=== PATIENT | male | born 1980 | race Caucasian/White ===

== ENCOUNTER 2017-12-27 02:58 | Emergency (ER) | payer OTHER ==
[~2017-12-27] VITALS: Ht 182.9 cm; Wt 120.2 kg
[~2017-12-27 02:58] MED LIST: DILAUDID2 MG PO; DILAUDID4 MG PO; FLEXERIL10 MG PO; LYRICA75 MG PO; MEDROL4 M1 PO
[2017-12-27] MEDS ORDERED: CLONIDINE HCL0.1 MG (03:14)
[2017-12-27] MEDS ORDERED: PANTOPRAZOLE SO20 MG PO (03:15)
[2017-12-27] MEDS ORDERED: PERCOCET 5-3251 EACH (03:21)
== END 2017-12-27 03:37 | disposition home or self-care (01) ==
LOC: ED 02:58
DX: M54.5 Low back pain (principal); Z87.891 Personal history of nicotine dependence; Z79.899 Other long term (current) drug therapy
CPT/HCPCS: 99282

== ENCOUNTER 2018-01-23 11:28 | Emergency (ER) | payer OTHER ==
[~2018-01-23] VITALS: Ht 182.9 cm; Wt 108.9 kg
[~2018-01-23 11:28] MED LIST changes: +CLONIDINE HCL0.1 MG; +PANTOPRAZOLE SO20 MG PO; +PERCOCET 5-3251 EACH
[2018-01-23] MEDS ORDERED: AMBIEN10 MG PO (12:08)
== END 2018-01-23 17:49 | disposition home or self-care (01) ==
LOC: ED 11:28
DX: Z00.8 Encounter for other general examination (principal); Z87.891 Personal history of nicotine dependence; Z79.899 Other long term (current) drug therapy
CPT/HCPCS: 80053; 80176; 81001; 84443; 85025; 99283; G0480

== ENCOUNTER 2018-06-28 12:43 | Emergency (ER) | payer MEDICARE ==
[~2018-06-28] VITALS: Ht 182.9 cm; Wt 117.9 kg
[~2018-06-28 12:43] MED LIST changes: +AMBIEN10 MG PO
== END 2018-06-28 16:47 | disposition home or self-care (01) ==
LOC: ED 12:43
DX: G89.29 Other chronic pain (principal); M54.5 Low back pain; R45.1 Restlessness and agitation; Z79.899 Other long term (current) drug therapy
CPT/HCPCS: 80053; 80176; 81001; 85025; 87077; 87088; 87186; 96374; 99283; G0480; J1170

== ENCOUNTER 2018-12-18 08:32 | Emergency (ER) | payer OTHER ==
[~2018-12-18] VITALS: Ht 182.9 cm; Wt 108.0 kg
[~2018-12-18 08:32] MED LIST changes: -AMBIEN10 MG PO; +AMBIEN5 MG PO; +CATAPRES0.1 MG PO; -CLONIDINE HCL0.1 MG; +CLONIDINE HCL0.1 MG PO; +COLACE100 MG PO; +CYCLOBENZAPRINE10 MG PO; +CYMBALTA60 MG PO; +MAPAP325 MG PO; +OXYCODONE HCL10 MG PO; -PANTOPRAZOLE SO20 MG PO; +PANTOPRAZOLE SO40 MG PO; -PERCOCET 5-3251 EACH; +SEROQUEL25 MG PO; +SEROQUEL400 MG PO
--- OUTSIDE RECORDS SUMMARY | 2018-12-18 08:34 | XMS ---
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 Landy VISIT COUNT (12 MO.) 2 Tammy Desir TOTAL 7 NOTE: Visits indicate total known visits. ED/UCC VISIT TRACKING (12 MO.) 12/18/2018 08:33 [facility] COMPLAINT: - ABD PAIN 10/09/2018 12:39 [facility] [place] TYPE: Emergency DIAGNOSES: - Back Pain - Fall (on) (from) other stairs and steps, initial encounter - Arthrodesis status - Contusion of left back wall of thorax, initial encounter - severe back pain 08/08/2018 15:26 [facility] Paula Macedo [place] TYPE: Emergency DIAGNOSES: - Procedure and treatment not carried out due to patient leaving prior to being seen by health care provider - post op abd pain 08/06/2018 11:47 [facility] [place] TYPE: Emergency COMPLAINT: - ABD PAIN,BILAT NUMBNESS 06/28/2018 12:43 [facility] [place] TYPE: Emergency COMPLAINT: - MEDICAL CLEARANCE DIAGNOSES: - Low back pain - Restlessness and agitation - Encounter for other general examination - 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 - Encounter for other general examination - Other chronic pain 01/23/2018 11:28 [facility] [place] TYPE: Emergency COMPLAINT: - MEDICAL CLEARANCE DIAGNOSES: - Other shelter (current) drug therapy - Personal history of nicotine dependence - Encounter for other general examination 12/27/2017 02:59 [facility] [place] TYPE: Emergency COMPLAINT: - BACK PAIN,NO RECENT INJURY DIAGNOSES: - Personal history of nicotine dependence - 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
[2018-12-18] MEDS ORDERED: ONDANSETRON ODT4 MG PO (12:23)
== END 2018-12-18 12:30 | disposition home or self-care (01) ==
LOC: ED 08:32
DX: R10.9 Unspecified abdominal pain (principal); R11.10 Vomiting, unspecified; Z79.899 Other long term (current) drug therapy
CPT/HCPCS: 74176; 80048; 81001; 85025; 96361; 96374; 96375; 96376; 99284-25; J0780; J1170; J1885; J2405; J2550; J7030

== ENCOUNTER 2019-04-09 15:25 | Emergency (ER) | payer OTHER ==
[~2019-04-09] VITALS: Ht 182.9 cm; Wt 99.8 kg
[~2019-04-09 15:25] MED LIST changes: +ONDANSETRON ODT4 MG PO
--- OUTSIDE RECORDS SUMMARY | 2019-04-09 15:28 | XMS ---
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 Care History Medical/Surgical 12/19/2018 [facility] - PATIENT IS A [place] PATIENT- PATIENT PCP IS DR SINGH OUT OF [facility]. - WALK IN AVAILABILITY IS OFFERED AT [facility] MONDAY THRU MONDAY AND TRANSPORTATION CAN BE PROVIDED TO VETERANS. - PLEASE REFER PATIENT TO PCP FOR NON EMERGENT MEDICAL NEEDS. E.D. VISIT COUNT (12 MO.) 1 Tammy Pond M.C. 2 [place]ia Herrera M.C. 4 MANUEL [place] Nichole TOTAL 7 NOTE: Visits indicate total known visits. ED/UCC VISIT TRACKING (12 MO.) 04/09/2019 15:25 [facility] [place] TYPE: Emergency COMPLAINT: - EYE PAIN 03/29/2019 17:07 Tammy Dubon M.C[facility] TYPE: Emergency DIAGNOSES: - Strain of adductor muscle, fascia and tendon of left thigh, initial encounter - Scrotal varices - Testicle Injury 12/18/2018 08:33 [facility] TYPE: Emergency COMPLAINT: - ABD PAIN DIAGNOSES: - Other penitentiary (current) drug therapy - Vomiting, unspecified - Unspecified abdominal pain 10/09/2018 12:39 [facility] DIAGNOSES: - Back Pain - Fall (on) (from) other stairs and steps, initial encounter - Arthrodesis status - Contusion of left back wall of thorax, initial encounter - severe back pain 08/08/2018 15:26 [facility] DIAGNOSES: - Procedure and treatment [...] Encounter for other general examination - Other manager intermediate (current) drug therapy - Encounter for other general examination - Other chronic pain INPATIENT VISIT TRACKING (12 MO.) 03/27/2019 13:35 [facility] [place] TYPE: Psychiatric Services DIAGNOSES: 0. Post-traumatic stress disorder, unspecified 0. Opioid dependence, uncomplicated 08/06/2018 11:[address] 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
== END 2019-04-09 16:50 | disposition left against medical advice (07) ==
LOC: ED 15:25
DX: H57.10 Ocular pain, unspecified eye (principal); Z53.21 Procedure and treatment not carried out due to patient leaving prior to being seen by health care provider

== ENCOUNTER 2019-07-01 20:04 | Emergency (ER) | payer OTHER ==
[~2019-07-01] VITALS: Ht 182.9 cm; Wt 108.9 kg
--- OUTSIDE RECORDS SUMMARY | 2019-07-01 20:06 | XMS ---
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 CRITERIA MET - Group Notification - [facility] - Has Care Guidelines CARE PROVIDERS CONI SINGH [facility] 06/29/2018-Current PHONE: Unknown Coni Singh MD Primary Care Current PHONE: [phone] Hue has no Care Guidelines for this patient. Care History Medical/Surgical 12/19/2018 [facility] - PATIENT IS A [place] PATIENT- PATIENT PCP IS DR SINGH OUT OF [facility]. - WALK IN AVAILABILITY IS OFFERED AT THE [facility] MONDAY THRU MONDAY AND TRANSPORTATION CAN BE PROVIDED TO VETERANS. - PLEASE REFER PATIENT TO PCP FOR NON EMERGENT MEDICAL NEEDS. E.D. VISIT COUNT (12 MO.) 1 Tammy Pond M.C. 2 Barclaynatalia Herrera M.C. 4 MANUEL Desir TOTAL 7 NOTE: Visits indicate total known visits. ED/UCC VISIT TRACKING (12 MO.) 07/01/2019 20:04 [facility] TYPE: Emergency COMPLAINT: - TESTICULAR PAIN 04/09/2019 15:25 [facility] TYPE: Emergency COMPLAINT: - EYE PAIN DIAGNOSES: - Procedure and treatment not carried out due to patient leaving prior to being seen by health care provider - Ocular pain, unspecified eye 03/29/2019 17:07 [facility] MONY Macedo TYPE: Emergency DIAGNOSES: - Strain of adductor muscle, fascia and tendon of left thigh, initial encounter - Scrotal varices - Testicle Injury 12/18/2018 08:33 [facility]: Emergency COMPLAINT: - ABD PAIN DIAGNOSES: - Other alf (current) drug therapy - Vomiting, unspecified - Unspecified abdominal pain 10/09/2018 12:39 [facility] [place] TYPE: Emergency DIAGNOSES: - Back Pain - Fall (on) (from) other stairs and steps, initial encounter - Arthrodesis status - Contusion of left back wall of thorax, initial encounter - severe back pain 08/08/2018 15:26 [place] [facility] [place] TYPE: Emergency DIAGNOSES: - Procedure and treatment not carried out due to patient leaving prior to being seen by health care provider - post op abd pain 08/06/2018 11:47 MANUEL Tran TYPE: Emergency COMPLAINT: - ABD PAIN,BILAT NUMBNESS INPATIENT VISIT TRACKING (12 MO.) 03/27/2019 13:35 [facility] [place] TYPE: Psychiatric Services DIAGNOSES: 0. Post-traumatic stress disorder, chronic 0. Post-traumatic stress disorder, unspecified 0. Opioid dependence, uncomplicated 1. Post-traumatic stress disorder, chronic 2. Radiculopathy, lumbar region 2. Other place in hospital as the place of occurrence of the external cause 2. Other external cause status 2. Exposure to other specified factors, initial encounter 2. Other chronic pain 2. Major depressive disorder, single episode, unspecified 2. Strain of adductor muscle, fascia and tendon of unspecified thigh, initial encounter 2. Low back pain 2. 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
== END 2019-07-01 20:56 | disposition left against medical advice (07) ==
LOC: ED 20:04
DX: N50.812 Left testicular pain (principal); Z79.899 Other long term (current) drug therapy
CPT/HCPCS: 81001; 99284

== ENCOUNTER 2019-07-04 19:13 | Emergency (ER) | payer OTHER ==
[~2019-07-04] VITALS: Ht 182.9 cm; Wt 108.9 kg
--- OUTSIDE RECORDS SUMMARY | 2019-07-04 19:16 | XMS ---
PreManage Notification: ROBERT STOCK Security Care Program Resident Events 2 event(s) in the past 18 months Most recent security events: Elopement at [facility] 07/01/2019 20:04 - Other Details: PATIENT LEFT AMA. IRIS CREATED Elopement at [facility] 04/09/2019 15:25 - Other Details: PATIENT LWBS. CRITERIA MET - Group Notification - [facility] - Has Care Guidelines - [facility] - 2 Visits in 30 Days CARE PROVIDERS CONI SINGH Family Medicine 06/29/2018-Current PHONE: Unknown Coni Singh MD Primary Care Current PHONE: [phone] Hue has no Care Guidelines for this patient. Care History Medical/Surgical 12/19/2018 [facility] - PATIENT IS A [place] PATIENT- PATIENT PCP IS DR SINGH OUT OF [facility]. - WALK IN AVAILABILITY IS OFFERED AT THE [facility] MONDAY THRU MONDAY AND TRANSPORTATION CAN BE PROVIDED TO VETERANS. - PLEASE REFER PATIENT TO PCP FOR NON EMERGENT MEDICAL NEEDS. E.D. VISIT COUNT (12 MO.) [address] [place] 2 [facility] 5 MANUEL Desir TOTAL 8 NOTE: Visits indicate total known visits. ED/UCC VISIT TRACKING (12 MO.) 07/04/2019 19:14 [facility] TYPE: Emergency COMPLAINT: - BACK PAIN 07/01/2019 20:04 [facility] TYPE: Emergency COMPLAINT: - TESTICULAR PAIN DIAGNOSES: - Left testicular pain - Other custodial (current) drug therapy 04/09/2019 15:25 [facility] TYPE: Emergency COMPLAINT: - EYE PAIN DIAGNOSES: - Procedure and treatment not carried out due to patient leaving prior to being seen by health care provider - Ocular pain, unspecified eye 03/29/2019 17:07 [facility] MONY Macedo TYPE: Emergency DIAGNOSES: - Strain of adductor muscle, fascia and tendon of left thigh, initial encounter - Scrotal varices - Testicle Injury 12/18/2018 08:33 [facility] TYPE: Emergency COMPLAINT: - ABD PAIN DIAGNOSES: - Other custodial (current) drug therapy - Vomiting, unspecified - Unspecified abdominal pain 10/09/2018 12:39 [facility] [place]: Emergency DIAGNOSES: - Back Pain - Fall (on) (from) other stairs and steps, initial encounter - Arthrodesis status - Contusion of left back wall of thorax, initial encounter - severe back pain 08/08/2018 15:26 [facility] [place] TYPE: Emergency DIAGNOSES: - Procedure and treatment not carried out due to patient leaving prior to being seen by health care provider - post op abd pain 08/06/2018 11:47 MANUEL Tran TYPE: Emergency COMPLAINT: - ABD PAIN,BILAT NUMBNESS INPATIENT VISIT TRACKING (12 MO.) 03/27/2019 13:35 [facility] [place] TYPE: Psychiatric Services DIAGNOSES: 0. 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
[2019-07-04] MEDS ORDERED: CIPRO500 MG PO (20:11)
== END 2019-07-04 20:23 | disposition home or self-care (01) ==
LOC: ED 19:13
DX: N45.1 Epididymitis (principal); Z79.899 Other long term (current) drug therapy
CPT/HCPCS: 99283

== ENCOUNTER 2019-09-17 23:20 | Emergency (ER) | payer OTHER ==
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
--- OUTSIDE RECORDS SUMMARY | ~2019-09-17 | XMS | Encounter Summary ---
Demographics + + + | Address | [address] | | | [place] [address] | + + + | Home Phone | | + + + | Preferred Language | Unknown | + + + | Marital Status | Legally | + + + | Anabaptism Affiliation | Unknown | + + + | Race | Unknown | + + + | Ethnic Group | Unknown | + + + Author + + + | Author | [facility] | | | and [place] | + + + | Organization | [facility] | | | and [place] [...] [place], [place] | | | | | [address] | | + + + + + Care Team Providers + +------+ + | Care Rv Repairer Name | Role | Phone | + +------+ + | Basilio Cuevas PA-C | PCP | | + +------+ + Reason for Visit + + + | Reason | Comments | + + + | Follow-up | PO discuss medications | + + + Encounter Details +--------+---------+ + + + | Date | Type | Department | Care Team | Description | +--------+---------+ + + + | 03/17/ | Office | [facility] | Toribio Dick, | Pseudoarthrosis of | | 2013 | Visit | NEUROSURGERY [address] | PA-C [address] | lumbar spine, with | | | | [address] | [place] | routine healing, | | | | [place], [place] | [address] | subsequent encounter | | | | [address] | | (Primary Dx); S/P | | | | [phone] | | lumbar fusion; | | | | | | Lumbar radicular | | | | | | pain | +--------+---------+ + + + Social History + + + +--------+ + | Tobacco Use | Types | Packs/Day | Years | Date | | | | | Used | | + + + +--------+ + | Former Smoker | Cigarettes | 0.5 | 1 | Quit: 01/20/2014 | + + + +--------+ + + +---+---+---+ | Smokeless Tobacco: | | | | | Never Used | | | | + +---+---+---+ + + +---------+ + | Alcohol Use [...] + + + | Blood Pressure | 128/103 | 03/17/2014 11:26 AM | | | | | PDT | | + + + + + | Pulse | 101 | 03/17/2014 11:26 AM | | | | | PDT | | + + + + + | Temperature | - | - | | + + + + + | Respiratory Rate | 14 | 03/17/2014 11:26 AM | | | | | PDT | | + + + + + | Oxygen Saturation | - | - | | + + + + + | Inhaled Oxygen | - | - | | | Concentration | | | | + + + + + | Weight | 106.1 kg (234 lb) | 03/17/2014 11:26 AM | | | | | PDT | | + + + + + | Height | 182.9 cm (6') | 03/17/2014 11:26 AM | | | | | PDT | | + + + + + | Body Mass Index | 31.74 | 03/17/2014 11:26 AM | | | | | PDT | | + + + + + documented in this encounter Patient Instructions Patient Instructions Toribio Dick PA-C - 03/17/2014 11:44 AM PDTPlease work on taperi ng down your medications next week.Electronically signed by Toribio Dick PA-C at 2013 11:44 AM PDT documented in this encounter Progress Notes Toribio Dick PA-C - 03/17/2014 11:46 AM PDTPatient here for medications refill and to discuss the weaning process. Patient has been very successful weaning off medications prio r to surgery, but he started PT last week and is feeling tender. A/p: S/p lumbar fusion Medications refilled today with plan to taper medications next week Pt report that he has d/c'd Valium.Electronically signed by Toribio Dick PA-C at 03/17 11:49 AM PDTdocumented in this encounter Plan of Treatment Not on filedocumented as of this encounter Visit Diagnoses + + | Diagnosis | + + | Pseudoarthrosis of lumbar spine, with routine healing, subsequent encounter - Primary | + + | S/P lumbar fusion Arthrodesis status | + + | Lumbar radicular pain Thoracic or lumbosacral neuritis or radiculitis, unspecified | + + documented in this encounter"
--- OUTSIDE RECORDS SUMMARY | ~2019-09-17 | XMS | Encounter Summary ---
Demographics + + + | Address | [address] | | | [place] [address] | + + + | Home Phone | | + + + | Preferred Language | Unknown | + + + | Marital Status | Legally | + + + | Bahai Affiliation | Unknown | + + + | Race | Unknown | + + + | Ethnic Group | Unknown | + + + Author + + + | Author | [facility] | | | and [place] | + + + | Organization | [facility] | | | and [place] [...] [place], [place] | | | | | [address] | | + + + + + Care Team Providers + +------+ + | Care Inspector Motor Vehicles Name | Role | Phone | + +------+ + | Basilio Cuevas PA-C | PCP | | + +------+ + Encounter Details +--------+ + + + + | Date | Type | Department | Care Team | Description | +--------+ + + + + | 04/20/ | Hospital | [facility] | Conversion | Pain | | 2018 | Encounter | CONVERSION [address] | Transaction, | | | | | [address] | Provider Unknown | | | | | [place] | [phone] | | | | | [address] | | | | | | [phone] | | | +--------+ + + + + Social History + + [...] + + documented as of this encounter Medications at Time of Discharge + + + +---------+ + + | Medication | Sig | Dispensed | Refills | Start | End Date | | | | | | Date | | + + + +---------+ + + | cloNIDine | clonidine HCl 0.1 mg | | 0 | 02/06/20 | | | (CATAPRES) 0.1 mg | tablet 0.5 mg by | | | 18 | | | tablet | oral route. | | | | | + + + +---------+ + + | cyanocobalamin | Take 1 tablet by | 30 | 0 | 11/08/19 | | | (VITAMIN B-12) 1000 | mouth Daily. | tablet | | 15 | | | MCG tablet | | | | | | + + + +---------+ + + | folic acid | Take 1 tablet by | 30 | 0 | 11/08/19 | | | (FOLVITE) 400 MCG | mouth Daily. | tablet | | 15 | | | tablet | | | | | | + + + +---------+ + + | | Take 1-2 tablets by | 15 | 0 | 11/08/19 | | | HYDROcodone-acetamin | mouth every 6 hours | tablet | | 15 | | | ophen (NORCO) 5-325 | as needed for Pain. | | | | | | mg per tablet | | | | | | + + + +---------+ + + | pantoprazole | pantoprazole 40 mg | | 0 | 11/08/19 | | | (PROTONIX) 40 mg | tablet,delayed | | | 15 | | | tablet | release 40 mg by | | | | | | | oral route. | | | | | + + + +---------+ + + | pantoprazole | Take 1 tablet by | 60 | 0 | 11/08/19 | | | (PROTONIX) 40 mg | mouth 2 times daily | tablet | | 15 | | | tablet | (before meals). | | | | | + + + +---------+ + + | QUEtiapine | Seroquel 400 mg | | 0 | 03/01/20 | | | (SEROQUEL) 400 MG | tablet 200 mg by | | | 18 | | | tablet | oral route. | | | | | + + + +---------+ + + documented as of this encounter Plan of Treatment Not on filedocumented as of this encounter Procedures + +--------+ + + + | Procedure Name | Priori | Date/Time | Associated Diagnosis | Comments | | | ty | | | | + +--------+ + + + | MRI LUMBAR SPINE W | Routin | 10/31/2017 | | Results for this | | WO CONTRAST | e | 4:51 AM | | procedure are in the | | | | PST | | results section. | + +--------+ + + + documented in this encounter Results MRI Lumbar Spine w wo Contrast (10/31/2017 4:51 AM PST) + + | Specimen | + + | | + + + + + | Narrative | Performed At | + + + | This is a non-reportable procedure without a radiologist report and | | | is used for image storage only | | + + + + + | Procedure Note | + + | Charan Waldrop - 06/12/2019 7:51 AM PDT This is a non-reportable procedure | | without a radiologist report and isused for image storage only | + + documented in this encounter Visit Diagnoses + + | Diagnosis | + + | Pain Generalized pain | + + documented in this encounter"
--- OUTSIDE RECORDS SUMMARY | ~2019-09-17 | XMS | Encounter Summary ---
Demographics + + + | Address | [address] | | | [place] [address] | + + + | Home Phone | | + + + | Preferred Language | Unknown | + + + | Marital Status | Legally | + + + | Episcopalian Affiliation | Unknown | + + + | Race | Unknown | + + + | Ethnic Group | Unknown | + + + Author + + + | Author | [facility] | | | and [place] | + + + | Organization | [facility] | | | and [place] [...] [place], [place] | | | | | [address] | | + + + + + Care Team Providers + +------+ + | Care Strategic Sourcing Manager Name | Role | Phone | + +------+ + | Mynor Simental MD | PCP | | + +------+ + Reason for Visit + + + | Reason | Comments | + + + | Back Pain | follow up | + + + | Medication | follow up on pain med | | Management | | + + + | Flu Vaccine | | + + + Encounter Details +--------+---------+ + + + | Date | Type | Department | Care Team | Description | +--------+---------+ + + + | 08/29/ | Office | [facility] | Mynor Simental, | Chronic low back | | 2012 | Visit | [facility] | [address] | pain (Primary Dx) | | | | [address] | [place] | | | | | [place] | [address] | | | | | [address] | | | | | | [phone] | | | +--------+---------+ + + + Social History + + + +--------+------+ | Tobacco Use | Types | Packs/Day | Years | Date | | | | | Used | | + + + +--------+------+ | Current Every Day | Cigarettes | 1 | 1 | | | Smoker | [...] + + + | Blood Pressure | 140/78 | 08/29/2013 2:56 PM | | | | | PDT | | + + + + + | Pulse | 85 | 08/29/2013 2:56 PM | | | | | PDT | | + + + + + | Temperature | 36.9 C (98.5 F) | 08/29/2013 2:56 PM | | | | | PDT | | + + + + + | Respiratory Rate | 16 | 08/29/2013 2:56 PM | | | | | PDT | | + + + + + | Oxygen Saturation | - | - | | + + + + + | Inhaled Oxygen | - | - | | | Concentration | | | | + + + + + | Weight | 115 kg (253 lb 8 oz) | 08/29/2013 2:56 PM | | | | | PDT | | + + + + + | Height | - | - | | + + + + + | Body Mass Index | 34.38 | 08/19/2013 1:57 PM | | | | | PDT | | + + + + + documented in this encounter Progress Notes Mynor Simental MD - 08/29/2013 3:16 PM PDTFormatting of this note might be different fr om the original. Subjective: Patient ID: Fili Alonso is a 32 y.o. male here to follow-up on back pain. HPI He continues to have low back pain which radiates to his "sacrum." Worse in the morning de scribed as an "ache, really bad burn" which can become sharp. He is taking ibuprofen - he i s unsure how much - though sometimes 5-6 times per day. No saddle paresthesias, bowel/bladd er dysfunction, LE paresthesias. He is not interested in trying TCA's, gabapentin, Lyrica, Tramadol. He is adamant he needs something stronger. When asked if he is taking anything s tronger, he informs me he is not. When asked about his U-tox result, he does recall taking left over hydrocodone. He apologizes for forgetting to mention this at our last visit. Patient's medications, allergies, past medical, surgical, social and family histories were reviewed and updated as appropriate. Review of Systems See HPI BP 140/78 | Pulse 85 | Temp 36.9 C (98.5 F) (Temporal) | Resp 16 | Wt 114.987 kg (253 l b 8 oz) Objective: Physical Exam Constitutional: He appears well-developed and well-nourished. No distress. Musculoskeletal: Symmetric LE strength. Able to squat. Neurological: Gait from building to truck normal. Assessment: Fili was seen today for back pain, medication management and flu vaccine. Diagnoses and associated orders for this visit: Chronic low back pain: History of laminectomy. He reports that [facility] attributed his pain to hardware and the plan was for the hardware to be removed. I do not yet have outside records. He has appointment with Dr Amaya scheduled. I do not have o utside records to confirm this. No symptoms of cauda equina. - I explained that given his u-tox result and lack of forthcoming I would not prescribed n arcotics for his chronic pain. I offered numerous non-narcotic alternatives (TCA's, gabapen tin, Lyrica, PT) and did even offer tramadol. He declined them all, stating they have all f mimi in the past. He was frustrated that I would not prescribe narcotics, but was polite t hroughout the entire visit. Osito Simental MD Kristen Carroll Mas [address] Superfeedr - 08/29/2013 2:59 PM PDTPatient is here to follow up on back pain and is reques ting medication to help with pain. He would like a flu vaccine today. documented in this encounter Plan of Treatment Not on filedocumented as of this encounter Visit Diagnoses + + | Diagnosis | + + | Chronic low back pain - Primary Lumbago | + + documented in this encounter
--- OUTSIDE RECORDS SUMMARY | ~2019-09-17 | XMS | Encounter Summary ---
Demographics + + + | Address | [address] | | | [place] [address] | + + + | Home Phone | | + + + | Preferred Language | Unknown | + + + | Marital Status | Legally | + + + | Adventism Affiliation | Unknown | + + + | Race | Unknown | + + + | Ethnic Group | Unknown | + + + Author + + + | Author | [facility] | | | and [place] | + + + | Organization | [facility] | | | and [place] [...] [place], [place] | | | | | [address] | | + + + + + Care Team Providers + +------+ + | Care Cdl Company Driver Name | Role | Phone | + +------+ + | Mynor Simental MD | PCP | | + +------+ + Encounter Details +--------+ + + + + | Date | Type | Department | Care Team | Description | +--------+ + + + + | 08/19/ | Hospital | [facility] | Judah Garcia MD | Chronic low back | | 2012 | Encounter | [facility] | [address] [place] [address] | pain | | | | [address] [place] | [place] | | | | | [place], [place] | [address] | | | | | [address] | | | | | | [phone] | Mynor Simental, | | | | | | [address] | | | | | | [place] | | | | | | [address] | | | | | | | | +--------+ + + + [...] | + +--------+ + + + | DRUGS OF ABUSE, | Routin | 08/19/2013 | | Results for this | | OPIATES, COMPLIANCE | e | 4:08 PM | | procedure are in the | | TESTING | | PDT | | results section. | + +--------+ + + + | DRUGS OF ABUSE, | Routin | 08/19/2013 | Chronic low back | Results for this | | OPIATES, COMPLIANCE | e | 4:08 PM | pain | procedure are in the | | TESTING | | PDT | | results section. | + +--------+ + + + | DRUGS OF ABUSE, | Routin | 08/19/2013 | | Results for this | | SCREEN, URINE | e | 4:08 PM | | procedure are in the | | | | PDT | | results section. | + +--------+ + + + | DRUGS OF ABUSE, | Routin | 08/19/2013 | Chronic low back | Results for this | | SCREEN, URINE | e | 4:08 PM | pain | procedure are in the | | | | PDT | | results section. | + +--------+ + + + documented in this encounter Results Drugs of Abuse, Opiates, Compliance Testing (08/19/2013 4:08 PM PDT) + + + + + + | Component | Value | Ref Range | Performed | Pathologist | | | | | At | Signature | + + + + + + | CODEINE, | NegativeComment: Cutoff: | NEG ng/mL | [facility] | | | GC/MS | 75 ng/mL | | [facility] | | | | | | MEDICAL | | | | | | CENTER - | | | | | | LABORATORY | | + + + + + + | Morphine | NegativeComment: Cutoff: | NEG ng/mL | [facility] | | | Urine | 75 ng/mL | | [facility] | | | | | | MEDICAL | | | | | | CENTER - | | | | | | LABORATORY | | + + + + + + | Hydrocodone | Positive (H) | NEG ng/mL | [facility] | | | | Comment: | | [facility] | | | | RESULT: 127 | | MEDICAL | | | | Cutoff: 75 ng/mL | | CENTER - | | | | | | LABORATORY | | + + + + + + | Hydromorpho | Positive (H) | NEG ng/mL | [facility] | | | ne | Comment: | | [facility] | | | | RESULT: 305 | | MEDICAL | | | | Cutoff: 75 ng/mL | | CENTER - | | | | | | LABORATORY | | + + + + + + | OXYCODONE | NegativeComment: Cutoff: | NEG ng/mL | [facility] | | | (GC/MS) | 75 ng/mL | | [facility] | | | | | | MEDICAL | | | | | | CENTER - | | | | | | LABORATORY | | + + + + + + | Oxymorphone | NegativeComment: Cutoff: | NEG ng/mL | [facility] | | | LCMS | 75 ng/mL | | [facility] | | | | | | MEDICAL | | | | | | CENTER - | | | | | | LABORATORY | | + + + + + + | 6-ERAN, | NegativeComment: Cutoff: | () ng/mL | [facility] | | | Confirm, | 10 ng/mL Testing | | [facility] | | | Urine | Performed: [facility] | | MEDICAL | | | | [address] [place] | | CENTER - | | | | [id number] CLIA: [id number] | | LABORATORY | | | | | | | | + + + + + + + + | Specimen | + + | | + + + + + + + | Performing | Address | City/State/Zipcode | Phone Number | | Organization | | | | + + + + + | [facility] | [address] | [place] | [phone] | | [facility] | | [address] | | | - LABORATORY | | | | + + + + + | [facility] | [address] | [place], [place] | | | [facility] | | [address] | | | - LABORATORY | | | | + + + + + Drugs of Abuse, Screen, Urine (08/19/2013 4:08 PM PDT) + + + + + + | Component | Value | Ref Range | Performed | Pathologist | | | | | At | Signature | + + + + + + | Amphetamine | NEGATIVE | NEGATIVE | [facility] | | | Screen, | | | [facility] | | | Urine | | | MEDICAL | | | | | | CENTER - | | | | | | LABORATORY | | + + + + + + | Barbiturate | NEGATIVE | NEGATIVE | [facility] | | | s Screen, | | | [facility] | | | Urine | | | MEDICAL | | | | | | CENTER - | | | | | | LABORATORY | | + + + + + + | Benzodiazep | NEGATIVE | NEGATIVE | [facility] | | | yosef | | | [facility] | | | Screen, | | | MEDICAL | | | Urine | | | CENTER - | | | | | | LABORATORY | | + + + + + + | Cannabinoid | NEGATIVE | NEGATIVE | [facility] | | | s Screen, | | | [facility] | | | Urine | | | MEDICAL | | | | | | CENTER - | | | | | | LABORATORY | | + + + + + + | Cocaine | NEGATIVE | NEGATIVE | [facility] | | | Metabolite | | | [facility] | | | | | | MEDICAL | | | | | | CENTER - | | | | | | LABORATORY | | + + + + + + | Methadone | NEGATIVE | NEGATIVE | [facility] | | | Screen, | | | [facility] | | | Urine | | | MEDICAL | | | | | | CENTER - | | | | | | LABORATORY | | + + + + + + | Opiates | POSITIVEComment: The | NEGATIVE | [facility] | | | Screen, | following drugs or | | [facility] | | | Urine | classes were screened | | MEDICAL | | | | for by immunoassay at | | CENTER - | | | | these cutoff | | LABORATORY | | | | concentrations: | | | | | | Amphetamines | | | | | | 1000 ng/mL | | | | | | Barbiturates | | | | | | 200 ng/mL | | | | | | Benzodiazepines | | | | | | 200 ng/mL | | | | | | Cannabinoids | | | | | | 50 ng/mL | | | | | | Cocaine Metabolite | | | | | | 300 ng/mL | | | | | | Methadone | | | | | | 300 ng/mL | | | | | | Opiates | | | | | | 300 ng/mL | | | | | | This emergency urinary | | | | | | drug screen will not | | | | | | exclude drugs at | | | | | | levels below the | | | | | | cut-off point for | | | | | | screening, and may not | | | | | | correlate with current | | | | | | blood levels. These | | | | | | results should not be | | | | | | used for non-medical | | | | | | purposes. For important | | | | | | clinical decisions, | | | | | | confirmation by separate | | | | | | assay should be done. | | | | | | | | | | + + + + + + + + | Specimen | + + | | + + + + + + + | Performing | Address | City/State/Zipcode | Phone Number | | Organization | | | | + + + + + | [facility] | [address] | [place] | [phone] | | [facility] | | [address] | | | - LABORATORY | | | | + + + + + | [facility] | [address] | [place] | | | [facility] | | [address] | | | - LABORATORY | | | | + + + + + Drugs of Abuse, Screen, Urine (08/19/2013 4:08 PM PDT) + + + + + + | Component | Value | Ref Range | Performed | Pathologist | | | | | At | Signature | + + + + + + | Amphetamine | NEGATIVE | NEGATIVE | [facility] | | | Screen, | | | [facility] | | | Urine | | | MEDICAL | | | | | | CENTER - | | | | | | LABORATORY | | + + + + + + | Barbiturate | NEGATIVE | NEGATIVE | [facility] | | | s Screen, | | | [facility] | | | Urine | | | MEDICAL | | | | | | CENTER - | | | | | | LABORATORY | | + + + + + + | Benzodiazep | NEGATIVE | NEGATIVE | [facility] | | | yosef | | | [facility] | | | Screen, | | | MEDICAL | | | Urine | | | CENTER - | | | | | | LABORATORY | | + + + + + + | Cannabinoid | NEGATIVE | NEGATIVE | [facility] | | | s Screen, | | | [facility] | | | Urine | | | MEDICAL | | | | | | CENTER - | | | | | | LABORATORY | | + + + + + + | Cocaine | NEGATIVE | NEGATIVE | [facility] | | | Metabolite | | | [facility] | | | | | | MEDICAL | | | | | | CENTER - | | | | | | LABORATORY | | + + + + + + | Methadone | NEGATIVE | NEGATIVE | [facility] | | | Screen, | | | [facility] | | | Urine | | | MEDICAL | | | | | | CENTER - | | | | | | LABORATORY | | + + + + + + | Opiates | POSITIVEComment: The | NEGATIVE | [facility] | | | Screen, | following drugs or | | [facility] | | | Urine | classes were screened | | MEDICAL | | | | for byimmunoassay at | | CENTER - | | | | these cutoff | | LABORATORY | | | | concentrations: | | | | | | Amphetamines | | | | | | 1000 ng/mL | | | | | | Barbiturates | | | | | | 200 ng/mL | | | | | | Benzodiazepines | | | | | | 200 ng/mL | | | | | | Cannabinoids | | | | | | 50 ng/mL | | | | | | Cocaine Metabolite | | | | | | 300 ng/mL Methadone | | | | | | 300 | | | | | | ng/mL Opiates | | | | | | 300 | | | | | | ng/mL This emergency | | | | | | urinary drug screen will | | | | | | not exclude drugs | | | | | | atlevels below the | | | | | | cut-off point for | | | | | | screening, and may | | | | | | notcorrelate with | | | | | | current blood levels. | | | | | | These results shouldnot | | | | | | be used for non-medical | | | | | | purposes. For important | | | | | | clinicaldecisions, | | | | | | confirmation by separate | | | | | | assay should be done. | | | | + + + + + + + + | Specimen | + + | Urine specimen | | (specimen) | + + + + + + + | Performing | Address | City/State/Zipcode | Phone Number | | Organization | | | | + + + + + | [facility] | [address] | [place], [place] | [phone] | | [facility] | | [address] | | | - LABORATORY | | | | + + + + + | [facility] | [address] | [place], [place] | | | [facility] | | [address] | | | - LABORATORY | | | | + + + + + Drugs of Abuse, Opiates, Compliance Testing (08/19/2013 4:08 PM PDT) + + + + + + | Component | Value | Ref Range | Performed | Pathologist | | | | | At | Signature | + + + + + + | CODEINE, | NegativeComment: Cutoff: | NEG ng/mL | [facility] | | | GC/MS | 75 ng/mL | | [facility] | | | | | | MEDICAL | | | | | | CENTER - | | | | | | LABORATORY | | + + + + + + | Morphine | NegativeComment: Cutoff: | NEG ng/mL | [facility] | | | Urine | 75 ng/mL | | [facility] | | | | | | MEDICAL | | | | | | CENTER - | | | | | | LABORATORY | | + + + + + + | Hydrocodone | Positive (A) | NEG ng/mL | [facility] | | | | Comment: | | [facility] | | | | RESULT: 127 | | MEDICAL | | | | Cutoff: 75 ng/mL | | CENTER - | | | | | | LABORATORY | | + + + + + + | Hydromorpho | Positive (A) | NEG ng/mL | [facility] | | | ne | Comment: | | [facility] | | | | RESULT: 305 | | MEDICAL | | | | Cutoff: 75 ng/mL | | CENTER - | | | | | | LABORATORY | | + + + + + + | OXYCODONE | NegativeComment: Cutoff: | NEG ng/mL | [facility] | | | (GC/MS) | 75 ng/mL | | [facility] | | | | | | MEDICAL | | | | | | CENTER - | | | | | | LABORATORY | | + + + + + + | Oxymorphone | NegativeComment: Cutoff: | NEG ng/mL | [facility] | | | LCMS | 75 ng/mL | | [facility] | | | | | | MEDICAL | | | | | | CENTER - | | | | | | LABORATORY | | + + + + + + | 6-ERAN, | NegativeComment: Cutoff: | () ng/mL | [facility] | | | Confirm, | 10 ng/mLTesting | | [facility] | | | Urine | Performed: [facility], [address] | | MEDICAL | | | | [address], [place] | | CENTER - | | | | [id number]: [id number] | | LABORATORY | | + + + + + + + + | Specimen | + + | Urine specimen | | (specimen) | + + + + + + + | Performing | Address | City/State/Zipcode | Phone Number | | Organization | | | | + + + + + | [facility] | [address] | [place] | [phone] | | [facility] | | [address] | | | - LABORATORY | | | | + + + + + | [facility] | [address] | [place] | | | [facility] | | [address] | | | - LABORATORY | | | | + + + + + documented in this encounter Visit Diagnoses + + | Diagnosis | + + | Chronic low back pain Lumbago | + + documented in this encounter"
--- OUTSIDE RECORDS SUMMARY | ~2019-09-17 | XMS | Encounter Summary ---
Demographics + + + | Address | [address] | | | [place] [address] | + + + | Home Phone | | + + + | Preferred Language | Unknown | + + + | Marital Status | Legally | + + + | Baptist Affiliation | Unknown | + + + | Race | Unknown | + + + | Ethnic Group | Unknown | + + + Author + + + | Author | [facility] | | | and [place] | + + + | Organization | [facility] | | | and [place] [...] [place], [place] | | | | | [address] | | + + + + + Care Team Providers + +------+ + | Care Toy Department Manager Name | Role | Phone | + +------+ + | Mynor Simental MD | PCP | | + +------+ + Encounter Details +--------+ + + + + | Date | Type | Department | Care Team | Description | +--------+ + + + + | [facility] | | | | 2013 | Encounter | MED CTR XRAY [address] | | | | | | [place] | | | | | | [place] [address] | | | | | | [phone] | | | +--------+ + + + [...] at Time of Discharge + + + +---------+--------+ + | Medication | Sig | Dispensed | Refills | Start | End Date | | | | | | Date | | + + + +---------+--------+ + | HYDROmorphone | Take 8 mg by mouth 2 | | 0 | | | | (DILAUDID) 8 mg | times daily. | | | | 4 | | tablet | | | | | | + + + +---------+--------+ + | lisinopril | Take 20 mg by mouth | | 0 | | | | (PRINIVIL, ZESTRIL) | Daily. | | | | 5 | | 20 mg tablet | | | | | | + + + +---------+--------+ + documented as of this encounter Plan of Treatment Not on filedocumented as of this encounter Procedures + +--------+ + + + | Procedure Name | Priori | Date/Time | Associated Diagnosis | Comments | | | ty | | | | + +--------+ + + + | US RENAL LIMITED | Routin | 11/18/2013 | | Results for this | | | e | 4:03 PM | | procedure are in the | | | | PST | | results section. | + +--------+ + + + documented in this encounter Results US Renal Limited (11/18/2013 4:03 PM PST) + + | Specimen | + + | | + + + + + | Narrative | Performed At | + + + | [facility] | [place] | | Department [address] [facility] [place] | [facility] | | [ rep [address]] [ rep [address] [facility] | | st zip] Signed | - IMAGING | | | | | Patient Name: FILI ALONSO Lily Physician: | | | : 1980 Age: 33 Sex: M Unit #: [id number] | | | Exam Date: 11/18/13 Location: [facility] [place] | | | Report #: [id number] Page: | | | %(RAD)RES..mtdd.print.filter("pg") of %(RAD) | | | RES..mtdd.print.filter("tpg") | | | | | | Accession Number: [id number] | | | RENAL ULTRASOUND, 11/18/2013 CLINICAL HISTORY: RIGHT FLANK | | | PAIN, KIDNEY STONE. COMPARISON: CT lumbar spine | | | 07/08/2013, CT abdomen and pelvis 01/23/2013. FINDINGS: | | | The right kidney measures 12.3 x 6.6 x 5.6 cm and the left kidney | | | measures 12.7 x 5.6 x 5.0 cm. Renal resistive indices are within | | | normal limits. No renal parenchymal abnormality is visible. Mild | | | prominence of the right renal pelvis is evident, without intrarenal | | | collecting system dilation. No left renal pelvicaliectasis is | | | evident. No conclusive renal calculus is evident. Splenomegaly is | | | incidentally noted, with a long-axis measurement of 15 cm. | | | The bladder is unremarkable in contour and appearance. A | | | postvoid residual volume of 51 mL is calculated. Bilateral | | | ureteral jets are observed during the study. IMPRESSION: | | | 1. MILD PROMINENCE OF THE RIGHT RENAL PELVIS WITHOUT INTRARENAL | | | COLLECTING SYSTEM DILATION, CONCLUSIVE RENAL CALCULUS OR VISIBLE | | | RENAL PARENCHYMAL ABNORMALITY. 2. 51 ML POSTVOID | | | BLADDER RESIDUAL. 3. SPLENOMEGALY. | | | Dictated Date/Time: 11/18/2013 16:03 Transcribed Date/Time: | | | 11/18/2013 18:25 Pacu Nurse: | | | <<Signature on File>> | | | Dawson Garrido | | | MD Judah11/19/13 0731 <Electronically signed by Dawson So MD> | | | Dawson So MD 11/18/13 3824 Pacu Nurse: | | | [facility]xt06/20/14 0014 Basilio Cuevas PA-C | | | | | + + + + + + + + | Performing | Address | City/State/Zipcode | Phone Number | | Organization | | | | + + + + + | [facility] | [address] | [place] | [phone] | | [facility] | | [address] | | | - IMAGING | | | | + + + + + documented in this encounter Visit Diagnoses Not on filedocumented in this encounter
--- OUTSIDE RECORDS SUMMARY | ~2019-09-17 | XMS | Encounter Summary ---
Demographics + + + | Address | [address] | | | [place] [address] | + + + | Home Phone | | + + + | Preferred Language | Unknown | + + + | Marital Status | Legally | + + + | Baptism Affiliation | Unknown | + + + | Race | Unknown | + + + | Ethnic Group | Unknown | + + + Author + + + | Author | [facility] | | | and [place] | + + + | Organization | [facility] | | | and [place] [...] [place], [place] | | | | | [address] | | + + + + + Care Team Providers + +------+ + | Care Tower Hand Name | Role | Phone | + +------+ + | Basilio Cuevas PA-C | PCP | | + +------+ + Reason for Visit + + + | Reason | Comments | + + + | Medication Refill | | + + + Encounter Details +--------+--------+ + + + | Date | Type | Department | Care Team | Description | +--------+--------+ + + + | 04/09/ | Refill | [facility] | Jean Pierre Amaya, | Medication Refill | | 2013 | | NEUROSURGERY [address] | DO [address] | | | | | [address] | [address] [place], [place] | | | | | [place], [place] | [address] | | | | | [address] | | | | | | [phone] | | | +--------+--------+ + + + Social History + + [...]
--- OUTSIDE RECORDS SUMMARY | ~2019-09-17 | XMS | Encounter Summary ---
Demographics + + + | Address | [address] | | | [place] [address] | + + + | Home Phone | | + + + | Preferred Language | Unknown | + + + | Marital Status | Legally | + + + | Advent Affiliation | Unknown | + + + | Race | Unknown | + + + | Ethnic Group | Unknown | + + + Author + + + | Author | [facility] | | | and [place] | + + + | Organization | [facility] | | | and [place] [...] [place], [place] | | | | | [address] | | + + + + + Care Team Providers + +------+ + | Care Residential Sales Representative Name | Role | Phone | + +------+ + | Basilio Cuevas PA-C | PCP | | + +------+ + Reason for Visit + + + | Reason | Comments | + + + | Abdominal Pain | | + + + Auth/Cert +--------+--------+ + + + + | Status | Reason | Specialty | Diagnoses / | Referred By | Referred To | | | | | Procedures | Contact | Contact | +--------+--------+ + + + + | Closed | | | Diagnoses | | [facility] | | | | | [facility] | | Surgical [address] | | | | | Upper GI | | [address] | | | | | bleeding | | [place], | | | | | | | [place] [address] | | | | | | | Phone: | | | | | | | [phone] | | | | | | | Fax: | | | | | | | [phone] | +--------+--------+ + + + + Encounter Details +--------+---------+ + + + | Date | Type | Department | Care Team | Description | +--------+---------+ + + + | 11/07/ | Surgery | [facility] | John Gallardo MD | EGD [id number] | | 2014 | | MED CTR [facility] OP | [address], [place] | | | | | [address] | [address] [place] | | | | | [place] | [address] | | | | | [address] | | | | | | [phone] | | | +--------+---------+ + + + [...] + + + | Blood Pressure | 136/79 | 11/08/2014 3:00 PM | | | | | PST | | + + + + + | Pulse | 77 | 11/08/2014 3:00 PM | | | | | PST | | + + + + + | Temperature | 36.7 C (98.1 F) | 11/08/2014 3:00 PM | | | | | PST | | + + + + + | Respiratory Rate | 20 | 11/08/2014 3:00 PM | | | | | PST | | + + + + + | Oxygen Saturation | 96% | 11/08/2014 3:00 PM | | | | | PST | | + + + + + | Inhaled Oxygen | - | - | | | Concentration | | | | + + + + + | Weight | 115.3 kg (254 lb 3.1 | 11/06/2014 12:33 PM | | | | oz) | PST | | + + + + + | Height | 182.9 cm (6') | 11/06/2014 12:33 PM | | | | | PST | | + + + + + | Body Mass Index | 34.47 | 11/06/2014 12:33 PM | | | | | PST | | + + + + + documented in this encounter Discharge Summaries Wilman Deng MD - 11/08/2014 5:47 PM PST [facility] DISCHARGE SUMMARY Pt. Name/Age/: Fili Alonso 34 y.o. 1980 Date of Admission: 11/06/2014 Date of Discharge: 11/08/2014 Admitting Physician: Wilman Deng MD Primary Care Provider: Basilio Cuevas Discharging Physician: Wilman Deng MD DISCHARGE DIAGNOSES: 1. Severe distal erosive esophagitis 2. 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 Untreated obstructive sleep apnea 4. History low back pain status post surgeries including L4-5 and L5-S1 laminectomy DISCHARGE MEDICATIONS: Discharge Medications As of 11/08/2014 17:47 New Medications Details cyanocobalamin 1000 MCG tablet Take 1 tablet by mouth Daily. aka: VITAMIN B-12 folic acid 400 MCG tablet Take 1 tablet by mouth Daily. aka: FOLVITE HYDROcodone-acetaminophen 5-325 mg per tablet Take 1-2 tablets by mouth every 6 hours as needed for Pain. aka: NORCO pantoprazole 40 mg tablet Take 1 tablet by mouth 2 times daily (before meals). aka: PROTONIX sucralfate 1 g/10 mL suspension Take 10 mLs by mouth 4 times daily (before meals and nightly) for 30 days. aka: CARAFATE DISCHARGE INSTRUCTIONS: Follow-up Information Call Pedro Fisher MD. (10-14 days) Specialty: Family Medicine Contact information: [address] [place] [address] PENDING RESULTS: HOSPITAL COURSE: Please refer to the H&P for full details. In short this is a 34-year-old male with a chron ic history of iron deficiency anemia secondary to gastrointestinal bleeding. 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 Patient presented with severe pain and active bleeding with a increasing history of melena and a history of coffee-ground emesis. He was admitted for further evaluation and management. I report currently it sounds like he was of f of his PPIs for approximately one month prior to presentation. The patient had endoscopy and had severe esophagitis in the distal esophagus. Recommended he be treated with PPIs and Carafate and have followup endoscopy in one month to rule out Larsen's disease. It was al so recommended that he have an antireflux surgery. In addition I advised the patient that u ntreated sleep apnea will cause worsening problems with acid reflux into the distal esophagu s and thus he should discuss with his physician treatment of his obstructive apnea. Patient clinically stabilized with a hematocrit of 28.9 prior to discharge. He was iron deficient with a serum iron of 25, TIBC of 442 with a transferrin saturation of 5.7%. He was given IV iron sucrose 200 mg one time on the day of discharge and advised that iron therapy would be indicated as an outpatient. In addition I recommended 400 mcg a Folic acid and 1000 mg of vitamin B 12 orally obtained ofti-msr-eqnmgcx. The patient did have significant problems wi th discomfort initially received ibutilide and was converted to hydrocodone prior to dischar ge and was given #15 norco 5/325 t 1-2 every 4 hours as needed for pain with the expectation that continues protonic St. Carafate this discomfort should resolve over the next 1-2 days. it was recommended that he see his PCP in the next 10-14 days. The patient was given Proton ix 40 mg to take one twice daily #6 and Carafate elixir 10 cc to use 4 times daily #120 cc t o assure that he stays on therapy until [facility] with [facility] escriptions given to him. PHYSICAL EXAM: Temp: 36.7 C (98.1 F), Pulse: 77 , Resp: 20 , BP: 136/79 mmHg, SpO2 96 % on room air at flow rate L/min Temp Min: 36.4 C (97.5 F) Max: 36.7 C (98.1 F) Weight: 116.121 kg (256 lb) Patient seen and examined by me on discharge day Greater than 30 minutes were spent on discharge and coordination of post-hospital care. Electronically signed by: Wilman Deng MD, 11/08/2014 17:47 [facility] Portions of this chart may have been created with [employer] voice recognition software. Occasi onal wrong-word or sound-alike substitutions may have occurred due to the inherent alicea itations of voice recognition software. Please read the chart carefully and recognize, using context, where these substitutions have occurred documented in this encounter Discharge Instructions Instructions Ciarra Huff RN - 11/07/2014Formatting of this note might be different f rom the original. What Is a Hiatal Hernia? This common problem occurs when part of the stomach slides up through the diaphragm into th e chest cavity.Hiatal hernias aren t like hernias in your groin. Most hiatal hernias cau se no symptoms and need no treatment. If you notice symptoms, usually you can control them e asily. What You May Feel Most people with hiatal hernias have no symptoms. But if reflux (acid backup) occurs, you m ay notice the following: Heartburn or other chest discomfort Frequent burping Acid taste in the mouth Problems swallowing Nighttime choking, coughing, or wheezing Treating Symptoms the hiatus is a hole in the diaphragm. The esophagus passes through this hole into the stom ach. If the hiatus is wide, part of the stomach may bulge above the diaphragm. This bulge is called a hernia. Stomach acid may move up into the esophagus and cause symptoms. When you eat, the muscle at the hiatus relaxes to allow food to pass into the stomach. It t ightens again to keep food and digestive acids in the stomach. If you have been diagnosed with hiatal hernia, these suggestions may help improve symptoms: Lose excess weight. Excess weight puts pressure on the stomach and esophagus. What Is Larsen Esophagus? 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 This means that there have been changes to the lining of the es ophagus near the stomach. The changes may have been caused by the acid reflux that occurs GERD (gastroesophageal reflux disease). The changed lining is not cancerous, but may incr ease your chances of developing cancer later on. When You Have GERD The esophagus is the tube that carries food and liquid from the mouth to the stomach. Your lower esophageal sphincter (LES) is a 1-way valve at the top of the stomach. It keeps food a nd stomach acid from flowing backward. If the LES is weakened, food and stomach acid flow ba ck (reflux) into your esophagus. If this happens often, the condition is called GERD. Changes in the Lining The stomach is kept safe from its own acid by a special lining. The esophagus isn t meant to contact stomach acid. With GERD, acid flows back into the esophagus often. This damages the esophagus. In response to the damage, new tissue forms that is not normal.This is Rinaldi ett esophagus. The new tissue may keep changing. This is why it is more likely to become can cer in the future. Preventing Further Damage Your doctor may suggest regular tests to keep track of changes in the esophagus. He or she may also suggest ways for you to control GERD. This includes lifestyle changes, medication, or even surgery. This should help keep your Larsen esophagus from getting worse. Symptoms of GERD Heartburn Sour-tasting fluid backing up into your mouth Frequent burping or belching Symptoms that get worse after you eat, bend over, or lie down Coughing repeatedly to clear your throat Hoarseness [id number] [employer] [address] [place] [address]. All righ ts reserved. This information is not intended as a substitute for professional medical care. Always follow your healthcare professional's instructions. Avoid cigarettes, alcohol, fatty foods, chocolate,coffee, peppermint, and spearmint. Avoid anything that causes symptoms. Stay away from any food or drink that gives you pro blems. Many medications can cause symptoms. Discuss your medications with your health care ric oscar. Try acid-reducing medications. Mosw-jrk-uckcqsm antacids may relieve heartburn. Talk to your health care provider about these other uafv-aen-hgjbubn or prescription medications may also help. Surgery is usually needed only for severe symptoms or when other options have not helped the condition. Your health care provider will help you determine if surgery is an option tristan lopez. [id number] [employer]. [address] [place] [address]. All righ ts reserved. This information is not intended as a substitute for professional medical care. Always follow your healthcare professional's instructions. documented in this encounter Medications at Time of Discharge [...] + + + +---------+ + + | sucralfate | Take 10 mLs by mouth | 420 mL | 0 | 11/08/19 | | | (CARAFATE) 1 g/10 mL | 4 times daily | | | 15 | 5 | | suspension | (before meals and | | | | | | | nightly) for 30 | | | | | | | days. | | | | | + + + +---------+ + + documented as of this encounter Progress Notes Alta Neves RN - 11/08/2014 7:47 PM PSTPt's Iron finished infusing. Scripts were gi aakash to family and discharge instructions given to the pt. IV removed. Pt discharged.Electron vijaya signed by Atla Neves RN at 11/08/2014 7:48 PM Rosa Elena Ennis RN - 015 5:48 PM PSTDrJessica Deng called new orders rec. osa Elena [place] RN - 11/08/2014 3:50 PM PSTPt. Has tolerated the soft diet that was ordered at lunch, he is asking when he can go home. John Reyes MD - 11/08/2014 9:29 AM PSTP atient is seen in followup of the upper endoscopy done 11/07. Findings were explained to the patient of recurrent erosive distal esophagitis. Patient's H. pylori biopsy was negative. t was impressed upon the patient the importance of following an antireflux regimen and stayin g on his proton pump inhibitor therapy. He apparently was off of the proton pump inhibitor therapy for approximately a month The patient should have a followup upper endoscopy in one month for evaluation of presumed Larsen's metaplasia as one month of therapy with proton p ump inhibitor should be long enough to eliminate reactive atypia caused by severe erosive es ophagitis. Given the patient's young age findings of a hiatal hernia recurrent episodes of erosive esophagitis with GI bleeding (although off of proton pump inhibitor therapy) the pat ient may be a candidate for antireflux procedure hiatal hernia repair. If low-grade dysplasi a as noted on subsequent biopsies patient is a candidate for photodynamic therapy to treat t he same which I assume would be [facility] [place] [facility] by John Gallardo MD at 11/08/2014 9:34 AM Wilman Sorensen MD - 015 4:22 PM PST [facility] PMG Hospitalist Progress Note Fili Alonso is a 34 y.o. male ASSESSMENT and PLAN: 1. Erosive esophagitis Upper endoscopy shows evidence of severe erosive esophagitis. She'll be continued on Paul nix converting to 40 mg IV every 12 hours and Carafate. Will give some IV iron associated w ith his anemia. 2. Anemia Will give iron sucrose 200 mg IV today. SUBJECTIVE: The patient continues to report significant chest pain. Nausea has improved. Endoscopy today showed erosive esophagitis. VITALS: Temp: 36.4 C (97.5 F), Pulse: 75 , Resp: 18 , BP: 148/84 mmHg, SpO2 98 % on room air at flow rate L/min Temp Min: 36 C (96.8 F) Max: 36.5 C (97.7 F) Weight: 116.121 kg (256 lb) Intake/Output Summary (Last 24 hours) at 11/07/14 1622 Last data filed at 11/07/14 1510 Gross per 24 hour Intake 1955.5 ml Output 2800 ml Net -844.5 ml PHYSICAL EXAM: Cardiovascular: Regular rate and rhythm Respiratory: Clear Abdomen: Moderate midepigastric discomfort, improved. BS sounds present DIAGNOSTIC STUDIES: Available data and images were reviewed personally. Significant results and findings are a ddressed here or in the Assessment and Plan. Lab Results Component Value Date HGB 8.6* 11/07/2014 HCT 27.8* 11/07/2014 PLT 298 11/07/2014 WBC 5.5 11/07/2014 Lab Results Component Value Date NA 138 11/07/2014 K 3.8 11/07/2014 CL 108 11/07/2014 CO2 25 11/07/2014 CREA 1.06 11/07/2014 BUN 11 11/07/2014 No results found for this basename: POCGLU No results found for this basename: POCGLU No results found. Total time of approximately 30 minutes was spent with the patient and/or patient's family, and/or on the patient's floor/unit, of which more than 50% was spent counseling and/or coord ination the patient's care as outlined above. Wilman Deng 11/07/2014 16:22 [facility] Portions of this chart may have been created with [employer] voice recognition software. Occasi onal wrong-word or sound-alike substitutions may have occurred due to the inherent alicea itations of voice recognition software. Please read the chart carefully and recognize, using context, where these substitutions have occurred documented in this enc ounter Plan of Treatment + + +--------+ + + | Name | Type | Priori | Associated Diagnoses | Order Schedule | | | | ty | | | + + +--------+ + + | Red Blood Cells | Blood Bank | Routin | | One Time for 1 | | (PRBC) - Crossmatch | | e | | Occurrences starting | | and Hold | | | | 11/06/2014 until | | | | | | 11/06/2014 | + + +--------+ + + documented as of this encounter Procedures + +--------+ + + + | Procedure Name | Priori | Date/Time | Associated Diagnosis | Comments | | | ty | | | | + +--------+ + + + | PRODUCT: RBC | Routin | 11/10/2014 | | Results for this | | | e | 7:59 AM | | procedure are in the | | | | PST | | results section. | + +--------+ + + + | PRODUCT: RBC | Routin | 11/10/2014 | | Results for this | | | e | 7:58 AM | | procedure are in the | | | | PST | | results section. | + +--------+ + + + | HEMOGLOBIN AND | Routin | 11/08/2014 | | Results for this | | HEMATOCRIT | e | 2:18 PM | | procedure are in the | | | | PST | | results section. | + +--------+ + + + | IRON AND TRANSFERRIN | Routin | 11/08/2014 | | Results for this | | | e | 10:42 AM | | procedure are in the | | | | PST | | results section. | + +--------+ + + + | CBC NO DIFFERENTIAL | Routin | 11/08/2014 | | Results for this | | | e | 5:56 AM | | procedure are in the | | | | PST | | results section. | + +--------+ + + + | BASIC METABOLIC | Routin | 11/08/2014 | | Results for this | | PANEL | e | 5:56 AM | | procedure are in the | | | | PST | | results section. | + +--------+ + + + | HEMOGLOBIN AND | Routin | 11/07/2014 | | Results for this | | HEMATOCRIT | e | 9:49 PM | | procedure are in the | | | | PST | | results section. | + +--------+ + + + | HELICOBACTER PYLORI | Routin | 11/07/2014 | | Results for this | | BIOPSY | e | 2:01 PM | | procedure are in the | | | | PST | | results section. | + +--------+ + + + | EGD | | 11/07/2014 | Acute | | | | | 1:48 PM | gastrointestinal | | | | | PST | hemorrhage Obesity, | | | | | | Class I, BMI | | | | | | 30-34.9 Narcotic | | | | | | abuse, continuous | | + +--------+ + + + | EGD | Routin | 11/07/2014 | | Results for this | | | e | 1:45 PM | | procedure are in the | | | | PST | | results section. | + +--------+ + + + | HEMOGLOBIN AND | Routin | 11/07/2014 | | Results for this | | HEMATOCRIT | e | 12:53 PM | | procedure are in the | | | | PST | | results section. | + +--------+ + + + | CBC NO DIFFERENTIAL | Routin | 11/07/2014 | | Results for this | | | e | 6:48 AM | | procedure are in the | | | | PST | | results section. | + +--------+ + + + | BASIC METABOLIC | Routin | 11/07/2014 | | Results for this | | PANEL | e | 6:48 AM | | procedure are in the | | | | PST | | results section. | + +--------+ + + + | HEMOGLOBIN AND | Routin | 11/07/2014 | | Results for this | | HEMATOCRIT | e | 12:30 AM | | procedure are in the | | | | PST | | results section. | + +--------+ + + + | HEMOGLOBIN AND | Routin | 11/06/2014 | | Results for this | | HEMATOCRIT | e | 6:23 PM | | procedure are in the | | | | PST | | results section. | + +--------+ + + + | HEMOGLOBIN AND | Routin | 11/06/2014 | | Results for this | | HEMATOCRIT | e | 12:50 PM | | procedure are in the | | | | PST | | results section. | + +--------+ + + + | PROTIME INR | STAT | 11/06/2014 | | Results for this | | | | 9:33 AM | | procedure are in the | | | | PST | | results section. | + +--------+ + + + | CBC WITH | STAT | 11/06/2014 | | Results for this | | DIFFERENTIAL | | 9:33 AM | | procedure are in the | | | | PST | | results section. | + +--------+ + + + | TYPE AND SCREEN | Routin | 11/06/2014 | | Results for this | | | e | 9:33 AM | | procedure are in the | | | | PST | | results section. | + +--------+ + + + | LIPASE | STAT | 11/06/2014 | | Results for this | | | | 9:33 AM | | procedure are in the | | | | PST | | results section. | + +--------+ + + + | COMPREHENSIVE | STAT | 11/06/2014 | | Results for this | | METABOLIC PANEL | | 9:33 AM | | procedure are in the | | | | PST | | results section. | + +--------+ + + + documented in this encounter Results PRODUCT: RBC (11/10/2014 7:59 AM PST) + + + + + + | Component | Value | Ref Range | Performed | Pathologist | | | | | At | Signature | + + + + + + | Product | RBC Leukocytes Reduced | | [facility] | | | Code | | | [facility] | | | | | [facility] | | | | | [facility] - | | | | | | BLOOD BANK | | + + + + + + | UNIT # | [id number] | | [facility] | | | | | | [facility] | | | | | | [facility] | | | | | | [facility] - | | | | | | BLOOD BANK | | + + + + + + | UNIT ABO | O | | [facility] | | | | | | [facility] | | | | | | [facility] | | | | | | [facility] - | | | | | | BLOOD BANK | | + + + + + + | UNIT RH | POS | | [facility] | | | | | | [facility] | | | | | | [facility] | | | | | | [facility] - | | | | | | BLOOD BANK | | + + + + + + | CROSSMATCH | Compatible | | [facility] | | | INTERP | | | [facility] | | | | | | [facility] | | | | | | [facility] - | | | | | | BLOOD BANK | | + + + + + + | Unit Status | Returned | | [facility] | | | | | | [facility] | | | | | | [facility] | | | | | | [facility] - | | | | | | BLOOD BANK | | + + + + + + + + | Specimen | + + | | + + + + + + + | Performing | Address | City/State/Zipcode | Phone Number | | Organization | | | | + + + + + | [facility] | [address] | [place] | | | [facility] | | [address] | | | - BLOOD BANK | | | | + + + + + PRODUCT: RBC (11/10/2014 7:58 AM PST) + + + + + + | Component | Value | Ref Range | Performed | Pathologist | | | | | At | Signature | + + + + + + | Product | RBC Leukocytes Reduced | | [facility] | | | Code | | | [facility] | | | | | | [facility] | | | | | | [facility] - | | | | | | BLOOD BANK | | + + + + + + | UNIT # | [id number] | | [facility] | | | | | | [facility] | | | | | | [facility] | | | | | | [facility] - | | | | | | BLOOD BANK | | + + + + + + | UNIT ABO | O | | [facility] | | | | | | [facility] | | | | | | [facility] | | | | | | [facility] - | | | | | | BLOOD BANK | | + + + + + + | UNIT RH | POS | | [facility] | | | | | | [facility] | | | | | | [facility] | | | | | | [facility] - | | | | | | BLOOD BANK | | + + + + + + | CROSSMATCH | Compatible | | [facility] | | | INTERP | | | [facility] | | | | | | [facility] | | | | | | [facility] - | | | | | | BLOOD BANK | | + + + + + + | Unit Status | Returned | | [facility] | | | | | | [facility] | | | | | | [facility] | | | | | | [facility] - | | | | | | BLOOD BANK | | + + + + + + + + | Specimen | + + | | + + + + + + + | Performing | Address | City/State/Zipcode | Phone Number | | Organization | | | | + + + + + | [facility] | [address] | [place] | | | [facility] | | [address] | | | - BLOOD BANK | | | | + + + + + Hemoglobin and Hematocrit (11/08/2014 2:18 PM PST) + + + + + + | Component | Value | Ref Range | Performed | Pathologist | | | | | At | Signature | + + + + + + | Hemoglobin | 8.7 (L) | 13.5 - 18.0 | [facility] | | | | | g/dL | [facility] | | | | | | MEDICAL | | | | | | CENTER - | | | | | | LABORATORY | | + + + + + + | Hematocrit | 28.9 (L) | 40.0 - 51.0 % | [facility] | | | | | | [facility] | | | | | | MEDICAL | | | | | | CENTER - | | | | | | LABORATORY | | + + + + + + + + | Specimen | + + | Blood | + + + + + + + | Performing | Address | City/State/Zipcode | Phone Number | | Organization | | | | + + + + + | [facility] | [address] | [place], [place] | [phone] | | [facility] | | [address] | | | - LABORATORY | | | | + + + + + | [facility] | [address] | [place], [place] | | | [facility] | | [address] | | | - LABORATORY | | | | + + + + + Iron and Transferrin (11/08/2014 10:42 AM PST) + +--------+ + + + | Component | Value | Ref Range | Performed | Pathologist | | | | | At | Signature | + +--------+ + + + | Iron | 25 (L) | 50 - 160 ug/dL | [facility] | | | | | | [facility] | | | | | | MEDICAL | | | | | | CENTER - | | | | | | LABORATORY | | + +--------+ + + + | TRANSFERRIN | 316.0 | 240.0 - 480.0 | [facility] | | | | | mg/dL | [facility] | | | | | | MEDICAL | | | | | | CENTER - | | | | | | LABORATORY | | + +--------+ + + + | TIBC | 442 | ug/dL | [facility] | | | | | | [facility] | | | | | | MEDICAL | | | | | | CENTER - | | | | | | LABORATORY | | + +--------+ + + + | % | 5.7 | % | [facility] | | | SATURATION | | | [facility] | | | | | | MEDICAL | | | | | | CENTER - | | | | | | LABORATORY | | + +--------+ + + + + + | Specimen | + + | Blood | + + + + + + + | Performing | Address | City/State/Zipcode | Phone Number | | Organization | | | | + + + + + | [facility] | [address] | [place], [place] | [phone] | | [facility] | | [address] | | | - LABORATORY | | | | + + + + + | [facility] | [address] | [place], [place] | | | [facility] | | [address] | | | - LABORATORY | | | | + + + + + CBC no Lane (11/08/2014 5:56 AM PST) + + + + + + | Component | Value | Ref Range | Performed | Pathologist | | | | | At | Signature | + + + + + + | WBC | 5.7 | 4.0 - 11.0 K/uL | [facility] | | | | | | [facility] | | | | | | [facility] | | | | | | [facility] - | | | | | | LABORATORY | | + + + + + + | RBC | 4.02 (L) | 4.30 - 5.70 | [facility] | | | | | M/uL | [facility] | | | | | [facility] | | | | | | [facility] - | | | | | | LABORATORY | | + + + + + + | Hemoglobin | 8.3 (L) | 13.5 - 18.0 | [facility] | | | | | g/dL | [facility] | | | [facility] | [facility] - | | | | | | LABORATORY | | + + + + + + | Hematocrit | 27.1 (L) | 40.0 - 51.0 % | [facility] | | | | | | [facility] | [facility] | | | | [facility] - | | | | | | LABORATORY | | + + + + + + | MCV | 67.4 (L) | 83.0 - 101.0 fL | [facility] | | | | | | [facility] | [facility] | [facility] | | | | [facility] - | | | | | | LABORATORY | | + + + + + + | MCH | 20.7 (L) | 28.0 - 35.0 pg | [facility] | | | | | | [facility] | [facility] | [facility] | | | | | | [facility] - | | | | | | LABORATORY | | + + + + + + | MCHC | 30.7 (L) | 32.0 - 36.0 | [facility] | | | | | g/dL | [facility] | | | [facility] | [facility] | | | | | | [facility] - | | | | | | LABORATORY | | + + + + + + | RDW-CV | 17.9 (H) | <15.0 % | [facility] | | | | | [facility] | [facility] | [facility] | [facility] | | | | | | [facility] - | | | | | | LABORATORY | | + + + + + + | Platelet | 286 | 140 - 440 K/uL | [facility] | | | Count | | | [facility] | | | [facility] | [facility] | | | | | | [facility] - | | | | | | LABORATORY | | + + + + + + | MPV | 8.1 | fL | [facility] | | | | | | [facility] | | | [facility] | [facility] | | | | | | [facility] - | | | | | | LABORATORY | | + + + + + + + + | Specimen | + + | Blood | + + + + + + + | Performing | Address | City/State/Zipcode | Phone Number | | Organization | | | | + + + + + | [facility] | [address] | [place], [place] | [phone] | | [facility] | | [address] | | | - LABORATORY | | | | + + + + + | [facility] | [address] | [place], [place] | | | [facility] | | [address] | | | - LABORATORY | | | | + + + + + Basic Metabolic Panel (11/08/2014 5:56 AM PST) + + + + + + | Component | Value | Ref Range | Performed | Pathologist | | | | | At | Signature | + + + + + + | Na | 140 | 136 - 149 | [facility] | | | | | mmol/L | [facility] | | | | | | [facility] | | | | | | [facility] - | | | | | | LABORATORY | | + + + + + + | K | 3.5 | 3.5 - 5.1 | [facility] | | | | | mmol/L | [facility] | | | | | | [facility] | | | | | | [facility] - | | | | | | LABORATORY | | + + + + + + | Cl | 109 | 98 - 109 mmol/L | [facility] | | | | | | [facility] | | | | | | [facility] | | | | | | [facility] - | | | | | | LABORATORY | | + + + + + + | CO2 | 26 | 24 - 31 mmol/L | [facility] | | | | | | [facility] | [facility] | [facility] | | | | | | [facility] - | | | | | | LABORATORY | | + + + + + + | Anion Gap | 5 | 3 - 16 mmol/L | [facility] | | | | | | [facility] | [facility] | [facility] | [facility] | | | | | | [facility] - | | | | | | LABORATORY | | + + + + + + | Glucose | 108 | 70 - 109 mg/dL | [facility] | | | | | | [facility] | | [facility] | [facility] | | | | | | [facility] - | | | | | | LABORATORY | | + + + + + + | BUN | 6 (L) | 7 - 18 mg/dL | [facility] | | | | | | [facility] | | | | | | [facility] | | | | | | [facility] - | | | | | | LABORATORY | | + + + + + + | Creatinine | 0.91 | 0.60 - 1.30 | [facility] | | | | | mg/dL | [facility] | [facility] | [facility] | | | | | | [facility] - | | | | | | LABORATORY | | + + + + + + | eGFR if not | >60Comment: GLOMERULAR | >=60 | [facility] | | | | FILTRATION | mL/min/1.73m2 | [facility] | | | [place]AN | RATE,ESTIMATED | | MEDICAL | | | | mL/min/1.54o4Ybmw than | | CENTER - | | | | 60 Chronic kidney | | LABORATORY | | | | disease,if found over a | | | | | | 3-month period.Less than | | | | | | 15 Kidney failureFor | | | | | | | | | | | | Americans,multiply the | | | | | | calculated GFR by 1.21. | | | | | | | | | | + + + + + + | Calcium | 8.1 (L) | 8.3 - 10.5 | [facility] | | | | | mg/dL | [facility] | | | | | | [facility] | | | | | | CENTER - | | | | | | LABORATORY | | + + + + + + | BUN/Creatin | 6.6 | | [facility] | | | ine Ratio | | | [facility] | | | | | | [facility] | | | | | | CENTER - | | | | | | LABORATORY | | + + + + + + + + | Specimen | + + | Blood | + + + + + + + | Performing | Address | City/State/Zipcode | Phone Number | | Organization | | | | + + + + + | [facility] | [address] | [place] | [phone] | | [facility] | | [address] | | | - LABORATORY | | | | + + + + + | [facility] | [address] | [place] | | | [facility] | | [address] | | | - LABORATORY | | | | + + + + + Hemoglobin and Hematocrit (11/07/2014 9:49 PM PST) + + + + + + | Component | Value | Ref Range | Performed | Pathologist | | | | | At | Signature | + + + + + + | Hemoglobin | 7.8 (L) | 13.5 - 18.0 | [facility] | | | | | g/dL | [facility] | | | | | [facility] | | | | | | [facility] - | | | | | | LABORATORY | | + + + + + + | Hematocrit | 26.8 (L) | 40.0 - 51.0 % | [facility] | | | | | | [facility] | [facility] | [facility] | [facility] | | | | | | CENTER - | | | | | | LABORATORY | | + + + + + + + + | Specimen | + + | Blood | + + + + + + + | Performing | Address | City/State/Zipcode | Phone Number | | Organization | | | | + + + + + | [facility] | [address] | [place] | [phone] | | [facility] | | [address] | | | - LABORATORY | | | | + + + + + | [facility] | [address] | [place] | | | [facility] | | [address] | | | - LABORATORY | | | | + + + + + Helicobactor pylori Biopsy (11/07/2014 2:01 PM PST) + + + + + + | Component | Value | Ref Range | Performed | Pathologist | | | | | At | Signature | + + + + + + | Helicobacte | Negative | Negative | [facility] | | | r pylori Ag | | | [facility] | | | | | [facility] | | | | | | CENTER - | | | | | | LABORATORY | | + + + + + + + + | Specimen | + + | Tissue - Entire | | pyloric antrum (body | | structure) | + + + + + + + | Performing | Address | City/State/Zipcode | Phone Number | | Organization | | | | + + + + + | [id number] | [address] | [place] | [phone] | | [facility] | | [address] | | | - LABORATORY | | | | + + + + + | [facility] | [address] | [place] | | | [facility] | | [address] | | | - LABORATORY | | | | + + + + + EGD (11/07/2014 1:45 PM PST) + + | Specimen | + + | | + + + + -+ | Narrative | Performed At | + + -+ | | [facility] | | GastroenterologyPatient Name: Fili Galeas Date: 11/07/2014 1:45 | [facility] | | PMMRN: [id number] #: [id number] of : 1980Admit | | | Type: InpatientAge: [facility]: [facility]Gender: MaleNote Status: | | | FinalizedAttending MD: John Gallardo, MDProcedure: Upper | | | GI endoscopyIndications: Suspected esophageal reflux, | | | MelenaProviders: John Gallardo MD, Karina Chang | | | RICHARD Bose, Amanda Higuera, | | | Airplane Rental Clerk, Panchito Lara MD (Anesthesia | | | Staff)Medicines: Sedation Required Anesthesia Staff | | | AssistanceComplications: No immediate complications. Estimated | | | blood loss: Minimal.Procedure: Pre-Anesthesia Assessment: | | | - Prior to the procedure, a History and Physical was performed, and | | | patient medications, allergies and sensitivities were reviewed. | | | The patient's tolerance of previous anesthesia was reviewed. | | | - Prior to the procedure, a History and Physical was performed, | | | and patient medications and allergies were reviewed. The | | | patient is competent. The risks and benefits of the procedure | | | and the sedation options and risks were discussed with the | | | patient. All questions were answered and informed consent was | | | obtained. Patient identification and proposed procedure were | | | verified by the physician, the nurse, the anesthesiologist and | | | the operating room surgical technician in the endoscopy suite. Mental Status | | | Examination: alert and oriented. Airway Examination: normal | | | oropharyngeal airway and neck mobility and Mallampati Class III (part | | | of the uvula and soft palate visualized). Prophylactic | | | Antibiotics: The patient does not require prophylactic | | | antibiotics. Prior Anticoagulants: The patient has taken no | | | previous anticoagulant or antiplatelet agents. ASA Grade | | | Assessment: III - A patient with severe systemic disease. After | | | reviewing the risks and benefits, the patient was deemed in | | | satisfactory condition to undergo the procedure. The anesthesia plan | | | was to use monitored anesthesia care (MAC). Immediately prior | | | to administration of medications, the patient was re-assessed | | | for adequacy to receive sedatives. The heart rate, respiratory | | | rate, oxygen saturations, blood pressure, adequacy of pulmonary | | | ventilation, and response to care were monitored throughout | | | the procedure. The physical status of the patient was | | | re-assessed after the procedure. - After reviewing the risks and | | | benefits, the patient was deemed in satisfactory condition to | | | undergo the procedure. - Using IV propofol under the supervision | | | of an anesthesiologist was determined to be medically | | | necessary for this procedure based on severe comorbidity | | | (greater than ASA Grade II), patient's history of sleep apnea, | | | patient's dependence on opiates, sedatives or hypnotics and | | | patient's history of drug or alcohol abuse. - Immediately prior | | | to administration of medications, the patient was re-assessed | | | for adequacy to receive sedatives. - The heart rate, respiratory | | | rate, oxygen saturations, blood pressure, adequacy of | | | pulmonary ventilation, and response to care were monitored | | | throughout the procedure. - The physical status of the patient | | | was re-assessed after the procedure. After obtaining informed | | | consent, the endoscope was passed under direct vision. | | | Throughout the procedure, the patient's blood pressure, pulse, | | | and oxygen saturations were monitored continuously. The endoscope was | | | introduced through the mouth, and advanced to the third part of | | | duodenum. The upper GI endoscopy was accomplished without | | | difficulty. The patient tolerated the procedure well.Findings: | | | The cricopharyngeus, upper third of the esophagus and middle | | | third of the esophagus were normal. LA Grade D (one or | | | more mucosal breaks involving at least 75% of esophageal | | | circumference) esophagitis with no bleeding was found 30 to 40 | | | cm from the incisors. Localized moderately erythematous mucosa | | | without bleeding was found in the gastric antrum. Biopsies were | | | taken with a cold forceps for Helicobacter pylori testing | | | using CLOtest. Verification of patient identification for the | | | specimen was done. Estimated blood loss was minimal. The | | | duodenal bulb, 2nd part of the duodenum, area of the papilla and 3rd | | | part of the duodenum were normal. The retroflexed view | | | confirmed previous findings, A 4 cm hiatus hernia was present. | | | slidingImpression: - Normal cricopharyngeus, upper third of | | | esophagus and middle third of esophagus. - LA Grade D | | | reflux esophagitis. Rule out Larsen's esophagus. Sliding HH - | | | Erythematous mucosa in the antrum. Biopsied. - Normal duodenal | | | bulb, 2nd part of the duodenum, area of the papilla and 3rd | | | part of the duodenum. - The retroflexed view confirmed previous | | | findings,Recommendation: - Return patient [facility] for | | | ongoing care. - Clear liquid diet today. - Follow an | | | antireflux regimen indefinitely. - Continue present medications. | | | - Repeat the upper endoscopy in 1 month for surveillance.John | | | Carolyne Gallardo MD11/07/2014 2:17 PMThis report has been signed | | | electronically.Number of Addenda: 0Note Initiated On: 11/07/2014 1:45 | | | PMScope Withdrawal Time: 0 hours 0 minutes 0 seconds Total Procedure | | | Duration: 0 hours 5 minutes 25 seconds Scope In: 1:58:01 PMScope Out: | | | 2:03:26 PM [facility], [address], | | | [place] [address] | | | - The retroflexed view confirmed previous findings, | | |Recommendation: | | | - Return patient to [facility] for ongoing care. | | | - Clear liquid diet today. | | | - Follow an antireflux regimen indefinitely. | | | - Continue present medications. | | | - Repeat the upper endoscopy in 1 month for surveillance. | | |John Gallardo MD | | |11/07/2014 2:17 PM | | |This report has been signed electronically. | | |Number of Addenda: 0 | | |Note Initiated On: 11/07/2014 1:45 PM | | |Scope Withdrawal Time: 0 hours 0 minutes 0 seconds | | |Total Procedure Duration: 0 hours 5 minutes 25 seconds | | |Scope In: 1:58:01 PM | | |Scope Out: 2:03:26 PM | | | [facility], [address], [place], [place] | | | [address] | | + + -+ + + | Transcriptions | + + | Devi Workman - 11/07/2014 12:00 AM PST | + + + +---------+ + + | Performing | Address | City/State/Zipcode | Phone Number | | Organization | | | | + +---------+ + + | [facility] | | | | + +---------+ + + Hemoglobin and Hematocrit (11/07/2014 12:53 PM PST) + + + + + + | Component | Value | Ref Range | Performed | Pathologist | | | | | At | Signature | + + + + + + | Hemoglobin | 8.6 (L) | 13.5 - 18.0 | [facility] | | | | | g/dL | [facility] | | | | | | [facility] | | | | | | CENTER - | | | | | | LABORATORY | | + + + + + + | Hematocrit | 27.8 (L) | 40.0 - 51.0 % | [facility] | | | | | | [facility] | | | | | | [facility] | | | | | | CENTER - | | | | | | LABORATORY | | + + + + + + + + | Specimen | + + | Blood | + + + + + + + | Performing | Address | City/State/Zipcode | Phone Number | | Organization | | | | + + + + + | [facility] | [address] | [place] | [phone] | | [facility] | | [address] | | | - LABORATORY | | | | + + + + + | [facility] | [address] | [place] | | | [facility] | | [address] | | | - LABORATORY | | | | + + + + + Basic Metabolic Panel (11/07/2014 6:48 AM PST) + + + + + + | Component | Value | Ref Range | Performed | Pathologist | | | | | At | Signature | + + + + + + | Na | 138 | 136 - 149 | [facility] | | | | | mmol/L | [facility] | | | | | | [facility] | | | | | | CENTER - | | | | | | LABORATORY | | + + + + + + | K | 3.8 | 3.5 - 5.1 | [facility] | | | | | mmol/L | [facility] | | | | | | [facility]ICAL | | | | | | CENTER - | | | | | | LABORATORY | | + + + + + + | Cl | 108 | 98 - 109 mmol/L | [facility] | | | | | | [facility] | | | | | | MEDICAL | | | | | | CENTER - | | | | | | LABORATORY | | + + + + + + | CO2 | 25 | 24 - 31 mmol/L | [facility] | | | | | | [facility] | | | | | | [facility]ICAL | | | | | | CENTER - | | | | | | LABORATORY | | + + + + + + | Anion Gap | 5 | 3 - 16 mmol/L | [facility] | | | | | | [facility] | | | | | | [facility]ICAL | | | | | | CENTER - | | | | | | LABORATORY | | + + + + + + | Glucose | 97 | 70 - 109 mg/dL | [facility] | | | | | | [facility] | | | | | | MEDICAL | | | | | | CENTER - | | | | | | LABORATORY | | + + + + + + | BUN | 11 | 7 - 18 mg/dL | [facility] | | | | | | [facility] | | | | | | MEDICAL | | | | | | CENTER - | | | | | | LABORATORY | | + + + + + + | Creatinine | 1.06 | 0.60 - 1.30 | [facility] | | | | | mg/dL | [facility] | | | | | | MEDICAL | | | | | | CENTER - | | | | | | LABORATORY | | + + + + + + | eGFR if not | >60Comment: GLOMERULAR | >=60 | [facility] | | | | FILTRATION | mL/min/1.73m2 | [facility] | | | [place] | RATE,ESTIMATED | | MEDICAL | | | | mL/min/1.19i6Sjji than | | CENTER - | | | | 60 Chronic kidney | | LABORATORY | | | | disease,if found over a | | | | | | 3-month period.Less than | | | | | | 15 Kidney failureFor | | | | | | | | | | | | Americans,multiply the | | | | | | calculated GFR by 1.21. | | | | | | | | | | + + + + + + | Calcium | 8.1 (L) | 8.3 - 10.5 | [facility] | | | | | mg/dL | [facility] | | | | | | [facility]ICAL | | | | | | CENTER - | | | | | | LABORATORY | | + + + + + + | BUN/Creatin | 10.4 | | [facility] | | | ine Ratio | | | [facility] | | | | | | [facility] | | | | | | CENTER - | | | | | | LABORATORY | | + + + + + + + + | Specimen | + + | Blood | + + + + + + + | Performing | Address | City/State/Zipcode | Phone Number | | Organization | | | | + + + + + | [facility] | [address] | [place] | [phone] | | [facility] | | [address] | | | - LABORATORY | | | | + + + + + | [facility] | [address] | [place], [place] | | | [facility] | | [address] | | | - LABORATORY | | | | + + + + + CBC no Differential (11/07/2014 6:48 AM PST) + + + + + + | Component | Value | Ref Range | Performed | Pathologist | | | | | At | Signature | + + + + + + | WBC | 5.5 | 4.0 - 11.0 K/uL | [facility] | | | | | | [facility] | | | | | | [facility] | | | | | | CENTER - | | | | | | LABORATORY | | + + + + + + | RBC | 4.02 (L) | 4.30 - 5.70 | [facility] | | | | | M/uL | [facility] | | | | | | [facility]ICAL | | | | | | CENTER - | | | | | | LABORATORY | | + + + + + + | Hemoglobin | 8.3 (L) | 13.5 - 18.0 | [facility] | | | | | g/dL | [facility] | | | | | | [facility]ICAL | | | | | | CENTER - | | | | | | LABORATORY | | + + + + + + | Hematocrit | 26.7 (L) | 40.0 - 51.0 % | [facility] | | | | | | [facility] | | | | | | MEDICAL | | | | | | CENTER - | | | | | | LABORATORY | | + + + + + + | MCV | 66.4 (L) | 83.0 - 101.0 fL | [facility] | | | | | | [facility] | | | | | | MEDICAL | | | | | | CENTER - | | | | | | LABORATORY | | + + + + + + | MCH | 20.6 (L) | 28.0 - 35.0 pg | [facility] | | | | | | [facility] | | | | | | MEDICAL | | | | | | CENTER - | | | | | | LABORATORY | | + + + + + + | MCHC | 30.9 (L) | 32.0 - 36.0 | [facility] | | | | | g/dL | [facility] | | | | | | MEDICAL | | | | | | CENTER - | | | | | | LABORATORY | | + + + + + + | RDW-CV | 17.9 (H) | <15.0 % | [facility] | | | | | | [facility] | [facility] | [facility] | [facility] | | | | | | [facility] - | | | | | | LABORATORY | | + + + + + + | Platelet | 298 | 140 - 440 K/uL | [facility] | | | Count | | | [facility] | | | | | | [facility] | | | | | | [facility] - | | | | | | LABORATORY | | + + + + + + | MPV | 7.4 | fL | [facility] | | | | | | [facility] | | | | | | [facility]ICAL | | | | | | CENTER - | | | | | | LABORATORY | | + + + + + + + + | Specimen | + + | Blood | + + + + + + + | Performing | Address | City/State/Zipcode | Phone Number | | Organization | | | | + + + + + | [facility] | [address] | [place], [place] | [phone] | | [facility] | | [address] | | | - LABORATORY | | | | + + + + + | [facility] | [address] | [place], [place] | | | [facility] | | [address] | | | - LABORATORY | | | | + + + + + Hemoglobin and Hematocrit (11/07/2014 12:30 AM PST) + + + + + + | Component | Value | Ref Range | Performed | Pathologist | | | | | At | Signature | + + + + + + | Hemoglobin | 7.6 (L) | 13.5 - 18.0 | [facility] | | | | | g/dL | [facility] | | | | | | MEDICAL | | | | | | CENTER - | | | | | | LABORATORY | | + + + + + + | Hematocrit | 25.6 (L) | 40.0 - 51.0 % | [facility] | | | | | | [facility] | | | | | | MEDICAL | | | | | | CENTER - | | | | | | LABORATORY | | + + + + + + + + | Specimen | + + | Blood | + + + + + + + | Performing | Address | City/State/Zipcode | Phone Number | | Organization | | | | + + + + + | [facility] | [address] | [place] | [phone] | | [facility] | | [address] | | | - LABORATORY | | | | + + + + + | [id number] | [address] | [place] | | | [facility] | | [address] | | | - LABORATORY | | | | + + + + + Hemoglobin and Hematocrit (11/06/2014 6:23 PM PST) + + + + + + | Component | Value | Ref Range | Performed | Pathologist | | | | | At | Signature | + + + + + + | Hemoglobin | 7.9 (L) | 13.5 - 18.0 | [facility] | | | | | g/dL | [facility] | | | | | | [facility]ICAL | | | | | | CENTER - | | | | | | LABORATORY | | + + + + + + | Hematocrit | 27.0 (L) | 40.0 - 51.0 % | [facility] | | | | | | [facility] | | | | | | [facility]ICAL | | | | | | CENTER - | | | | | | LABORATORY | | + + + + + + + + | Specimen | + + | Blood | + + + + + + + | Performing | Address | City/State/Zipcode | Phone Number | | Organization | | | | + + + + + | [facility] | [address] | [place] | [phone] | | [facility] | | [address] | | | - LABORATORY | | | | + + + + + | [facility] | [address] | [place] | | | [facility] | | [address] | | | - LABORATORY | | | | + + + + + Hemoglobin and Hematocrit (11/06/2014 12:50 PM PST) + + + + + + | Component | Value | Ref Range | Performed | Pathologist | | | | | At | Signature | + + + + + + | Hemoglobin | 9.1 (L) | 13.5 - 18.0 | [facility] | | | | | g/dL | [facility] | | | | | | [facility] | | | | | | CENTER - | | | | | | LABORATORY | | + + + + + + | Hematocrit | 29.3 (L) | 40.0 - 51.0 % | [facility] | | | | | | [facility] | | | | | | [facility]ICAL | | | | | | CENTER - | | | | | | LABORATORY | | + + + + + + + + | Specimen | + + | Blood | + + + + + + + | Performing | Address | City/State/Zipcode | Phone Number | | Organization | | | | + + + + + | [facility] | [address] | [place] | [phone] | | [facility] | | [address] | | | - LABORATORY | | | | + + + + + | [facility] | [address] | [place] | | | [facility] | | [address] | | | - LABORATORY | | | | + + + + + Type and Screen (11/06/2014 9:33 AM PST) + + + + + + | Component | Value | Ref Range | Performed | Pathologist | | | | | At | Signature | + + + + + + | ABO | O | | [facility] | | | | | | [facility] | | | | | | [facility] | | | | | | CENTER - | | | | | | BLOOD BANK | | + + + + + + | Rh Type | Positive | | [facility] | | | | | | [facility] | | | | | | [facility] | | | | | | CENTER - | | | | | | BLOOD BANK | | + + + + + + | Antibody | Negative | | [facility] | | | Screen | | | [facility] | | | | | | [facility]ICAL | | | | | | CENTER - | | | | | | BLOOD BANK | | + + + + + + + + | Specimen | + + | Blood specimen | | (specimen) | + + + + + + + | Performing | Address | City/State/Zipcode | Phone Number | | Organization | | | | + + + + + | [facility] | [address] | [place] | | | [facility] | | [address] | | | - BLOOD BANK | | | | + + + + + Lipase (11/06/2014 9:33 AM PST) + +-------+ + + + | Component | Value | Ref Range | Performed | Pathologist | | | | | At | Signature | + +-------+ + + + | Lipase | 22 | 0 - 60 U/L | [facility] | | | | | | [facility] | | | | | | MEDICAL | | | | | | CENTER - | | | | | | LABORATORY | | + +-------+ + + + + + | Specimen | + + | Blood | + + + + + + + | Performing | Address | City/State/Zipcode | Phone Number | | Organization | | | | + + + + + | [facility] | [address] | [place] | [phone] | | [facility] | | [address] | | | - LABORATORY | | | | + + + + + | [facility] | [address] | [place] | | | [facility] | | [address] | | | - LABORATORY | | | | + + + + + Protime INR (11/06/2014 9:33 AM PST) + + + + + + | Component | Value | Ref Range | Performed | Pathologist | | | | | At | Signature | + + + + + + | Prothrombin | 13.9 | 11.3 - 13.9 | [facility] | | | Time | | seconds | [facility] | | | | | | MEDICAL | | | | | | CENTER - | | | | | | LABORATORY | | + + + + + + | INR | 1.07Comment: Usual Oral | 0.90 - 1.10 | [facility] | | | | Anticoagulation Range: | | [facility] | | | | 2.0 - 3.0High | | MEDICAL | | | | Level Oral | | CENTER - | | | | Anticoagulation Range: | | LABORATORY | | | | 2.5 - 3.5 | | | | + + + + + + + + | Specimen | + + | Blood | + + + + + + + | Performing | Address | City/State/Zipcode | Phone Number | | Organization | | | | + + + + + | [facility] | [address] | [place] | [phone] | | [facility] | | [address] | | | - LABORATORY | | | | + + + + + | [facility] | [address] | [place] | | | [facility] | | [address] | | | - LABORATORY | | | | + + + + + Comprehensive Metabolic Panel (11/06/2014 9:33 AM PST) + + + + + + | Component | Value | Ref Range | Performed | Pathologist | | | | | At | Signature | + + + + + + | Na | 136 | 136 - 149 | [facility] | | | | | mmol/L | [facility] | | | | | | MEDICAL | | | | | | CENTER - | | | | | | LABORATORY | | + + + + + + | K | 4.0 | 3.5 - 5.1 | [facility] | | | | | mmol/L | [facility] | | | | | | MEDICAL | | | | | | CENTER - | | | | | | LABORATORY | | + + + + + + | Cl | 105 | 98 - 109 mmol/L | [facility] | | | | | | [facility] | | | | | | MEDICAL | | | | | | CENTER - | | | | | | LABORATORY | | + + + + + + | CO2 | 24 | 24 - 31 mmol/L | [facility] | | | | | | [facility] | | | | | | MEDICAL | | | | | | CENTER - | | | | | | LABORATORY | | + + + + + + | Anion Gap | 7 | 3 - 16 mmol/L | [facility] | | | | | | [facility] | | | | | | MEDICAL | | | | | | CENTER - | | | | | | LABORATORY | | + + + + + + | Glucose | 106 | 70 - 109 mg/dL | [facility] | | | | | | [facility] | | | | | | [facility] | | | | | | CENTER - | | | | | | LABORATORY | | + + + + + + | BUN | 8 | 7 - 18 mg/dL | [facility] | [facility] | | | | | [facility] | | | | | | CENTER - | | | | | | LABORATORY | | + + + + + + | Creatinine | 0.99 | 0.60 - 1.30 | [facility] | | | | | mg/dL | [facility] | | | | | | MEDICAL | | | | | | CENTER - | | | | | | LABORATORY | | + + + + + + | eGFR if not | >60Comment: GLOMERULAR | >=60 | [facility] | | | | FILTRATION | mL/min/1.73m2 | [facility] | | | ANDORRAN | RATE,ESTIMATED | | MEDICAL | | | | mL/min/1.24x3Ikgd than | | CENTER - | | | | 60 Chronic kidney | | LABORATORY | | | | disease,if found over a | | | | | | 3-month period.Less than | | | | | | 15 Kidney failureFor | | | | | | | | | | | | Americans,multiply the | | | | | | calculated GFR by 1.21. | | | | | | | | | | + + + + + + | Calcium | 8.4 | 8.3 - 10.5 | [facility] | | | | | mg/dL | [facility] | | | | | | [facility] | | | | | | CENTER - | | | | | | LABORATORY | | + + + + + + | Albumin | 3.5 | 3.2 - 5.0 g/dL | [facility] | | | | | | [facility] | | | | | | MEDICAL | | | | | | CENTER - | | | | | | LABORATORY | | + + + + + + | Bilirubin | 0.5 | 0.1 - 1.5 mg/dL | [facility] | | | Total | | | [facility] | | | | | | MEDICAL | | | | | | CENTER - | | | | | | LABORATORY | | + + + + + + | Total | 6.2 | 6.0 - 7.8 g/dL | [facility] | | | Protein | | | [facility] | | | | | | MEDICAL | | | | | | CENTER - | | | | | | LABORATORY | | + + + + + + | AST | 23 | 10 - 42 U/L | [facility] | | | | | | [facility] | | | | | | MEDICAL | | | | | | CENTER - | | | | | | LABORATORY | | + + + + + + | ALT | 16 | 6 - 45 U/L | [facility] | | | | | | [facility] | | | | | | MEDICAL | | | | | | CENTER - | | | | | | LABORATORY | | + + + + + + | Alkaline | 80 | 40 - 110 U/L | [facility] | | | Phosphatase | | | [facility] | | | | | | MEDICAL | | | | | | CENTER - | | | | | | LABORATORY | | + + + + + + | Globulin | 2.7 | g/dL | [facility] | | | | | | [facility] | | | | | | MEDICAL | | | | | | CENTER - | | | | | | LABORATORY | | + + + + + + | Albumin/Dulce | 1.3 | | [facility] | | | bulin Ratio | | | [facility] | | | | | | MEDICAL | | | | | | CENTER - | | | | | | LABORATORY | | + + + + + + | BUN/Creatin | 8.1 | | [facility] | | | ine Ratio | | | [facility] | | | | | | MEDICAL | | | | | | CENTER - | | | | | | LABORATORY | | + + + + + + + + | Specimen | + + | Blood | + + + + + + + | Performing | Address | City/State/Zipcode | Phone Number | | Organization | | | | + + + + + | [facility] | [address] | [place] | [phone] | | [facility] | | [address] | | | - LABORATORY | | | | + + + + + | [facility] | [address] | [place] | | | [facility] | | [address] | | | - LABORATORY | | | | + + + + + CBC with Differential (11/06/2014 9:33 AM PST) + + + + + + | Component | Value | Ref Range | Performed | Pathologist | | | | | At | Signature | + + + + + + | WBC | 10.5 | 4.0 - 11.0 K/uL | [facility] | | | | | | [facility] | | | | | | [facility] | | | | | | CENTER - | | | | | | LABORATORY | | + + + + + + | RBC | 4.76 | 4.30 - 5.70 | [facility] | | | | | M/uL | [facility] | | | | | | MEDICAL | | | | | | CENTER - | | | | | | LABORATORY | | + + + + + + | Hemoglobin | 9.7 (L) | 13.5 - 18.0 | [facility] | | | | | g/dL | [facility] | | | | | | MEDICAL | | | | | | CENTER - | | | | | | LABORATORY | | + + + + + + | Hematocrit | 32.1 (L) | 40.0 - 51.0 % | [facility] | | | | | | [facility] | | | | | | MEDICAL | | | | | | CENTER - | | | | | | LABORATORY | | + + + + + + | MCV | 67.5 (L) | 83.0 - 101.0 fL | [facility] | | | | | | [facility] | | | | | | MEDICAL | | | | | | CENTER - | | | | | | LABORATORY | | + + + + + + | MCH | 20.3 (L) | 28.0 - 35.0 pg | [facility] | | | | | | [facility] | | [facility] | | | MEDICAL | | | | | | CENTER - | | | | | | LABORATORY | | + + + + + + | MCHC | 30.2 (L) | 32.0 - 36.0 | [facility] | | | | | g/dL | [facility] | | | | | | MEDICAL | | | | | | CENTER - | | | | | | LABORATORY | | + + + + + + | RDW-CV | 18.1 (H) | <15.0 % | [facility] | | | | | | [facility] | | | | | | MEDICAL | | | | | | CENTER - | | | | | | LABORATORY | | + + + + + + | Platelet | 386 | 140 - 440 K/uL | [facility] | | | Count | | | [facility] | | | | | | MEDICAL | | | | | | CENTER - | | | | | | LABORATORY | | + + + + + + | MPV | 7.6 | fL | [facility] | | | | | | [facility] | | | | | | MEDICAL | | | | | | CENTER - | | | | | | LABORATORY | | + + + + + + | % | 61.0 | 45.0 - 82.0 % | [facility] | | | Neutrophils | | | [facility] | | | | | | MEDICAL | | | | | | CENTER - | | | | | | LABORATORY | | + + + + + + | % | 22.6 | 20.0 - 45.0 % | [facility] | | | Lymphocytes | | | [facility] | | | | | | MEDICAL | | | | | | CENTER - | | | | | | LABORATORY | | + + + + + + | % Monocytes | 12.9 (H) | 4.0 - 12.0 % | [facility] | | | | | | [facility] | | | | | | MEDICAL | | | | | | CENTER - | | | | | | LABORATORY | | + + + + + + | % | 2.7 | 0.0 - 5.0 % | [facility] | | | Eosinophils | | | [facility] | | | | | | MEDICAL | | | | | | CENTER - | | | | | | LABORATORY | | + + + + + + | % Basophils | 0.8 | 0.0 - 1.0 % | [facility] | | | | | | [facility] | | | | | | MEDICAL | | | | | | CENTER - | | | | | | LABORATORY | | + + + + + + | Absolute | 6.40 | 1.80 - 8.50 | [facility] | | | Neutrophils | | K/uL | [facility] | | | | | | MEDICAL | | | | | | CENTER - | | | | | | LABORATORY | | + + + + + + | Absolute | 2.40 | 0.60 - 3.20 | [facility] | | | Lymphocytes | | K/uL | [facility] | | | | | | MEDICAL | | | | | | CENTER - | | | | | | LABORATORY | | + + + + + + | Absolute | 1.30 (H) | 0.00 - 1.00 | [facility] | | | Monocytes | | K/uL | [facility] | | | | | | MEDICAL | | | | | | CENTER - | | | | | | LABORATORY | | + + + + + + | Absolute | 0.30 | 0.00 - 0.40 | [facility] | | | Eosinophils | | K/uL | [facility] | | | | | | MEDICAL | | | | | | CENTER - | | | | | | LABORATORY | | + + + + + + | Absolute | 0.10 | 0.00 - 0.10 | [facility] | | | Basophils | | K/uL | [facility] | | | | | | MEDICAL | | | | | | CENTER - | | | | | | LABORATORY | | + + + + + + + + | Specimen | + + | Blood | + + + + + + + | Performing | Address | City/State/Zipcode | Phone Number | | Organization | | | | + + + + + | [facility] | [address] | [place], [place] | [phone] | | [facility] | | [address] | | | - LABORATORY | | | | + + + + + | [facility] | [address] | [place], [place] | | | [facility] | | [address] | | | - LABORATORY | | | | + + + + + documented in this encounter Visit Diagnoses + + | Diagnosis | + + | Acute gastrointestinal hemorrhage Hemorrhage of gastrointestinal tract, unspecified | + + | Obesity, Class I, BMI 30-34.9 Obesity, unspecified | + + | Narcotic abuse, continuous (HCC) Sedative, hypnotic or anxiolytic abuse, continuous | + + documented in this encounter"
--- OUTSIDE RECORDS SUMMARY | ~2019-09-17 | XMS | Encounter Summary ---
Demographics + + + | Address | [address] | | | [place] [address] | + + + | Home Phone | | + + + | Preferred Language | Unknown | + + + | Marital Status | Legally | + + + | Alevism Affiliation | Unknown | + + + | Race | Unknown | + + + | Ethnic Group | Unknown | + + + Author + + + | Author | [facility] | | | and [place] | + + + | Organization | [facility] | | | and [place] | [...] [place], [place] | | | | | [address] | | + + + + + Care Team Providers + +------+ + | Care Hoist Operator Name | Role | Phone | + [...] Description | +--------+--------+ + + + | 02/10/ | Refill | [facility] | Jean Pierre Amaya, | Medication Refill | | 2013 | | NEUROSURGERY [address] | DO [address] | | | | | [address] | [address] [place], [place] | | | | | [place], [place] | [address] | | | | | [address] | | | | | | [phone] | | | +--------+--------+ + + + [...] filedocumented as of this encounter Visit Diagnoses Not on filedocumented in this encounter"
--- OUTSIDE RECORDS SUMMARY | ~2019-09-17 | XMS | Encounter Summary ---
Demographics + + + | Address | [address] | | | [place] [address] | + + + | Home Phone | | + + + | Preferred Language | Unknown | + + + | Marital Status | Legally | + + + | Hinduism Affiliation | Unknown | + + + | Race | Unknown | + + + | Ethnic Group | Unknown | + + + Author + + + | Author | [facility] | | | and [place] | + + + | Organization | [facility] | | | and [...] [place], [place] | | | | | [address] | | + + + + + Care Team Providers + +------+ + | Care Marketing Support Specialist Name | Role | Phone | + +------+ + | Basilio Cuevas PA-C | PCP | | + +------+ + Encounter Details +--------+ + + + + | Date | Type | Department | Care Team | Description | +--------+ + + + + | 12/04/ | Hospital | [facility] | Jean Pierre Amaya, | | | 2013 | Encounter | MED CTR XRAY [address] | DO [address] | | | | | [place] | [address] [place] | | | | | [place] [address] | [id number] | | | | | [phone] | | | +--------+ + + + [...] + + + +---------+ + + | cyclobenzaprine | | | 0 | 12/02/19 | | | (FLEXERIL) 10 mg | | | | 14 | 4 | | tablet | | | | | | + + + +---------+ + + | HYDROmorphone | Take 8 mg by mouth 2 | | 0 | | | | (DILAUDID) 8 mg | times daily. | | | | 4 | | tablet | | | | | | + + + +---------+ + + | lisinopril | Take 20 mg by mouth | | 0 | | | | (PILAR REICHRIL) | Daily. | | | | 5 | | 20 mg tablet | | | | | | + + + +---------+ + + | methylPREDNISolone | | | 0 | 12/03/19 | | | (MEDROL DOSEPAK) 4 | | | | 14 | 4 | | mg tablet | | | | | | + + + +---------+ + + documented as of this encounter Plan of Treatment Not on filedocumented as of this encounter Visit Diagnoses Not on filedocumented in this encounter"
--- OUTSIDE RECORDS SUMMARY | ~2019-09-17 | XMS | Encounter Summary ---
Demographics + + + | Address | [address] | | | [place] [address] | + + + | Home Phone | | + + + | Preferred Language | Unknown | + + + | Marital Status | Legally | + + + | Oriental Orthodox Affiliation | Unknown | + + + | Race | Unknown | + + + | Ethnic Group | Unknown | + + + Author + + + | Author | [facility] | | | and [place] | + + + | Organization | [facility] | | | and [place] [...] [place], [place] | | | | | [address] | | + + + + + Care Team Providers + +------+ + | Care Facility Mechanic Name | Role | Phone | + +------+ + | No, Physician | PCP | Unavailable | + +------+ + Encounter Details +--------+ + + + + | Date | Type | Department | Care Team | Description | +--------+ + + + + | 01/23/ | [facility] | [facility] | Felipe Pro, | | | 2012 | Encounter | MED CTR EMERGENCY | [address] | | | | | CENTER [address] | [place] | | | | | [place] | [address] | | | | | [address] | | | | | | [phone] | Mahesh Mora MD | | | | | | [address] | | | | | | [place], [place] | | | | | | [address] | | | | | | | | +--------+ + + + + Social History + +-------+ +--------+------+ | Tobacco Use | Types | Packs/Day | Years | Date | | | | | Used | | + +-------+ +--------+------+ | Former Smoker | | | | | + +-------+ +--------+------+ + + +---------+ + | Alcohol Use | Drinks/Week | oz/Week | Comments | + + +---------+ + | Not Asked | | | | + + +---------+ + + + [...] | + +--------+ + + + | CT ABDOMEN PELVIS W | Routin | 01/24/2013 | | Results for this | | CONTRAST | e | 7:24 AM | | procedure are in the | | | | PDT | | results section. | + +--------+ + + + | CBC NO DIFFERENTIAL | Routin | 01/23/2013 | | Results for this | | | e | 5:37 PM | | procedure are in the | | | | PDT | | results section. | + +--------+ + + + | COMPREHENSIVE | Routin | 01/23/2013 | | Results for this | | METABOLIC PANEL | e | 5:37 PM | | procedure are in the | | | | PDT | | results section. | + +--------+ + + + documented in this encounter Results CT Abdomen Pelvis w Contrast (01/24/2013 7:24 AM PDT) + + | Specimen | + + | | + + + + + | Narrative | Performed At | + + + | [facility] | [place] | | Department [address] | [facility] | | [ rep ct [address]] [ rep ct [facility] | | st zip] Signed | - IMAGING | | | | | Patient Name: ROBERT ALONSO Physician: | | | CARLO. : 1980 Age: 32 Sex: M Unit #: [id number] | | | Exam Date: 01/23/13 Location: ER | | | Report #: [id number] Page: | | | %(RAD)RES..mtdd.print.filter("pg") of %(RAD) | | | RES..mtdd.print.filter("tpg") | | | | | | Accession Number: [id number] | | | ENHANCED CT ABDOMEN AND PELVIS: 01/23/2013 @ 1746 HOURS | | | CLINICAL HISTORY: LOWER ABDOMINAL PAIN FOR THREE DAYS. | | | COMPARISON: Lumbar MRI 12/30/3012. TECHNIQUE: Axial | | | images are performed through the abdomen and pelvis following the | | | uneventful intravenous administration of 100 mL Isovue-370 contrast. | | | Coronal and sagittal reformations are also performed. | | | ABDOMEN FINDINGS: Mild dependent density in the imaged lung bases | | | favors atelectasis. Imaged mediastinum is unremarkable. The liver, | | | gallbladder, spleen, pancreas, adrenal glands and kidneys are | | | unremarkable. No renal or ureteral calculus or hydronephrosis is | | | evident. There are scattered descending and sigmoid colonic | | | diverticula, without convincing evidence of diverticulitis. There is a | | | small to moderate volume of formed stool throughout the colon, | | | without evidence of bowel obstruction. The appendix is retrocecal | | | but normal in caliber and appearance. The bowel is unremarkable | | | otherwise. No free air, free fluid, pathologic lymph node | | | enlargement, or hernia is evident. Interbody and posterior she and | | | pedicle screw fusion hardware remains in position at L5-S1. Small | | | Schmorl nodes are present within multiple lower thoracic vertebral | | | endplates. Bones and soft tissues are otherwise unremarkable. | | | PELVIS FINDINGS: Mild, generalized bladder wall thickening is | | | likely accentuated by its partially decompressed state. Prostate and | | | seminal vesicles are unremarkable. There are tiny, fat containing | | | bilateral inguinal hernias. No free air, free fluid or pathologic | | | lymph node enlargement is evident. Several tiny sclerotic foci in | | | the lower bony pelvis and femoral heads are consistent with bone | | | islands. IMPRESSION: 1. COLONIC DIVERTICULOSIS AND | | | SMALL TO MODERATE VOLUME OF RETAINED COLONIC STOOL, WITHOUT EVIDENCE | | | OF DIVERTICULITIS OR BOWEL OBSTRUCTION. NORMAL APPENDIX. | | | 2. GENERALIZED PROMINENCE OF THE BLADDER WALL, LIKELY ACCENTUATED BY | | | ITS PARTIALLY DECOMPRESSED STATE. CLINICAL AND LABORATORY | | | CORRELATION ADVISED. 3. TINY, FAT-CONTAINING INGUINAL | | | HERNIAS. 4. STATUS POST OPERATIVE INTERBODY AND POSTERIOR | | | SHE AND PEDICLE SCREW FUSION AT L5-S1. COMMENT: Preliminary | | | results of the study were communicated to the ER staff by the | | | [facility] radiologist on 01/23/2013 at 1811 hours. | | | <<Signature on File>> | | | Dawson Garrido | | | MD Judah01/24/13 0910 <Electronically signed by Dawson So MD> | | | Dawson So MD 01/24/13 0724 Ambulatory Services Representative: | | | Amanda Deal01/24/13 0831 Felipe Pro MD | | | Mahesh Mora MD | | + + + + + + + + | Performing | Address | City/State/Zipcode | Phone Number | | Organization | | | | + + + + + | [facility] | [address] | [place] | [phone] | | [facility] | | [address] | | | - IMAGING | | | | + + + + + Comprehensive Metabolic Panel (01/23/2013 5:37 PM PDT) + + + + + + | Component | Value | Ref Range | Performed | Pathologist | | | | | At | Signature | + + + + + + | Glucose | 88 | 70 - 109 mg/dL | [facility] | | | | | | [facility] | | | | | | MEDICAL | | | | | | CENTER - | | | | | | LABORATORY | | + + + + + + | Calcium | 8.7 | 8.3 - 10.5 | [facility] | | | | | mg/dL | [facility] | | | | | | MEDICAL | | | | | | CENTER - | | | | | | LABORATORY | | + + + + + + | Alkaline | 67 | 40 - 110 IU/L | [facility] | | | Phosphatase | | | [facility] | | | | | | MEDICAL | | | | | | CENTER - | | | | | | LABORATORY | | + + + + + + | AST | 31 | 10 - 42 IU/L | [facility] | | | | | | [facility] | | | | | | MEDICAL | | | | | | CENTER - | | | | | | LABORATORY | | + + + + + + | ALT | 36 | 6 - 45 IU/L | [facility] | | | | | | [facility] | | | | | | MEDICAL | | | | | | CENTER - | | | | | | LABORATORY | | + + + + + + | Bilirubin | 0.5 | 0.2 - 1.0 mg/dL | [facility] | | | Total | | | [facility] | | | | | | MEDICAL | | | | | | CENTER - | | | | | | LABORATORY | | + + + + + + | Total | 6.4 | 6.0 - 7.8 gm/dL | [facility] | | | Protein | | | [facility] | | | | | | MEDICAL | | | | | | CENTER - | | | | | | LABORATORY | | + + + + + + | Albumin | 3.8 | 3.2 - 5.0 gm/dL | [facility] | | | | | [...] + + + + | Creatinine | 1.16 | 0.60 - 1.30 | [facility] | | | | | mg/dL | [facility] | | | | | | MEDICAL | | | | | | CENTER - | | | | | | LABORATORY | | + + + + + + | Estimated | >60Comment: For | >60 mL/min/A | [facility] | | | GFR | -Americans, | | [facility] | | | | please multiply the | | MEDICAL | | | | result by 1.210 | | CENTER - | | | | This is an estimated | | LABORATORY | | | | GFR and is based on a | | | | | | standard adult | | | | | | body mass (A=1.73m2) and | | | | | | serum creatinine | | | | + + + + + + | BUN/Creatin | 6.9 (L) | 12 - 20 | [facility] | | | ine Ratio | | | [facility] | | | | | | MEDICAL | | | | | | CENTER - | | | | | | LABORATORY | | + + + + + + | Na | 139 | 136 - 149 mEq/L | [facility] | | | | | | [facility] | | | | | | MEDICAL | | | | | | CENTER - | | | | | | LABORATORY | | + + + + + + | K | 3.8 | 3.5 - 5.1 mEq/l | [facility] | | | | | | [facility] | | | | | | MEDICAL | | | | | | CENTER - | | | | | | LABORATORY | | + + + + + + | Cl | 108 | 98 - 109 mEq/l | [facility] | | | | | | [facility] | | | | | | MEDICAL | | | | | | CENTER - | | | | | | LABORATORY | | + + + + + + | CO2 | 24 | 24 - 31 mEq/L | [facility] | | | | | | [facility] | | | | | | MEDICAL | | | | | | CENTER - | | | | | | LABORATORY | | + + + + + + | Anion Gap | 10.8 | 6.0 - 17.0 | [facility] | | | | | [...] + | [facility] | [address] | [place], [place] | [phone] | | [facility] | | [address] | | | - LABORATORY | | | | + + + + + | [facility] | [address] | [place], [place] | | | [facility] | | [address] | | | - LABORATORY | | | | + + + + + CBC no Differential (01/23/2013 5:37 PM PDT) + + + + + + | Component | Value | Ref Range | Performed | Pathologist | | | | | At | Signature | + + + + + + | WBC | 9.8 | 4.0 - 11.0 K/uL | [facility] | | | | | | [facility] | | | | | | MEDICAL | | | | | | CENTER - | | | | | | LABORATORY | | + + + + + + | RBC | 5.59 | 4.30 - 5.70 | [facility] | | | | | M/uL | [facility] | | | | | | MEDICAL | | | | | | CENTER - | | | | | | LABORATORY | | + + + + + + | Hemoglobin | 13.8 | 13.5 - 18.0 | [facility] | | | | | gm/dL | [facility] | | | | | | MEDICAL | | | | | | CENTER - | | | | | | LABORATORY | | + + + + + + | Hematocrit | 43.2 | 40.0 - 51.0 % | [facility] | | | | | | [facility] | | | | | | MEDICAL | | | | | | CENTER - | | | | | | LABORATORY | | + + + + + + | MCV | 77.3 (L) | 83.0 - 101.0 fL | [facility] | | | | | | [facility] | | | | | | MEDICAL | | | | | | CENTER - | | | | | | LABORATORY | | + + + + + + | MCH | 24.7 (L) | 28.0 - 35.0 pg | [facility] | | | | | | [facility] | | | | | | MEDICAL | | | | | | CENTER - | | | | | | LABORATORY | | + + + + + + | MCHC | 31.9 (L) | 32.0 - 36.0 | [facility] | | | | | g/dL | [facility] | | | | | | MEDICAL | | | | | | CENTER - | | | | | | LABORATORY | | + + + + + + | RDW-CV | 21.5 (H) | <15.0 % | [facility] | | | | | | [facility] | | | | | | MEDICAL | | | | | | CENTER - | | | | | | LABORATORY | | + + + + + + | Platelet | 245 | 140 - 440 K/uL | [facility] [...] + + + + + | [facility] | [address] | [place] | [phone] | | [facility] | | [address] | | | - LABORATORY | | | | + + + + + | [facility] | [address] | [place] | | | [facility] | | [address] | | | - LABORATORY | | | | + + + + + documented in this encounter Visit Diagnoses Not on filedocumented in this encounter
--- OUTSIDE RECORDS SUMMARY | ~2019-09-17 | XMS | Encounter Summary ---
Demographics + + + | Address | [address] | | | [place] [address] | + + + | Home Phone | | + + + | Preferred Language | Unknown | + + + | Marital Status | Legally | + + + | Pentecostalism Affiliation | Unknown | + + + | Race | Unknown | + + + | Ethnic Group | Unknown | + + + Author + + + | Author | [facility] | | | and [place] | + + + | Organization | [facility] | | | and [place] [...] [place], [place] | | | | | [address] | | + + + + + Care Team Providers + +------+ + | Care Front Office Manager Name | Role | Phone | + +------+ + | Mynor Simental MD | PCP | | + +------+ + Encounter Details +--------+ + + + + | Date | Type | Department | Care Team | Description | +--------+ + + + + | 08/19/ | Abstract | [facility] | Mynor Simental, | | | 2012 | | [facility] [place] | [address] | | | | | [address] | [place] | | | | | [place] | [address] | | | | | [address] | | | | | | [phone] | | | +--------+ + + + [...]
--- OUTSIDE RECORDS SUMMARY | ~2019-09-17 | XMS | Encounter Summary ---
Demographics + + + | Address | [address] | | | [place] [address] | + + + | Home Phone | | + + + | Preferred Language | Unknown | + + + | Marital Status | Legally | + + + | Mandaeism Affiliation | Unknown | + + + | Race | Unknown | + + + | Ethnic Group | Unknown | + + + Author + + + | Author | [facility] | | | and [place]anyana | + + + | Organization | [facility] | | | and [...] [place], [place] | | | | | [address] | | + + + + + Care Team Providers + +------+ + | Care Services Clerk Name | Role | Phone | + [...] Description | +--------+--------+ + + + | 02/21/ | Refill | [facility] | Jean Pierre Amaya, | Medication Refill | | 2013 | | NE[address] | DO [address] | | | | | [address] | [address] [place], [place] | | | | | [place], [place] | [address] | | | | | [address] | | | | | | [phone] | | | +--------+--------+ + + + [...]
--- OUTSIDE RECORDS SUMMARY | ~2019-09-17 | XMS | Encounter Summary ---
Demographics + + + | Address | [address] | | | [place] [address] | + + + | Home Phone | | + + + | Preferred Language | Unknown | + + + | Marital Status | Legally | + + + | Sabianist Affiliation | Unknown | + + + | Race | Unknown | + + + | Ethnic Group | Unknown | + + + Author + + + | Author | [facility] | | | and [place]anyana | + + + | Organization | [facility] | | | and [...] [place], [place] | | | | | [address] | | + + + + + Care Team Providers + +------+ + | Care Hydraulic And Plumbing Installer Name | Role | Phone | + +------+ + | Basilio Cuevas PA-C | PCP | | + +------+ + Reason for Visit Auth/Cert +--------+--------+ + + + + | Status | Reason | Specialty | Diagnoses / | Referred By | Referred To | | | | | Procedures | Contact | Contact | +--------+--------+ + + + + | Closed | | | Diagnoses | | [facility] | | | | | Nonunion of | | Surgical [address] | | | | | fracture | | [address] | | | | | Thoracic or | | [place], | | | | | lumbosacral | | [place] [address] | | | | | neuritis or | | Phone: | | | | | radiculitis, | | [phone] | | | | | unspecified | | Fax: | | | | | Lumbago | | [phone] | | | | | Arthrodesis | | | | | | | status | | | | | | | Nonunion of | | | | | | | fracture | | | | | | | | | | | | | | Procedures | | | | | | | LAMINECTOMY | | | | | | | PLIF/TLIF | | | | | | | INSTRUMENTAT | | | | | | | ION | | | +--------+--------+ + + + + Encounter Details +--------+---------+ + + + | Date | Type | Department | Care Team | Description | +--------+---------+ + + + | 02/04/ | Surgery | [facility] | Jean Pierre Amaya, | [facility]OVAL | | 2013 | | MED CTR OR INTRA OP | DO [address] | AND REVISION OF | | | | [address] | [address] [place], [place] | FUSION AT L5[address]S1 | | | | [place] | [address] | | | | | [address] | | | | | | [phone] | | | +--------+---------+ + + + [...] + + + | Blood Pressure | 140/81 | 02/06/2014 7:40 AM | | | | | PDT | | + + + + + | Pulse | 78 | 02/06/2014 7:40 AM | | | | | PDT | | + + + + + | Temperature | 36.5 C (97.7 F) | 02/06/2014 7:40 AM | | | | | PDT | | + + + + + | Respiratory Rate | 16 | 02/06/2014 7:40 AM | | | | | PDT | | + + + + + | Oxygen Saturation | 96% | 02/06/2014 7:40 AM | | | | | PDT | | + + + + + | Inhaled Oxygen | - | - | | | Concentration | | | | + + + + + | Weight | 108.9 kg (240 lb) | 02/04/2014 10:15 AM | | | | | PDT | | + + + + + | Height | 182.9 cm (6') | 02/04/2014 10:15 AM | | | | | PDT | | + + + + + | Body Mass Index | 32.55 | 02/04/2014 10:15 AM | | | | | PDT | | + + + + + documented in this encounter Discharge Summaries Jean Pierre Amaya DO - 02/06/2014 7:56 AM PDTFormatting of this note might be different fro m the original. Discharge Summary Patient Identification Fili Alonso is a 33 y.o. male. : 1980 Admit Date: 02/04/2014 Discharge date and time: No discharge date for patient encounter. 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 No twisting/bending. You need to be up and out of bed most of the time, but not sit for greater than 45 min at a time. Please wear your brace at all times. Current Discharge Medication List START taking these medications Details diazepam (VALIUM) 5 mg tablet Take 1 tab every 6 hours as needed for muscle spasms. Qty: 60 tablet, Refills: 0 !! HYDROmorphone (DILAUDID) 2 mg tablet Take 4 tablets by mouth every 12 hours as needed fo r Pain. Qty: 60 tablet, Refills: 0 Lactulose SOLN Take 30 mLs by mouth every 6 hours as needed (Constipation). Qty: 240 mL, Refills: 1 !! - Potential duplicate medications found. Please discuss with provider. CONTINUE these medications which have NOT CHANGED Details !! HYDROmorphone (DILAUDID) 8 mg tablet Take 8 mg by mouth 2 times daily. lisinopril (PRINIVIL, ZESTRIL) 20 mg tablet Take 20 mg by mouth Daily. !! - Potential duplicate medications found. Please discuss with provider. Activity: see above Diet: regular diet Wound Care: keep wound clean and dry DME Orders after Discharge: none Follow-up with Dr. Amaya's clinic in 4 weeks. documented in this en counter Discharge Instructions Instructions Toribio Dick PA-C - 02/06/2014No lifting greater than 5 lbs. No twistin g/bending. You need to be up and out of bed most of the time, but not sit for greater than 45 min at a time. Please wear your brace at all times. AttachmentsThe following attachments cannot be sent through Care Everywhere.DISCHARGE INSTR UCTIONS FOR LUMBAR FUSION (THAI)documented in this encounter Medications at Time of Discharge + + + +---------+ + + | Medication | Sig | Dispensed | Refills | Start | End Date | | | | | | Date | | + + + +---------+ + + | diazepam (VALIUM) | Take 1 tab every 6 | 60 | 0 | 02/07/20 | | | 5 mg tablet | hours as needed for | tablet | | 14 | 4 | | | muscle spasms. | | | | | + + + +---------+ + + | | Take 1-2 tablets by | 60 | 0 | 02/07/20 | | | HYDROcodone-acetamin | mouth every 4 hours | tablet | | 14 | 4 | | ophen (NORCO) 10-325 | as needed for Pain. | | | | | | mg per tablet | | | | | | + + + +---------+ + + | HYDROmorphone | Take 4 tablets by | 60 | 0 | 02/07/20 | | | (DILAUDID) 2 mg | mouth every 12 hours | tablet | | 14 | 4 | | tablet | as needed for Pain. | | | | | + + + +---------+ + + | HYDROmorphone | Take 8 mg by mouth 2 | | 0 | | | | (DILAUDID) 8 mg | times daily. | | | | 4 | | tablet | | | | | | + + + +---------+ + + | Lactulose SOLN | Take 30 mLs by mouth | 240 mL | 1 | 02/07/20 | | | | every 6 hours as | | | 14 | 4 | | | needed | | | | | | | (Constipation). | | | | | + + + +---------+ + + | lisinopril | Take 20 mg by mouth | | 0 | | | | (PRINIVIL, ZESTRIL) | Daily. | | | | 5 | | 20 mg tablet | | | | | | + + + +---------+ + + documented as of this encounter Progress Notes Ethel Babcock RN - 02/06/2014 11:30 AM PDTPt discharged. All discharge instructions & prescriptions reviewed with pt. Scripts for [place], Valium & lactulose called to Leonel (neena belle) @ [facility] in [place], [place]. Pt wheeled out by staff; family here to transport pt h ome. Ethel Rogers RN - 02/06/2014 8:03 AM PDTPt doing very well, transfers & ambulates independently with FWW & LSO brace. Pain well controlled at this time, weaning off of TRIMMING MACHINE OPERATOR as pt will go home w ith oral dilaudid. Family at bedside. All discharge instructions reviewed with pt.Gato lilly signed by Ethel Babcock RN at 02/06/2014 8:05 AM Kobe Crain, [facility] - 0 02/05/2014 8:05 AM PDT PHARMACY SERVICES: PAIN MANAGEMENT Subjective Fili Alonso is a 33 y.o. year old male admitted S/P L5-S1 hardware removal and maxx ion TLIF . Fili was interviewed today and reports a pain scale of 4/10 currently, 5/10 with acti vity, and 2/10 while at rest. Allergies: Allergies Allergen Reactions Oxycodone Hives and Other (See Comments) Throat got itchy and was hard to breathe Social history: Hx of narcotic drug abuse Prior history of medications for pain management includes: hydromorphone Current pain management includes: Opioids Opioid Agonists Sig HYDROmorphone (DILAUDID) tablet 4 mg HYDROmorphone in saline (DILAUDID) 1 mg/mL TRIMMING MACHINE OPERATOR meperidine (DEMEROL) injection 12.5 mg Opioid Combinations Sig HYDROcodone-acetaminophen (NORCO) 10-325 mg per tablet 1-2 tablet For sedation/anxiety/muscle spasms: Diazepam, robaxin Objective: BP 161/96 | Pulse 102 | Temp 36.8 C (98.2 F) (Oral) | Resp 18 | Ht 1.829 m (6') | Wt 10 8.863 kg (240 lb) | BMI 32.54 kg/m2 | SpO2 93% Estimated Creatinine Clearance: 124 ml/min (based on Cr of 1.09). Liver dysfunction: [] yes [x] no Assessment: Pain is currently controlled Patient has a bowel regimen to treat/prevent opioid induced constipation [x] yes [] no Narcan IV PRN is ordered Plan: 1. Maintain frequency of TRIMMING MACHINE OPERATOR. 2. D/c prn morphine 3. Change dilaudid PO to 4 mg q6h. 4. Pain well controlled, therefore provider d/c'd pharmacy consult. Plan is to wean TRIMMING MACHINE OPERATOR off later and discharge patient tomorrow. 5. Patient has been educated about pain management and patient care plan. 6. Pharmacy will sign off on pain consult. Thank you for consulting pharmacy to participate in the patient s care, Electronically signed by: Kobe Lopez RPH 02/05/2014 8:06 Rosie Chery PA-C - 02/05/2014 7:28 AM PDTFormatting of this note might be different from the [facility] PROGRESS NOTE Pt. Name/Age/: Fili Alonso 33 y.o. 1980 Med. Record Number: [id number] Date of admission: 02/04/2014 Subjective: The patient chart and medications were reviewed in detail and the patient was s een and examined by me. The patient reports that his left leg pain is gone. Has incisional back pain and chest hayden n secondary to operating room positioning. Objective: Temp: 36.8 C (98.2 F) BP: 161/96 mmHg Pulse: 102 Resp: 18 SpO2: 93 % on Min/Max Temp past 24 hours:Temp Av.9 C (98.5 F) Min: 36.6 C (97.9 F) Max: 3 7.9 C (100.2 F) Intake/Output Summary (Last 24 hours) at 02/05/14 0728 Last data filed at 02/05/14 0604 Gross per 24 hour Intake 4404 ml Output 2945 ml Net 1459 ml Wt. Admission: Weight: 108.863 kg (240 lb) Wt. Current: Weight: 108.863 kg (240 lb) Exam: General: NAD, AOx3 Cardiovascular: RRR Respiratory: Normal respiration Extremities: Ambulating without assistance. 5/5 bilateral LE. Skin: Incisions clean, dry and intact. CRISTELA drains x2, functioning appropriately. Neurological: Sensation intact to gross LT. Diagnostic studies: No images to review. Assessment and Plan: S/P L5-S1 hardware removal and revision TLIF POD #1 Preoperative symptoms are improving PT/OT to ambulate. Increase activity Will d/c pharmacy consult 2/2 adequate pain relief. Keep both CRISTELA's in situ. Will work on weaning TRIMMING MACHINE OPERATOR later this pm. Likely D/C home tomorrow. Patient Active Problem List Diagnosis Chronic low back pain HTN (hypertension) Tobacco abuse Preventative health care Narcotic abuse Electronically signed by: Toribio Dick, 02/05/2014 7:28 [facility] Nani Hurd R RT - 02/05/2014 5:32 AM PDTPt is wide awake and cognitive. Received Cont Pulse Ox order, b ut RN decided pt did not need it. Irwin Justice RN - 02/04/2014 8:59 PM [id number] Report given to Bernard Rome RN documented in this enc ounter Plan of Treatment Not on filedocumented as of this encounter Procedures + +--------+ + + + | Procedure Name | Priori | Date/Time | Associated Diagnosis | Comments | | | ty | | | | + +--------+ + + + | XR LUMBAR SPINE 2 OR | Routin | 02/05/2014 | | Results for this | | 3 VW | e | 7:44 AM | | procedure are in the | | | | PDT | | results section. | + +--------+ + + + | TYPE AND SCREEN | Routin | 02/04/2014 | | Results for this | | | e | 10:38 AM | | procedure are in the | | | | PDT | | results section. | + +--------+ + + + | LAMINECTOMY | | 02/04/2014 | Nonunion of | | | PLIF/TLIF | | 10:29 AM | fracture Thoracic | | | INSTRUMENTATION | | PDT | or lumbosacral | | | | | | neuritis or | | | | | | radiculitis, | | | | | | unspecified Lumbago | | | | | | Arthrodesis status | | + +--------+ + + + +---+--------+ | | | | | Specia | | | l | | | Needs | | | [facility] | | | - | | | [facility] | | | [facility]ERON | +---+--------+ documented in this encounter Results XR Lumbar Spine 2 or 3 Vw (03/06/2014 2:34 PM PDT) + + | Specimen | + + | | + + + + + | Narrative | Performed At | + + + | LIMITED LUMBAR SPINE: 03/06/2014 2:34 PM CLINICAL HISTORY: s/p | [facility] | | lumbar fusion COMPARISON: 02/05/2014 FINDINGS: AP and lateral | LAB | | views of the lumbar spine are reviewed. Posterior pedicle screw and | | | marcy fixation is present across L5-S1. Interbody spacers in the | | | interspace. Fixation components are in stable alignment. Spinal | | | alignment is normally maintained. Vertebral body heights are normal. | | | No bony abnormalities are seen. Adjacent soft tissues are | | | unremarkable. IMPRESSION - Stable L5-S1 fusion. Dictated and | | | Signed by: Milton Franco MD Electronically signed: 03/06/2014 5:04 | | | PM | | + + + + + | Procedure Note | + + | Charan Waldrop Results In - 03/06/2014 5:07 PM PDT LIMITED LUMBAR SPINE: 03/06/2014 2:34 PM | | | | CLINICAL HISTORY: s/p lumbar fusion | | | | COMPARISON: 02/05/2014 | | | | FINDINGS: AP and lateral views of the lumbar spine are reviewed. Posterior | | pedicle screw and marcy fixation is present across L5-S1. Interbody spacers in the | | interspace. Fixation components are in stable alignment. Spinal alignment is | | normally maintained. Vertebral body heights are normal. No bony abnormalities | | are seen. Adjacent soft tissues are unremarkable. | | | | IMPRESSION - Stable L5-S1 fusion. | | | | Dictated and Signed by: Milton Franco MD | | Electronically signed: 03/06/2014 5:04 PM | + + + +---------+ + + | Performing | Address | City/State/Zipcode | Phone Number | | Organization | | | | + +---------+ + + | [facility] | | | [phone] | + +---------+ + + | [facility] | | | [phone] | + +---------+ + + XR Lumbar Spine 2 or 3 Vw (02/05/2014 7:44 AM PDT) + + | Specimen | + + | | + + + + + | Narrative | Performed At | + + + | XR LUMBAR SPINE 2 OR 3 VW. 02/05/2014 7:44 AM HISTORY: postop . | [facility] | | COMPARISON: MRI lumbar spine 12/16/2013 and lumbar spine x-ray | LAB | | 11/14/2013 FINDINGS: Posterior spinal fusion hardware is present | | | at L5 and S1, which appears revised as compared with 11/14/2013. A | | | spacer is seen at the intervening disc level, without evidence of | | | subsidence. Vertebral body alignment appears maintained, | | | particularly at L5-S1. There is improved disc height at L5-S1 as | | | compared with 11/14/2013. Vertebral body heights are maintained. | | | IMPRESSION - Interval revision of posterior spinal fusion | | | hardware and intervening disc spacer at L5-S1, without evidence of | | | hardware complication and with good alignment of the vertebral | | | bodies. Dictated and Signed by: Rigoberto Santoyo MD | | | Electronically signed: 02/05/2014 10:39 AM | | + + + + + | Procedure Note | + + | Benjie, Rad Results In - 02/05/2014 10:42 AM PDT XR LUMBAR SPINE 2 OR 3 VW. 02/05/2014 | | 7:44 AMHISTORY: postop . COMPARISON: MRI lumbar spine 12/16/2013 and lumbar spine x-ray | | 11/14/2013FINDINGS:Posterior spinal fusion hardware is present at L5 and S1, which | | appears revisedas compared with 11/14/2013. A spacer is seen at the intervening disc | | level,without evidence of subsidence. Vertebral body alignment appears | | maintained,particularly at L5-S1. There is improved disc height at L5-S1 as compared | | with11/14/2013. Vertebral body heights are maintained.IMPRESSION -Interval revision of | | posterior spinal fusion hardware and intervening discspacer at L5-S1, without evidence | | of hardware complication and with goodalignment of the vertebral bodies.Dictated and | | Signed by: Rigoberto Santoyo MD Electronically signed: 02/05/2014 10:39 AM | |particularly at L5-S1. There is improved disc height at L5-S1 as compared with | |11/14/2013. Vertebral body heights are maintained. | | | | | |IMPRESSION - | |Interval revision of posterior spinal fusion hardware and intervening disc | |spacer at L5-S1, without evidence of hardware complication and with good | |alignment of the vertebral bodies. | | | |Dictated and Signed by: Rigoberto Santoyo MD | | Electronically signed: 02/05/2014 10:39 AM | + + + +---------+ + + | Performing | Address | City/State/Zipcode | Phone Number | | Organization | | | | + +---------+ + + | [facility] | | | [phone] | + +---------+ + + | [facility] | | | [phone] | + +---------+ + + Type and Screen (02/04/2014 10:38 AM PDT) + + + + + + [...] | | Screen | | | [facility] | | [...] ST[facility] | [address] | [place] | | | [facility] | | [address] | | | - BLOOD BANK | | | | + + + + + documented in this encounter Visit Diagnoses + + | Diagnosis | + + | Nonunion of fracture | + + | Thoracic or lumbosacral neuritis or radiculitis, unspecified | + + | Lumbago | + + | Arthrodesis status | + + documented in this encounter Administered Medications + +--------+ +--------+------+ + | Medication Order | MAR | Action | Dose | Rate | Site | | | Action | Date | | | | + +--------+ +--------+------+ + | bupivacaine 0.25%-epinephrine | Given | 02/05/20 | 20 mLs | | Surgical | | 1:200,000 0.25-1:607682 % | | 14 11:41 | | | Site | | injection PRN, Starting Tue | | AM PDT | | | | | 02/04/14 at 1141, Intra-op | | | | | | + +--------+ +--------+------+ + +---+---+ | | | +---+---+ + +-------+ +---------+---+ + | thrombin (THROMBIN-JMI) 5,000 | Given | 02/05/20 | 10,000 | | Surgical | | units powder PRN, Starting Tue | | 14 11:41 | Units | | Site | | 02/04/14 at 1141, Intra-op | | AM PDT | | | | + +-------+ +---------+---+ + +---+---+ | | | +---+---+ + +-------+ +-----+---+ + | vancomycin injection PRN, | Given | 02/05/20 | 1 g | | Surgical | | Starting 02/04/14 at 1527, | | 14 3:27 | | | Site | | Intra-op | | PM PDT | | | | + +-------+ +-----+---+ + +---+---+ | | | +---+---+ documented in this encounter"
--- OUTSIDE RECORDS SUMMARY | ~2019-09-17 | XMS | Encounter Summary ---
Demographics + + + | Address | [address] | | | [place] [address] | + + + | Home Phone | | + + + | Preferred Language | Unknown | + + + | Marital Status | Legally | + + + | Holiness Affiliation | Unknown | + + + | Race | Unknown | + + + | Ethnic Group | Unknown | + + + Author + + + | Author | [facility] | | | and Hanyana | + + + | Organization | [facility] | | | and [...] [place], [place] | | | | | [address] | | + + + + + Care Team Providers + +------+ + | Care Assistant Manager Name | Role | Phone | + +------+ + | No, Physician | PCP | Unavailable | + +------+ + Encounter Details +--------+ + + + + | Date | Type | Department | Care Team | Description | +--------+ + + + + | 07/08/ | Hospital [facility] | | | 2012 | Encounter | MED CTR XRAY [address] | | | | | | [address] [place] | | | | | | [place] [address] | | | | | | [phone] | | | +--------+ + + + [...] encounter Medications at Time of Discharge + +-----+ +---------+ + + | Medication | Sig | Dispensed | Refills | Start | End Date | | | | | | Date | | + +-----+ +---------+ + + | diclofenac | | | 0 | 04/29/20 | | | (VOLTAREN) 75 mg EC | | | | 13 | 3 | | tablet | | | | | | + +-----+ +---------+ + + | lisinopril | | | 0 | 05/29/20 | | | (PRINIVIL, ZESTRIL) | | | | 13 | 3 | | 20 mg tablet | | | | | | + +-----+ +---------+ + + | | | | 0 | 06/03/20 | | | oxyCODONE-acetaminop | | | | 13 | 3 | | hen (PERCOCET) 5-325 | | | | | | | mg per tablet | | | | | | + +-----+ +---------+ + + documented as of this encounter Plan of Treatment Not on filedocumented as of this encounter Procedures + +--------+ + + + | Procedure Name | Priori | Date/Time | Associated Diagnosis | Comments | | | ty | | | | + +--------+ + + + | CT LUMBAR SPINE WO | Routin | 07/08/2013 | | Results for this | | CONTRAST | e | 4:23 PM | | procedure are in the | | | | PDT | | results section. | + +--------+ + + + documented in this encounter Results CT Lumbar Spine wo Contrast (07/08/2013 4:23 PM PDT) + + | Specimen | + + | | + + + + + | Narrative | Performed At | + + + | [facility] Diagnostic [facility] | [place] | | Department [address] [facility] [place] | [facility] | | [ rep ct [address]] [ rep ct [facility] | | st zip] Signed | - IMAGING | | | | | Patient Name: FILI ALONSO Physician: | | | 20 : 1980 Age: 32 Sex: M Unit #: [id number] | | | Exam Date: 07/08/13 Location: [facility] | | | Report #: [id number] Page: | | | %(RAD)RES..mtdd.print.filter("pg") of %(RAD) | | | RES..mtdd.print.filter("tpg") | | | | | | Accession Number: [id number] | | | LUMBAR SPINE WITHOUT CONTRAST CLINICAL HISTORY: LUMBAR | | | STENOSIS. LOW BACK PAIN. COMPARISON: 12/30/2012 lumbar | | | spine MRI. TECHNIQUE: Noncontrast imaging is performed | | | through the lumbar spine from the level of T11-12 disk. | | | Transpedicular screws and pedicle rods are in place at L5 and S1 | | | fusing the level. Posterior decompressive changes are present at L5. | | | An interbody graft is present at L5-S1. Incomplete osseous fusion | | | across the graft. Spine alignment is essentially anatomic. The levels | | | of L4-5 and above are unremarkable without disk narrowing or | | | significant disk protrusion. No compression deformities. The | | | hardware is intact. The following levels are evaluated | | | in the axial plane: T11-12: Unremarkable. | | | T12-L1: Unremarkable. L1-2: No significant disk bulge or | | | protrusion. Patent central spinal canal and neural foramen. | | | L2-3: No significant disk bulge or protrusion. Central spinal | | | canal and neural foramen are patent. L3-4: Very small | | | posterior shallow disk protrusion. No significant narrowing of the | | | central spinal canal. The neural foramen are patent. | | | L4-5: Shallow posterior disk protrusion. Mild facet arthrosis. Mild | | | narrowing of the central spinal canal. Mild bilateral neural | | | foraminal narrowing. L5-S1: Decompressive change | | | posteriorly. Intact hardware. The central canal is not well-evaluated. | | | The neural foramen are stable and patent. There is partial fusion | | | of the facets. The visible sacrum is unremarkable. The | | | visible soft tissues are unremarkable. IMPRESSION: | | | 1. INTACT FUSION HARDWARE IN L5-S1. 2. INCOMPLETE OSSEOUS | | | FUSION ACROSS THE GRAFT AT L5-S1. 3. THE ASSESSED | | | CENTRAL SPINAL CANAL AND NEURAL FORAMEN ARE PATENT. L5-S1 CENTRAL | | | SPINAL CANAL IS NOT WELL-VISUALIZED DUE TO ARTIFACT. PLEASE REFER TO | | | THE PRIOR MRI. Dictated Date/Time: 07/08/2013 16:23 | | | Transcribed Date/Time: 07/08/2013 18:18 Tobacco Shaker: | | | <<Signature on File>> | | | John | | | Sushila Kaiser MD07/08/13 1841 <Electronically signed by John Conti | | | Job BENNETT> John Kaiser MD 07/08/13 1623 | | | Tobacco Shaker: [employer] [id number]/09/13 4666 | | | Colby Gutierrez Jr, MD | | + + + + + + + + | Performing | Address | City/State/Zipcode | Phone Number | | Organization | | | | + + + + + | [facility] | [address] | [place] | [phone] | | [facility] | | [address] | | | - IMAGING | | | | + + + + + documented in this encounter Visit Diagnoses Not on filedocumented in this encounter
--- OUTSIDE RECORDS SUMMARY | ~2019-09-17 | XMS | Encounter Summary ---
Demographics + + + | Address | [address] | | | [place] [address] | + + + | Home Phone | | + + + | Preferred Language | Unknown | + + + | Marital Status | Legally | + + + | Taoist Affiliation | Unknown | + + + | Race | Unknown | + + + | Ethnic Group | Unknown | + + + Author + + + | Author | [facility] | | | and [place] | + + + | Organization | [facility] | | | and [place] [...] [place], [place] | | | | | [address] | | + + + + + Care Team Providers + +------+ + | Care Orchestra Musician Name | Role | Phone | + +------+ + | No, Physician | PCP | Unavailable | + +------+ + Encounter Details +--------+ + + + + | Date | Type | Department | Care Team | Description | +--------+ + + + + | 08/10/ | Hospital | [facility] | Conversion | Pain | | 2013 | Encounter | CONVERSION [address] | Transaction, | | | | | [address] | Provider Unknown | | | | | [place] | [phone] | | | | | [address] | | | | | | [phone] | | | +--------+ + + + [...] + + + | MRI LUMBAR SPINE WO | Routin | 12/30/2012 | | Results for this | | CONTRAST | e | 10:01 PM | | procedure are in the | | | | PST | | results section. | + +--------+ + + + documented in this encounter Results MRI Lumbar Spine wo Contrast (12/30/2012 10:01 PM PST) + + | Specimen | + + | | + + + + + | Narrative | Performed At | + + + | This is a non-reportable procedure without a radiologist report and | | | is used for image storage only | | + + + + + | Procedure Note | + + | Charan Waldrop - 06/21/2019 7:46 PM PDT This is a non-reportable procedure | | without a radiologist report and isused for image storage only | + + documented in this encounter Visit Diagnoses + + | Diagnosis | + + | Pain Generalized pain | + + documented in this encounter"
--- OUTSIDE RECORDS SUMMARY | ~2019-09-17 | XMS | Encounter Summary ---
Demographics + + + | Address | [address] | | | [place] [address] | + + + | Home Phone | | + + + | Preferred Language | Unknown | + + + | Marital Status | Legally | + + + | Mandaeism Affiliation | Unknown | + + + | Race | Unknown | + + + | Ethnic Group | Unknown | + + + Author + + + | Author | [facility] | | | and [place] | + + + | Organization | [facility] | | | and [place] [...] [place], [place] | | | | | [address] | | + + + + + Care Team Providers + +------+ + | Care Spooling Supervisor Name | Role | Phone | + +------+ + | Mynor Simental MD | PCP | | + +------+ + Encounter Details +--------+ + + + + | Date | Type | Department | Care Team | Description | +--------+ + + + + | 11/08/ | Orders Only | [facility] | JeanP ierre Amaya, | Back pain (Primary | | 2014 | | NEUROSURGERY [address] | DO [address] | Dx) | | | | [address] | [address] [place] | | | | | [place] | [address] | | | | | [address] | | | | | | [phone] | | | +--------+ + + + [...] Not on filedocumented as of this encounter Results XR Lumbar Spine 2 or 3 Vw (11/14/2013 12:30 PM PST) + + | Specimen | + + | | + + + + + | Narrative | Performed At | + + + | [facility] | [place] | | Department [address] [place] [address] | [facility] | | [ rep [address]] [ rep ct [facility] | | [facility]] Signed | - IMAGING | | | | | Patient Name: FILI ALONSO Physician: | | | NICOLEJessica : 1980 Age: 33 Sex: M Unit #: [id number] | | | Exam Date: 11/14/13 Location: [facility] | | | Report #: [id number] Page: | | | %(RAD)RES..mtdd.print.filter("pg") of %(RAD) | | | RES..mtdd.print.filter("tpg") | | | | | | Accession Number: [id number] | | | LUMBAR SPINE X-RAY CLINICAL HISTORY: BACK PAIN. | | | COMPARISON: Lumbar spine x-ray dated 10/26/2008. | | | FINDINGS: Three lateral views of the lumbar spine including flexion | | | and extension were obtained. There is hardware for posterior | | | fusion from L5 through S1 with interbody graft material at L5-S1. | | | The hardware remains intact. Vertebral body heights are | | | preserved with no evidence for compression fractures. There is | | | mild disk height loss at L5-S1. The facet joints are intact with no | | | evidence for spondylolysis. IMPRESSION: 1. STABLE | | | POSTERIOR FUSION FROM L5 THROUGH S1, NO EVIDENCE FOR INSTABILITY. | | | 2. MILD DISK HEIGHT LOSS AT L5-S1. Dictated | | | Date/Time: 11/14/2013 12:30 Transcribed Date/Time: 11/14/2013 | | | 12:40 Morgue Attendant: <<Signature | | | on File>> | | | Sammy | | | MD Andrew11/14/13 7449 <Electronically signed by Sammy Morales MD> | | | Sammy Morales MD 11/14/13 1230 Morgue Attendant: [employer] | | | [id number]/16/14 1240 Jean Pierre Amaya DO | | + + + + + + + + | Performing | Address | City/State/Zipcode | Phone Number | | Organization | | | | + + + + + | [facility] | [address] | [place] | [phone] | | [facility] | | [address] | | | - IMAGING | | | | + + + + + documented in this encounter Visit Diagnoses + + | Diagnosis | + + | Back pain - Primary Backache, unspecified | + + documented in this encounter
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
--- OUTSIDE RECORDS SUMMARY | ~2019-09-17 | XMS | Encounter Summary ---
Demographics + + + | Address | [address] | | | [place] [address] | + + + | Home Phone | | + + + | Preferred Language | Unknown | + + + | Marital Status | Legally | + + + | Hoahaoism Affiliation | Unknown | + + + | Race | Unknown | + + + | Ethnic Group | Unknown | + + + Author + + + | Author | [facility] | | | and [place] | + + + | Organization | [facility] | | | and [place] [...] [place], [place] | | | | | [address] | | + + + + + Care Team Providers + +------+ + | Care Consultants Intern Name | Role | Phone | + [...] Description | +--------+--------+ + + + | 03/13/ | Refill | [facility] | Jean Pierre Amaya, | Medication Refill | | 2013 | | NEUROSURGERY [address] | DO [address] | | | | | [address] | [address] [place], [place] | | | | | [place], [place] | [address] | | | | | [address] | | | | | | [phone] | | | +--------+--------+ + + + [...]
--- OUTSIDE RECORDS SUMMARY | ~2019-09-17 | XMS | Encounter Summary ---
Demographics + + + | Address | [address] | | | [place] [address] | + + + | Home Phone | | + + + | Preferred Language | Unknown | + + + | Marital Status | Legally | + + + | Judaism Affiliation | Unknown | + + + | Race | Unknown | + + + | Ethnic Group | Unknown | + + + Author + + + | Author | [facility] | | | and [place] | + + + | Organization | [facility] | | | and [...] [place], [place] | | | | | [address] | | + + + + + Care Team Providers + +------+ + | Care Editor In Chief Newspaper Name | Role | Phone | + [...] | | | fracture | | [address] | | | | | Thoracic or | | [place], | | | | | lumbosacral | | [place] [address] | | | | | neuritis or | | Phone: | | | | | radiculitis, | | [phone] | | | | | unspecified | | Fax: | | | | | Lumbago | | [phone] | | | | | Arthrodesis | [...] +--------+--------+ + + + + Encounter Details +--------+ + + + + | Date | Type | Department | Care Team | Description | +--------+ + + + + | 02/04/ | Hospital | [facility] | Jean Pierre Amaya, | Nonunion of fracture | | 2013 | Encounter | MED CTR XRAY [address] | DO [address] | | | | | [place] | [place] | | | | | [place] [address] | [id number] | | | | | [phone] | | | +--------+ + + + [...] | + +--------+ + + + | FL C ARM SPINE | Routin | 02/04/2014 | Nonunion of | Results for this | | | e | 6:55 PM | fracture | procedure are in the | | | | PDT | | results section. | + +--------+ + + + documented in this encounter Results FL C-Arm Spine (02/04/2014 6:55 PM PDT) + + | Specimen | + + | | + + + + + | Narrative | Performed At | + + + | No Radiologist interpretation, please see Chart Review. | [facility] | | | [place] | | | [facility] | | | - IMAGING | + + + + + | Procedure Note | + + | 02/04/2014 6:56 PM PDT No Radiologist interpretation, please see Chart Review. | + + + + + + + | Performing | Address | City/State/Zipcode | Phone Number | | Organization | | | | + + + + + | [facility] | [address] | [place] | [phone] | | [facility] | | [address] | | | - IMAGING | | | | + + + + + documented in this encounter Visit Diagnoses + + | Diagnosis | + + | Nonunion of fracture | + + documented in this encounter"
--- OUTSIDE RECORDS SUMMARY | ~2019-09-17 | XMS | Encounter Summary ---
Demographics + + + | Address | [address] | | | [place] [address] | + + + | Home Phone | | + + + | Preferred Language | Unknown | + + + | Marital Status | Legally | + + + | Religion Affiliation | Unknown | + + + | Race | Unknown | + + + | Ethnic Group | Unknown | + + + Author + + + | Author | [facility] | | | and [place] | + + + | Organization | [facility] | | | and [place] | [...] [place], [place] | | | | | [address] | | + + + + + Care Team Providers + +------+ + | Care Sandwich Maker Name | Role | Phone | + +------+ + | Mynor Simental MD | PCP | | + +------+ + Encounter Details +--------+ + + + + | Date | Type | Department | Care Team | Description | +--------+ + + + + | 11/18/ | [facility] | [facility] | | | | 2013 | Encounter | MED CTR XRAY [address] | | | | | | [place] | | | | | | [place] [address] | | | | | | [phone] | | | +--------+ + + + [...] Performed At | + + + | [facility] | [place] | | Department [address] [facility] [place] | [facility] | | [ rep ct [address]] [ rep ct [facility] | | st zip] Signed | - IMAGING | | | | | Patient Name: FILI ALONSO Lily Physician: | | | : 1980 Age: 33 Sex: M Unit #: [id number] | | | Exam Date: 11/18/13 Location: [facility] | | | Report #: [id number] Page: | | | %(RAD)RES..mtdd.print.filter("pg") of %(RAD) | | | RES..mtdd.print.filter("tpg") | | | | | | Accession Number: [id number] | | | RENAL ULTRASOUND, 11/18/2013 CLINICAL [...] Transcribed Date/Time: | | | 11/18/2013 18:25 Warehouse Shipper: | | | <<Signature on File>> | | | Dawson Garrido | | | MD Judah11/19/13 0731 <Electronically signed by Dawson So MD> | | | Dawson So MD 11/18/13 6306 Warehouse Shipper: | | | [id number]/20/14 6020 Basilio Cuevas PA-C | | | | | + + + + + + + + | Performing | Address | City/State/Zipcode | Phone Number | | Organization | | | | + + + + + | [facility] | [address] | [place] | [phone] | | [facility] | | [address] | | | - IMAGING | | | | + + + + + documented in this encounter Visit Diagnoses Not on filedocumented in this encounter
--- OUTSIDE RECORDS SUMMARY | ~2019-09-17 | XMS | Encounter Summary ---
Demographics + + + | Address | [address] | | | [place] [address] | + + + | Home Phone | | + + + | Preferred Language | Unknown | + + + | Marital Status | Legally | + + + | Mandaeism Affiliation | Unknown | + + + | Race | Unknown | + + + | Ethnic Group | Unknown | + + + Author + + + | Author | [facility] | | | and [place] | + + + | Organization | [facility] | | | and [place] [...] [place], [place] | | | | | [address] | | + + + + + Care Team Providers + +------+ + | Care Hand Trimmer Name | Role | Phone | + +------+ + | Basilio Cuevas PA-C | PCP | | + +------+ + Reason for Referral Follow Up (Routine) +--------+ + + + + + | Status | Reason | Specialty | Diagnoses / | Referred By | Referred To | | | | | Procedures | Contact | Contact | +--------+ + + + + + | Denied | Specialty | Neurosurgery | Diagnoses | | Brain Garsia | | | Services | | Fall down | Sean, | A, MD [address] | | | Required | | stairs, | Praveen A, | [address] | | | | | initial | MD [address] | [place], [place] | | | | | encounter | [address] | [address] | | | | | Back | [place], | Phone: | | | | | contusion, | [place] | [phone] | | | | | left, | [address] | Fax: | | | | | initial | Phone: | [phone] | | | | | encounter | [phone] | | | | | | History of | Fax: | | | | | | lumbar | [phone] | | | | | | spinal | | | | | | | fusion | | | +--------+ + + + + + Reason for Visit + + + | Reason | Comments | + + + | Back Pain | | + + + Encounter Details +--------+ + + + + | Date | Type | Department | Care Team | Description | +--------+ + + + + | 10/09/ | Emergency | [facility] | Sean, | Fall down stairs, | | 2018 | | [facility] | Praveen Martinez MD [address] | initial encounter | | | | CENTER [address] | [address] [place] | (Primary Dx); Back | | | | [place], [place] | [place] [address] | contusion, left, | | | | [address] | [phone] | initial encounter; | | | | [phone] | | History of lumbar | | | | | | spinal fusion | +--------+ + + + + Social [...] + + + | Blood Pressure | 158/89 | 10/09/2018 1:29 PM | | | | | PST | | + + + + + | Pulse | 91 | 10/09/2018 12:59 PM | | | | | PST | | + + + + + | Temperature | 36.6 C (97.9 F) | 10/09/2018 12:47 PM | | | | | PST | | + + + + + | Respiratory Rate | 24 | 10/09/2018 12:47 PM | | | | | PST | | + + + + + | Oxygen Saturation | 100% | 10/09/2018 12:59 PM | | | | | PST | | + + + + + | Inhaled Oxygen | - | - | | | Concentration | | | | + + + + + | Weight | 104.3 kg (230 lb) | 10/09/2018 12:47 PM | | | | | PST | | + + + + + | Height | 182.9 cm (6') | 10/09/2018 12:47 PM | | | | | PST | | + + + + + | Body Mass Index | 31.19 | 10/09/2018 12:47 PM | | | | | PST | | + + + + + documented in this encounter Discharge Instructions Instructions Praveen Estrada MD - 10/09/2018Use ativan to help with spasms/pain Use hydrocodone and ibuprofen for pain control If your numbness worsens or does not return to normal in the next week, you should see your primary care doctor or return to the ER documented in this encounter Medications at Time [...] + + + +---------+ + + | DULoxetine | Take 30 mg by mouth | | 0 | | | | (CYMBALTA) [address] | Daily. | | | | | | capsule | | | | | | + [...] tablets by | 15 | 0 | 10/09/20 | | | HYDROcodone-acetamin | mouth EVERY 4 TO 6 | tablet | | 18 | | | ophen (NORCO) 5-325 | HOURS NEEDED for | | | | | | mg per tablet | Pain. | | | | | + [...] + + + +---------+ + + | ketorolac | Take 1 tablet by | 15 | 0 | 10/09/20 | | | (TORADOL) 10 MG | mouth every 8 hours | tablet | | 18 | | | tablet | as needed for Pain. | | | | | + + + +---------+ + + | LORazepam (ATIVAN) | Take 1 tablet by | 20 | 0 | 10/09/20 | | | 2 MG tablet | mouth every 6 hours | tablet | | 18 | | | | as needed for Other | | | | | | | (muscle spasm/pain). | | | | | + + + +---------+ + + | nicotine | CHEW 1 PIECE BY | | 0 | 10/09/20 | | | (NICORETTE) 2 mg gum | MOUTH EVERY FOUR TO | | | 18 | 9 | | | EIGHT HOURS | | | | | | | NEEDED DIRECTED, | | | | | | | CHEW AND HOLD IN | | | | | | | CHEEK PER PACKAGE | | | | | | | USER'S GUIDE | | | | | | | INSTRUCTIONS | | | | | + + + +---------+ + + | oxyCODONE | Take 10 mg by mouth | | 0 | | | | (OXYCONTIN) 10 mg ER | every 12 hours. | | | | | | abuse-deterrent | | | | | | | tablet | | | [...] + + + +---------+ + + | pregabalin | | | 0 | 05/21/20 | | | (LYRICA) 75 mg | | | | 18 | | | capsule | | | | | | + + + +---------+ + + | QUEtiapine | Take 100 mg by mouth | | 0 | | | | (SEROQUEL) 100 mg | 2 times daily. | | | | | | tablet | | | | | | + + + +---------+ + + | QUEtiapine | Seroquel 400 mg | | 0 | 03/01/20 | | | (SEROQUEL) 400 MG | tablet 200 mg by | | | 18 | | | tablet | oral route. | | | | | + + + +---------+ + + | bisacodyl | TAKE TWO TABLETS BY | | 0 | 08/15/20 | | | (DULCOLAX) 5 mg EC | MOUTH EVERY DAY FOR | | | 18 | 9 | | tablet | CONSTIPATION | | | | | + + + +---------+ + + | cyclobenzaprine | TAKE ONE TABLET BY | | 0 | 07/09/20 | | | (FLEXERIL) 10 mg | MOUTH THREE TIMES A | | | 18 | 9 | | tablet | DAY NEEDED | | | | | | | TREATMENT OF SEVERE | | | | | | | PAINFUL MUSCLE | | | | | | | TIGHTNESS AND SPASMS | | | | | + + + +---------+ + + | docusate sodium | TAKE ONE CAPSULE BY | | 0 | 08/15/20 | | | (COLACE) 100 MG | MOUTH TWICE A DAY | | | 18 | 9 | | tablet | FOR STOOL SOFTENER | | | | | + + + +---------+ + + documented as of this encounter Plan of Treatment + +------+--------+ + + | Name | Type | Priori | Associated Diagnoses | Date/Time | | | | ty | | | + +------+--------+ + + | ED INFORMATION | SONIA | Routin | | 10/09/2018 12:42 PM | | EXCHANGE | | e | | PST | + +------+--------+ + + + + +--------+ + + | Name | Type | Priori | Associated Diagnoses | Order Schedule | | | | ty | | | + + +--------+ + + | Neurosurgery [facility] | Outpatient | Routin | Fall down stairs, | Ordered: 10/09/2018 | | | Referral | e | initial encounter | | | | | | Back contusion, | | | | | | left, initial | | | | | | encounter History | | | | | | Of Lumbar Spinal | | | | | | Fusion | | + + +--------+ + + documented as of this encounter Procedures + +--------+ + + + | Procedure Name | Priori | Date/Time | Associated Diagnosis | Comments | | | ty | | | | + +--------+ + + + | XR LUMBAR SPINE 2 OR | STAT | 10/09/2018 | | Results for this | | 3 VW | | 2:14 PM | | procedure are in the | | | | PST | | results section. | + +--------+ + + + | EXTRA IZABEL TOP | Routin | 10/09/2018 | | Results for this | | TUBE | e | 1:40 PM | | procedure are in the | | | | PST | | results section. | + +--------+ + + + | EXTRA LAVENDER TOP | Routin | 10/09/2018 | | Results for this | | TUBE | e | 1:40 PM | | procedure are in the | | | | PST | | results section. | + +--------+ + + + | EXTRA GREEN TOP TUBE | Routin | 10/09/2018 | | Results for this | | | e | 1:40 PM | | procedure are in the | | | | PST | | results section. | + +--------+ + + + | EXTRA GREEN TOP TUBE | Routin | 10/09/2018 | | Results for this | | | e | 1:40 PM | | procedure are in the | | | | PST | | results section. | + +--------+ + + + | EXTRA BLUE TOP TUBE | Routin | 10/09/2018 | | Results for this | | | e | 1:40 PM | | procedure are in the | | | | PST | | results section. | + +--------+ + + + | ED INFORMATION | Routin | 10/09/2018 | | | | EXCHANGE | e | 12:42 PM | | | | | | PST | | | + +--------+ + + + +---+--------+ | | | | | Proced | | | ure | | | Note - | | | Emilia, | | | Lab In | | | | | | Hlseve | | | n - | | | 10/09/ | | | 2017 | | | 12:43 | | | PM PST | | | | | | Format | | | ting | | | of | | | this | | | note | | | might | | | be | | | differ | | | ent | | | from | | | the | | | origin | | | al.EMILIA | | | E?NOTI | | | FICATI | | | ON?/ | | | | | | 8 | | | 12:39? | | | RAY, | | | MICHAE | | | L | | | M?MRN: | | | | | | [id number] | | | [id number] | | | his | | | patien | | | t has | | | regist | | | ered | | | at the | | | | | | Provid | | | ence | | | [facility] l | | | Center | | | | | | Emerge | | | ncy | | | Depart | | | ment | | | For | | | more | | | inform | | | ation | | | visit: | | | | | | https: | | | //secu | | | [email or web address] | | | ecarep | | | [email or web address] | | | m/[email or web address] | | | ent/ee | | | [id number] | | | -[id number] | | | [id number] | | | [id number] | | | [id number] | | | [id number] | | | Securi | | | ty | | | Events | | | No | | | recent | | | | | | Securi | | | ty | | | Events | | | | | | curren | | | tly on | | | | | | fileED | | | Care | | | Guidel | | | inesTh | | | ere | | | are | | | curren | | | tly no | | | ED | | | Care | | | Guidel | | | yosef | | | in | | | SONIA | | | for | | | this | | | patien | | | t. | | | Please | | | check | | | your | | | facili | | | ty's | | | medica | | | l | | | record | | | s | | | system | | | .Recen | | | t | | | Emerge | | | ncy | | | Depart | | | ment | | | Visit | | | [facility] | | | yAdmit | | | Date | | | Facili | | | ty | | | City | | | State | | | Type | | | Major | | | Type | | | Diagno | | | ses or | | | Chief | | | | | | Compla | | | int | | | Dec | | | 11, | | | 2018 | | | Provid | | | ence | | | [facility] | [place] | | | [place] | | | Emerge | | | ncy | | | Emerge | | | ncy | | | | | | severe | | | back | | | pain | | | Oct | | | 10, | | | 2018 | | | Provid | | | ence | | | [facility] | [place] | | | [place] | | | Emerge | | | ncy | | | Emerge | | | ncy | | | post | | | op abd | | | pain | | | | | | Proced | | | ure | | | and | | | treatm | | | ent | | | not | | | maame | | | d out | | | due to | | | | | | patien | | | t | | | leavin | | | g | | | prior | | | to | | | being | | | seen | | | by | | | health | | | care | | | provid | | | er | | | Oct 8, | | | 2018 | | | [facility] | | | [place] | | | [place] | | | Emerge | | | ncy | | | Emerge | | | ncy | | | Chief | | | Compla | | | int: | | | ABD | | | PAIN,B | | | ILAT | | | NUMBNE | | | SS | | | E.D. | | | Visit | | | Count | | | (12 | | | mo.)Fa | | | cility | | | | | | Visits | | | Low | | | Acuity | | | | | | Provid | | | ence | | | St[facility] | | | [facility] | | | Medica | | | l | | | Center | | | 2 0 | | | [facility] | | | y | | | Hospit | | | al 4 0 | | | Total | | | 6 0 | | | Note: | | | Visits | | | | | | indica | | | te | | | total | | | known | | | visits | | | . | | | Medica | | | id Low | | | | | | Acuity | | | Dx | | | are | | | the | | | number | | | of | | | primar | | | y | | | diagno | | | ses on | | | the | | | Medica | | | id's | | | Low | | | Acuity | | | dx | | | list. | | | | | | Recent | | | | | | Inpati | | | ent | | | Visit | | | [facility] | | | yAdmit | | | Date | | | Facili | | | ty | | | City | | | State | | | Type | | | Major | | | Type | | | Diagno | | | ses or | | | Chief | | | | | | Compla | | | int | | | Oct 8, | | | 2018 | | | [facility] | | | [place] | | | [place] | | | Medica | | | l | | | Surgic | | | al | | | Inpati | | | ent | | | | | | Post-t | | | raumat | | | ic | | | stress | | | | | | disord | | | er, | | | unspec | | | ified | | | | | | Long | | | term | | | (curre | | | nt) | | | use of | | | | | | opiate | | | | | | analge | | | sic | | | | | | Nausea | | | with | | | vomiti | | | ng, | | | unspec | | | ified | | | | | | Unspec | | | ified | | | acute | | | append | | | icitis | | | | | | Other | | | long | | | term | | | (curre | | | nt) | | | drug | | | therap | | | y | | | Dehydr | | | ation | | | | | | Dorsal | | | goyo, | | | unspec | | | ified | | | | | | Prescr | | | iption | | | Drug | | | Report | | | (12 | | | Mo.)Rx | | | | | | Detail | | | sFill | | | Date | | | Drug | | | Descri | | | ption | | | Qty. | | | Prescr | | | iber | | | CS MED | | | | | | 2018-0 | | | 8-21 | | | LYRICA | | | 75 MG | | | | | | CAPSUL | | | E 180 | | | [place] | | | H | | | SAMANTHA | | | 0 | | | 2018-0 | | | 8-14 | | | OXYCOD | | | ONE | | | HCL 10 | | | MG | | | TABLET | | | 112 | | | [place] | | | H | | | SAMANTHA | | | 2 60 | | | 2018-0 | | | 7-23 | | | AMBIEN | | | 10 MG | | | | | | TABLET | | | 30 | | | CATHER | | | INE | | | FARZANEH | | | SON 4 | | | 0 | | | 2018-0 | | | 7-23 | | | LYRICA | | | 75 MG | | | | | | CAPSUL | | | E 180 | | | [place] | | | H | | | SAMANTHA | | | 0 | | | 2018-0 | | | 7-19 | | | OXYCOD | | | ONE | | | HCL 10 | | | MG | | | TABLET | | | 112 | | | M[place]IA | | | H | | | SAMANTHA | | | 2 60 | | | 2018-0 | | | 6-29 | | | ZOLPID | | | EM | | | TARTRA | | | TE 10 | | | MG | | | TABLET | | | 30 | | | CATHER | | | INE | | | FARZANEH | | | SON 4 | | | 0 | | | 2018-0 | | | 6-29 | | | LYRICA | | | 75 MG | | | | | | CAPSUL | | | E 180 | | | [place] | | | H | | | SAMANTHA | | | 0 | | | 2018-0 | | | 6-21 | | | OXYCOD | | | ONE | | | HCL 10 | | | MG | | | TABLET | | | 112 | | | M[place]IA | | | H | | | SAMANTHA | | | 2 60 | | | 2018-0 | | | 5-29 | | | ZOLPID | | | EM | | | TARTRA | | | TE 10 | | | MG | | | TABLET | | | 30 | | | CATHER | | | INE | | | FARZANEH | | | SON 4 | | | 0 | | | 2018-0 | | | 5-29 | | | LYRICA | | | 75 MG | | | | | | CAPSUL | | | E 180 | | | [place] | | | H | | | SAMANTHA | | | 0 | | | 2018-0 | | | 5-24 | | | OXYCOD | | | ONE | | | HCL 10 | | | MG | | | TABLET | | | 112 | | | M[place]IA | | | H | | | SAMANTHA | | | 2 60 | | | 2018-0 | | | 5-04 | | | OXYCOD | | | ONE | | | HCL 10 | | | MG | | | TABLET | | | 112 | | | M[place]IA | | | H | | | SAMANTHA | | | 2 60 | | | 2018-0 | | | 5-01 | | | LYRICA | | | 75 MG | | | | | | CAPSUL | | | E 120 | | | [place]IA | | | H | | | SAMANTHA | | | 0 | | | 2018-0 | | | 5-01 | | | ZOLPID | | | EM | | | TARTRA | | | TE 10 | | | MG | | | TABLET | | | 30 | | | CATHER | | | INE | | | FARZANEH | | | SON 4 | | | 0 | | | 2018-0 | | | 4-09 | | | OXYCOD | | | ONE-AC | | | ETAMIN | | | OPHEN | | | 5-325 | | | 2 | | | EVANGE | | | LINE | | | DACANA | | | Y 2 15 | | | | | | 2018-0 | | | 4-09 | | | LYRICA | | | 200 | | | MG | | | CAPSUL | | | E 60 | | | EVANGE | | | LINE | | | DACANA | | | Y 0 | | | 2018-0 | | | 4-09 | | | ZOLPID | | | EM | | | TARTRA | | | TE 10 | | | MG | | | TABLET | | | 7 | | | EVANGE | | | LINE | | | DACANA | | | Y 4 0 | | | 2018-0 | | | 4-09 | | | ZOLPID | | | EM | | | TARTRA | | | TE 10 | | | MG | | | TABLET | | | 30 | | | CATHER | | | INE | | | FARZANEH | | | SON 4 | | | 0 | | | 2018-0 | | | 4-09 | | | OXYCOD | | | ONE | | | HCL 10 | | | MG | | | TABLET | | | 112 | | | M[place]IA | | | H | | | SAMANTHA | | | 2 60 | | | 2018-0 | | | 3-21 | | | LYRICA | | | 75 MG | | | | | | CAPSUL | | | E 120 | | | [place] | | | H | | | SAMANTHA | | | 0 | | | Showin | | | g 20 | | | of the | | | 34 | | | most-r | | | ecent | | | prescr | | | iption | | | s Rx | | | [facility]mar | | | yMetri | | | c | | | Count | | | CS | | | II-V | | | Rx 24 | | | CS-II | | | Rx 10 | | | Quanti | | | ty | | | Dispen | | | sed | | | 2,739 | | | Unique | | | | | | Prescr | | | ibers | | | 3 | | | Unique | | | | | | Pharma | | | cies 2 | | | | | | Benzos | | | 4 | | | Opioid | | | s 10 | | | Long | | | Acting | | | | | | Opioid | | | s 0 | | | Care | | | Provid | | | ersPro | | | vider | | | PRC | | | Type | | | Phone | | | Fax | | | Servic | | | e | | | Dates | | | SAMANTHA, | | | | | | M[place]IA | | | H M, | | | MD | | | Family | | | | | | Medici | | | ne | | | Aug | | | 31, | | | 2018 - | | | | | | Curren | | | t | | | Micaia | | | h | | | Samantha, | | | MD | | | Primar | | | y Care | | | (509) | | | | | | [phone] | | | 00 | | | (509) | | | [phone] | | | 25 | | | Curren | | | t | | | Criter | | | ia met | | | | | | PDMPKn | | | own | | | Aliase | | | sNo | | | known | | | aliase | | | s. The | | | above | | | | | | inform | | | ation | | | is | | | provid | | | ed for | | | the | | | sole | | | purpos | | | e of | | | patien | | | t | | | treatm | | | ent. | | | Use of | | | this | | | inform | | | ation | | | beyond | | | the | | | terms | | | of | | | Data | | | Sharin | | | g | | | Memora | | | ndum | | | of | | | Unders | | | tandin | | | g and | | | Licens | | | e | | | Agreem | | | ent is | | | | | | prohib | | | ited. | | | In | | | certai | | | n | | | cases | | | not | | | all | | | visits | | | may | | | be | | | repres | | | ented. | | | | | | Consul | | | t the | | | aforem | | | ention | | | ed | | | facili | | | ties | | | for | | | additi | | | onal | | | inform | | | ation. | | | ? | | | 2018 | | | [employer] | | | tive | | | Medica | | | l | | | [employer] | | | logies | | | , [employer] | | | - | | | [place] | | | [place] | | | [place], | | | [place] - | | | [email or web address] | | | ollect | | | ivemed | | | icalte | | | [email or web address] | | | | +---+--------+ documented in this encounter Results XR Lumbar Spine 2 or 3 Vw (10/09/2018 2:14 PM PST) + + | Specimen | + + | | + + + + + | Narrative | Performed At | + + + | EXAM:XR LUMBAR SPINE 2 OR 3 VW CLINICAL HISTORY: BACK PAIN | [facility] | | COMPARISON: Lumbar spine radiographs dating to 03/06/2014 FINDINGS: | | | Frontal and lateral views of the Lumbar spine. Posterior and interbody | | | fusion changes at L5-S1. The hardware is intact. There is no | | | change in position of the interbody graft markers. There is no | | | change in spinal alignment. There are no interval compression | | | deformities. Unremarkable appearance of the lumbar spine above the | | | operative levels. Fluid levels are present in the distal colon and | | | rectum IMPRESSION - Remote posterior and interbody fusion | | | changes at L5-S1 without significant interval change. No acute | | | osseous abnormality in the nonoperative lumbar spine. No interval | | | compression deformities. Fluid levels in the distal colon and | | | rectum suggesting diarrhea. Dictated and Signed by: John Conti | | | MD Job Electronically signed: 10/09/2018 2:40 PM | | + + + + + | Procedure Note | + + | Emilia, Rad Results In - 10/09/2018 2:43 PM PST EXAM:XR LUMBAR SPINE 2 OR 3 VW | | | | CLINICAL HISTORY: BACK PAIN | | | | COMPARISON: Lumbar spine radiographs dating to 03/06/2014 | | | | FINDINGS: Frontal and lateral views of the Lumbar spine. Posterior and interbody | | fusion changes at L5-S1. The hardware is intact. There is no change in position | | of the interbody graft markers. There is no change in spinal alignment. There | | are no interval compression deformities. Unremarkable appearance of the lumbar | | spine above the operative levels. Fluid levels are present in the distal colon | | and rectum | | | | IMPRESSION - | | | | Remote posterior and interbody fusion changes at L5-S1 without significant | | interval change. | | | | No acute osseous abnormality in the nonoperative lumbar spine. | | | | No interval compression deformities. | | | | Fluid levels in the distal colon and rectum suggesting diarrhea. | | | | Dictated and Signed by: John Kaiser MD | | Electronically signed: 10/09/2018 2:40 PM | + + + +---------+ + + | Performing | Address | City/State/Zipcode | Phone Number | | Organization | | | | + +---------+ + + | [facility] | | | | + +---------+ + + Extra Green Top Tube (10/09/2018 1:40 PM PST) + +-------+ + + + | Component | Value | Ref Range | Performed | Pathologist | | | | | At | Signature | + +-------+ + + + | Extra Green | Done | | [facility] | | | Top Tube | | | [facility] | | | | | | [facility] [...] ST. | [address] | [place] | [phone] | | [facility] | | [address] | | | - LABORATORY | | | | + + + + + Extra Lavender Top Tube (10/09/2018 1:40 PM PST) + +-------+ + + + | Component | Value | Ref Range | Performed | Pathologist | | | | | At | Signature | + +-------+ + + + | Extra | Done | | [facility] | | | Lavender | | | [facility] | | | Top Tube | | | MEDICAL | | | [...] | + + + + + | [facility] | [address] | [place] | [phone] | | [facility] | | [address] | | | - LABORATORY | | | | + + + + + Extra Lavender Top Tube (10/09/2018 1:40 PM PST) + +-------+ + + + | Component | Value | Ref Range | Performed | Pathologist | | | | | At | Signature | + +-------+ + + + | Extra | Done | | [facility] | | | Lavender | | | [facility] | | | Top Tube | | | MEDICAL | | | [...] + | [facility] | [address] | [place] | [phone] | | [facility] | | [address] | | | - LABORATORY | | | | + + + + + Extra Green Top Tube (10/09/2018 1:40 PM PST) + +-------+ + + + | Component | Value | Ref Range | Performed | Pathologist | | | | | At | Signature | + +-------+ + + + | Extra Green | Done | | [facility] | | | Top Tube | | | [facility] | | [...] | [address] | [place] | [phone] | | [facility] | | [address] | | | - LABORATORY | | | | + + + + + Extra Blue Top Tube (10/09/2018 1:40 PM PST) + +-------+ + + + | Component | Value | Ref Range | Performed | Pathologist | | | | | At | Signature | + +-------+ + + + | Extra Blue | Done | | [facility] | | | Top Tube | | | [facility] | | [...] ST. | [address] | [place], [place] | [phone] | | [facility] | | [address] | | | - LABORATORY | | | | + + + + + documented in this encounter Visit Diagnoses + + | Diagnosis | + + | Fall down stairs, initial encounter - Primary | + + | Back contusion, left, initial encounter | + + | History of lumbar spinal fusion | + + documented in this encounter Administered Medications + +--------+ +-------+------+------+ | Medication Order | MAR | Action | Dose | Rate | Site | | | Action | Date | | | | + +--------+ +-------+------+------+ | dexamethasone (DECADRON) 10 | Given | 10/09/20 | 10 mg | | | | mg/mL injection for oral use 10 | | 18 2:43 | | | | | mg 10 mg, Oral, ONCE, Tue | | PM PST | | | | | 10/09/18 at 1430, For 1 dose, Use | | | | | | | dexamethasone 10 mg/mL vial for | | | | | | | inject for this oral dose, | | | | | | + +--------+ +-------+------+------+ +---+---+ | | | +---+---+ + +-------+ +------+---+---+ | HYDROmorphone (DILAUDID) | Given | 10/09/20 | 1 mg | | | | injection 1 mg 1 mg, | | 18 1:26 | | | | | Intravenous, ONCE, 10/09/18 | | PM PST | | | | | at 1300, For 1 dose | | | | | | + +-------+ +------+---+---+ +---+---+ | | | +---+---+ + +-------+ +-------+---+---+ | ketorolac (TORADOL) injection | Given | 10/09/20 | 30 mg | | | | 30 mg 30 mg, Intravenous, ONCE, | | 18 2:37 | | | | | 10/09/18 at 1430, For 1 dose | | PM PST | | | | + +-------+ +-------+---+---+ +---+---+ | | | +---+---+ + +-------+ +------+---+---+ | LORazepam (ATIVAN) injection 1 | Given | 10/09/20 | 1 mg | | | | mg 1 mg, Intravenous, ONCE, Tue | | 18 1:23 | | | | | 10/09/18 at 1300, For 1 dose | | PM PST | | | | + +-------+ +------+---+---+ +---+---+ | | | +---+---+ + +-------+ +------+---+---+ | LORazepam (ATIVAN) injection 1 | Given | 10/09/20 | 1 mg | | | | mg 1 mg, Intravenous, ONCE, Tue | | 18 2:42 | | | | | 10/09/18 at 1430, For 1 dose | | PM PST | | | | + +-------+ +------+---+---+ +---+---+ | | | +---+---+ + +-------+ +------+---+---+ | ondansetron (ZOFRAN) injection | Given | 10/09/20 | 4 mg | | | | 4 mg 4 mg, Intravenous, ONCE, | | 18 1:35 | | | | | 10/09/18 at 1335, For 1 dose | | PM PST | | | | + +-------+ +------+---+---+ +---+---+ | | | +---+---+ documented in this encounter"
--- OUTSIDE RECORDS SUMMARY | ~2019-09-17 | XMS | Encounter Summary ---
Demographics + + + | Address | [address] | | | [place] [address] | + + + | Home Phone | | + + + | Preferred Language | Unknown | + + + | Marital Status | Legally | + + + | Zoroastrianism Affiliation | Unknown | + + + | Race | Unknown | + + + | Ethnic Group | Unknown | + + + Author + + + | Author | [facility] | | | and [place]anyana | + + + | Organization | [facility] | | | and [place] [...] [place], [place] | | | | | [address] | | + + + + + Care Team Providers + +------+ + | Care Reviewer Sales Name | Role | Phone | + [...] | | | fracture | | [address] | | | | | Thoracic or | | [place], | | | | | lumbosacral | | [place] [address] | | | | | neuritis or | | Phone: | | | | | radiculitis, | | [phone] | | | | | unspecified | | Fax: | | | | | Lumbago | | [phone] | | | | | Arthrodesis | [...] + + | 02/04/ | Hospital | [facility] | Jean Pierre Amaya, | Chronic low back | | 2014 - | Encounter | [facility] | DO [address] | pain (Primary Dx) | | | | [address] [place] | [place] [address] | | | 02/06/ | | [place] [id number] | [id number] | | | 2013 | | [phone] | | | +--------+ + + + [...] Care Everywhere.DISCHARGE INSTR UCTIONS FOR LUMBAR FUSION (ICELANDIC)documented in this encounter Medications at Time of [...] & prescriptions reviewed with pt. Scripts for [place], Valium & lactulose called to Leonel (neena belle) @ [facility] in [place], [place]. Pt wheeled out by staff; family here to transport pt h ome. Ethel Rogers RN - 02/06/2014 8:03 AM PDTPt doing very well, transfers & ambulates independently with FWW & LSO brace. Pain well controlled at this time, weaning off of ATTENDING PATHOLOGIST as pt will go home w ith oral dilaudid. Family at bedside. All discharge instructions reviewed with pt.Gato lilly signed by Ethel Babcock RN at 02/06/2014 8:05 AM Kobe Crain [facility] - 0 02/05/2014 8:05 AM PDT PHARMACY [...] mg HYDROmorphone in saline (DILAUDID) 1 mg/mL ATTENDING PATHOLOGIST meperidine (DEMEROL) injection 12.5 mg Opioid Combinations [...] is ordered Plan: 1. Maintain frequency of ATTENDING PATHOLOGIST. 2. D/c prn morphine 3. Change dilaudid PO to 4 mg q6h. 4. Pain well controlled, therefore provider d/c'd pharmacy consult. Plan is to wean ATTENDING PATHOLOGIST off later and discharge patient tomorrow. 5. Patient has been educated about pain management and patient care plan. 6. Pharmacy will sign off on pain consult. Thank you for consulting pharmacy to participate in the patient s care, Electronically signed by: Kobe Lopez RPH 02/05/2014 8:06 Rosie Chery PA-C - 02/05/2014 7:28 AM PDTFormatting of this note might be different from the [facility] PROGRESS NOTE Pt. Name/Age/: Fili Alonso 33 y.o. 1980 Med. Record Number: [id number] Date of admission: 02/04/2014 Subjective: The patient [...] Intake/Output Summary (Last 24 hours) at 02/05/14 0702 Last data filed at 02/05/14 0604 Gross [...] CRISTELA's in situ. Will work on weaning ATTENDING PATHOLOGIST later this pm. Likely D/C home tomorrow. Patient Active Problem List Diagnosis Chronic low back pain HTN (hypertension) Tobacco abuse Preventative health care Narcotic abuse Electronically signed by: Toribio Dick, 02/05/2014 7:28 [facility] hNani alfonso R RT - 02/05/2014 5:32 AM PDTPt is wide awake and cognitive. Received Cont Pulse Ox order, b ut RN decided pt did not need it. Dwain Justice RN - 02/04/2014 8:59 PM [id number] Report given to Bernard Rome RN documented [...] Procedure Note | + + | Benjie, Charan Results In - 03/06/2014 5:07 PM PDT [...] + | MISCELLANEOUS LAB | | | [phone] | + +---------+ + + | MISCELANIOUS LAB | | | [phone] | + +---------+ + + XR Lumbar [...] + | MISCELLANEOUS LAB | | | [phone] | + +---------+ + + | MISCELANIOUS LAB | | | [phone] | + +---------+ + + Type and [...] + | [facility] | [address] | [place] | | | [facility] | | [address] | | | - BLOOD BANK | | | | + + + + + documented in this encounter Visit Diagnoses + + | Diagnosis | + + | Chronic low back pain - Primary Lumbago | + + documented in this encounter Administered Medications + +--------+ +--------+------+------+ | Medication Order | MAR | Action | Dose | Rate | Site | | | Action | Date | | | | + +--------+ +--------+------+------+ | aluminum & magnesium | Given | 02/06/20 | 30 mLs | | | | hydroxide-simethicone (MAALOX | | 14 6:27 | | | | | REGULAR STRENGTH) 200-200-20 mg/5 | | AM PDT | | | | | mL suspension 30 mL 30 mL, | | | | | | | Oral, EVERY 4 HOURS PRN, | | | | | | | Indigestion, Starting 02/04/14 | | | | | | | at 2111, Jorge kebede, | | | | | | | Post-op/Phase II | | | | | | + +--------+ +--------+------+------+ +-------+ +--------+---+---+ | Given | 02/06/20 | 30 mLs | | | | | 14 12:10 | | | | | | AM PDT | | | | +-------+ +--------+---+---+ +---+---+ | | | +---+---+ + +---------+ +-----+---+---+ | cefazolin in NS (ANCEF) IVPB 2 | New Bag | 02/06/20 | 2 g | | | | g 2 g, Intravenous, Administer | | 14 6:04 | | | | | over 30 Minutes, EVERY 8 HOURS (3 | | AM PDT | | | | | times per day), First dose on | | | | | | | Mon02/04/14 at 2200, For 2 doses, | | | | | | | Start 8 hours after previous | | | | | | | dose, Post-op/Phase II | | | | | | + +---------+ +-----+---+---+ +---------+ +-----+---+---+ | New Bag | 02/05/20 | 2 g | | | | | 14 10:35 | | | | | | PM PDT | | | | +---------+ +-----+---+---+ + +---+ | | | + +---+ | diazepam (VALIUM) 5 mg/mL | | | injection Starting Mon02/04/14 at | | | 8, For 1 dose, DWAIN LAUREANO: | | | nahid guallpa, | | + +---+ | | | + +---+ + +-------+ +--------+---+---+ | diazepam (VALIUM) injection | Given | 02/05/20 | 2.5 mg | | | | 2.5-5 mg 2.5-5 mg, Intravenous, | | 14 8:57 | | | | | EVERY 6 HOURS PRN, Muscle spasms, | | PM PDT | | | | | Starting Tu02/04/14 at 1946, | | | | | | | Post-op/Phase II | | | | | | + +-------+ +--------+---+---+ +-------+ +--------+---+---+ | Given | 02/05/20 | 2.5 mg | | | | | 14 8:37 | | | | | | PM PDT | | | | +-------+ +--------+---+---+ +---+---+ | | | +---+---+ + +-------+ +--------+---+---+ | docusate sodium (COLACE) | Given | 02/07/20 | 100 mg | | | | capsule 100 mg 100 mg, Oral, 2 | | 14 8:34 | | | | | TIMES DAILY, First dose on Mon | | AM PDT | | | | | 02/04/14 at 2130, Hold for loose | | | | | | | stools, Post-op/Phase II | | | | | | + +-------+ +--------+---+---+ +-------+ +--------+---+---+ | Given | 02/06/20 | 100 mg | | | | | 14 8:27 | | | | | | PM PDT | | | | +-------+ +--------+---+---+ | Given | 02/06/20 | 100 mg | | | | | 14 8:13 | | | | | | AM PDT | | | | +-------+ +--------+---+---+ +---+---+ | | | +---+---+ + +-------+ +--------+---+---+ | fentaNYL injection 25 mcg 25 | Given | 02/05/20 | 25 mcg | | | | mcg, Intravenous, EVERY 5 MIN | | 14 9:01 | | | | | PRN, Pain, Starting Mon02/04/14 at | | PM PDT | | | | | 1913, Maximum total dose 200 | | | | | | | mcg. PACU IV Narcotic Priority: | | | | | | | Only use fentanyl for immediate | | | | | | | post-op pain (one dose) or | | | | | | | breakthrough pain when any other | | | | | | | IV narcotics ordered have been | | | | | | | ineffective (if ordered). If | | | | | | | both morphine and hydromorphone | | | | | | | are ordered, use morphine first, | | | | | | | and use hydromporphone if | | | | | | | morphine ineffective., | | | | | | | Recovery/Phase I | | | | | | + +-------+ +--------+---+---+ +---+---+ | | | +---+---+ + +-------+ +---------+---+---+ | HYDROcodone-acetaminophen | Given | 02/07/20 | 2 | | | | (NORCO) 10-325 mg per tablet 1-2 | | 14 9:47 | tablets | | | | tablet 1-2 tablet, Oral, EVERY 4 | | AM PDT | | | | | HOURS PRN, Pain, Starting Tue | | | | | | | 02/04/14 at 2111, If ineffective or | | | | | | | not tolerated use oxycodone if | | | | | | | ordered. MAX 12 tabs/24 hrs, | | | | | | | Post-op/Phase II | | | | | | + +-------+ +---------+---+---+ +-------+ +---------+---+---+ | Given | 02/06/20 | 2 | | | | | 14 8:27 | tablets | | | | | PM PDT | | | | +-------+ +---------+---+---+ +---+---+ | | | +---+---+ + +-------+ +--------+---+---+ | HYDROmorphone (DILAUDID) | Given | 02/05/20 | 0.5 mg | | | | injection 0.2-0.5 mg 0.2-0.5 mg, | | 14 8:19 | | | | | Intravenous, EVERY 5 MIN PRN, | | PM PDT | | | | | Pain, Starting 02/04/14 at | | | | | | | 1913, Maximum total dose 6 mg. | | | | | | | PACU IV Narcotic Priority: Only | | | | | | | use fentanyl for immediate | | | | | | | post-op pain (one dose) or | | | | | | | breakthrough pain when any other | | | | | | | IV narcotics ordered have been | | | | | | | ineffective (if ordered). If | | | | | | | both morphine and hydromorphone | | | | | | | are ordered, use morphine first, | | | | | | | and use hydromporphone if | | | | | | | morphine ineffective., | | | | | | | Recovery/Phase I | | | | | | + +-------+ +--------+---+---+ +-------+ +--------+---+---+ | Given | 02/05/20 | 0.5 mg | | | | | 14 8:14 | | | | | | PM PDT | | | | +-------+ +--------+---+---+ | Given | 02/05/20 | 0.5 mg | | | | | 14 8:05 | | | | | | PM PDT | | | | +-------+ +--------+---+---+ +---+---+ | | | +---+---+ + +-------+ +------+---+---+ | HYDROmorphone (DILAUDID) tablet | Given | 02/07/20 | 4 mg | | | | 4 mg 4 mg, Oral, EVERY 6 HOURS | | 14 11:45 | | | | | (4 times per day), First dose | | AM PDT | | | | | (after last modification) on Mon | | | | | | | 02/05/14 at 0800, May give midnight | | | | | | | dose early if patient doesn't | | | | | | | want to wake up at midnight., | | | | | | + +-------+ +------+---+---+ +-------+ +------+---+---+ | Given | 02/07/20 | 4 mg | | | | | 14 5:57 | | | | | | AM PDT | | | | +-------+ +------+---+---+ | Given | 02/07/20 | 4 mg | | | | | 14 12:19 | | | | | | AM PDT | | | | +-------+ +------+---+---+ +---+---+ | | | +---+---+ + +-------+ +------+---+---+ | HYDROmorphone (DILAUDID) tablet | Given | 02/05/20 | 8 mg | | | | 8 mg 8 mg, Oral, 2 TIMES DAILY, | | 14 9:38 | | | | | First dose on Mon02/04/14 at 2130 | | PM PDT | | | | + +-------+ +------+---+---+ + +---+ | | | + +---+ | HYDROmorphone (PF) (DILAUDID) 2 | | | mg/mL injection Starting Tue | | | 02/04/14 at 1918, For 1 dose, SRIDEVI, | | | DWAIN: nahid guallpa, | | + +---+ | | | + +---+ + +---------+ +-------+---+---+ | HYDROmorphone in saline | New Bag | 02/06/20 | 30 mg | | | | (DILAUDID) 1 mg/mL ATTENDING PATHOLOGIST | | 14 7:54 | | | | | Intravenous, CONTINUOUS, Starting | | PM PDT | | | | | 02/04/14 at 2130, for opiate | | | | | | | tolerant adults, Loading | | | | | | | Dose(mg): 0, Starting ATTENDING PATHOLOGIST | | | | | | | Dose(mg): 0.4, Incremental | | | | | | | Increase ATTENDING PATHOLOGIST Dose(mg): 0.4, | | | | | | | Maximum ATTENDING PATHOLOGIST Dose(mg): 1.2, | | | | | | | Lockout Interval(min): 10, | | | | | | | Continuous Rate(mg/hr): 0, One | | | | | | | Hour Limit(mg): 8 | | | | | | + +---------+ +-------+---+---+ +---------+ +-------+---+---+ | New Bag | 02/05/20 | 30 mg | | | | | 14 9:25 | | | | | | PM PDT | | | | +---------+ +-------+---+---+ +---+---+ | | | +---+---+ + +-------+ +---------+---+ + | influenza (FLUARIX, AFLURIA, | Given | 02/06/20 | 0.5 mLs | | Deltoid- | | FLUZONE) vaccine injection 0.5 mL | | 14 11:31 | | | Left | | 0.5 mL, Intramuscular, ONE TIME | | AM PDT | | | | | VACCINE, 02/04/14 at 2230, For | | | | | | | 1 dose, Give patient education | | | | | | | information. FLUARIX BRAND | | | | | | | CONTAINS LATEX. Screen for latex | | | | | | | allergy before administration of | | | | | | | FLUARIX. FLUZONE BRAND IS | | | | | | | LATEX-FREE., | | | | | | + +-------+ +---------+---+ + +---+---+ | | | +---+---+ + +-------+ +-------+---+---+ | lisinopril (PRINIVIL, ZESTRIL) | Given | 02/07/20 | 20 mg | | | | tablet 20 mg 20 mg, Oral, DAILY, | | 14 8:34 | | | | | First dose on Mon02/05/14 at 0900 | | AM PDT | | | | + +-------+ +-------+---+---+ +-------+ +-------+---+---+ | Given | 02/06/20 | 20 mg | | | | | 14 8:13 | | | | | | AM PDT | | | | +-------+ +-------+---+---+ +---+---+ | | | +---+---+ + +-------+ +---------+---+---+ | meperidine (DEMEROL) injection | Given | 02/05/20 | 12.5 mg | | | | 12.5 mg 12.5 mg, Intravenous, | | 14 8:10 | | | | | PRN, Shivering, Starting Tue | | PM PDT | | | | | 02/04/14 at 1913, For 2 doses, May | | | | | | | Repeat once in 15 min., | | | | | | | Recovery/Phase I | | | | | | + +-------+ +---------+---+---+ +-------+ +---------+---+---+ | Given | 02/05/20 | 12.5 mg | | | | | 14 7:53 | | | | | | PM PDT | | | | +-------+ +---------+---+---+ +---+---+ | | | +---+---+ + +-------+ + +---+---+ | methocarbamol (ROBAXIN) tablet | Given | 02/07/20 | 1,500 mg | | | | 1,500 mg 1,500 mg, Oral, EVERY 6 | | 14 8:39 | | | | | HOURS PRN, Muscle spasms, | | AM PDT | | | | | Starting 02/04/14 at 2111, | | | | | | | Post-op/Phase II | | | | | | + +-------+ + +---+---+ +-------+ + +---+---+ | Given | 02/06/20 | 750 mg | | | | | 14 8:27 | | | | | | PM PDT | | | | +-------+ + +---+---+ | Given | 02/05/20 | 1,500 mg | | | | | 14 9:22 | | | | | | PM PDT | | | | +-------+ + +---+---+ +---+---+ | | | +---+---+ + +-------+ +------+---+---+ | morphine injection 2-4 mg 2-4 | Given | 02/05/20 | 4 mg | | | | mg, Intravenous, EVERY 3 HOURS | | 14 9:23 | | | | | PRN, Pain, Starting 02/04/14 at | | PM PDT | | | | | 2111, Slow IV push, not faster | | | | | | | than 2 mg/minute. If ineffective | | | | | | | or not tolerated, use | | | | | | | hydromorphone IV if ordered, | | | | | | | Post-op/Phase II | | | | | | + +-------+ +------+---+---+ +---+---+ | | | +---+---+ + +-------+ +--------+---+---+ | senna (SENOKOT) tablet 8.6 mg | Given | 02/07/20 | 8.6 mg | | | | 8.6 mg, Oral, 2 TIMES DAILY, | | 14 8:34 | | | | | First dose on Mon02/04/14 at 2130, | | AM PDT | | | | | If docusate ineffective or not | | | | | | | ordered, give BID until BM, then | | | | | | | PRN. Hold for loose stools, | | | | | | | Post-op/Phase II | | | | | | + +-------+ +--------+---+---+ +-------+ +--------+---+---+ | Given | 02/06/20 | 8.6 mg | | | | | 14 8:27 | | | | | | PM PDT | | | | +-------+ +--------+---+---+ | Given | 02/06/20 | 8.6 mg | | | | | 14 8:12 | | | | | | AM PDT | | | | +-------+ +--------+---+---+ +---+---+ | | | +---+---+ documented in this encounter"
--- OUTSIDE RECORDS SUMMARY | ~2019-09-17 | XMS | Encounter Summary ---
Demographics + + + | Address | [address] | | | [place] [address] | + + + | Home Phone | | + + + | Preferred Language | Unknown | + + + | Marital Status | Legally | + + + | Temple Affiliation | Unknown | + + + | Race | Unknown | + + + | Ethnic Group | Unknown | + + + Author + + + | Author | [facility] | | | and [place]any[place] | + + + | Organization | [facility] | [...] [place], [place] | | | | | [address] | | + + + + + Care Team Providers + +------+ + | Care Web Development Intern Name | Role | Phone | + +------+ + | Basilio Cuevas PA-C | PCP | | + +------+ + Reason for Referral Evaluate & Treat (Routine) +--------+ + + + + + | Status | Reason | Specialty | Diagnoses / | Referred By | Referred To | | | | | Procedures | Contact | Contact | +--------+ + + + + + | Closed | Specialty | Physical | Diagnoses | Yuval Parker, | | | | Services | Therapy | | Toribio, | | | | Required | | Pseudoarthro | PA-C [address] | | | | | | sis of | [address] | | | | | | lumbar | [place], | | | | | | spine, with | [place] [address] | | | | | | routine | Phone: | | | | | | healing, | [phone] | | | | | | subsequent | Fax: | | | | | | encounter | [phone] | | | | | | S/P lumbar | | | | | | | fusion | | | | | | | Lumbar | | | | | | | radicular | | | | | | | pain | | | +--------+ + + + + + Reason for Visit + + + | Reason | Comments | + + + | Follow-up | 4 week PO s/p lumbar fusion | + + + Encounter Details +--------+---------+ + + + | Date | Type | Department | Care Team | Description | +--------+---------+ + + + | 03/06/ | Office | [facility] [place] | Toribio Dick, | Pseudoarthrosis of | | 2013 | Visit | NEUROSURGERY [address] | PA-C [address] | lumbar spine, with | | | | [address] | [address] [place], [place] | routine healing, | | | | [place] | [address] | subsequent encounter | | | | [address] | | (Primary Dx); S/P | | | | [phone] | | lumbar fusion; | | | [...] + + + | Blood Pressure | 136/88 | 03/06/2014 2:57 PM | | | | | PDT | | + + + + + | Pulse | 70 | 03/06/2014 2:57 PM | | | | | PDT | | + + + + + | Temperature | - | - | | + + + + + | Respiratory Rate | 14 | 03/06/2014 2:57 PM | | | | | PDT | | + + + + + | Oxygen Saturation | - | - | | + + + + + | Inhaled Oxygen | - | - | | | Concentration | | | | + + + + + | Weight | 107.5 kg (237 lb) | 03/06/2014 2:57 PM | | | | | PDT | | + + + + + | Height | 182.9 cm (6') | 03/06/2014 2:57 PM | | | | | PDT | | + + + + + | Body Mass Index | 32.14 | 03/06/2014 2:57 PM | | | | | PDT | | + + + + + documented in this encounter Patient Instructions Patient Instructions Toribio Dick PA-C - 03/06/2014 3:05 PM PDTStable x-rays. Start physical therapy in about 2 weeks. SPINE BRACE WEANING PROTOCOL (1 WEEK) At the end of the 2-3 months that you have been wearing your brace, please follow the sched ule below for the last week after you receive clearance from the surgeon to remove the brace . DAY 7 Wear your brace in the morning as usual for 4 hours. Remove your brace for 4 hours. Put y our brace back on and wear it until bedtime. Remove it at bedtime as usual. DAY 6 Wear your brace in the morning as usual for 4 hours. Remove your brace for 6 hours. Put y our brace back on and wear it until bedtime. Remove it at bedtime as usual. DAY 5 Wear your brace in the morning as usual for 4 hours. Remove your brace for 8 hours. Put y our brace back on and wear it until bedtime. Remove it at bedtime as usual. DAY 4 Wear your brace in the morning as usual for 4 hours. Remove your brace for the rest of the day. DAY 3 Wear your brace in the morning as usual for 3 hours. Remove your brace for the rest of the day. DAY 2 Wear your brace in the morning as usual for 2 hours. Remove your brace for the rest of the day. DAY 1 Wear your brace in the morning as usual for 2 hours. Remove your brace for the rest of the day. FINAL DAY Don't wear your brace any more! documented in this encounter Progress Notes Toribio Dick PA-C - 03/06/2014 3:06 PM PDT Toribio Dick PA-C [address], [address] [place] [address] FAX: NEUROSURGERY SURGICAL FOLLOW-UP CHIEF COMPLAINT: Chief Complaint Patient presents with Follow-up 4 week PO s/p lumbar fusion HISTORY OF PRESENT ILLNESS: The patient is a 33 y.o. male that had a L5-S1 lumbar fusion b y Dr. 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 He returns and overall is doing well. The patient complains of minimal low back pain with extended sitting. The daniel ent has been walking as much as possible. He is still taking pain medications at this point . The patient has had no issues with his surgical site. CURRENT MEDICATIONS: Current Outpatient Prescriptions Medication Sig Dispense Refill diazepam (VALIUM) 5 mg tablet Take 1 tab every 6 hours as needed for muscle spasms. 60 tablet 0 HYDROcodone-acetaminophen (NORCO) 10-325 mg per tablet Take 1-2 tablets by mouth every 4 hours as needed for Pain. 60 tablet 0 HYDROmorphone (DILAUDID) 2 mg tablet Take 4 tablets by mouth every 12 hours as needed f or Pain. 60 tablet 0 Lactulose SOLN Take 30 mLs by mouth every 6 hours as needed (Constipation). 240 mL 1 lisinopril (PRINIVIL, ZESTRIL) 20 mg tablet Take 20 mg by mouth Daily. ALLERGIES: Allergies Allergen Reactions Oxycodone Hives and Other (See Comments) Throat got itchy and was hard to breathe SOCIAL HISTORY: The patient reports that he quit smoking about 6 weeks ago. His smoking use included Cigar ettes. He has a .5 pack-year smoking history. He has never used smokeless tobacco. He report s that he does not drink alcohol or use illicit drugs. INTERIM PHYSICAL EXAMINATION: Blood pressure 136/88, pulse 70, resp. rate 14, height 1.829 m (6'), weight 107.502 kg (237 lb). Body mass index is 32.14 kg/(m^2). GENERAL: Fili Alonso is in no acute distress with unlabored respirations. SPINE: The patient s incisions are healing well without drainage, significant erythema, o r discharge EXTREMITIES: No lower extremity edema. NEUROLOGICAL EXAMINATION: MENTAL STATUS: The patient is awake, alert, and oriented. He follows simple and complex commands MOTOR EXAM: Motor strength is 5/5 throughout the bilateral LE. This is improved from the p reoperative exam. SENSORY EXAM: The sensory examination improved from the preoperative exam. Improved left s ided radiculopathy. Low back pain improved. RADIOGRAPHIC REVIEW: The patient s postoperative x-rays show stable instrumentation and alignment and were rev iewed with the patient today. There have been no interval changes since the immediate posto perative films. Complete fusion has not yet occurred, but this is normal and would not be e xpected at this time. ASSESSMENT: S/P L5-S1 for pseudoarthrosis and radiculopathy: Encounter Diagnoses Name Primary? Pseudoarthrosis of lumbar spine, with routine healing, subsequent encounter Yes S/P lumbar fusion Lumbar radicular pain Past Medical History Diagnosis Date PTSD (post-traumatic stress disorder) Chronic low back pain HTN (hypertension) 08/19/2013 Narcotic abuse 08/25/2013 Sleep apnea PLAN: Overall, the patient is doing well. Resolved left radiculopathy I increased the patient s activities slowly now allowing 15 pound lifting and also will b egin the process of brace weaning. I would like the patient to advance slowly with this pro cess and discussed this at length during today's visit. I would also like the patient to co ntinue with postoperative rehabilitation and to advance with therapy as tolerated. I am hoping to see improvement over the coming weeks to months and plan to continue to foll ow this patient. I spent 15 minutes in visit with Fili Alonso today with the majority of time spent c ryanelling the patient on his recovery and coordinating his future care. The patient will f ollow-up with me in around 8 weeks for re-evaluation. ELECTRONICALLY SIGNED BY: Toribio Dick PA-C, 03/06/2014 15:06 documented in thi s encounter Plan of Treatment + +---------+--------+ + + | Name | Type | Priori | Associated Diagnoses | Order Schedule | | | | ty | | | + +---------+--------+ + + | XR Lumbar Spine 2 or | Imaging | Routin | Pseudoarthrosis of | Expected: | | 3 Vw | | e | lumbar spine, with | 03/06/2014, Expires: | | | | | routine healing, | 03/06/2015 | | | | | subsequent encounter | | | | | | S/P lumbar fusion | | | | | | Lumbar radicular | | | | | | pain | | + +---------+--------+ + + + + +--------+ + + | Name | Type | Priori | Associated Diagnoses | Order Schedule | | | | ty | | | + + +--------+ + + | OUTPATIENT PT | Outpatient | Routin | Pseudoarthrosis of | Ordered: 03/06/2014 | | EXTERNAL | Referral | e | lumbar spine, with | | | | | | routine healing, | | | | | | subsequent encounter | | | | | | S/P lumbar fusion | | | | | | Lumbar radicular | | | | | | pain | | + + +--------+ + + documented as of this encounter Visit Diagnoses + + | Diagnosis | + + | Pseudoarthrosis of lumbar spine, with routine healing, subsequent encounter - Primary | + + | S/P lumbar fusion Arthrodesis status | + + | Lumbar radicular pain Thoracic or lumbosacral neuritis or radiculitis, unspecified | + + documented in this encounter"
--- OUTSIDE RECORDS SUMMARY | ~2019-09-17 | XMS | Encounter Summary ---
Demographics + + + | Address | [address] | | | [place] [address] | + + + | Home Phone | | + + + | Preferred Language | Unknown | + + + | Marital Status | Legally | + + + | Judaism Affiliation | Unknown | + + + | Race | Unknown | + + + | Ethnic Group | Unknown | + + + Author + + + | Author | [facility] | | | and [place] | + + + | Organization | [facility] | | | and [...] [place], [place] | | | | | [address] | | + + + + + Care Team Providers + +------+ + | Care Chicken Boner Name | Role | Phone | + [...] | initial | MD [address] | [place], [place] | | | | | encounter | [address] | [address] | | | | | Back | [place], | Phone: | | | | | contusion, | [place] | [phone] | | | | | left, | [address] | Fax: | | | | | initial | Phone: | [phone] | | | | | encounter | [phone] | | | | | | History of | Fax: | | | | | | lumbar | [phone] | | | | | | spinal [...] | | | | CENTER [address] | [address] [place] | (Primary Dx); Back | | | | [place], [place] | [place] [address] | contusion, left, | | | | [address] | [phone] | initial encounter; | | | | [phone] | | History of lumbar | | [...] M?MRN: | | | | | | [id number] | | | [id number] | | | his | | | [...] | | | St. | | | [place] | | | y H. | | [...] | | | St. | | | [place] | | | y | | | [...] | | | St. | | | [place] | | | y H. | | [...] ST. | [address] | [place] | [phone] | | [facility] | | [address] | | | - LABORATORY | | [...] [address] | [place] | [phone] | | [facility] | | [address] | | | - LABORATORY | | [...] [address] | [place] | [phone] | | [facility] | | [address] | | | - LABORATORY | | [...] [address] | [place] | [phone] | | [facility] | | [address] | | | - LABORATORY | | [...] ST. | [address] | [place], [place] | [phone] | | [facility] | | [address] | | | - LABORATORY | | [...]
--- OUTSIDE RECORDS SUMMARY | ~2019-09-17 | XMS | Encounter Summary ---
Demographics + + + | Address | [address] | | | [place] [address] | + + + | Home Phone | | + + + | Preferred Language | Unknown | + + + | Marital Status | Legally | + + + | Synagogue Affiliation | Unknown | + + + | Race | Unknown | + + + | Ethnic Group | Unknown | + + + Author + + + | Author | [facility] | | | and [place] | + + + | Organization | [facility] | | | and [place] | [...] [place], [place] | | | | | [address] | | + + + + + Care Team Providers + +------+ + | Care Director Global Medical Affairs Name | Role | Phone | + +------+ + | Basilio Cuevas PA-C | PCP | | + +------+ + Encounter Details +--------+ + + + + | Date | Type | Department | Care Team | Description | +--------+ + + + + | 03/06/ | Hospital | [facility] | Toribio Dick, | Chronic low back | | 2013 | Encounter | MED CTR XRAY [address] | PA-C [address] | pain | | | | [place] | [place] | | | | | [place], [place] [address] | [address] | | | | | [phone] | | | +--------+ + + + [...] every 6 | 60 | 0 | 03/06/20 | | | 5 mg | hours as needed for | tablet | | 14 | 5 | | tabletIndications: | muscle spasms. 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 | | | | | | mg per tablet | | | | | | + + + +---------+ + + | HYDROmorphone | Take 4 tablets by | 60 | 0 | 03/06/20 | | | (DILAUDID) 2 mg | mouth every 12 hours | tablet | | 14 | 4 | | tabletIndications: | as needed for Pain. 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 | | | | | | routine healing, | | | | | | | subsequent | | | | | | | encounter, S/P | | | | | | | lumbar fusion, | | | | | | | Lumbar radicular | | | | | | | pain | | | | | | + [...] LUMBAR SPINE 2 OR | Routin | 03/06/2014 | Chronic low back | Results for this | | 3 VW | e | 2:34 PM | pain | procedure are in the | | | | PDT | | results section. | + +--------+ + + + documented in this encounter Results XR Lumbar [...] + | MISCELLANEOUS LAB | | | [phone] | + +---------+ + + | MISCELANIOUS LAB | | | [phone] | + +---------+ + + documented in this encounter Visit Diagnoses + + | Diagnosis | + + | Chronic low back pain Lumbago | + + documented in this encounter"
--- OUTSIDE RECORDS SUMMARY | ~2019-09-17 | XMS | Encounter Summary ---
Demographics + + + | Address | [address] | | | [place] [address] | + + + | Home Phone [...] | Author | [facility] | | | and [place] | + + + | Organization | [facility] | | | and [...] [place], [place] | | | | | [address] | | + + + + + Care Team Providers + +------+ + | Care Geriatric Personal Care Aide Name | Role | Phone | + +------+ + | No, Physician | PCP | Unavailable | + +------+ + Encounter Details +--------+ + + + + | Date | Type | Department | Care Team | Description | +--------+ + + + + | 12/30/ | Hospital | [facility] | Ghada Dawn | | | 2012 | Encounter | MED CTR EMERGENCY | DO Hieu Padilla | | | | | [place] [address] | [place] | | | | | [place] | [id number] | | | | | [address] | | | | | | [phone] | [facility] | | | | | | Dimas Rodríguez MD | | | | | | [address] | | | | | | [place] | | | | | | [address] | | | | | | | [...] MRI LUMBAR SPINE WO | Routin | 12/31/2012 | | Results for this | | CONTRAST | e | 7:59 AM | | procedure are in the | | | | PST | | results section. | + +--------+ + + + documented in this encounter Results MRI Lumbar Spine wo Contrast (12/31/2012 7:59 AM PST) + + | Specimen | + + | | + + + + + | Narrative | Performed At | + + + | [facility] | [facility] | | Department [address] [place] [address] | [facility] | | [ rep [address]] [ rep [facility] | | st zip] Signed | - IMAGING | | | | | Patient Name: ROBERT ALONSO Physician: | | | SHAMA. : 1980 Age: 32 Sex: M Unit #: [id number] | | | Exam Date: 12/30/12 Location: ER | | | Report #: [id number] Page: | | | %(RAD)RES..mtdd.print.filter("pg") of %(RAD) | | | RES..mtdd.print.filter("tpg") | | | | | | Accession Number: [id number] | | | MRI LUMBAR SPINE WITHOUT CONTRAST CLINICAL HISTORY: LOW | | | BACK PAIN WITH LOWER EXTREMITY NUMBNESS. TECHNIQUE: | | | Multiplanar, multisequence imaging of the lumbar spine is performed. | | | COMPARISON: None. FINDINGS: Patient has | | | had a prior L5-S1 fusion with posterior pedicle screw and marcy | | | fixation and interbody spacer in the L5-S1 disk interspace. | | | Laminectomy has also performed at this level. Fixation hardware | | | appears normally positioned and alignment is maintained across L5-S1. | | | Aside from the metallic artifact, no areas of abnormal marrow | | | signal are present. No paraspinous fluid collections or other | | | adjacent soft tissue abnormalities are seen. Conus | | | terminates normally at L1-2. Cauda equina nerve roots appear normal. | | | Above the level of the fusion, spinal alignment is also | | | maintained. Level by level analysis of the axial images follows. | | | L2-3 within normal limits. L3-4 mild facet | | | degenerative change without other abnormality. L4-5 there | | | is moderate facet degenerative change and a minimal broad based disk | | | bulge. There is mild bilateral foraminal encroachment without | | | central canal stenosis. L5-S1 the central canal is widely | | | patent. No residual or recurrent disk protrusion is seen. No | | | foraminal stenosis. IMPRESSION: 1. PRIOR L5-S1 | | | DISKECTOMY AND FUSION. NO RESIDUAL OR RECURRENT DISK PROTRUSION. | | | 2. MINIMAL DISK BULGE AND FACET DEGENERATIVE CHANGES AT L4-5 | | | WITHOUT NEURAL ENCROACHMENT. OTHERWISE, NEGATIVE MRI LUMBAR SPINE. | | | Dictated Date/Time: 12/31/2012 07:59 Transcribed | | | Date/Time: 12/31/2012 08:24 [place]: | | | <<Signature on File>> | | | | | | Olayinka Franco MD12/31/12 1325 <Electronically signed by | | | Olayinka Franco MD> Olayinka Franco MD 12/31/12 | | | 0759 [address] [place]er: Giovanni Yovidfqvunuow90/04/13 0824 | | | | | + + + + + + + + | Performing | Address | City/State/Zipcode | Phone Number | | Organization | | | | + + + + + | [facility] | [address] | [place] | [phone] | | [facility] | | [address] | | | - IMAGING | | | | + + + + + documented in this encounter Visit Diagnoses Not on filedocumented in this encounter
--- OUTSIDE RECORDS SUMMARY | ~2019-09-17 | XMS | Encounter Summary ---
Demographics + + + | Address | [address] | | | [place] [address] | + + + | Home Phone | | + + + | Preferred Language | Unknown | + + + | Marital Status | Legally | + + + | Amish Affiliation | Unknown | + + + | Race | Unknown | + + + | Ethnic Group | Unknown | + + + Author + + + | Author | [facility] | | | and [place] | + + + | Organization | [facility] | | | and [place] [...] [place], [place] | | | | | [address] | | + + + + + Care Team Providers + +------+ + | Care Air Twister Winder Name | Role | Phone | + +------+ + | Basilio Cuevas PA-C | PCP | | + +------+ + Reason for Visit + + + | Reason | Comments | + + + | Letter for | | | School/Work | | + + + Encounter Details +--------+ + + + + | Date | Type | Department | Care Team | Description | +--------+ + + + + | 12/05/ | Telephone | [facility] | Jean Pierre Amaya, | Letter for | | 2013 | | NEUROSURGERY [address] | DO [address] | School/Work | | | | [address] | [address] [place], [place] | | | | | [place], [place] | [address] | | | | | [address] | | | | | | [phone] | | | +--------+ + + + [...]
--- OUTSIDE RECORDS SUMMARY | ~2019-09-17 | XMS | Encounter Summary ---
Demographics + + + | Address | [address] | | | [place] [address] | + + + | Home Phone | | + + + | Preferred Language | Unknown | + + + | Marital Status | Legally | + + + | Sikhism Affiliation | Unknown | + + + | Race | Unknown | + + + | Ethnic Group | Unknown | + + + Author + + + | Author | [facility] | | | and [place] | + + + | Organization | [facility] | | | and [place] [...] [place], [place] | | | | | [address] | | + + + + + Care Team Providers + +------+ + | Care Chief General [facility] Name | Role | Phone | + +------+ + | Basilio Cuevas PA-C | PCP | | + +------+ + Encounter Details +--------+ + + + + | Date | Type | Department | Care Team | Description | +--------+ + + + + | 04/20/ | Hospital | [facility] | Conversion | Pain | | 2018 | Encounter | CONVERSION [address] | Transaction, | | | | | [address] | Provider Unknown | | | | | [place] | [phone] | | | | | [address] | | | | | | [phone] | | | +--------+ + + + [...] MRI LUMBAR SPINE W | Routin | 12/01/2015 | | Results for this | | WO CONTRAST | e | 4:51 AM | | procedure are in the | | | | PST | | results section. | + +--------+ + + + documented in this encounter Results MRI Lumbar Spine w wo Contrast (12/01/2015 4:51 AM PST) + + | Specimen [...]
--- OUTSIDE RECORDS SUMMARY | ~2019-09-17 | XMS | Clinical Summary ---
Demographics + + + | Address | [address] | | | [place] [address] | + + + | Home Phone | | + + + | Preferred Language | Unknown | + + + | Marital Status | Legally | + + + | Nondenominational Affiliation | Unknown | + + + | Race | Unknown | + + + | Ethnic Group | Unknown | + + + Author + + + | Author | [facility] | | | and [place] | + + + | Organization | [facility] | | | and [place] [...] [place], [place] | | | | | [address] | | + + + + + Care Team Providers + +------+ + | Care Amusement Ride Inspector Name | Role | Phone | + +------+ + | Basilio Cuevas PA-C | PCP | | + +------+ + Allergies + + + + + + | Active Allergy | Reactions | Severity | Noted | Comments | | | | | Date | | + + + + + + | Oxycodone | Hives, Other (See | High | 01/28/20 | Throat got itchy | | | Comments) | | 14 | and was hard to | | | | | | breathe Throat got | | | | | | itchy and was hard | | | | | | to breathe | + + + + + + | Uncoded | Unknown | | 05/27/20 | | | Nonscreenable | | | 19 | | | Allergen | | | | | + + + + + + Medications + + + +---------+------+------+-------+ | Medication | Sig | Dispensed | Refills | Star | End | Statu | | | | | | t | Date | s | | | | | | Date | | | + + + +---------+------+------+-------+ | cyanocobalamin | Take 1 tablet by | 30 | 0 | 01/1 | | Activ | | (VITAMIN B-12) 1000 | mouth Daily. | tablet | | 0/20 | | e | | MCG tablet | | | | 15 | | | + + + +---------+------+------+-------+ | folic acid | Take 1 tablet by | 30 | 0 | 01/1 | | Activ | | (FOLVITE) 400 MCG | mouth Daily. | tablet | | 0/20 | | e | | tablet | | | | 15 | | | + + + +---------+------+------+-------+ | pantoprazole | Take 1 tablet by | 60 | 0 | 01/1 | | Activ | | (PROTONIX) 40 mg | mouth 2 times daily | tablet | | 0/20 | | e | | tablet | (before meals). | | | 15 | | | + + + +---------+------+------+-------+ | | Take 1-2 tablets by | 15 | 0 | 01/1 | | Activ | | HYDROcodone-acetamin | mouth every 6 hours | tablet | | 0/20 | | e | | ophen (NORCO) 5-325 | as needed for Pain. | | | 15 | | | | mg per tablet | | | | | | | + + + +---------+------+------+-------+ +---+ + | | Additional | | | informationPatient | | | not taking. Reason: | | | not taking, Reported | | | on 10/09/2018 12:50 | | | PM | +---+ + + + +--------+---+------+------+-------+ | QUEtiapine | Take 100 mg by mouth | | 0 | | | Activ | | (SEROQUEL) 100 mg | 2 times daily. | | | | | e | | tablet | | | | | | | + + +--------+---+------+------+-------+ | DULoxetine | Take 30 mg by mouth | | 0 | | | Activ | | (CYMBALTA) [address] | Daily. | | | | | e | | capsule | | | | | | | + + +--------+---+------+------+-------+ | oxyCODONE | Take 10 mg by mouth | | 0 | | | Activ | | (OXYCONTIN) 10 mg ER | every 12 hours. | | | | | e | | abuse-deterrent | | | | | | | | tablet | | | | | | | + + +--------+---+------+------+-------+ | | Take 1-2 tablets by | 15 | 0 | 12/1 | | Activ | | HYDROcodone-acetamin | mouth EVERY 4 TO 6 | tablet | | 1/20 | | e | | ophen (NORCO) 5-325 | HOURS NEEDED for | | | 18 | | | | mg per tablet | Pain. | | | | | | + + +--------+---+------+------+-------+ | LORazepam (ATIVAN) | Take 1 tablet by | 20 | 0 | 12/1 | | Activ | | 2 MG tablet | mouth every 6 hours | tablet | | 1/20 | | e | | | as needed for Other | | | 18 | | | | | (muscle spasm/pain). | | | | | | + + +--------+---+------+------+-------+ | ketorolac | Take 1 tablet by | 15 | 0 | 12/1 | | Activ | | (TORADOL) 10 MG | mouth every 8 hours | tablet | | 1/20 | | e | | tablet | as needed for Pain. | | | 18 | | | + + +--------+---+------+------+-------+ | cloNIDine | TAKE ONE TABLET BY | | 0 | 12/1 | 12 | Activ | | (CATAPRES) 0.1 mg | MOUTH FOUR TIMES A | | | 05/18 | 06/18 | e | | tablet | DAY NEEDED FOR | | | 18 | 19 | | | | PTSD | | | | | | + + +--------+---+------+------+-------+ | docusate-senna | TAKE ONE TABLET BY | | 0 | | | Activ | | (SENOKOT-S) 50-8.6 | MOUTH TWICE A DAY | | | | | e | | mg per tablet | NEEDED | | | | | | + + +--------+---+------+------+-------+ | DULoxetine | TAKE TWO CAPSULES BY | | 0 | 12/1 | 121 | Activ | | (CYMBALTA) [address] | MOUTH EVERY MORNING | | | 05/18 | 8 | e | | capsule | FOR MOOD / PAIN / | | | 18 | 19 | | | | FOCUS | | | | | | + + +--------+---+------+------+-------+ | UNABLE TO FIND | APPLY A SMALL AMOUNT | | 0 | | | Activ | | | TO AFFECTED AREA | | | | | e | | | EVERY DAY | | | | | | + + +--------+---+------+------+-------+ | nicotine | CHEW 1 PIECE BY | | 0 | 09/29 | 09/29 | Activ | | (NICORETTE) 2 mg gum | MOUTH EVERY FOUR TO | | | 11/18 | 12/19 | e | | | EIGHT HOURS | | | 18 | 19 | | | | NEEDED DIRECTED, | | | | | | | | CHEW AND HOLD IN | | | | | | | | CHEEK PER PACKAGE | | | | | | | | USER'S GUIDE | | | | | | | | INSTRUCTIONS | | | | | | + + +--------+---+------+------+-------+ | pantoprazole | TAKE ONE TABLET BY | | 0 | | | Activ | | (PROTONIX) 40 mg | MOUTH EVERY DAY | | | | | e | | tablet | | | | | | | + + +--------+---+------+------+-------+ | QUEtiapine | TAKE ONE-HALF TABLET | | 0 | 09/29 | 09/29 | Activ | | (SEROQUEL) 25 mg | BY MOUTH TWICE A | | | 05/18 | 06/18 | e | | tablet | DAY FOR PTSD | | | 18 | 19 | | + + +--------+---+------+------+-------+ | QUEtiapine | TAKE ONE-HALF TABLET | | 0 | 09/29 | 09/29 | Activ | | (SEROQUEL) 400 MG | BY MOUTH AT BEDTIME | | | 05/18 | 06/18 | e | | tablet | FOR PTSD | | | 18 | 19 | | + + +--------+---+------+------+-------+ | UNABLE TO FIND | Take 40 mg by mouth | | 0 | | | Activ | | | daily. | | | | | e | + + +--------+---+------+------+-------+ | cloNIDine | clonidine HCl 0.1 mg | | 0 | 04/0 | | Activ | | (CATAPRES) 0.1 mg | tablet 0.5 mg by | | | 07/19 | | e | | tablet | oral route. | | | 18 | | | + + +--------+---+------+------+-------+ | docusate sodium | Colace 100 mg | | 0 | | | Activ | | (COLACE) 100 mg | capsule 100 mg by | | | | | e | | capsule | oral route. | | | | | | + + +--------+---+------+------+-------+ | pregabalin | | | 0 | 07/2 | | Activ | | (LYRICA) 75 mg | | | | 3/20 | | e | | capsule | | | | 18 | | | + + +--------+---+------+------+-------+ | pregabalin | Take 150 mg by mouth | | 0 | | | Activ | | (LYRICA) 150 MG | 2 (two) times | | | | | e | | capsule | daily. Indications: | | | | | | | | Neuropathic Pain, | | | | | | | | post back surger | | | | | | + + +--------+---+------+------+-------+ | docusate-senna | Take 50 mg by mouth | | 0 | | | Activ | | (SENOKOT-S) 50-8.6 | 3 (three) times | | | | | e | | mg per tablet | daily as needed. | | | | | | + + +--------+---+------+------+-------+ | zolpidem (AMBIEN) | Ambien 5 mg tablet | | 0 | | | Activ | | 5 mg tablet | 10 mg by oral route. | | | | | e | + + +--------+---+------+------+-------+ | DULoxetine | Cymbalta 60 mg | | 0 | | | Activ | | (CYMBALTA) [address] | capsule,delayed | | | | | e | | capsule | release 60 mg by | | | | | | | | oral route. | | | | | | + + +--------+---+------+------+-------+ | oxyCODONE 10 MG | oxycodone 10 mg | | 0 | | | Activ | | TABS | tablet 10 mg by | | | | | e | | | oral route. | | | | | | + + +--------+---+------+------+-------+ | pantoprazole | pantoprazole 40 mg | | 0 | 01/1 | | Activ | | (PROTONIX) 40 mg | tablet,delayed | | | 0/20 | | e | | tablet | release 40 mg by | | | 15 | | | | | oral route. | | | | | | + + +--------+---+------+------+-------+ | QUEtiapine | Seroquel 25 mg | | 0 | | | Activ | | (SEROQUEL) 25 mg | tablet 12.5 mg by | | | | | e | | tablet | oral route. | | | | | | + + +--------+---+------+------+-------+ | QUEtiapine | Seroquel 400 mg | | 0 | 05/0 | | Activ | | (SEROQUEL) 400 MG | tablet 200 mg by | | | 3/20 | | e | | tablet | oral route. | | | 18 | | | + + +--------+---+------+------+-------+ Active Problems + + + | Problem | Noted Date | + + + | Adjustment disorder with mixed emotional features | 05/27/2019 | + + + | Benign essential hypertension | 05/27/2019 | + + + | History of peptic ulcer | 05/27/2019 | + + + | History of surgical procedure | 05/27/2019 | + + + | Homeless single person | 05/27/2019 | + + + | Inguinal hernia without obstruction or gangrene | 05/27/2019 | + + + | Insomnia | 05/27/2019 | + + + | Intracranial injury of other and unspecified nature with brief | 05/27/2019 | | (less than one hour) loss of consciousness | | + + + | Lumbar radiculopathy | 05/27/2019 | + + + | Post-laminectomy syndrome | 05/27/2019 | + + + | Melena | 05/27/2019 | + + + | Opioid dependence in remission | 05/27/2019 | + + + | Hematemesis | 05/27/2019 | + + + | Esophagitis | 05/27/2019 | + + + | Gastritis | 05/27/2019 | + + + | Chronic post-traumatic stress disorder | 05/27/2019 | + + + | Acute appendicitis | 10/03/2018 | + + + | Chronic back pain | 05/27/2015 | + + + | Gastroesophageal reflux disease without esophagitis | 05/27/2015 | + + + | Orthostasis | 05/27/2015 | + + + | Acute posthemorrhagic anemia | 05/27/2015 | + + + | UGIB (upper gastrointestinal bleed) | 05/27/2015 | + + + | Hemorrhage of gastrointestinal tract | 11/07/2014 | + + + + + | Overview: ICD-10 Record update | + + + + + | Former Smoker DC 12/2013 | 11/07/2014 | + + + | Anemia due to blood loss | 11/07/2014 | + + + | Hiatal hernia | 11/07/2014 | + + + | Esophagitis, erosive | 11/07/2014 | + + + | Allergy to pain medication - oxycodone | 11/07/2014 | + + + | Narcotic abuse | 08/25/2013 | + + + + + | Overview: 08/11: Denied taking narcotics but u-tox positive. | | 07/16/13: Dilaudid #[id number]) | + + + + + | Chronic low back pain | 08/19/2013 | + + + + + | Overview: "While in [place], had unstable fracture at L5-S1 | | which required surgery. Scheduled to see a neurosurgeon in the | | [facility] 05/2013"MRI 01/09: 1. PRIOR L5-S1 DISKECTOMY AND | | FUSION. NO RESIDUAL OR RECURRENT DISK PROTRUSION. 2. MINIMAL | | DISK BULGE AND FACET DEGENERATIVE CHANGES AT L4-5 WITHOUT NEURAL | | ENCROACHMENT. OTHERWISE, NEGATIVE MRI LUMBAR SPINE. | + + + + + | HTN (hypertension) | 08/19/2013 | + + + + + | Overview: Previously treated with lisinopril | + + + + + | Tobacco abuse | 08/19/2013 | + + + | Preventative health care | 08/19/2013 | + + + | Other ill-defined and unknown causes of morbidity and mortality | 02/18/2013 | + + + | PTSD (post-traumatic stress disorder) | | + + + | Sleep apnea | | + + + Immunizations + + + + | Name | Administration Dates | Next Due | + + + + | INFLUENZA PF 19 Y OR | 02/05/2014 | | | >,TRIVALENT | | | | RECOMBINANT | | | + + + + Family History + + +------+ + | Medical History | Relation | Name | Comments | + + +------+ + | High blood pressure | Father | | | + + +------+ + | Heart attack | Maternal | | | | | Grandmoth | | | | | er | | | + + +------+ + | Other (see comment) | Mother | | Healthy | + + +------+ + | Cancer | Paternal | | "Leg tumor" | | | Grandfath | | | | | er | | | + + +------+ + | Rheum arthritis | Paternal | | | | | Grandmoth | | | | | er | | | + + +------+ + | Colon cancer | Neg Hx | | | + + +------+ + | Prostate cancer | Neg Hx | | | + + +------+ + + +------+--------+ + | Relation | Name | Status | Comments | + +------+--------+ + | Brother | | Alive | | + +------+--------+ + | Daughter | | Alive | | + +------+--------+ + | Father | | Alive | | + +------+--------+ + | Maternal Grandmother | | | | + +------+--------+ + | Mother | | Alive | | + +------+--------+ + | Paternal Grandfather | | | | + +------+--------+ + | Paternal Grandmother | | | | + +------+--------+ + Social History + + + +--------+ [...] | | | + +---+---+---+ + + | Tobacco Cessation: Ready to Quit: No; Counseling Given: Yes | + + + + +---------+ + | Alcohol Use [...] recent travel history available. | + + Last Filed Vital Signs + + + [...] | | + + + + + Plan of Treatment + + + + + | Health Maintenance | Due Date | Last Done | Comments | + + + + + | Vaccine: | | | | | Dtap/Tdap/Td (1 - | 0 | | | | Tdap) | | | | + + + + + | Adult Annual | | | | | Wellness Visit | 8 | | | + + + + + | Vaccine: Influenza | | 02/05/2014 | | | (#1) | 9 | | | + + + + + Implants + +------+--------+ +--------+--------+--------+ | Implanted | Type | Area | Manufacture | Device | Shelf | Model | | | | | r | | Expira | / | | | | | | Identi | tion | Serial | | | | | | fier | Date | / Lot | + +------+--------+ +--------+--------+--------+ | Graft Infuse Bone Kit Xxs - | | N/A: | SOF[employer]OR | | 11/29/ | [id number] | | [id number]: Qty: 1 on | | Spine | DANEK - DIV | | 2014 | 0 / | | 02/04/2014 by Jean Pierre Amaya | | Lumbar | [employer] | | | /[id number] | | DO Juan at [facility] | | | - [facility] | | | 05AAN | | [facility] | | | | | | | + +------+--------+ +--------+--------+--------+ | Kam Sext Solera [id number] - | | | SOFAMOR | | | [id number] | | [id number]: Qty: 1 on | | | DANEK - DIV | | | [id number] / | | 02/04/2014 at [facility] | | | [employer] | | | / | | [facility] | | | - [facility] | | | | + +------+--------+ +--------+--------+--------+ | Chips Cancellous 15cc - | | | OSTEOTECH - | | | [id number] | | [id number]: Qty: 1 on | | | OSTT | | | / / | | 02/04/2014 at [facility] | | | | | | | | [facility] | | | | | | | + +------+--------+ +--------+--------+--------+ | Set Scrw Ns G5 Brk Off Ti | | | SOFAMOR | | | [id number] | | 4.75 - [id number]: | | | DANEK - DIV | | | 0 / / | | Qty: 4 on 02/04/2014 at [facility] | | | [employer] | | | | | [facility] | | | - [facility] | | | | | CENTER | | | | | | | + +------+--------+ +--------+--------+--------+ | Imp Spn Spcr Cpstn [id number] - | | N/A: | SOFAMOR | | 04/21/ | [id number] | | [id number]: Qty: 1 on | | Spine | DANEK - DIV | | 2022 | 2 / | | 02/04/2014 by Jean Pierre Amaya | | Lumbar | [employer] | | | /[id number] | | DO Juan at [facility] | | | - [facility] | | | 071 | | [facility] | | | | | | | + +------+--------+ +--------+--------+--------+ | Putty Ruthie 5cc Dbm - | | N/A: | OSTE[employer]CH - | | 08/25/ | [id number] | | [id number]: Qty: 1 | | Spine | OSTT | | 2015 | | | on 02/04/2014 by Jose Luis, | | Lumbar | | | | /[id number] | | Jean Pierre Martinez DO at [facility] | | | | | | 0-122 | | [facility] | | | | | | / | + +------+--------+ +--------+--------+--------+ | Cage Capstone [id number] - | | N/A: | [employer] - | | 10/07/ | [id number] | | [id number]: Qty: 1 on | | Spine | MEDT | | 2020 | 2 / | | 02/04/2014 by Jean Pierre Amaya | | Lumbar | | | | /[id number] | | A, DO at [facility] | | | | | | 361 | | [facility] | | | | | | | + +------+--------+ +--------+--------+--------+ | Sextant Cannulated Screw 8.5 | | N/A: | | | | [id number] | | X 60Implanted: Qty: 1 on | | Back | | | | [id number] | | 02/04/2014 by Jean Pierre Amaya | | | | | | /[id number] | | A DO at [facility] | | | | | | [id number] | | [facility] | | | | | | / | + +------+--------+ +--------+--------+--------+ | Sextant Cannulated Screw 8.5 | | N/A: | | | | [id number] | | X 50Implanted: Qty: 1 on | | Back | | | | 83424 | | 02/04/2014 by Jean Pierre Amaya | | | | | | /[id number] | | A, DO at [facility] | | | | | | [address] | | [facility] | | | | | | / | + +------+--------+ +--------+--------+--------+ | Sextant Cannulated Screw 7.5 | | N/A: | | | | [id number] | | X 60Implanted: Qty: 1 on | | Back | | | | 93974 | | 02/04/2014 by Jean Pierre Amaya | | | | | | /[id number] | | A, DO at [facility] | | | | | | [id number] | | [facility] | | | | | | / | + +------+--------+ +--------+--------+--------+ | Sextant Cannulated Screw 7.5 | | N/A: | | | | [id number] | | X 50Implanted: Qty: 1 on | | Back | | | | [id number] | | 02/04/2014 by Jean Pierre Amaya | | | | | | /[id number] | | A, DO at [facility] | | | | | | [id number] | | [facility] | | | | | | / | + +------+--------+ +--------+--------+--------+ | Imp Spn Kam Sext Ti | | | [employer] - | | | [id number] | | [id number] - | | | MEDT | | | 5050 / | | [id number]: Qty: 1 on | | | | | | / | | 02/04/2014 at [facility] | | | | | | | | [facility] | | | | | | | + +------+--------+ +--------+--------+--------+ Results Not on filefrom Last 3 Months Insurance + +--------+ +--------+ +---------+--------+ | Payer | Benefi | Subscriber | Effect | Phone | Address | Type | | | t Plan | ID | ozzie | | | | | | / | | Dates | | | | | | Group | | | | | | + +--------+ +--------+ +---------+--------+ | MEDICARE | MEDICA | [id number] | | [phone] | | Medica | | | RE | | 010-Pr | 5 | | re | | | PART A | | esent | | | | | | AND B | | | | | | + +--------+ +--------+ +---------+--------+ | [employer] ADMIN | V[employer] | [id number] | 11/05/19 | | | Indemn | | | NS | | 15-Pre | | | ity | | | ADMIN | | sent | | | | | | [place] | | | | | | | | [place] | | | | | | + +--------+ +--------+ +---------+--------+ + +--------+ +--------+ + + | Guarantor Name | Accoun | Relation to | Date | Phone | Billing Address | | | t Type | Patient | of | | | | | | | | | | + +--------+ +--------+ + + | Fili Alonso | Person | Self | [birth year] | [address] | | | [place] | | 1980 | [phone] | [address] [place] | | | audrey | | | 4 (Home) | [address] | | | | | | [phone] | | | | | | | 9 (Work) | | + +--------+ +--------+ + + Advance Directives + + + + + | Type | Date Recorded | Patient | Explanation | | | | Grape Picker | | + + + + + | Power of | | | | | Patch Driller | | | | + + + + + | Advance | 02/04/2014 10:09 | | | | Directive | AM | | | + + + + + + + + + + | Code Status | Date | Date | Comments | | | Activated | Inactivated | | + + + + + | Full Code | 11/06/2014 | 11/08/2014 | | | | 12:32 PM | 9:49 PM | | + + + + + + + + +---+ | | | | | + + + +---+ | Full Code | 02/04/2014 | 02/06/2014 | | | | 9:11 PM | 2:10 PM | | + + + +---+
--- OUTSIDE RECORDS SUMMARY | ~2019-09-17 | XMS | Encounter Summary ---
Demographics + + + | Address | [address] | | | [place] [address] | + + + | Home Phone | | + + + | Preferred Language | Unknown | + + + | Marital Status | Legally | + + + | Congregation Affiliation | Unknown | + + + | Race | Unknown | + + + | Ethnic Group | Unknown | + + + Author + + + | Author | [facility] | | | and [place] | + + + | Organization | [facility] | | | and [place] [...] [place], [place] | | | | | [address] | | + + + + + Care Team Providers + +------+ + | [employer] Nurse Name | Role | Phone | + [...] | | | spine, with | [place] [address] | | | | | | routine | Phone: | | | | | | healing, | [phone] | | | | | | subsequent | Fax: | | | | | | encounter | [phone] | | | | | | S/P [...] + + | 03/06/ | Office | [facility] [place] | Toribio Dick, | 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
--- OUTSIDE RECORDS SUMMARY | ~2019-09-17 | XMS | Encounter Summary ---
Demographics + + + | Address | [address] | | | [place] [address] | + + + | Home Phone | | + + + | Preferred Language | Unknown | + + + | Marital Status | Legally | + + + | Confucianist Affiliation | Unknown | + + + | Race | Unknown | + + + | Ethnic Group | Unknown | + + + Author + + + | Author | [facility] | | | and [place] | + + + | Organization | [facility] | | | and [place] [...] [place], [place] | | | | | [address] | | + + + + + Care Team Providers + +------+ + | Care Teacher Vocational Training Name | Role | Phone | + [...] | +--------+ + + + + | 05/09/ | Telephone | [facility] | Jean Pierre Amaya, | Letter for | | 2013 | | NEUROSURGERY [address] | DO [address] | School/Work | | | | [address] | [address] [place], [place] | | | | | [place], [place] | [address] | | | | | [address] | | | | | | [phone] | | | +--------+ + + + [...]
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
--- OUTSIDE RECORDS SUMMARY | ~2019-09-17 | XMS | Encounter Summary ---
Demographics + + + | Address | [address] | | | [place] [address] | + + + | Home Phone | | + + + | Preferred Language | Unknown | + + + | Marital Status | Legally | + + + | Faith Affiliation | Unknown | + + + | Race | Unknown | + + + | Ethnic Group | Unknown | + + + Author + + + | Author | [facility] | | | and Hanyana | + + + | Organization | [facility] | | | and [...] [place], [place] | | | | | [address] | | + + + + + Care Team Providers + +------+ + | Care Concrete Pourer Name | Role | Phone | + +------+ + | Basilio Cuevas PA-C | PCP | | + +------+ + Reason for Visit + + + | Reason | Comments | + + + | Appointment | | + + + Encounter Details +--------+ + + + + | Date | Type | Department | Care Team | Description | +--------+ + + + + | 12/16/ | Telephone | [facility] | Jean Pierre Amaya, | Appointment | | 2013 | | NEUROSURGERY [address] | DO [address] | | | | | [address] | [address] [place], [place] | | | | | [place], [place] | [address] | | | | | [address] | | | | | | [phone] | | | +--------+ + + + [...]
--- OUTSIDE RECORDS SUMMARY | ~2019-09-17 | XMS | Encounter Summary ---
Demographics + + + | Address | [address] | | | [place] [address] | + + + | Home Phone | | + + + | Preferred Language | Unknown | + + + | Marital Status | Legally | + + + | Mandaeism Affiliation | Unknown | + + + | Race | Unknown | + + + | Ethnic Group | Unknown | + + + Author + + + | Author | [facility] | | | and Hanyana | + + + | Organization | [facility] | [...] [place], [place] | | | | | [address] | | + + + + + Care Team Providers + +------+ + | Care Microelectronics Assembler Name | Role | Phone | + +------+ + | Mynor Simental MD | PCP | | + +------+ + Encounter Details +--------+ + + + + | Date | Type | Department | Care Team | Description | +--------+ + + + + | 08/19/ | Hospital | [facility] | Judah Garcia MD | Chronic low back | | 2012 | Encounter | [facility] | [address] [place] [address] | pain | | | | [address] | [place] | | | | | [place], [place] | [address] | | | | | [address] | | | | | | [phone] | Mynor Simental, | | | | | | [address] | | | | | | [place] | | | | | | [address] | | | | | | | [...] | | | | [address] [place] | | CENTER - | | | | [address] CLIA: [id number] | | LABORATORY | | | | | | | | + + + + + + + + | Specimen | + + | | + + + + + + + | Performing | Address | City/State/Zipcode | Phone Number | | Organization | | | | + + + + + | [facility] | [address] | [place] | [phone] | | [facility] | | [address] | | | - LABORATORY | | | | + + + + + | [facility] | [address] | [place], [place] | | | [facility] | | [address] | | | - LABORATORY | | [...] | + + + + + | [facility] | [address] | [place] | [phone] | | [facility] | | [address] | | | - LABORATORY | | | | + + + + + | [facility] | [address] | [place] | | | [facility] | | [address] | | | - LABORATORY | | [...] + | [facility] | [address] | [place], [place] | [phone] | | [facility] | | [address] | | | - LABORATORY | | | | + + + + + | [facility] | [address] | [place], [place] | | | [facility] | | [address] | | | - LABORATORY | | [...] | CENTER - | | | | [id number]: [id number] | | LABORATORY | | + + [...] [address] | [place] | [phone] | | [facility] | | [address] | | | - LABORATORY | | | | + + + + + | [facility] | [address] | [place] | | | [facility] | | [address] | | | - LABORATORY | | | | + + + + + documented in this encounter Visit Diagnoses + + | Diagnosis | + + | Chronic low back pain Lumbago | + + documented in this encounter"
--- OUTSIDE RECORDS SUMMARY | ~2019-09-17 | XMS | Encounter Summary ---
Demographics + + + | Address | [address] | | | [place] [address] | + + + | Home Phone | | + + + | Preferred Language | Unknown | + + + | Marital Status | Legally | + + + | Latter Day Affiliation | Unknown | + + + | Race | Unknown | + + + | Ethnic Group | Unknown | + + + Author + + + | Author | [facility] | | | and Hanyana | + + + | Organization | [facility] | | | and [place] [...] [place], [place] | | | | | [address] | | + + + + + Care Team Providers + +------+ + | Care Rug Inspector Name | Role | Phone | + +------+ + | Basilio Cuevas PA-C | PCP | | + +------+ + Reason for Visit + + + | Reason | Comments | + + + | Procedure | Surgery reminder | + + + Encounter Details +--------+ + + + + | Date | Type | Department | Care Team | Description | +--------+ + + + + | 01/31/ | Telephone | [facility] | Jean Pierre Amaya, | Procedure (Surgery | | 2013 | | NEUROSURGERY [address] | DO [address] | reminder ) | | | | [address] | [address] [place], [place] | | | | | [place], [place] | [address] | | | | | [address] | | | | | | [phone] | | | +--------+ + + + [...]
--- OUTSIDE RECORDS SUMMARY | ~2019-09-17 | XMS | Encounter Summary ---
Demographics + + + | Address | [address] | | | [place] [address] | + + + | Home Phone [...] + | Author | [facility] | | | and Hanyana | + + + | Organization | [facility] | | | and [...] [place], [place] | | | | | [address] | | + + + + + Care Team Providers + +------+ + | Care Entertainment Musician Name | Role | Phone | + +------+ + | Basilio Cuevas PA-C | PCP | | + +------+ + Encounter Details +--------+ + + + + | Date | Type | Department | Care Team | Description | +--------+ + + + + | 01/27/ | Orders Only | [facility] [place] | Katerina Dia | Narcotic abuse; HTN | | 2014 | | NEUROSURGERY [address] | E, Certified Pedorthotist [address] | (hypertension); | | | | [address] | [address] [place] | Tobacco abuse; | | | | [place], [place] | [place] [address] | Chronic low back | | | | [address] | [phone] | pain | | | | [phone] | | | +--------+ + + + [...] | + +--------+ + + + | PTT | Routin | 01/27/2014 | Narcotic abuse | Results for this | | | e | 3:34 PM | HTN (hypertension) | procedure are in the | | | | PDT | Tobacco abuse | results section. | | | | | Chronic low back | | | | | | pain | | + +--------+ + + + | PROTIME INR | Routin | 01/27/2014 | Narcotic abuse | Results for this | | | e | 3:34 PM | HTN (hypertension) | procedure are in the | | | | PDT | Tobacco abuse | results section. | | | | | Chronic low back | | | | | | pain | | + +--------+ + + + | CBC WITH | Routin | 01/27/2014 | Narcotic abuse | Results for this | | DIFFERENTIAL | e | 3:34 PM | HTN (hypertension) | procedure are in the | | | | PDT | Tobacco abuse | results section. | | | | | Chronic low back | | | | | | pain | | + +--------+ + + + | BASIC METABOLIC | Routin | 01/27/2014 | Narcotic abuse | Results for this | | PANEL | e | 3:34 PM | HTN (hypertension) | procedure are in the | | | | PDT | Tobacco abuse | results section. | | | | | Chronic low back | | | | | | pain | | + +--------+ + + + documented in this encounter Results Basic Metabolic Panel (01/27/2014 3:34 PM PDT) + + + + + + | Component | Value | Ref Range | Performed | Pathologist | | | | | At | Signature | + + + + + + | Na | 139 | 136 - 149 | [facility] | | | | | mmol/L | [facility] | | | | | | [facility] | | | | | | CENTER - | | | | | | LABORATORY | | + + + + + + | K | 4.5 | 3.5 - 5.1 | [facility] | | | | | mmol/L | [facility] | | | | | | MEDICAL | | | | | | CENTER - | | | | | | LABORATORY | | + + + + + + | Cl | 110 (H) | 98 - 109 mmol/L | [facility] [...] + + + | Anion Gap | 4 (L) | 6 - 17 mmol/L | [facility] | | | | | | [facility] | | | | | [facility] | | | | | | C[facility] - | | | | | | LABORATORY | | + + + + + + | Glucose | 90 | 70 - 109 mg/dL | [facility] | | | | | | [facility] | | | | | [facility] | | | | | | CENTER - | | | | | | LABORATORY | | + + + + + + | BUN | 14 | 7 - 18 mg/dL | [facility] | | | | | | [facility] | | | | | | [facility] | | | | | | CENTER - | | | | | | LABORATORY | | + + + + + + | Creatinine | 1.09 | 0.60 - 1.30 | [place] | | | | | mg/dL | [facility] | | | | | | MEDICAL | | | | | | CENTER - | | | | | | LABORATORY | | + + + + + + | eGFR if not | >60Comment: GLOMERULAR | >=60 | [place] | | | | FILTRATION | mL/min/1.73m2 | [facility] | | | ZAMBIAN | RATE,ESTIMATED | | MEDICAL | | | | mL/min/1.02l3Uczl than | | CENTER - | | [...] + + + + | Calcium | 9.0 | 8.3 - 10.5 | [facility] | | | | | mg/dL | [facility] | | | | | | MEDICAL | | | | | | CENTER - | | | | | | LABORATORY | | + + + + + + | BUN/Creatin | 12.8 | | [facility] | | | ine [...] + | [facility] | [address] | [place] | [phone] | | [facility] | | [address] | | | - LABORATORY | | | | + + + + + | [facility] | [address] | [place] | | | [facility] | | [address] | | | - LABORATORY | | | | + + + + + PTT (01/27/2014 3:34 PM PDT) + +-------+ + + + | Component | Value | Ref Range | Performed | Pathologist | | | | | At | Signature | + +-------+ + + + | aPTT | 31 | 22 - 36 seconds | [facility] | | | | | [...] + | [facility] | [address] | [place] | [phone] | | [facility] | | [address] | | | - LABORATORY | | | | + + + + + | [facility] | [address] | [place] | | | [facility] | | [address] | | | - LABORATORY | | | | + + + + + Protime INR (01/27/2014 3:34 PM PDT) + +-------+ + + + | Component | Value | Ref Range | Performed | Pathologist | | | | | At | Signature | + +-------+ + + + | Prothrombin | 12.6 | 11.3 - 13.9 | [facility] | | | Time | | seconds | [facility] | | | | | | MEDICAL | | | | | | CENTER - | | | | | | LABORATORY | | + +-------+ + + + | INR | 0.95 | 0.90 - 1.10 | [facility] | | | | | [...] + | [facility] | [address] | [place] | [phone] | | [facility] | | [address] | | | - LABORATORY | | | | + + + + + | [facility] | [address] | [place] | | | [facility] | | [address] | | | - LABORATORY | | | | + + + + + CBC with Differential (01/27/2014 3:34 PM PDT) + + + + + + | Component | Value | Ref Range | Performed | Pathologist | | | | | At | Signature | + + + + + + | WBC | 14.1 (H) | 4.0 - 11.0 K/uL | [facility] | | | | | | [facility] | | | | | | MEDICAL | | | | | | CENTER - | | | | | | LABORATORY | | + + + + + + | RBC | 5.70 | 4.30 - 5.70 | [facility] | | | | | M/uL | [facility] | | | | | | MEDICAL | | | | | | CENTER - | | | | | | LABORATORY | | + + + + + + | Hemoglobin | 14.3 | 13.5 - 18.0 | [facility] | | | | | g/dL | [facility] | | | | | | MEDICAL | | | | | | CENTER - | | | | | | LABORATORY | | + + + + + + | Hematocrit | 44.6 | 40.0 - 51.0 % | [facility] | | | | | | [facility] | | | | | | MEDICAL | | | | | | CENTER - | | | | | | LABORATORY | | + + + + + + | MCV | 78.3 (L) | 83.0 - 101.0 fL | [facility] | | | | | | [facility] | | | | | | MEDICAL | | | | | | CENTER - | | | | | | LABORATORY | | + + + + + + | MCH | 25.1 (L) | 28.0 - 35.0 pg | [facility] | | | | | | [facility] | | | | | | MEDICAL | | | | | | CENTER - | | | | | | LABORATORY | | + + + + + + | MCHC | 32.1 | 32.0 - 36.0 | [facility] | | | | | g/dL | [facility] | | | | | | MEDICAL | | | | | | CENTER - | | | | | | LABORATORY | | + + + + + + | RDW-CV | 19.3 (H) | <15.0 % | [facility] | | | | | | [facility] | | | | | | MEDICAL | | | | | | CENTER - | | | | | | LABORATORY | | + + + + + + | Platelet | 369 | 140 - 440 K/uL | [facility] | | | Count | | | [facility] | | | | | | MEDICAL | | | | | | CENTER - | | | | | | LABORATORY | | + + + + + + | MPV | 7.9 | fL | [facility] | | | | | | [facility] | | | | | | MEDICAL | | | | | | CENTER - | | | | | | LABORATORY | | + + + + + + | % | 63.3 | 45.0 - 82.0 % | [facility] | | | Neutrophils | | | [facility] | | | | | | MEDICAL | | | | | | CENTER - | | | | | | LABORATORY | | + + + + + + | % | 26.1 | 20.0 - 45.0 % | [facility] | | | Lymphocytes | | | [facility] | | | | | | MEDICAL | | | | | | CENTER - | | | | | | LABORATORY | | + + + + + + | % Monocytes | 7.0 | 4.0 - 12.0 % | [facility] | | | | | | [facility] | | | | | | MEDICAL | | | | | | CENTER - | | | | | | LABORATORY | | + + + + + + | % | 3.0 | 0.0 - 5.0 % | [facility] | | | Eosinophils | | | [facility] | | | | | | MEDICAL | | | | | | CENTER - | | | | | | LABORATORY | | + + + + + + | % Basophils | 0.6 | 0.0 - 1.0 % | [facility] | | | | | | [facility] | | | | | | MEDICAL | | | | | | CENTER - | | | | | | LABORATORY | | + + + + + + | Absolute | 8.90 (H) | 1.80 - 8.50 | [facility] | | | Neutrophils | | K/uL | [facility] | | | | | | MEDICAL | | | | | | CENTER - | | | | | | LABORATORY | | + + + + + + | Absolute | 3.70 (H) | 0.60 - 3.20 | [facility] | | | Lymphocytes | | K/uL | [facility] | | | | | | MEDICAL | | | | | | CENTER - | | | | | | LABORATORY | | + + + + + + | Absolute | 1.00 | 0.00 - 1.00 | [facility] | | | Monocytes | | K/uL | [facility] | | | | | | MEDICAL | | | | | | CENTER - | | | | | | LABORATORY | | + + + + + + | Absolute | 0.40 | 0.00 - 0.40 | [facility] | [...] | | Basophils | | K/uL | [facility] | | | | | [...] [address] | [place] | [phone] | | [facility] | | [address] | | | - LABORATORY | | | | + + + + + | [facility] | [address] | [place] | | | [facility] | | [address] | | | - LABORATORY | | | | + + + + + documented in this encounter Visit Diagnoses + + | Diagnosis | + + | Narcotic abuse (HCC) Sedative, hypnotic or anxiolytic abuse, unspecified | + + | HTN (hypertension) Unspecified essential hypertension | + + | Tobacco abuse Tobacco use disorder | + + | Chronic low back pain Lumbago | + + documented in this encounter"
--- OUTSIDE RECORDS SUMMARY | ~2019-09-17 | XMS | Encounter Summary ---
Demographics + + + | Address | [address] | | | [place] [address] | + + + | Home Phone | | + + + | Preferred Language | Unknown | + + + | Marital Status | Legally | + + + | Tenriism Affiliation | Unknown | + + + | Race | Unknown | + + + | Ethnic Group | Unknown | + + + Author + + + | Author | [facility] | | | and Hanyana | + + + | Organization | [facility] | [...] [place], [place] | | | | | [address] | | + + + + + Care Team Providers + +------+ + | Care Design Engineering Technician Name | Role | Phone | + [...] Description | +--------+--------+ + + + | 04/17/ | Refill | [facility] [place] | Jean Pierre Amaya, | Medication Refill | | 2013 | | NEUROSURGERY [address] | DO [address] | | | | | [address] | [address] [place], [place] | | | | | [place], [place] | [address] | | | | | [address] | | | | | | [phone] | | | +--------+--------+ + + + [...]
--- OUTSIDE RECORDS SUMMARY | ~2019-09-17 | XMS | Encounter Summary ---
Demographics + + + | Address | [address] | | | [place] [address] | + + + | Home Phone | | + + + | Preferred Language | Unknown | + + + | Marital Status | Legally | + + + | Yarsani Affiliation | Unknown | + + + | Race | Unknown | + + + | Ethnic Group | Unknown | + + + Author + + + | Author | [facility] | | | and Hanyana | + + + | Organization | [facility] | | | and [...] [place], [place] | | | | | [address] | | + + + + + Care Team Providers + +------+ + | Care Brush Clearer Surveying Name | Role | Phone | + +------+ + | No, Physician | PCP | Unavailable | + +------+ + Encounter Details +--------+ + + + + | Date | Type | Department | Care Team | Description | +--------+ + + + + | 12/30/ | Hospital | [facility] | Ghada Danw | | | 2012 | Encounter | [facility] | DO Hieu Padilla | | | | | [facility] [address] | [place] | | | | | [place] | [id number] | | | | | [address] | | | | | | [phone] | [facility] | | | | | | Dimas Rodríguez MD | | | | | | [address] | | | | | | [place] | | | | | | [address] | | | | | | | [...] At | + + + | [facility] Diagnostic Imaging | [place] | | Department [address] [place] [address] | [facility] | | [ rep [address]] [ rep [facility] | | st zip] Signed | - IMAGING | | | | | Patient Name: ROBERT ALONSO Physician: | | | SAHMA. : 1980 Age: 32 Sex: M Unit #: [id number] | | | Exam Date: 12/30/12 Location: ER | | | Report #: [id number] Page: | | | %(RAD)RES..mtdd.print.filter("pg") of %(RAD) | | | RES..mtdd.print.filter("tpg") | | | | | | Accession Number: [id number] | | | MRI LUMBAR SPINE WITHOUT [...] Transcribed | | | Date/Time: 12/31/2012 08:24 Stitcher Around: | | | <<Signature on File>> | | | | | | Olayinka Franco MD12/31/12 1325 <Electronically signed by | | | Olayinka Franco MD> Olayinka Franco MD 12/31/12 | | | 0759 Stitcher Around: Giovanni Leyntnxjqulwt80/04/13 0824 | | | | | + + + + + + + + | Performing | Address | City/State/Zipcode | Phone Number | | Organization | | | | + + + + + | [facility] | [address] | [place] | [phone] | | [facility] | | [address] | | | - IMAGING | | | | + + + + + documented in this encounter Visit Diagnoses Not on filedocumented in this encounter
--- OUTSIDE RECORDS SUMMARY | ~2019-09-17 | XMS | Encounter Summary ---
Demographics + + + | Address | [address] | | | [place] [address] | + + + | Home Phone | | + + + | Preferred Language | Unknown | + + + | Marital Status | Legally | + + + | Gnosticist Affiliation | Unknown | + + + | Race | Unknown | + + + | Ethnic Group | Unknown | + + + Author + + + | Author | [facility] | | | and Hanyana | + + + | Organization | [facility] | | | and [...] [place], [place] | | | | | [address] | | + + + + + Care Team Providers + +------+ + | Care Truck Crane Operator Helper Name | Role | Phone | + [...] | Specialty | Neurosurgery | Diagnoses | [place], | [place], | | | Services [...] | | | | | Procedures | [address] | [address] Phone: | | | | | [place] OFFICE | Phone: | [phone] | | | | | CONSULTATION | [phone] | Fax: | | | | | NEW/ESTAB | Fax: | [phone] | | | | | PATIENT 61 | [phone] | | | | | | MIN [...] + + | 08/19/ | Office | [facility] | Mynor Simental, | Chronic low back | | 2012 | Visit | [facility] | [address] | pain (Primary Dx); | | | | [address] | [place] | History of | | | | [place] | [address] | laminectomy | | | | [address] | | | | | | [phone] | | | +--------+---------+ + + + [...] your doctors at the [facility] in [facility] and your previous doctors in [facility]. A referral has been placed to the [...] so you are not leaning toward the mInfo wheel. A small pillow or rolled towel [...] bladder control Numbness in the groin area 6223-7933 [facility], [address] [place] [address], [place] [address]. All rights reserve d. This information is [...] PCP Dr Post at [facility] in [facility]. Also had care [facility]. HPI Chronic back pain since 2006 following [...] sun." He states that [facility] was planning to remove his hardware because it was imp inging his facets. However, states he was fired Dr Post because his joztpe-dl-dil stole his medications. She was concerned that he was receiving pain meds from multiple providers, wh ich he denies. She also called Dr Post's office and they fired him over it. He states his riubnj-ph-vml stole his June dilaudid prescription so he [...] He had pain contract with doctor in [place], but he fired the doctor because he [...] that it is concerning that his m gawwp-jh-tte stole his medications and that he has been fired from the [facility]. Add itionally explained that my treatment would be focused on non-narcotic options, and not water resource specialist efrem dilaudid. He states he was hoping [...] | + + + + + | [facility] | [address] | [place], [place] | [phone] | | [facility] | | [address] | | | - LABORATORY | | | | + + + + + | [facility] | [address] | [place], [place] | | | [facility] | | [address] | | | - LABORATORY | | [...] | CENTER - | | | | [id number]: [id number] | | LABORATORY | | + + + + + + + + | Specimen | + + | Urine specimen | | (specimen) | + + + + + + + | Performing | Address | City/State/Zipcode | Phone Number | | Organization | | | | + + + + + | [facility] | [address] | [place] | [phone] | | [facility] | | [address] | | | - LABORATORY | | | | + + + + + | [facility] | [address] | [place] | | | [facility] | | [address] | | | - LABORATORY | | | | + + + + + documented in this encounter Visit Diagnoses + + | Diagnosis | + + | Chronic low back pain - Primary Lumbago | + + | History of laminectomy Other postprocedural status | + + documented in this encounter
--- OUTSIDE RECORDS SUMMARY | ~2019-09-17 | XMS | Encounter Summary ---
Demographics + + + | Address | [address] | | | [place] [address] | + + + | Home Phone | | + + + | Preferred Language | Unknown | + + + | Marital Status | Legally | + + + | Yazidism Affiliation | Unknown | + + + | Race | Unknown | + + + | Ethnic Group | Unknown | + + + Author + + + | Author | [facility] | | | and [place]any[place] | + + + | Organization | [facility] | | | and [place] [...] [place], [place] | | | | | [address] | | + + + + + Care Team Providers + +------+ + | Care Shutdown Planner Name | Role | Phone | + [...] | | Upper GI | | [address] | | | | | bleeding | | [place], | | | | | | | [place] [address] | | | | | | | Phone: | | | | | | | [phone] | | | | | | | Fax: | | | | | | | [phone] | +--------+--------+ + + + + Encounter Details +--------+---------+ + + + | Date | Type | Department | Care Team | Description | +--------+---------+ + + + | 11/07/ | Surgery | [facility] | John Gallardo MD | EGD [id number] | | 2014 | | MED CTR MP INTRA OP | [address], [place] | | | | | [address] | [address] [place] | | | | | [place] | [address] | | | | | [address] | | | | | | [phone] | | | +--------+---------+ + + + [...] Deng MD - 11/08/2014 5:[address] [facility] DISCHARGE SUMMARY Pt. Name/Age/: Fili Alonso [...] information: [address] [place] [address] PENDING RESULTS: HOSPITAL COURSE: Please refer [...] mg of vitamin B 12 orally obtained ddev-okt-iskzacd. The patient did have significant problems wi [...] signed by: Wilman Deng MD, 11/08/2014 17:47 [facility] Portions of this chart may have been created with [employer] voice recognition software. Occasi onal wrong-word or [...] Coughing repeatedly to clear your throat Hoarseness [id number] [employer] [place] [address]. All righ ts reserved. This information is [...] health care ric oscar. Try acid-reducing medications. Mkrx-ngg-iwrlsqe antacids may relieve heartburn. Talk to your health care provider about these other annh-lvv-amslwfx or prescription medications may also help. Surgery is usually needed only for severe symptoms or when other options have not helped the condition. Your health care provider will help you determine if surgery is an option tristan lopez. [phone] [employer]. [address] [place] [address]. All righ ts reserved. This information is [...] IV removed. Pt discharged.Electron vijaya signed by Alta Neves RN at 11/08/2014 7:48 PM Rosa [...] I assume would be available at the [place] [facility] r[facility] signed by John Gallardo MD at 11/08/2014 9:34 AM Wilman Sorensen MD - 015 4:22 PM PST [facility] PMG Hospitalist Progress Note Fili Alonso is [...] as outlined above. Wilman Deng 11/07/2014 16:22 [facility] Portions of this chart may have been created with [employer] voice recognition software. Occasi onal wrong-word or [...] + + + | UNIT # | [id number] | | [facility] | | | | [...] | [place] | | | [facility] | | [address] | | | - BLOOD BANK | [...] + + + | UNIT # | [id number] | | [facility] | | | | [...] | [place] | | | [facility] | | [address] | | | - BLOOD BANK | [...] + | [facility] | [address] | [place], [place] | [phone] | | [facility] | | [address] | | | - LABORATORY | | | | + + + + + | [facility] | [address] | [place], [place] | | | [facility] | | [address] | | | - LABORATORY | | [...] + | [facility] | [address] | [place], [place] | [phone] | | [facility] | | [address] | | | - LABORATORY | | | | + + + + + | [facility] | [address] | [place], [place] | | | [facility] | | [address] | | | - LABORATORY | | [...] + | [facility] | [address] | [place], [place] | [phone] | | [facility] | | [address] | | | - LABORATORY | | | | + + + + + | [facility] | [address] | [place], [place] | | | [facility] | | [address] | | | - LABORATORY | | [...] | mL/min/1.73m2 | [facility] | | | [place] | RATE,ESTIMATED | | MEDICAL | | | | mL/min/1.41y6Ukxp than | | CENTER - | | [...] + | [facility] | [address] | [place] | [phone] | | [facility] | | [address] | | | - LABORATORY | | | | + + + + + | [facility] | [address] | [place] | | | [facility] | | [address] | | | - LABORATORY | | [...] | | | | g/dL | [facility] | | | | | | MEDICAL [...] [address] | [place] | [phone] | | [facility] | | [address] | | | - LABORATORY | | | | + + + + + | [facility] | [address] | [place] | | | [facility] | | [address] | | | - LABORATORY | | [...] + | [facility] | [address] | [place] | [phone] | | [facility] | | [address] | | | - LABORATORY | | | | + + + + + | [facility] | [address] | [place] | | | [facility] | | [address] | | | - LABORATORY | | | | + + + + + EGD (11/07/2014 1:45 PM PST) + + | Specimen | + + | | + + + + -+ | Narrative | Performed At | + + -+ | | [facility] | | GastroenterologyPatient Name: Fili Galeas Date: 11/07/2014 1:45 | [facility] | | PMMRN: [id number] #: [id number] of : 1980Admit | | | Type: InpatientAge: Room: [facility]Gender: MaleNote Status: | | | FinalizedAttending MD: John Gallardo, MDProcedure: Upper | | | GI endoscopyIndications: Suspected esophageal reflux, | | | MelenaProviders: John Gallardo MD, Karina Chang | | | RICHARD Bose, Amanda Higuera, | | | Veneer Measurer, Panchito Lara MD (Anesthesia | | | [...] the anesthesiologist and | | | the distribution technician in the endoscopy suite. Mental Status [...] PMScope Out: | | | 2:03:26 PM [facility], [address] [facility], | | | [place] [address] | | | - The retroflexed view [...] |Scope Out: 2:03:26 PM | | | [facility], [address] [facility], [place], [place] | | | [address] | | + + -+ + + [...] [address] | [place] | [phone] | | [facility] | | [address] | | | - LABORATORY | | | | + + + + + | [facility] | [address] | [place] | | | [facility] | | [address] | | | - LABORATORY | | [...] mL/min/1.73m2 | [facility] | | | [place] | RATE,ESTIMATED | | MEDICAL | | | | mL/min/1.70z6Kldl than | | CENTER - | | [...] + | [facility] | [address] | [place] | [phone] | | [facility] | | [address] | | | - LABORATORY | | | | + + + + + | [facility] | [address] | [place], [place] | | | [facility] | | [address] | | | - LABORATORY | | [...] + | [facility] | [address] | [place], [place] | [phone] | | [facility] | | [address] | | | - LABORATORY | | | | + + + + + | [facility] | [address] | [place], [place] | | | [facility] | | [address] | | | - LABORATORY | | [...] + | [facility] | [address] | [place] | [phone] | | [facility] | | [address] | | | - LABORATORY | | | | + + + + + | [facility] | [address] | [place] | | | [facility] | | [address] | | | - LABORATORY | | [...] + | [facility] | [address] | [place] | [phone] | | [facility] | | [address] | | | - LABORATORY | | | | + + + + + | [facility] | [address] | [place] | | | [facility] | | [address] | | | - LABORATORY | | [...] | | | | g/dL | [facility] | | | | | | MEDICAL [...] [address] | [place] | [phone] | | [facility] | | [address] | | | - LABORATORY | | | | + + + + + | [facility] | [address] | [place] | | | [facility] | | [address] | | | - LABORATORY | | [...] | | | | | | [facility] | | | | | | MEDICAL [...] | [place] | | | [facility] | | [address] | | | - BLOOD BANK | [...] + | [facility] | [address] | [place] | [phone] | | [facility] | | [address] | | | - LABORATORY | | | | + + + + + | [facility] | [address] | [place] | | | [facility] | | [address] | | | - LABORATORY | | [...] + | [facility] | [address] | [place] | [phone] | | [facility] | | [address] | | | - LABORATORY | | | | + + + + + | [facility] | [address] | [place] | | | [facility] | | [address] | | | - LABORATORY | | [...] mL/min/1.73m2 | [facility] | | | [place] | RATE,ESTIMATED | | MEDICAL | | | | mL/min/1.07a8Xjdd than | | CENTER - | | [...] | | | | | | [facility] | | | | | | MEDICAL [...] [address] | [place] | [phone] | | [facility] | | [address] | | | - LABORATORY | | | | + + + + + | [facility] | [address] | [place] | | | [facility] | | [address] | | | - LABORATORY | | [...] + | [facility] | [address] | [place], [place] | [phone] | | [facility] | | [address] | | | - LABORATORY | | | | + + + + + | [facility] | [address] | [place], [place] | | | [facility] | | [address] | | | - LABORATORY | | [...]
--- OUTSIDE RECORDS SUMMARY | ~2019-09-17 | XMS | Encounter Summary ---
Demographics + + + | Address | [address] | | | [place] [address] | + + + | Home Phone | | + + + | Preferred Language | Unknown | + + + | Marital Status | Legally | + + + | Sabianism Affiliation | Unknown | + + + | Race | Unknown | + + + | Ethnic Group | Unknown | + + + Author + + + | Author | [facility] | | | and [place] | + + + | Organization | [facility] | | | and [place] | + [...] [place], [place] | | | | | [address] | | + + + + + Care Team Providers + +------+ + | Care Enrollment Advisor Name | Role | Phone | + [...] [address] | [address] [place], [place] | | | | | [place], [place] | [address] | | | | | [address] | | | | | | [phone] | | | +--------+--------+ + + + [...]
--- OUTSIDE RECORDS SUMMARY | ~2019-09-17 | XMS | Encounter Summary ---
Demographics + + + | Address | [address] | | | [place] [address] | + + + | Home Phone | | + + + | Preferred Language | Unknown | + + + | Marital Status | Legally | + + + | Zoroastrian Affiliation | Unknown | + + + | Race | Unknown | + + + | Ethnic Group | Unknown | + + + Author + + + | Author | [facility] | | | and [place] | + + + | Organization | [facility] | | | and [place] [...] [place], [place] | | | | | [address] | | + + + + + Care Team Providers + +------+ + | Care Senior Recruiter Name | Role | Phone | + +------+ + | Basilio Cuevas PA-C | PCP | | + +------+ + Reason for Visit Diagnostic/Screening (Routine) +--------+--------+ + + + + | Status | Reason | Specialty | Diagnoses / | Referred By | Referred To | | | | | Procedures | Contact | Contact | +--------+--------+ + + + + | Closed | | Radiology | Diagnoses | Natalia, | [facility] | | | | | Chronic low | Pedro | [address] | | | | | back pain, | [place] | [place], | | | | | unspecified | [address] | [place] | | | | | back pain | [place] | [address] | | | | | laterality, | Drive [place] | Phone: | | | | | with | [place], [place] | [phone] | | | | | sciatica | [address] | Fax: | | | | | presence | Phone: | [phone] | | | | | unspecified | [phone] | | | | | | Lumbar | Fax: | | | | | | radiculopath | [phone] | | | | | | y | | | | | | | Procedures | | | | | | | MRI Lumbar | | | | | | | Spine wo | | | | | | | Contrast | | | | | | | MRI Lumbar | | | | | | | Spine w wo | | | | | | | Contrast | | | +--------+--------+ + + + + Encounter Details +--------+ + + + + | Date | Type | Department | Care Team | Description | +--------+ + + + + | 02/05/ | Hospital | [facility] | Pedro Fisher | Chronic low back | | 2019 | Encounter | MED CTR MRI [address] | [place] [address] | pain, unspecified | | | | [place], | [address] | back pain | | | | [place] [address] | [place], [place] | laterality, with | | | | [phone] | [address] | sciatica presence | | | | | | unspecified; Lumbar | | | | | | radiculopathy | +--------+ + + + + Social [...] + +---------+ + + | cloNIDine | TAKE ONE TABLET BY | | 0 | 10/15/20 | | | (CATAPRES) 0.1 mg | MOUTH FOUR TIMES A | | | 18 | 9 | | tablet | DAY NEEDED FOR | | | | | | | PTSD | | | | | + + [...] + +---------+ + + | DULoxetine | TAKE TWO CAPSULES BY | | 0 | 10/15/20 | | | (CYMBALTA) [address] | MOUTH EVERY MORNING | | | 18 | 9 | | capsule | FOR MOOD / PAIN / | | | | | | | FOCUS | | | | | + + [...] + +---------+ + + | QUEtiapine | TAKE ONE-HALF TABLET | | 0 | 10/15/20 | | | (SEROQUEL) 25 mg | BY MOUTH TWICE A | | | 18 | 9 | | tablet | DAY FOR PTSD | | | | | + + + +---------+ + + | QUEtiapine | TAKE ONE-HALF TABLET | | 0 | 10/15/20 | | | (SEROQUEL) 400 MG | BY MOUTH AT BEDTIME | | | 18 | 9 | | tablet | FOR PTSD | | | | | + + [...] MRI LUMBAR SPINE WO | Routin | 12/04/2018 | Chronic low back | Results for this | | CONTRAST | e | 10:49 AM | pain, unspecified | procedure are in the | | | | PST | back pain | results section. | | | | | laterality, with | | | | | | sciatica presence | | | | | | unspecified Lumbar | | | | | | radiculopathy | | + +--------+ + + + documented in this encounter Results MRI Lumbar Spine wo Contrast (12/04/2018 10:49 AM PST) + + | Specimen | + + | | + + + + + | Narrative | Performed At | + + + | MRI LUMBAR SPINE WO CONTRAST 12/04/2018 10:25 AM HISTORY: SEVERE | [facility] | | LOWER BACK PAIN, LUMBAR RADICULOPATHY, LUMBAR FUSION X 2. | | | COMPARISON: Multiple priors. PROTOCOL: Sagittal T2, sagittal T1, | | | axial T2, axial T1, sagittal STIR, coronal T2. FINDINGS: There | | | are hardware for posterior fusion from L5 through S1 with laminectomy | | | of L5. Vertebral body height are preserved. Disc height are | | | maintained. Imaged spinal cord and cauda equina demonstrate | | | normal signal with no evidence for myelomalacia or mass lesions. The | | | conus medullaris terminates at level L1-2, which is normal. | | | Sagittal images show post small posterior disc bulging at L2-3 with no | | | significant stenosis. L3-4: A 1 mm posterior disc bulge is | | | present along with moderate facet hypertrophy. There is no stenosis. | | | L4-5: A 1 mm posterior disc bulge is seen along with moderate | | | facet hypertrophy. There is no central stenosis. Mild bilateral | | | neural foraminal canal stenoses are visualized. L5-S1: No | | | central canal or neural foramina canal stenosis. Degenerative | | | changes are stable compared to the MRI of 12/16/2013. Imaged | | | abdomen and pelvis demonstrate no acute findings. IMPRESSION - | | | Posterior fusion from L5 through S1. Stable degenerative changes | | | with no significant central stenosis. Mild bilateral neural foraminal | | | canal stenoses are at L4-5. Dictated and Signed by: Sammy Morales | | | Electronically signed: 12/04/2018 11:17 AM | | + + + + + | Procedure Note | + + | Benjie, Rad Results In - 12/04/2018 11:20 AM PST MRI LUMBAR SPINE WO CONTRAST 12/04/2018 | | 10:25 AM HISTORY: SEVERE LOWER BACK PAIN, LUMBAR RADICULOPATHY, LUMBAR FUSION X | | 2.COMPARISON: Multiple priors.PROTOCOL: Sagittal T2, sagittal T1, axial T2, axial T1, | | sagittal STIR, coronalT2.FINDINGS:There are hardware for posterior fusion from L5 | | through S1 with laminectomy ofL5. Vertebral body height are preserved. Disc height are | | maintained. Imaged spinal cord and cauda equina demonstrate normal signal with no | | evidencefor myelomalacia or mass lesions. The conus medullaris terminates at level | | L1-2,which is normal.Sagittal images show post small posterior disc bulging at L2-3 with | | nosignificant stenosis.L3-4: A 1 mm posterior disc bulge is present along with moderate | | facethypertrophy. There is no stenosis. L4-5: A 1 mm posterior disc bulge is seen along | | with moderate facet hypertrophy.There is no central stenosis. Mild bilateral neural | | foraminal canal stenoses arevisualized. L5-S1: No central canal or neural foramina canal | | stenosis.Degenerative changes are stable compared to the MRI of 12/16/2013.Imaged | | abdomen and pelvis demonstrate no acute findings.IMPRESSION -Posterior fusion from L5 | | through S1.Stable degenerative changes with no significant central stenosis. Mild | | bilateralneural foraminal canal stenoses are at L4-5.Dictated and Signed by: Sammy | | MD Andrew Electronically signed: 12/04/2018 11:17 AM | |which is normal. | | | |Sagittal images show post small posterior disc bulging at L2-3 with no | |significant stenosis. | | | |L3-4: A 1 mm posterior disc bulge is present along with moderate facet | |hypertrophy. There is no stenosis. | | | |L4-5: A 1 mm posterior disc bulge is seen along with moderate facet hypertrophy. | |There is no central stenosis. Mild bilateral neural foraminal canal stenoses are | |visualized. | | | |L5-S1: No central canal or neural foramina canal stenosis. | | | |Degenerative changes are stable compared to the MRI of 12/16/2013. | | | |Imaged abdomen and pelvis demonstrate no acute findings. | | | |IMPRESSION - | |Posterior fusion from L5 through S1. | | | |Stable degenerative changes with no significant central stenosis. Mild bilateral | |neural foraminal canal stenoses are at L4-5. | | | |Dictated and Signed by: Sammy Morales MD | | Electronically signed: 12/04/2018 11:17 AM | + + + +---------+ + + | Performing | Address | City/State[facility] | Phone Number | | Organization | | | | + +---------+ + + | [facility] | | | | + +---------+ + + documented in this encounter Visit Diagnoses + + | Diagnosis | + + | Chronic low back pain, unspecified back pain laterality, with sciatica presence | | unspecified | + + | Lumbar radiculopathy Thoracic or lumbosacral neuritis or radiculitis, unspecified | + + documented in this encounter"
--- OUTSIDE RECORDS SUMMARY | ~2019-09-17 | XMS | Encounter Summary ---
Demographics + + + | Address | [address] | | | [place] [address] | + + + | Home Phone | | + + + | Preferred Language | Unknown | + + + | Marital Status | Legally | + + + | Religion Affiliation | Unknown | + + + | Race | Unknown | + + + | Ethnic Group | Unknown | + + + Author + + + | Author | [facility] | | | and [place] | + + + | Organization | [facility] | | | and [place] | [...] [place], [place] | | | | | [address] | | + + + + + Care Team Providers + +------+ + | Care Biology Laboratory Assistant Name | Role | Phone | + [...] Description | +--------+--------+ + + + | 02/17/ | Refill | [facility] | Jean Pierre Amaya, | Medication Refill | | 2013 | | NEUROSURGERY [address] | DO [address] | | | | | [address] | [address] [place], [place] | | | | | [place], [place] | [address] | | | | | [address] | | | | | | [phone] | | | +--------+--------+ + + + [...]
--- OUTSIDE RECORDS SUMMARY | ~2019-09-17 | XMS | Encounter Summary ---
Demographics + + + | Address | [address] | | | [place] [address] | + + + | Home Phone | | + + + | Preferred Language | Unknown | + + + | Marital Status | Legally | + + + | Buddhist Affiliation | Unknown | + + + | Race | Unknown | + + + | Ethnic Group | Unknown | + + + Author + + + | Author | [facility] | | | and [place] | + + + | Organization | [facility] | | | and [place] [...] [place], [place] | | | | | [address] | | + + + + + Care Team Providers + +------+ + | Care Getterer Name | Role | Phone | + [...] Description | +--------+--------+ + + + | 03/07/ | Refill | [facility] [place] | Jean Pierre Amaya, | Medication Refill | | 2013 | | NEUROSURGERY [address] | [address] | | | | | [address] | [address] [place], [place] | | | | | [place], [place] | [address] | | | | | [address] | | | | | | [phone] | | | +--------+--------+ + + + [...]
--- OUTSIDE RECORDS SUMMARY | ~2019-09-17 | XMS | Encounter Summary ---
Demographics + + + | Address | [address] | | | [place] [address] | + + + | Home Phone [...] + | Author | [facility] | | | and Hanyana | + + + | Organization | [facility] | | | and [...] [place], [place] | | | | | [address] | | + + + + + Care Team Providers + +------+ + | Care Operative Supervisor Name | Role | Phone | + +------+ + | Basilio Cuevas PA-C | PCP | | + +------+ + Encounter Details +--------+ + + + + | Date | Type | Department | Care Team | Description | +--------+ + + + + | 12/18/ | Hospital | [facility] | Faisal Brady | | | 2013 | Encounter | MED CTR XRAY [address] | [address] | | | | | [place] | [address] [place] | | | | | [place] [address] | [id number] | | | | | [phone] | | | +--------+ + + + [...] + +--------+ + + + | FL FACET INJECTION | Routin | 12/20/2013 | | Results for this | | | e | 12:23 PM | | procedure are in the | | | | PST | | results section. | + +--------+ + + + documented in this encounter Results FL Facet Injection (12/20/2013 12:23 PM PST) + + | Specimen | + + | | + + + + + | Narrative | Performed At | + + + | [facility] | [place] | | [address] | [facility] | | [ rep [address]] [ rep ct [facility] | | st zip] Signed | - IMAGING | | | | | Patient Name: FILI ALONSO Physician: | | | TOBY. : 1980 Age: 33 Sex: M Unit #: [id number] | | | Exam Date: 12/18/13 Location: [facility] | | | Report #: [id number] Page: | | | %(RAD)RES..mtdd.print.filter("pg") of %(RAD) | | | RES..mtdd.print.filter("tpg") | | | | | | Accession Number: [id number] | | | LUMBAR FACET INJECTIONS, EPIDURAL STEROID INJECTION, 12/18/2013 | | | CLINICAL HISTORY: ICD-9 CODE 721.3, LUMBAR SPONDYLOSIS AND | | | 724.4 LUMBAR RADICULOPATHY. Mr. Fili Alonso presents to the | | | fluoroscopy suite for fluoroscopically-guided bilateral L5-S1 facet | | | injections as part of conservative management for chronic pain with | | | lumbar spondylosis, also for a left L5-S1 transforaminal epidural | | | steroid injection as part of conservative management for chronic | | | pain with lumbar radiculopathy. After informed consent was obtained, | | | the patient laid in the prone position on the fluoroscopy table. | | | The areas were identified under fluoroscopic guidance. The areas | | | were prepped and draped in sterile fashion. A 25-gauge, 1.5-inch | | | needle was inserted into each region and approximately 3 mL of | | | buffered 1% lidocaine was infused. Then, a 22-gauge spinal needle | | | was inserted into the superior portion of each facet under | | | fluoroscopic guidance. Confirmation into the joint spaces was | | | obtained with infusion of approximately 25 mL of Isovue contrast which | | | showed outline of the facet joints. Then, a combination of 1 mL | | | of 1% lidocaine and 1 mL of 40 mg/mL Kenalog was infused divided | | | between the two sides. Next, the epidural steroid injection was | | | performed. A 22-gauge spinal needle was inserted into the posterior | | | superior transforaminal space and advanced into the epidural space | | | under fluoroscopic guidance. Confirmation into the epidural space was | | | obtained with infusion of approximately 1 mL of Isovue contrast | | | which showed epidural flow as well as nerve sheath flow. Then, a | | | combination of 1.5 mL of 1% lidocaine and 1.5 mL of 6 mg/mL Celestone | | | was infused. The patient tolerated the procedure well without | | | complications. Pre and postprocedure blood pressures were stable. | | | The patient was given verbal as well as written followup | | | instructions. Prior to the start of the procedure, the | | | following were performed and verified, including correct patient | | | identity, correct site/side marked and visible, agreement on the | | | procedure to be done, correct patient positioning and an accurate | | | procedure consent form. Any safety precautions based on clinical | | | history and/or medication use have been addressed. I | | | personally performed the procedure above. Dictated | | | Date/Time: 12/20/2013 12:23 Transcribed Date/Time: 12/20/2013 | | | 13:18 Bowling Ball Grader And Marker: <<Signature on | | | File>> | | | Faisal Conti | | | MD Jose Antonio12/30/13 1815 <Electronically signed by Faisal Conti | | | Jose Antonio BENNETT> Faisal Brady MD 12/20/13 1223 | | | Bowling Ball Grader And Marker: Giovanni Jackson12/20/13 1318 | | | | | + + + + + + + + | Performing | Address | City/State/Zipcode | Phone Number | | Organization | | | | + + + + + | [facility] | [address] | [place] | [phone] | | [facility] | | [address] | | | - IMAGING | | | | + + + + + documented in this encounter Visit Diagnoses Not on filedocumented in this encounter
--- OUTSIDE RECORDS SUMMARY | ~2019-09-17 | XMS | Encounter Summary ---
Demographics + + + | Address | [address] | | | [place] [address] | + + + | Home Phone | | + + + | Preferred Language | Unknown | + + + | Marital Status | Legally | + + + | Church Affiliation | Unknown | + + + | Race | Unknown | + + + | Ethnic Group | Unknown | + + + Author + + + | Author | [facility] | | | and [place] | + + + | Organization | [facility] | | | and [...] [place], [place] | | | | | [address] | | + + + + + Care Team Providers + +------+ + | Care Restorer Lace And Textiles Name | Role | Phone | + +------+ + | Basilio Cuevas PA-C | PCP | | + +------+ + Reason for Visit +--------+ + | Reason | Comments | +--------+ + | Other | | +--------+ + Encounter Details +--------+ + + + + | Date | Type | Department | Care Team | Description | +--------+ + + + + | 02/13/ | Telephone | [facility] | Jean Pierre Amaya, | Other | | 2013 | | NEUROSURGERY [address] | DO [address] | | | | | [address] | [address] [place], [place] | | | | | [place], [place] | [address] | | | | | [address] | | | | | | [phone] | | | +--------+ + + + [...]
--- OUTSIDE RECORDS SUMMARY | ~2019-09-17 | XMS | Encounter Summary ---
Demographics + + + | Address | [address] | | | [place] [address] | + + + | Home Phone [...] + + + | Author | [facility] | | | and [place] | + + + | Organization | [facility] | | | and [place] | [...] [place], [place] | | | | | [address] | | + + + + + Care Team Providers + +------+ + | Care Razor Sharpener Name | Role | Phone | + [...] [address] | [address] [place], [place] | | | | | [place], [place] | [address] | | | | | [address] | | | | | | [phone] | | | +--------+--------+ + + + [...]
--- OUTSIDE RECORDS SUMMARY | ~2019-09-17 | XMS | Encounter Summary ---
Demographics + + + | Address | [address] | | | [place] [address] | + + + | Home Phone | | + + + | Preferred Language | Unknown | + + + | Marital Status | Legally | + + + | Lutheran Affiliation | Unknown | + + + | Race | Unknown | + + + | Ethnic Group | Unknown | + + + Author + + + | Author | [facility] | | | and [place] | + + + | Organization | [facility] | | | and [place] [...] [place], [place] | | | | | [address] | | + + + + + Care Team Providers + +------+ + | Care Cray Fishing Hand Name | Role | Phone | + +------+ + | Basilio Cuevas PA-C | PCP | | + +------+ + Encounter Details +--------+ + + + + | Date | Type | Department | Care Team | Description | +--------+ + + + + | 05/27/ | Hospital | [facility] | Galo Gates | | | 2014 - | Encounter | [facility] | Mervin Dietrich MD [address] | | | | | INTENSIVE CARE UNIT | [address] | | | 05/28/ | | [address] | [place] [address] | | | 2014 | | [place], [place] | [phone] | | | | | [address] | | | | | | [phone] | | | +--------+ + + + [...] + + documented as of this encounter Discharge Summaries Kacy Wren ARNP - 05/28/2015 8:17 AM PDTFormatting of this note might be differe nt from the original. Discharge Summaries by AWAIS Hernandes at 05/28/15 0817 Author: AWAIS Hernandes Service: Door Maker Author Type: Nurse Practitioner Filed: 06/10/15 1233 Date of Service: 05/28/15816 Status: Addendum Painter Shipyard: AWAIS Hernandes (Nurse Practitioner) Related Notes: Original Note by AWAIS Hernandes (Nurse Practitioner) filed at 05/01 0821 [facility] Service: Door Maker Discharge Summary Fili Alonso 34 y.o. Date of Admission: 05/27/2015 Date of Discharge: 05/28/15 Treatment Team: Consulting Physician: Taryn Medeiros MD Admitting Provider: Galo Gates MD ADMITTING DIAGNOSES Principal Problem: UGIB (upper gastrointestinal bleed) Active Problems: Orthostasis Gastroesophageal reflux disease without esophagitis Chronic back pain Acute posthemorrhagic anemia DISCHARGE DIAGNOSES Principal Problem: UGIB (upper gastrointestinal bleed) Active Problems: Orthostasis Gastroesophageal reflux disease without esophagitis Chronic back pain Acute posthemorrhagic anemia BRIEF HISTORY OF PRESENTATION The patient is a 34 y.o. male with significant past medical history of chronic back pain an d prior esophageal tear was seen at [facility] for a 3 day history of vomiting of "black stringy stuff". He has had 6-7 emesis events and this is associated with epigastri c pain and tenderness. He also has diarrhea with 5-6 stool per day which are black. He also complains of associated lightheadedness and dizziness when standing and walking. Stool were heme positive at the ED. He received 3 L IVF. Hgb was 10. HR was 90-100 and BP was 120's sys tolic but became hypotensive and dizzy when he stood up. He denies any recent NSAID use nor alcohol intake. He says he had a similar episode in 2002 where he vomited blood and an esoph ageal tear was found on EGD. He had an EGD at the [facility] 4 months ago but says "they could not get pictures". He denies any sick contacts. He denies smoking or use of other carlos gs. He says he also has GERD and frequent heartburn symptoms for which he uses PRN Tums. HOSPITAL COURSE 05/27/15: Admitted to ICU for eval of possible UGIB. EGD shows erosive esophagitis 05/28/15: HD stable overnight. OK to dc home this am per GI. Plan reviewed with pt. PAST MEDICAL HISTORY Past Medical History Diagnosis Date Sleep apnea cpap - doesn't use at home Esophageal tear 2002 - scope and transfusion PAST SURGICAL HISTORY Past Surgical History Procedure Laterality Date Back surgery rods and screws in 2006 and redone in 2013 Esophagogastroduodenoscopy N/A 05/27/2015 Procedure: ESOPHAGOGASTRODUODENOSCOPY; Surgeon: Taryn Medeiros MD; [facility] [facility]; Service: Gastroenterology; Laterality: N/A; DISCHARGE MEDS Medication List START taking these medications metoclopramide 10 MG tablet QTY: 40 tablet Refills: 0 Commonly known as: REGLAN Take 1 tablet by mouth 4 (four) times daily. ondansetron 4 MG tablet QTY: 20 tablet Refills: 0 Commonly known as: ZOFRAN Take 1 tablet by mouth every 6 (six) hours as needed. pantoprazole 40 MG tablet QTY: 60 tablet Refills: 1 Commonly known as: PROTONIX Take 1 tablet by mouth 2 (two) times daily before meals. CONTINUE taking these medications pregabalin 150 MG capsule Refills: 0 Commonly known as: LYRICA Where to Get Your Medications These are the prescriptions that you need to picker packer. You may get the following medications from any pharmacy - metoclopramide 10 MG tablet - ondansetron 4 MG tablet - pantoprazole 40 MG tablet DISCHARGE EXAM EXAM GEN: awake, alert, oriented x3, NAD NEURO: PERRLA, EOMI, no facial asymmetry, moves all extremities well GCS: 15 HEENT: sclerae clear, nonicteric, oral mmm, pink, no exudates NECK: supple, trachea midline HEART: RRR, S1/S2, no murmur, rub or gallop LUNGS: clear b/l, no wheezing, rales or rhonchi, symmetric chest expansion, even/unlabored respirations ABD: soft, nondistended, (+) mild epigastric tenderness, no masses, no hepatosplenomegaly EXTR: no edema, clubbing or cyanosis SKIN: warm, dry, no rash or mottling; no e/o skin breakdown over the occiput, scapulae, elb ows, sacrum or heels, multiple tattoos on back and arms LINES/TUBES: PIV LABS Results for orders placed or performed during the hospital encounter of 05/27/15 (from the past 24 hour(s)) Lipase Collection Time: 05/27/15 5:42 PM Result Value Ref Range LIPASE 100 73 - 393 U/L Amylase Collection Time: 05/27/15 5:42 PM Result Value Ref Range AMYLASE 20 (L) 25 - 115 U/L aPTT Collection Time: 05/27/15 6:21 PM Result Value Ref Range APTT 26 23 - 32 seconds CBC w/auto diff (reflex to manual) Collection Time: 05/27/15 6:21 PM Result Value Ref Range WBC 8.85 3.80 - 11.00 K/uL RBC 4.62 4.20 - 5.70 M/uL HGB 9.1 (L) 13.2 - 17.0 g/dL HCT 30.3 (L) 39.0 - 50.0 % MCV 65.6 (L) 80.0 - 100.0 fl MCH 19.7 (L) 27.0 - 34.0 pg MCHC 30.0 (L) 32.0 - 35.5 g/dL RDW SD 45.1 37 - 53 fl PLT 265 150 - 400 K/uL MPV 8.8 fl DIFF TYPE AUTOMATED NEUTROPHILS 60.66 % LYMPHOCYTES 26.41 % MONOCYTES 9.77 % EOSINOPHILS 2.01 % BASOPHILS 1.15 % NEUTROPHILS ABS 5.37 1.90 - 7.40 K/uL LYMPHOCYTES ABS 2.34 1.00 - 3.90 K/uL MONOCYTES ABS 0.87 (H) 0.00 - 0.80 K/uL EOSINOPHILS ABS 0.18 0.00 - 0.50 K/uL BASOPHILS ABS 0.10 0.00 - 0.10 K/uL MORPHOLOGY 1+ Platelet Estimate ADEQUATE Comprehensive metabolic panel Collection Time: 05/27/15 6:21 PM Result Value Ref Range SODIUM 139 135 - 143 mmol/L POTASSIUM 4.2 3.5 - 4.9 mmol/L CHLORIDE 107 99 - 109 mmol/L CO2 26 23 - 32 mmol/L ANION GAP AGAP 11 5 - 20 mmol/L GLUCOSE 88 65 - 99 mg/dL BUN 15 8 - 25 mg/dL CREATININE 1.1 0.70 - 1.30 mg/dL BUN/CREAT 13 CALCIUM 7.5 (L) 8.5 - 10.5 mg/dL TOTAL PROTEIN 6.7 6.3 - 8.2 g/dL Albumin 3.2 (L) 3.6 - 5.0 g/dL GLOBULIN 3.5 1.3 - 4.9 g/dL A/G 0.9 (L) 1.0 - 2.4 TBIL 0.6 0.1 - 1.5 mg/dL ALK PHOS 83 35 - 115 U/L AST 19 10 - 45 U/L ALT 17 10 - 65 U/L EGFR >60 >60 mL/min/1.73m2 Protime-INR Collection Time: 05/27/15 6:21 PM Result Value Ref Range INR 1.1 MRSA by PCR Collection Time: 05/27/15 6:27 PM Result Value Ref Range SOURCE NARES(NOSE) MRSA PCR NEGATIVE NEGATIVE Hemoglobin and hematocrit Collection Time: 05/27/15 9:19 PM Result Value Ref Range HGB 8.4 (L) 13.2 - 17.0 g/dL HCT 27.6 (L) 39.0 - 50.0 % Hemoglobin and hematocrit Collection Time: 05/28/15 1:00 AM Result Value Ref Range HGB 8.4 (L) 13.2 - 17.0 g/dL HCT 28.1 (L) 39.0 - 50.0 % Magnesium Collection Time: 05/28/15 4:16 AM Result Value Ref Range MAGNESIUM 1.7 1.7 - 2.4 mg/dL Phosphorus Collection Time: 05/28/15 4:16 AM Result Value Ref Range PHOSPHORUS 3.6 2.3 - 4.8 mg/dL CONSULT NOTES/PLAN 05/27/15: Dr Centeno-EGD Impression: 1)esophagus: LA grade D esophagitis ( this is combination of GERD and repetitive vomiting) and no active bleeding noted 2)stomach: 2 cms hiatal hernia 3)duodenum: normal first and second portion of duodenum EBL: none Recommendations: Discontinue NPO PPI bid x 4 weeks and qd indefinitely Metoclopramide 10 mg qid x 2 weeks Could be discharged home in am if remains stable PROBLEM LIST Principal Problem: UGIB (upper gastrointestinal bleed) Active Problems: Orthostasis Gastroesophageal reflux disease without esophagitis Chronic back pain Acute posthemorrhagic anemia Disposition: Home with parent. F/u with PCP as needed. Condition on Discharge: stable Code Status: Full Code Primary Care Physician: Pedro Fisher (General) *Please bill 15 minutes of critical care time spent evaluating the patient, reviewing the d bryanna and formulating a plan exclusive of all other procedures. AWAIS Hernandes 05/28/2015 8:18 AM documented in this encounter Medications at Time of Discharge + + + +---------+ + + | Medication | Sig | Dispensed | Refills | Start | End Date | | | | | | Date | | + + + +---------+ + + | cyanocobalamin | Take 1 tablet by | 30 | 0 | /08/18 | | | (VITAMIN B-12) 1000 | mouth Daily. | tablet | | 15 | | | MCG tablet | | | | | | + + + +---------+ + + | folic acid | Take 1 tablet by | 30 | 0 | /20 | | | (FOLVITE) 400 MCG | mouth Daily. | tablet | | 15 | | | tablet | | | | | | + + + +---------+ + + | | Take 1-2 tablets by | 15 | 0 | /20 | | | HYDROcodone-acetamin | mouth every [...] documented as of this encounter Progress Notes Conversion Transaction, Provider Unknown - 05/28/2015 9:19 AM PDTFormatting of this note m ight be different from the original. Nurse Progress Note by Xavier Hensley RN at 05/28/15918 Author: Xavier Hensley RN Service: (none) Author Type: Registered Nurse Filed: 05/28/15919 Date of Service: 05/28/15918 Status: Signed Painter Shipyard: Xavier Hensley RN (Registered Nurse) Discharge instructions given, IV's removed and pt discharged onver nichole Transaction, Provider Unknown - 05/28/2015 8:49 AM PDT Case Management by ALEJANDRO Chan at 05/28/1549 Author: ALEJANDRO Chan Service: (none) Author Type: Radio Message Router Filed: 05/28/15849 Date of Service: 05/28/15848 Status: Signed Painter Shipyard: ALEJANDRO Chan (Radio Message Router) CM met with pt for discharge planning. Pt is 34 years old and lives with his mother in a 1- level home with no stairs at the main entrance. Pt has a [id number]. Pt does not own any medical equipment as he was independent at home. Pt's mother will assist with his daily scout ing activities including personal hygiene, grooming, dressing, feeding, cooking, transportat ion and ambulation. Pt had no resource concerns at this time. CM will continue to follow as needed. Discharge Plan: Home. Milton Donohue GEOGRAPHICAL HISTORIAN 05/28/15847 Discharge Planning Evaluation Admitting Diagnosis GI Bleed Readmission No Living Arrangements Parent Support Systems Parent Type of Residence Private residence House type House-1 story Steps to enter (none) Bathrooms on 1st Floor 1-Full Independent with ADL's Yes Independent with Mobility Yes Home Care Services No Caregiver after Discharge Yes Relationship to Patient Mother Anticipated Discharge Plan Post Acute Care Needs None at this time Resources Financial concerns No Transportation issues No Patient/Family concerns No Prescription Plan Yes Anticipated Disposition Facility Type Home Met with: Patient and discussed discharge planning, Pt is a 34 y.o., male Patient's PCP is: Pedro Fisher (General) Patient's insurance: Medicare Coverage concerns: None Medication coverage/concerns: None Community resources utilized / needed: None Assistance in transportation: Not needed. Identification of any specific education / training: None Barriers to Discharge / Alternative housing needed: None Anticipated DCP: Home onver nichole Nunez, Provider Unknown - 05/28/2015 8:30 AM PDT Nurse Progress Note by Xavier Hensley RN at 05/28/15829 Author: Xavier Hensley RN Service: (none) Author Type: Registered Nurse Filed: 05/28/15830 Date of Service: 05/28/15829 Status: Signed Painter Shipyard: Xavier Hensley RN (Registered Nurse) Orthostatic BP flat 121/73 map 91, sitting 131/78 map 98, stand 139/85 map 104 Kacy Bolton ARNP - 05/28/2015 6:43 AM PDT Progress Notes by AWAIS Hernandes at 05/28/15 0643 Author: AWAIS Hernandes Service: Door Maker Author Type: Nurse Practitioner Filed: 05/28/15 0817 Date of Service: 05/28/15642 Status: Signed Painter Shipyard: AWAIS eHrnandes (Nurse Practitioner) [facility] Service: Door Maker Progress Note Fili Alonso 34 y.o. Hospital Day: LOS: 1 day Post-Op Day: 1 Day Post-Op Consulting Physicians Treatment Team: Consulting Physician: Taryn Medeiros MD Admitting Provider: Galo Gates MD SUBJECTIVE Patient Summary: The patient is a 34 y.o. male with significant past medical history of chronic back pain and prior esophageal tear was seen at [facility] for a 3 d ay history of vomiting of "black stringy stuff". He has had 6-7 emesis events and this is as sociated with epigastric pain and tenderness. He also has diarrhea with 5-6 stool per day wh ich are black. He also complains of associated lightheadedness and dizziness when standing a nd walking. Stool were heme positive at the ED. He received 3 L IVF. Hgb was 10. HR was 90-1 00 and BP was 120's systolic but became hypotensive and dizzy when he stood up. He denies an y recent NSAID use nor alcohol intake. He says he had a similar episode in 2002 where he vom ited blood and an esophageal tear was found on EGD. He had an EGD at the [facility] 4 mo nths ago but says "they could not get pictures". He denies any sick contacts. He denies smok ing or use of other drugs. He says he also has GERD and frequent heartburn symptoms for whic h he uses PRN Tums. ICU Timeline: 05/27: Admitted to ICU. Dr Centeno consulted for EGD. EGD completed. Events Overnight: Did well overnight. OK to dc home per GI. Minimal abd pain, no fu rther vomiting. Hgb stable SCHEDULED MEDICATIONS metoclopramide 10 mg Intravenous Q6H pantoprazole 40 mg Oral BID AC CONTINUOUS INFUSIONS OBJECTIVE VITAL SIGNS Temp: [97.8 F (36.6 C)-98.3 F (36.8 C)] 98.3 F (36.8 C) Heart Rate: [61-84] 61 Resp: [13-62] 14 BP: (112-147)/(60-90) 119/68 mmHg Intake/Output Summary (Last 24 hours) at 05/28/15 0643 Last data filed at 05/28/15 0545 Gross per 24 hour Intake 2472 ml Output 1400 ml Net 1072 ml EXAM GEN: awake, alert, oriented x3, NAD NEURO: PERRLA, EOMI, no facial asymmetry, moves all extremities well GCS: 15 HEENT: sclerae clear, nonicteric, oral mmm, pink, no exudates NECK: supple, trachea midline HEART: RRR, S1/S2, no murmur, rub or gallop LUNGS: clear b/l, no wheezing, rales or rhonchi, symmetric chest expansion, even/unlabored respirations ABD: soft, nondistended, (+) mild epigastric tenderness, no masses, no hepatosplenomegaly EXTR: no edema, clubbing or cyanosis SKIN: warm, dry, no rash or mottling; no e/o skin breakdown over the occiput, scapulae, elb ows, sacrum or heels, multiple tattoos on back and arms LINES/TUBES: PIV DATA Recent Labs Lab 05/28/15 0100 05/27/15 2119 05/27/15 1821 WBC -- -- 8.85 RBC -- -- 4.62 HGB 8.4* 8.4* 9.1* HCT 28.1* 27.6* 30.3* MCV -- -- 65.6* MCH -- -- 19.7* MCHC -- -- 30.0* RDW -- -- 45.1 PLT -- -- 265 MPV -- -- 8.8 NEUTROABS -- -- 5.37 LYMPHSABS -- -- 2.34 MONOSABS -- -- 0.87* BASOSABS -- -- 0.10 EOSABS -- -- 0.18 MORPH -- -- 1+ Recent Labs Lab 05/28/15 0416 05/27/15 1821 NA -- 139 K -- 4.2 CL -- 107 CO2 -- 26 ANIONGAP -- 11 GLUF -- 88 BUN -- 15 CREATININE -- 1.1 BCR -- 13 CA -- 7.5* ALB -- 3.2* GLOB -- 3.5 AG -- 0.9* PROT -- 6.7 BILITOT -- 0.6 ALT -- 17 AST -- 19 EGFR -- >60 PHOS 3.6 -- MG 1.7 -- Recent Labs Lab 05/27/15 1821 INR 1.1 IMAGING No results found. PROBLEM LIST Principal Problem: UGIB (upper gastrointestinal bleed) Active Problems: Orthostasis Gastroesophageal reflux disease without esophagitis Chronic back pain Acute posthemorrhagic anemia ASSESSMENT & PLAN NEURO: No acute issues Chronic back pain: on lyrica; will resume CV: Hypotension: received 3L IVF at [facility]. He was initially orthostatic at the other hospital but after rehydration he does not display orthostasis from a lying to seated posit ion. RESOLVED. PULM: No acute issues GI/NUTRITION: Emesis of black material with black stools: possible UGIB. Gi consulted. EGD shows eros ozzie esophagitis. PPI BID for 4 weeks then daily. Reglan QID x2 weeks then dc. OK to dc ho me per GI if stable in am. Hgb stable (8.5-9.1). Pt to f/u with PCP or return to ED if wor sens. Avoid trigger foods. Abdominal pain: esophagitis. Improved. RENAL/LYTES: Cr 1.03. No acute issues. ID: No acute issues. HEME: Anemia: erosive esophagitis. F/u with PCP in one month for labs or sooner if needed. H gb stable 8.5-9.1 ENDO: No issues. MUSC/SKIN: Chronic back pain: restart lyrica PROPHYLAXIS: Stress ulcer prophylaxis: protonix BID DVT prophylaxis: SCD VAP bundle: NA Disposition: May dc home today if remains HD stable. Hgb 8.5-9.1 over last 24hrs. Code Status: Full Code *Please bill 45 minutes of critical care time spent evaluating the patient, reviewing the d bryanna and formulating a plan exclusive of all other procedures. AWAIS Hernandes 05/28/2015 6:43 AM Marlene Turner RPH - 05/27/2015 5:30 PM PDT Progress Notes by Marlene Arciniega RPH at 05/27/151729 Author: Marlene Arciniega RPH Service: (none) Author Type: Pharmacist Filed: 05/27/151729 Date of Service: 05/27/151729 Status: Signed Painter Shipyard: Marlene Arciniega RPH (Pharmacist) Renal Dosing Monitoring: Fili Alonso 34 y.o. male Pharmacy dosing for renal function per Dr. Gates Plan per protocol: No scr available at this time Pharmacy will continue monitoring patient for appropriate dosing per renal function. 05/27/2015 5:30 PM Pharmacist: MARLENE ARCINIEGA documente d in this encounter Plan of Treatment Not on filedocumented as of this encounter Procedures + +--------+ + + + | Procedure Name | Priori | Date/Time | Associated Diagnosis | Comments | | | ty | | | | + +--------+ + + + | PHOSPHORUS | Routin | 05/28/2015 | | Results for this | | | e | 4:16 AM | | procedure are in the | | | | PDT | | results section. | + +--------+ + + + | MAGNESIUM | Routin | 05/28/2015 | | Results for this | | | e | 4:16 AM | | procedure are in the | | | | PDT | | results section. | + +--------+ + + + | HEMOGLOBIN AND | Routin | 05/28/2015 | | Results for this | | HEMATOCRIT | e | 1:00 AM | | procedure are in the | | | | PDT | | results section. | + +--------+ + + + | HEMOGLOBIN AND | Routin | 05/27/2015 | | Results for this | | HEMATOCRIT | e | 9:19 PM | | procedure are in the | | | | PDT | | results section. | + +--------+ + + + | MRSA NAAT | Routin | 05/27/2015 | | Results for this | | | e | 6:27 PM | | procedure are in the | | | | PDT | | results section. | + +--------+ + + + | EXTERNAL LAB: CBC | Routin | 05/27/2015 | | Results for this | | | e | 6:21 PM | | procedure are in the | | | | PDT | | results section. | + +--------+ + + + | PTT | Routin | 05/27/2015 | | Results for this | | | e | 6:21 PM | | procedure are in the | | | | PDT | | results section. | + +--------+ + + + | PROTIME INR | Routin | 05/27/2015 | | Results for this | | | e | 6:21 PM | | procedure are in the | | | | PDT | | results section. | + +--------+ + + + | COMPREHENSIVE | Routin | 05/27/2015 | | Results for this | | METABOLIC PANEL | e | 6:21 PM | | procedure are in the | | | | PDT | | results section. | + +--------+ + + + | LIPASE | Routin | 05/27/2015 | | Results for this | | | e | 5:42 PM | | procedure are in the | | | | PDT | | results section. | + +--------+ + + + | AMYLASE | Routin | 05/27/2015 | | Results for this | | | e | 5:42 PM | | procedure are in the | | | | PDT | | results section. | + +--------+ + + + documented in this encounter Results Phosphorus (05/28/2015 4:16 AM PDT) + + + + + + | Component | Value | Ref Range | Performed | Pathologist | | | | | At | Signature | + + + + + + | PHOSPHORUS | 3.6Comment: Testing | 2.3 - 4.8 mg/dL | EXTERNAL | | | | performed at [facility];[address] | | LAB | | | | [address];[place] | | | | | | [address] | | | | + + + + + + + + | Specimen | + + | Blood specimen | | (specimen) | + + + +---------+ + + | Performing | Address | City/State/Zipcode | Phone Number | | Organization | | | | + +---------+ + + | EXTERNAL LAB | | | | + +---------+ + + Magnesium (05/28/2015 4:16 AM PDT) + + + + + + | Component | Value | Ref Range | Performed | Pathologist | | | | | At | Signature | + + + + + + | Magnesium | 1.7Comment: Testing | 1.7 - 2.4 mg/dL | EXTERNAL | | | | performed at [facility];[address] | | LAB | | | | [address];[place] | | | | | | [address] | | | | + + + + + + + + | Specimen | + + | Blood specimen | | (specimen) | + + + +---------+ + + | Performing | Address | City/State/Zipcode | Phone Number | | Organization | | | | + +---------+ + + | EXTERNAL LAB | | | | + +---------+ + + Hemoglobin and Hematocrit (05/28/2015 1:00 AM PDT) + + + + + + | Component | Value | Ref Range | Performed | Pathologist | | | | | At | Signature | + + + + + + | Hgb | 8.4 (L)Comment: Testing | 13.2 - 17.0 | EXTERNAL | | | | performed at [facility];[address] | g/dL | LAB | | | | [address];[place], [place] | | | | | | [address] | | | | + + + + + + | Hematocrit, | 28.1 (L)Comment: Testing | 39.0 - 50.0 % | EXTERNAL | | | POC | performed at [facility];[address] | | LAB | | | | [address];[place] | | | | | | [address] | | | | + + + + + + + + | Specimen | + + | | + + + +---------+ + + | Performing | Address | City/State/Zipcode | Phone Number | | Organization | | | | + +---------+ + + | EXTERNAL LAB | | | | + +---------+ + + Hemoglobin and Hematocrit (05/27/2015 9:19 PM PDT) + + + + + + | Component | Value | Ref Range | Performed | Pathologist | | | | | At | Signature | + + + + + + | Hgb | 8.4 (L)Comment: Testing | 13.2 - 17.0 | EXTERNAL | | | | performed at [facility];[address] | g/dL | LAB | | | | [address];[place] | | | | | | [address] | | | | + + + + + + | Hematocrit, | 27.6 (L)Comment: Testing | 39.0 - 50.0 % | EXTERNAL | | | POC | performed at [facility];[address] | | LAB | | | | [address];[place] | | | | | | [address] | | | | + + + + + + + + | Specimen | + + | | + + + +---------+ + + | Performing | Address | City/State/Zipcode | Phone Number | | Organization | | | | + +---------+ + + | EXTERNAL LAB | | | | + +---------+ + + MRSA NAAT (05/27/2015 6:27 PM PDT) + + | Specimen | + + | | + + + + + | Narrative | Performed At | + + + | SOURCE NARES(NOSE) | EXTERNAL LAB | | Testing performed at [facility];[address] [place] [address];[place] [address] MRSA PCR | | | NEGATIVE Testing performed at | | | [facility];[address] [place] [address];[place] [address] | | + + + + +---------+ + + | Performing | Address | City/State/Zipcode | Phone Number | | Organization | | | | + +---------+ + + | EXTERNAL LAB | | | | + +---------+ + + PTT (05/27/2015 6:21 PM PDT) + + + + + + | Component | Value | Ref Range | Performed | Pathologist | | | | | At | Signature | + + + + + + | aPTT, | 26Comment: Testing | 23 - 32 seconds | EXTERNAL | | | Patient | performed at [facility];[address] | | LAB | | | | [address];[place] | | | | | | [address] | | | | + + + + + + + + | Specimen | + + | Blood specimen | | (specimen) | + + + +---------+ + + | Performing | Address | City/State/Zipcode | Phone Number | | Organization | | | | + +---------+ + + | EXTERNAL LAB | | | | + +---------+ + + Protime INR (05/27/2015 6:21 PM PDT) + + + + + + | Component | Value | Ref Range | Performed | Pathologist | | | | | At | Signature | + + + + + + | INR | 1.1Comment: REFERENCE | | EXTERNAL | | | | RANGE:0.9 - 1.2 | | LAB | | | | NON-ANTICOAGULATED2.0 | | | | | | - 3.0 ALL OTHER | | | | | | THERAPEUTIC | | | | | | INDICATIONS2.5 - 3.5 | | | | | | MECHANICAL HEART VALVES, | | | | | | RECURRENT OR SYSTEMIC | | | | | | EMBOLISMTesting | | | | | | performed at [facility] | | | | | | [facility];[place], [place] | | | | | | [address] | | | | + + + + + + + + | Specimen | + + | Blood specimen | | (specimen) | + + + +---------+ + + | Performing | Address | City/State/Zipcode | Phone Number | | Organization | | | | + +---------+ + + | EXTERNAL LAB | | | | + +---------+ + + External Lab: CBC (05/27/2015 6:21 PM PDT) + + + + + + | Component | Value | Ref Range | Performed | Pathologist | | | | | At | Signature | + + + + + + | WBC | 8.85Comment: Testing | 3.80 - 11.00 | EXTERNAL | | | | performed at [facility];[address] | K/uL | LAB | | | | [address];[place] | | | | | | [address] | | | | + + + + + + | RED CELL | 4.62Comment: Testing | 4.20 - 5.70 | EXTERNAL | | | COUNT | performed at [facility];888 | M/uL | LAB | | | | [address];[place] | | | | | | [address] | | | | + + + + + + | Hgb | 9.1 (L)Comment: Testing | 13.2 - 17.0 | EXTERNAL | | | | performed at [facility];888 | g/dL | LAB | | | | [address];[place] | | | | | | [address] | | | | + + + + + + | Hematocrit, | 30.3 (L)Comment: Testing | 39.0 - 50.0 % | EXTERNAL | | | POC | performed at [facility];[address] | | LAB | | | | [address];[place] | | | | | | [address] | | | | + + + + + + | MCV | 65.6 (L)Comment: Testing | 80.0 - 100.0 fl | EXTERNAL | | | | performed at [facility];[address] | | LAB | | | | [address];[place] | | | | | | [address] | | | | + + + + + + | MCH | 19.7 (L)Comment: Testing | 27.0 - 34.0 pg | EXTERNAL | | | | performed at [facility];[address] | | LAB | | | | [address];[place] | | | | | | [address] | | | | + + + + + + | MCHC | 30.0 (L)Comment: Testing | 32.0 - 35.5 | EXTERNAL | | | | performed at [facility];888 | g/dL | LAB | | | | [address];[place] | | | | | | [address] | | | | + + + + + + | RDW-CV | 45.1Comment: Testing | 37 - 53 fl | EXTERNAL | | | | performed at [facility];888 | | LAB | | | | [address];[place] | | | | | | [address] | | | | + + + + + + | Platelet | 265Comment: Testing | 150 - 400 K/uL | EXTERNAL | | | Count | performed at [facility];[address] | | LAB | | | Plasma | [address];[place] | | | | | | [address] | | | | + + + + + + | MPV | 8.8Comment: Testing | fl | EXTERNAL | | | | performed at [facility];[address] | | LAB | | | | [address];[place] | | | | | | [address] | | | | + + + + + + | Differentia | AUTOMATEDComment: | | EXTERNAL | | | l Type | Testing performed at | | LAB | | | | [facility];[address];[place] [address] | | | | + + + + + + | % Segmented | 60.66Comment: Testing | % | EXTERNAL | | | | performed at [facility];888 | | LAB | | | Neutrophils | [address];[place] | | | | | | [address] | | | | + + + + + + | % | 26.41Comment: Testing | % | EXTERNAL | | | Lymphocytes | performed at [facility];[address] | | LAB | | | | [address];[place] | | | | | | [address] | | | | + + + + + + | % Monocytes | 9.77Comment: Testing | % | EXTERNAL | | | | performed at [facility];[address] | | LAB | | | | [address];[place] | | | | | | [address] | | | | + + + + + + | % | 2.01Comment: Testing | % | EXTERNAL | | | Eosinophils | performed at [facility];[address] | | LAB | | | | [address];[place] | | | | | | [address] | | | | + + + + + + | % Basophils | 1.15Comment: Testing | % | EXTERNAL | | | | performed at [facility];[address] | | LAB | | | | [address];[place] | | | | | | [address] | | | | + + + + + + | Absolute | 5.37Comment: Testing | 1.90 - 7.40 | EXTERNAL | | | Segmented | performed at [facility];888 | K/uL | LAB | | | Neutrophils | [address];[place] | | | | | | [address] | | | | + + + + + + | Absolute | 2.34Comment: Testing | 1.00 - 3.90 | EXTERNAL | | | Lymphocytes | performed at [facility];[address] | K/uL | LAB | | | | [address];[place] | | | | | | [address] | | | | + + + + + + | Absolute | 0.87 (H)Comment: Testing | 0.00 - 0.80 | EXTERNAL | | | Monocytes | performed at [facility];888 | K/uL | LAB | | | | [address];[place] | | | | | | [address] | | | | + + + + + + | Absolute | 0.18Comment: Testing | 0.00 - 0.50 | EXTERNAL | | | Eosinophils | performed at [facility];888 | K/uL | LAB | | | | [address];[place] | | | | | | [address] | | | | + + + + + + | Absolute | 0.10Comment: Testing | 0.00 - 0.10 | EXTERNAL | | | Basophils | performed at [facility];8 | K/uL | LAB | | | | [address];[place] | | | | | | [address] | | | | + + + + + + | RBC | 1+Comment: | | EXTERNAL | | | Morphology | HYPO3+MICROTesting | | LAB | | | | performed at [facility];[address] | | | | | | [address];[place] | | | | | | [address] | | | | | |Testing performed at [facility];[address];[place] [address] | | | | | | | | | | + + + + + + | Platelet | ADEQUATEComment: Testing | | EXTERNAL | | | Estimate | performed at [facility];[address] | | LAB | | | | [address];[place], [place] | | | | | | [address] | | | | + + + + + + + + | Specimen | + + | Blood specimen | | (specimen) | + + + +---------+ + + | Performing | Address | City/State/Zipcode | Phone Number | | Organization | | | | + +---------+ + + | EXTERNAL LAB | | | | + +---------+ + + Comprehensive Metabolic Panel (05/27/2015 6:21 PM PDT) + + + + + + | Component | Value | Ref Range | Performed | Pathologist | | | | | At | Signature | + + + + + + | Na | 139Comment: Testing | 135 - 143 | EXTERNAL | | | | performed at [facility];888 | mmol/L | LAB | | | | [address];[place] | | | | | | [address] | | | | + + + + + + | K | 4.2Comment: Testing | 3.5 - 4.9 | EXTERNAL | | | | performed at [facility];888 | mmol/L | LAB | | | | [address];[place] | | | | | | [address] | | | | + + + + + + | Cl | 107Comment: Testing | 99 - 109 mmol/L | EXTERNAL | | | | performed at [facility];[address] | | LAB | | | | [address];[place] | | | | | | [address] | | | | + + + + + + | CO2 | 26Comment: Testing | 23 - 32 mmol/L | EXTERNAL | | | | performed at [facility];[address] | | LAB | | | | [address];[place] | | | | | | [address] | | | | + + + + + + | Anion Gap | 11Comment: Testing | 5 - 20 mmol/L | EXTERNAL | | | | performed at [facility];[address] | | LAB | | | | [address];[place] | | | | | | [address] | | | | + + + + + + | Glucose, | 88Comment: Testing | 65 - 99 mg/dL | EXTERNAL | | | Fasting | performed at [facility];[address] | | LAB | | | | [address];[place] | | | | | | [address] | | | | + + + + + + | BUN | 15Comment: Testing | 8 - 25 mg/dL | EXTERNAL | | | | performed at [facility];[address] | | LAB | | | | [address];[place] | | | | | | [address] | | | | + + + + + + | Creatinine | 1.1Comment: Testing | 0.70 - 1.30 | EXTERNAL | | | | performed at [facility];888 | mg/dL | LAB | | | | [address];[place] | | | | | | [address] | | | | + + + + + + | BUN/Creatin | 13Comment: Testing | | EXTERNAL | | | ine Ratio | performed at [facility];[address] | | LAB | | | | [address];[place] | | | | | | [address] | | | | + + + + + + | Calcium | 7.5 (L)Comment: Testing | 8.5 - 10.5 | EXTERNAL | | | | performed at [facility];888 | mg/dL | LAB | | | | [address];[place] | | | | | | [address] | | | | + + + + + + | Protein, | 6.7Comment: Testing | 6.3 - 8.2 g/dL | EXTERNAL | | | Total | performed at [facility];[address] | | LAB | | | | [address];[place] | | | | | | [address] | | | | + + + + + + | Albumin | 3.2 (L)Comment: Testing | 3.6 - 5.0 g/dL | EXTERNAL | | | | performed at [facility];[address] | | LAB | | | | [address];[place] | | | | | | [address] | | | | + + + + + + | Globulin | 3.5Comment: Testing | 1.3 - 4.9 g/dL | EXTERNAL | | | | performed at [facility];[address] | | LAB | | | | [address];[place] | | | | | | [address] | | | | + + + + + + | A/G Ratio | 0.9 (L)Comment: Testing | 1.0 - 2.4 | EXTERNAL | | | | performed at [facility];[address] | | LAB | | | | [address];[place] | | | | | | [address] | | | | + + + + + + | Bilirubin | 0.6Comment: Testing | 0.1 - 1.5 mg/dL | EXTERNAL | | | Total | performed at [facility];[address] | | LAB | | | | [address];[place] | | | | | | [address] | | | | + + + + + + | ALP, | 83Comment: Testing | 35 - 115 U/L | EXTERNAL | | | External | performed at [facility];[address] | | LAB | | | | [address];[place] | | | | | | [address] | | | | + + + + + + | AST | 19Comment: Testing | 10 - 45 U/L | EXTERNAL | | | | performed at [facility];[address] | | LAB | | | | [address];[place] | | | | | | [address] | | | | + + + + + + | ALT | 17Comment: Testing | 10 - 65 U/L | EXTERNAL | | | | performed at [facility];[address] | | LAB | | | | [address];[place] | | | | | | [address] | | | | + + + + + + | Estimated | >60Comment: GFR <60: | mL/min/1.73m2 | EXTERNAL | | | GFR | CHRONIC KIDNEY DISEASE, | | LAB | | | | IF FOUND OVER A 3 MONTH | | | | | | PERIOD.GFR <15: KIDNEY | | | | | | FAILURE.FOR | | | | | | AMERICANS, MULTIPLY THE | | | | | | CALCULATED GFR BY | | | | | | 1.210.Testing performed | | | | | | at [facility];[address];[place] [address] | | | | + + + + + + + + | Specimen | + + | Blood specimen | | (specimen) | + + + +---------+ + + | Performing | Address | City/State/Zipcode | Phone Number | | Organization | | | | + +---------+ + + | EXTERNAL LAB | | | | + +---------+ + + Lipase (05/27/2015 5:42 PM PDT) + + + + + + | Component | Value | Ref Range | Performed | Pathologist | | | | | At | Signature | + + + + + + | Lipase | 100Comment: Testing | 73 - 393 U/L | EXTERNAL | | | | performed at [facility];[address] | | LAB | | | | [address];[place], [place] | | | | | | [address] | | | | + + + + + + + + | Specimen | + + | Blood specimen | | (specimen) | + + + +---------+ + + | Performing | Address | City/State/Zipcode | Phone Number | | Organization | | | | + +---------+ + + | EXTERNAL LAB | | | | + +---------+ + + Amylase (05/27/2015 5:42 PM PDT) + + + + + + | Component | Value | Ref Range | Performed | Pathologist | | | | | At | Signature | + + + + + + | Amylase | 20 (L)Comment: Testing | 25 - 115 U/L | EXTERNAL | | | | performed at [facility] | | LAB | | | | [facility];[place], [place] | | | | | | [address] | | | | + + + + + + + + | Specimen | + + | Blood specimen | | (specimen) | + + + +---------+ + + | Performing | Address | City/State/Zipcode | Phone Number | | Organization | | | | + +---------+ + + | EXTERNAL LAB | | | | + +---------+ + + documented in this encounter Visit Diagnoses Not on filedocumented in this encounter
--- OUTSIDE RECORDS SUMMARY | ~2019-09-17 | XMS | Encounter Summary ---
Demographics + + + | Address | [address] | | | [place] [address] | + + + | Home Phone | | + + + | Preferred Language | Unknown | + + + | Marital Status | Legally | + + + | Restoration Affiliation | Unknown | + + + | Race | Unknown | + + + | Ethnic Group | Unknown | + + + Author + + + | Author | [facility] | | | and [place] | + + + | Organization | [facility] | | | and [place] [...] [place], [place] | | | | | [address] | | + + + + + Care Team Providers + +------+ + | Care Door Patcher Name | Role | Phone | + +------+ + | Basilio Cuevas PA-C | PCP | | + +------+ + Encounter Details +--------+ + + + + | Date | Type | Department | Care Team | Description | +--------+ + + + + | 05/27/ | Orders Only | [facility] | Provider, | | | 2019 | | SYSTEM GENERIC OP | MD Jarrett Antonio | | | | | [address] | [place] | | | | | [address] [place], [place] | [place] [address] | | | | | [address] | | | | | | [phone] | | | +--------+ + + + [...]
--- OUTSIDE RECORDS SUMMARY | ~2019-09-17 | XMS | Encounter Summary ---
Demographics + + + | Address | [address] | | | [place] [address] | + + + | Home Phone | | + + + | Preferred Language | Unknown | + + + | Marital Status | Legally | + + + | Confucianism Affiliation | Unknown | + + + | Race | Unknown | + + + | Ethnic Group | Unknown | + + + Author + + + | Author | [facility] | | | and [place] | + + + | Organization | [facility] | | | and [...] [place], [place] | | | | | [address] | | + + + + + Care Team Providers + +------+ + | Care Collection Agent Name | Role | Phone | + +------+ + | Mynor Simental MD | PCP | | + +------+ + Encounter Details +--------+ + + + + | Date | Type | Department | Care Team | Description | +--------+ + + + + | 11/14/ | Hospital | [facility] | Jean Pierre Amaya, | Back pain | | 2013 | Encounter | MED CTR XRAY [address] | DO [address] | | | | | [address] | [place] | | | | | [place] [address] | [address] | | | | | [phone] | | | +--------+ + + + [...] LUMBAR SPINE 2 OR | Routin | 11/14/2013 | Back pain | Results for this | | 3 VW | e | 12:30 PM | | procedure are in the | | | | PST | | results section. | + +--------+ + + + documented in this encounter Results XR Lumbar Spine 2 or 3 Vw (11/14/2013 12:30 PM PST) + + | Specimen | + + | | + + + + + | Narrative | Performed At | + + + | [facility] | [facility] | | Department [address] [place] [address] | [facility] | | [ rep [address]] [ rep [facility] | | st zip] Signed | - IMAGING | | | | | Patient Name: ROBERT ALONSO Physician: | | | NICOLE.01 : 1980 Age: 33 Sex: M Unit #: [id number] | | | Exam Date: 11/14/13 Location: [facility] | | | Report #: [id number] Page: | | | %(RAD)RES..mtdd.print.filter("pg") of %(RAD) | | | RES..mtdd.print.filter("tpg") | | | | | | Accession Number: [id number] | | | LUMBAR SPINE X-RAY CLINICAL [...] Transcribed Date/Time: 11/14/2013 | | | 12:40 Derrick Builder: <<Signature | | | on File>> | | | Sammy | | | MD Andrew11/14/13 4508 <Electronically signed by Sammy Morales MD> | | | Sammy Morales MD 11/14/13 1230 Derrick Builder: Giovanni | | | Velkmblkczigf16/16/14 1240 Jean Pierre Amaya DO | | + + + + + + + + | Performing | Address | City/State/Zipcode | Phone Number | | Organization | | | | + + + + + | [address] | [address] | [place] | [phone] | | [facility] | | [address] | | | - IMAGING | | | | + + + + + documented in this encounter Visit Diagnoses + + | Diagnosis | + + | Back pain Backache, unspecified | + + documented in this encounter
--- OUTSIDE RECORDS SUMMARY | ~2019-09-17 | XMS | Encounter Summary ---
Demographics + + + | Address | [address] | | | [place] [address] | + + + | Home Phone | | + + + | Preferred Language | Unknown | + + + | Marital Status | Legally | + + + | Jew Affiliation | Unknown | + + + | Race | Unknown | + + + | Ethnic Group | Unknown | + + + Author + + + | Author | [facility] | | | and [place] | + + + | Organization | [facility] | [...] [place], [place] | | | | | [address] | | + + + + + Care Team Providers + +------+ + | Care Relief Man Name | Role | Phone | + +------+ + | Basilio Cuevas PA-C | PCP | | + +------+ + Encounter Details +--------+ + + + + | Date | Type | Department | Care Team | Description | +--------+ + + + + | 04/20/ | Hospital | [facility] | Conversion | Pain | | 2018 | Encounter | [address]VERSION [address] | Transaction, | | | | | [address] | Provider Unknown | | | | | [place] | [phone] | | | | | [address] | | | | | | [phone] | | | +--------+ + + + [...]
--- OUTSIDE RECORDS SUMMARY | ~2019-09-17 | XMS | Encounter Summary ---
Demographics + + + | Address | [address] | | | [place] [address] | + + + | Home Phone | | + + + | Preferred Language | Unknown | + + + | Marital Status | Legally | + + + | Mosque Affiliation | Unknown | + + + | Race | Unknown | + + + | Ethnic Group | Unknown | + + + Author + + + | Author | [facility] | | | and [place] | + + + | Organization | [facility] | [...] [place], [place] | | | | | [address] | | + + + + + Care Team Providers + +------+ + | Care Water Proofer Name | Role | Phone | + [...] | | | fracture | | [address] | | | | | Thoracic or | | [place], | | | | | lumbosacral | | [place] [address] | | | | | neuritis or | | Phone: | | | | | radiculitis, | | [phone] | | | | | unspecified | | Fax: | | | | | Lumbago | | [phone] | | | | | Arthrodesis | [...] + + | 02/04/ | Hospital | [facility] | Jean Pierre Amaya, | Nonunion of fracture | | 2013 | Encounter | MED CTR XRAY [address] | DO [address] | | | | | [place] | [place] | | | | | [place] [address] | [id number] | | | | | [phone] | | | +--------+ + + + [...] | | | PATRICIA | | | [facility] | | | - IMAGING | [...] [address] | [place] | [phone] | | [facility] | | [address] | | | - IMAGING | | | | + + + + + documented in this encounter Visit Diagnoses + + | Diagnosis | + + | Nonunion of fracture | + + documented in this encounter"
--- OUTSIDE RECORDS SUMMARY | ~2019-09-17 | XMS | Encounter Summary ---
Demographics + + + | Address | [address] | | | [place] [address] | + + + | Home Phone | | + + + | Preferred Language | Unknown | + + + | Marital Status | Legally | + + + | Jewish Affiliation | Unknown | + + + | Race | Unknown | + + + | Ethnic Group | Unknown | + + + Author + + + | Author | [facility] | | | and [place] | + + + | Organization | [facility] | | | and [...] [place], [place] | | | | | [address] | | + + + + + Care Team Providers + +------+ + | Care Needle Molder Name | Role | Phone | + +------+ + | Basilio Cuevas PA-C | PCP | | + +------+ + Encounter Details +--------+ + + + + | Date | Type | Department | Care Team | Description | +--------+ + + + + | 12/18/ | Hospital | [facility] | Faisal Brady | | | 2013 | Encounter | MED CTR XRAY [address] | T[address] | | | | | [place] | [place] | | | | | [place] [address] | [id number] | | | | | [phone] | | | +--------+ + + + [...] Performed At | + + + | [facility] | [facility] | | [address] | [facility] | | [ rep ct [address]] [ rep ct [facility] | | st zip] Signed | - IMAGING | | | | | Patient Name: FILI ALONSO Physician: | | | TOBY. : 1980 Age: 33 Sex: M Unit #: [id number] | | | Exam Date: 12/18/13 Location: [facility] | | | Report #: [id number] Page: | | | %(RAD)RES..mtdd.print.filter("pg") of %(RAD) | | | RES..mtdd.print.filter("tpg") | | | | | | Accession Number: [id number] | | | LUMBAR FACET INJECTIONS, EPIDURAL [...] Transcribed Date/Time: 12/20/2013 | | | 13:18 Airport Operations Coordinator: <<Signature on | | | File>> | | | Faisal Conti | | | MD Jose Antonio12/30/13 1815 <Electronically signed by Faisal Conti | | | Jose Antonio BENNETT> Faisal Brady MD 12/20/13 1223 | | | Airport Operations Coordinator: Giovanni Jackson12/20/13 1318 | | | | | + + + + + + + + | Performing | Address | City/State/Zipcode | Phone Number | | Organization | | | | + + + + + | [address] | [address] | [place] | [phone] | | [facility] | | [address] | | | - IMAGING | | | | + + + + + documented in this encounter Visit Diagnoses Not on filedocumented in this encounter
--- OUTSIDE RECORDS SUMMARY | ~2019-09-17 | XMS | Encounter Summary ---
Demographics + + + | Address | [address] | | | [place] [address] | + + + | Home Phone [...] | Author | [facility] | | | and [place]any[place] | + + + | Organization | [facility] | | | and [...] [place], [place] | | | | | [address] | | + + + + + Care Team Providers + +------+ + | Care Potato Chip Sacking Machine Operator Name | Role | Phone | + +------+ + | No, Physician | PCP | Unavailable | + +------+ + Encounter Details +--------+ + + + + | Date | Type | Department | Care Team | Description | +--------+ + + + + | 07/10/ | [facility] | [facility] | Sheree Burgos | | | 2012 | Encounter | MED CTR EMERGENCY | Lily Oneal MD [address] | | | | | [place] [address] [address] | [facility] | | | | | [place] | [place] [address] | | | | | [address] | [phone] | | | | | [phone] | Felipe Pro MD | | | | | | [address] | | | | | | [place] | | | | | | [address] | | | | | | | [...] | 0 | 05/29/20 | | | (PRINIVIL ZESTRIL) | | | | 13 | [...]
--- OUTSIDE RECORDS SUMMARY | ~2019-09-17 | XMS | Encounter Summary ---
Demographics + + + | Address | [address] | | | [place] [address] | + + + | Home Phone | | + + + | Preferred Language | Unknown | + + + | Marital Status | Legally | + + + | Evangelical Affiliation | Unknown | + + + | Race | Unknown | + + + | Ethnic Group | Unknown | + + + Author + + + | Author | [facility] | | | and [place] | + + + | Organization | [facility] | | | and [place] [...] [place], [place] | | | | | [address] | | + + + + + Care Team Providers + +------+ + | Care Forest Officer Name | Role | Phone | + +------+ + | Basilio Cuevas PA-C | PCP | | + +------+ + Reason for Visit +--------+ + | Reason | Comments | +--------+ + | Other | forms | +--------+ + Encounter Details +--------+ + + + + | Date | Type | Department | Care Team | Description | +--------+ + + + + | 05/26/ | Telephone | [facility] | Jean Pierre Amaya, | Other (forms) | | 2013 | | NEUROSURGERY [address] | DO [address] | | | | | [address] | [address] [place], [place] | | | | | [place], [place] | [address] | | | | | [address] | | | | | | [phone] | | | +--------+ + + + [...]
--- OUTSIDE RECORDS SUMMARY | ~2019-09-17 | XMS | Encounter Summary ---
Demographics + + + | Address | [address] | | | [place] [address] | + + + | Home Phone | | + + + | Preferred Language | Unknown | + + + | Marital Status | Legally | + + + | Restorationist Affiliation | Unknown | + + + | Race | Unknown | + + + | Ethnic Group | Unknown | + + + Author + + + | Author | [facility] | | | and [place] | + + + | Organization | [facility] | | | and [place] | [...] [place], [place] | | | | | [address] | | + + + + + Care Team Providers + +------+ + | Care International Sales Manager Name | Role | Phone | + +------+ + | Basilio Cuevas PA-C | PCP | | + +------+ + Encounter Details +--------+ + + + + | Date | Type | Department | Care Team | Description | +--------+ + + + + | 01/27/ | Hospital | [facility] | Jean Pierre Amaya, | | | 2013 | Encounter | MED CTR LAB[facility]ORY | DO [address] | | | | | [address] | [address] [place] | | | | | [place] | [address] | | | | | [address] | | | | | | [phone] | | | +--------+ + + + [...] | | 0 | | | | (PRINIVIL ZESTRIL) | Daily. | | | | 5 | | 20 mg tablet | | | | | | + + + +---------+ + + documented as of this encounter Plan of Treatment Not on filedocumented as of this encounter Visit Diagnoses Not on filedocumented in this encounter"
--- OUTSIDE RECORDS SUMMARY | ~2019-09-17 | XMS | Encounter Summary ---
Demographics + + + | Address | [address] | | | [place] [address] | + + + | Home Phone | | + + + | Preferred Language | Unknown | + + + | Marital Status | Legally | + + + | Congregational Affiliation | Unknown | + + + | Race | Unknown | + + + | Ethnic Group | Unknown | + + + Author + + + | Author | [facility] | | | and [place] | + + + | Organization | [facility] | | | and [...] [place], [place] | | | | | [address] | | + + + + + Care Team Providers + +------+ + | Care Associate Professor Of Geology Name | Role | Phone | + [...] | 05/26/ | Telephone | [facility] [place] | Jean Pierre Amaya, | Other (forms) | | 2013 | | NEUR[address]UR[address] | DO [address] | | | | | [address] | [address] [place], [place] | | | | | [place], [place] | [address] | | | | | [address] | | | | | | [phone] | | | +--------+ + + + [...]
--- OUTSIDE RECORDS SUMMARY | ~2019-09-17 | XMS | Encounter Summary ---
Demographics + + + | Address | [address] | | | [place] [address] | + + + | Home Phone [...] | [facility] | | | and [place] | + + + | Organization | [facility] | | | and [...] [place], [place] | | | | | [address] | | + + + + + Care Team Providers + +------+ + | Care Maintenance Scheduler Name | Role | Phone | + [...] | | Upper GI | | [address] | | | | | bleeding | | [place], | | | | | | | [place] [address] | | | | | | | Phone: | | | | | | | [phone] | | | | | | | Fax: | | | | | | | [phone] | +--------+--------+ + + + + Encounter Details +--------+ + + + + | Date | Type | Department | Care Team | Description | +--------+ + + + + | 11/07/ | Anesthesia | [facility] | Cainaaphilp Panchito | Hemorrhage of | | 2015 | Event | MED CTR MP INTRA OP | PMD [address] | gastrointestinal | | | | [address] | [address] [place] | tract (Primary Dx); | | | | [place] | [address] | [place] | | | | [address] | | 12/2013; Anemia due | | | | [phone] | | to blood loss; | | | | | | Hiatal hernia; | | | | | | Esophagitis, | | | | | | erosive; Allergy to | | | | | | pain medication - | | | | | | oxycodone | +--------+ + + + + Anesthesia Record + + + + + | Procedure Name | Responsible | Anesthesia Start | Anesthesia Stop Time | | | Anesthesiologist | Time | | + + + + + | EGD IP309 (N/A | | 11/07/14 1347 | 11/07/14 1415 | | Mouth) | | | | + + + + + +----+---+ + + | Da | T | Event | Comment | | te | i | | | | | m | | | | | e | | | +----+---+ + + | 01 | 1 | | | | /0 | 3 | | | | 9/ | 4 | | | | 20 | 4 | | | | 15 | | | | +----+---+ + + | | 1 | An Checkout | Pre-use anesthesia machine/equipment checkout. | | | 3 | | | | | 4 | | | | | 6 | | | +----+---+ + + | | 1 | An Start | Room ready, anesthesia equipment checked, essential drugs & | | | 3 | | equipment available. Patient Identity checked, anesthesia plan | | | 4 | | explained and consent obtained. Patient transported to OR, | | | 7 | | Monitors applied. Reassessment prior to anesthesia | | | | | induction/procedure. | +----+---+ + + | | 1 | an fredis now | ENDO 1 | | | 3 | | | | | 4 | | | | | 8 | | | +----+---+ + + | | 1 | AN | Per surgeon request | | | 3 | Antibiotic | | | | 4 | declined | | | | 9 | | | +----+---+ + + | | 1 | Quick Note | BP cycles, returns no value. | | | 3 | | | | | 5 | | | | | 0 | | | +----+---+ + + | | 1 | an fredis now | EGD | | | 3 | | | | | 5 | | | | | 8 | | | +----+---+ + + | | 1 | an fredis now | SDSU | | | 4 | | | | | 1 | | | | | 0 | | | +----+---+ + + | | 1 | An Stop | Patient handed off to recovery nurse. | | | 1 | | | | | 5 | | | +----+---+ + + +------+ | Meds | +------+ + + + | Name | Total | + + + | propofol | 200 mg | + + + | propofol | 195.5 mg | + + + | lactated ringers (LR) infusion | 400 mL | + + + + + | Name | + + | O2 Flow Rate (L/Min) | + + + + | No blood administrations on file. | + + +--------+ + + + | Type | Details | Placement | Removal | +--------+ + + + | [READ | 11/06/14; 929; Hematology, | 11/06/14929 by | 11/08/141918 by | | ONLY] | Chemistry, Coagulation, Blood | Dominique Patel RN | Rosa Elenaradha Hermosillo, RN | | | Bank; 11/08/14; 1918 | | | | Periph | | | | | eral | | | | | IV - | | | | | Single | | | | | Lumen | | | | | | | | | +--------+ + + + documented in this encounter Social History + + + +--------+ + [...] Diagnoses Not on filedocumented in this encounter Administered Medications + +--------+ +--------+------+------+ | Medication Order | MAR | Action | Dose | Rate | Site | | | Action | Date | | | | + +--------+ +--------+------+------+ | propofol (DIPRIVAN) injection | Given | 11/07/19 | 100 mg | | | | PRN, Starting 11/07/14 at 1357, | | 15 1:58 | | | | | Anesthesia Intra-op | | PM PST | | | | + +--------+ +--------+------+------+ +-------+ +--------+---+---+ | Given | 11/07/19 | 100 mg | | | | | 15 1:57 | | | | | | PM PST | | | | +-------+ +--------+---+---+ +---+---+ | | | +---+---+ + +---------+ + + +---+ | propofol (DIPRIVAN) injection | New Bag | 11/07/19 | 100 | 69 mL/hr | | | Intravenous, CONTINUOUS PRN, | | 15 1:58 | mcg/kg/m | | | | Starting 11/07/14 at 1358, | | PM PST | in | | | | Anesthesia Intra-op | | | | | | + +---------+ + + +---+ +---+---+ | | | +---+---+ documented in this encounter"
--- OUTSIDE RECORDS SUMMARY | ~2019-09-17 | XMS | Encounter Summary ---
Demographics + + + | Address | [address] | | | [place] [address] | + + + | Home Phone | | + + + | Preferred Language | Unknown | + + + | Marital Status | Legally | + + + | Restorationism Affiliation | Unknown | + + + | Race | Unknown | + + + | Ethnic Group | Unknown | + + + Author + + + | Author | [facility] | | | and [place] | + + + | Organization | [facility] | | | and [place] [...] [place], [place] | | | | | [address] | | + + + + + Care Team Providers + +------+ + | Care Contract Administration Manager Name | Role | Phone | [...] + | 12/16/ | Telephone | [facility] | Jean Pierre Amaya, | Appointment | | 2013 | | NEUROSUR[address]ERY [address] | DO [address] | | | | | [address] | [address] [place], [place] | | | | | [place], [place] | [address] | | | | | [address] | | | | | | [phone] | | | +--------+ + + + [...]
--- OUTSIDE RECORDS SUMMARY | ~2019-09-17 | XMS | Encounter Summary ---
Demographics + + + | Address | [address] | | | [place] [address] | + + + | Home Phone | | + + + | Preferred Language | Unknown | + + + | Marital Status | Legally | + + + | Bahai Affiliation | Unknown | + + + | Race | Unknown | + + + | Ethnic Group | Unknown | + + + Author + + + | Author | [facility] | | | and [place] | + + + | Organization | [facility] | | | and [place] [...] [place], [place] | | | | | [address] | | + + + + + Care Team Providers + +------+ + | Care Sales Person Name | Role | Phone | + [...] | | Upper GI | | [address] | | | | | bleeding | | [place], | | | | | | | [place] [address] | | | | | | | Phone: | | | | | | | [phone] | | | | | | | Fax: | | | | | | | [phone] | +--------+--------+ + + + + Encounter Details +--------+ + + + + | Date | Type | Department | Care Team | Description | +--------+ + + + + | 11/07/ | Anesthesia | [facility] | Cainaaphilp Panchito | Hemorrhage of | | 2015 | Event | MED CTR MP INTRA OP | PMD [address] | gastrointestinal | | | | [address] | [address] [place] | tract (Primary Dx); | | | | [place] | [address] | [place] | | | | [address] | | 12/2013; Anemia due | | | | [phone] | | to blood loss; | | [...]
--- OUTSIDE RECORDS SUMMARY | ~2019-09-17 | XMS | Encounter Summary ---
Demographics + + + | Address | [address] | | | [place] [address] | + + + | Home Phone | | + + + | Preferred Language | Unknown | + + + | Marital Status | Legally | + + + | Hindu Affiliation | Unknown | + + + | Race | Unknown | + + + | Ethnic Group | Unknown | + + + Author + + + | Author | [facility] | | | and [place] | + + + | Organization | [facility] | | | and [place] | [...] [place], [place] | | | | | [address] | | + + + + + Care Team Providers + +------+ + | Care Fancy Packer Name | Role | Phone | + +------+ + | Basilio Cuevas PA-C | PCP | | + +------+ + Encounter Details +--------+ + + + + | Date | Type | Department | Care Team | Description | +--------+ + + + + | 01/27/ | Orders Only | [facility] [place] | Jean Pierre Amaya, | Narcotic abuse | | 2014 | | [address]UR[address] | DO [address] | (Primary Dx); HTN | | | | [address] | [address] [place], [place] | (hypertension); | | | | [place], [place] | [address] | Tobacco abuse; | | | | [address] | | Chronic low back | | | | [phone] | | pain | +--------+ + + + + Social [...] of this encounter Plan of Treatment + +---------+--------+ + + | Name | Type | Priori | Associated Diagnoses | Order Schedule | | | | ty | | | + +---------+--------+ + + | XR Chest PA and | Imaging | Routin | Narcotic abuse | Expected: | | Lateral | | e | HTN (hypertension) | 01/27/2014, Expires: | | | | | Tobacco abuse | 01/27/2015 | | | | | Chronic low back | | | | | | pain | | + +---------+--------+ + + | ECG 12 lead | ECG | Routin | Narcotic abuse | 1 Occurrences | | | | e | HTN (hypertension) | starting 01/27/2014 | | | | | Tobacco abuse | until 01/27/2015 | | | | | Chronic low back | | | | | | pain | | + +---------+--------+ + + documented as of this encounter Results Basic Metabolic Panel (01/27/2014 [...] 14 | 7 - 18 mg/dL | [facility] | [facility] | [facility] - | | | | | | LABORATORY | | + + + + + + | Creatinine | 1.09 | 0.60 - 1.30 | [facility] | | | | | mg/dL | [facility] | | | | | | [facility] | | [facility] | | | [facility] - | | | | | | LABORATORY | | + + + + + + | eGFR if not | >60Comment: GLOMERULAR | >=60 | [facility] | | | | FILTRATION | mL/min/1.73m2 | [facility] | | | [place] | RATE,ESTIMATED | | MEDICAL | | | | mL/min/1.34y7Tell than | | CENTER - | | [...] + | BUN/Creatin | 12.8 | | [place] | | | ine Ratio | | [...] + | [facility] | [address] | [place] | [phone] | | [facility] | | [address] | | | - LABORATORY | | | | + + + + + | [facility] | [address] | [place], [place] | | | [facility] | | [address] | | | - LABORATORY | | [address] | [place] | [phone] | | [facility] | | [address] | | | - LABORATORY | | | | + + + + + | [facility] | [address] | [place] | | | [facility] | | [address] | | | - LABORATORY | | [...] | 0.95 | 0.90 - 1.10 | [facility] | | | | | | [facility] | | | | | | MEDICAL [...] + | [facility] | [address] | [place] | [phone] | | [facility] | | [address] | | | - LABORATORY | | | | + + + + + | [facility] | [address] | [place] | | | [facility] | | [address] | | | - LABORATORY | | [...] | | | | M/uL | [facility] | | | | [...] + | [facility] | [address] | [place] | [phone] | | [facility] | | [address] | | | - LABORATORY | | | | + + + + + | [facility] | [address] | [place] | | | [facility] | | [address] | | | - LABORATORY | | | | + + + + + documented in this encounter Visit Diagnoses + + | Diagnosis | + + | Narcotic abuse (HCC) - Primary Sedative, hypnotic or anxiolytic abuse, unspecified | + + | HTN (hypertension) Unspecified essential hypertension | + + | Tobacco abuse Tobacco use disorder | + + | Chronic low back pain Lumbago | + + documented in this encounter"
--- OUTSIDE RECORDS SUMMARY | ~2019-09-17 | XMS | Encounter Summary ---
Demographics + + + | Address | [address] | | | [place] [address] | + + + | Home Phone | | + + + | Preferred Language | Unknown | + + + | Marital Status | Legally | + + + | Episcopalian Affiliation | Unknown | + + + | Race | Unknown | + + + | Ethnic Group | Unknown | + + + Author + + + | Author | [facility] | | | and [place] | + + + | Organization | [facility] | [...] [place], [place] | | | | | [address] | | + + + + + Care Team Providers + +------+ + | Care Vendor Specialist Name | Role | Phone | [...] Description | +--------+--------+ + + + | 03/10/ | Refill | [facility] [place] | Jean Pierre Amaya, | Medication Refill | | 2013 | | NE[address]UR[address] | DO [address] | | | | | [address] | [address] [place], [place] | | | | | [place], [place] | [address] | | | | | [address] | | | | | | [phone] | | | +--------+--------+ + + + [...]
--- OUTSIDE RECORDS SUMMARY | ~2019-09-17 | XMS | Encounter Summary ---
Demographics + + + | Address | [address] | | | [place] [address] | + + + | Home Phone [...] + + | Author | [facility] | | | and Hanyana | + + + | Organization | [facility] | | [...] [place], [place] | | | | | [address] | | + + + + + Care Team Providers + +------+ + | Care Mobility Architect Name | Role | Phone | + [...] | | | fracture | | [address] | | | | | Thoracic or | | [place], | | | | | lumbosacral | | [place] [address] | | | | | neuritis or | | Phone: | | | | | radiculitis, | | [phone] | | | | | unspecified | | Fax: | | | | | Lumbago | | [phone] | | | | | Arthrodesis | [...] + + + + | 02/04/ | Anesthesia | MONIE MORRIS PATRICIA | Judah Godwin, | | | 2013 | Event | [facility] | MD [address] | | | | | [address] | [place] | | | | | [place] | [id number] | | | | | [address] | | | | | | [phone] | | | +--------+ + + + + Anesthesia Record + + + + + | Procedure Name | Responsible | Anesthesia Start | Anesthesia Stop Time | | | Anesthesiologist | Time | | + + + + + | MIS HARDWARE REMOVAL | | 02/04/14 1055 | 02/04/14 1918 | | AND REVISION OF | | | | | FUSION AT L5/S1 | | | | | (N/A Back) | | | | + + + + + +----+---+ + + | Da | T | Event | Comment | | te | i | | | | | m | | | | | e | | | +----+---+ + + | 04 | 1 | | | | /0 | 0 | | | | 8/ | 2 | | | | 20 | 0 | | | | 14 | | | | +----+---+ + + | | 1 | An Checkout | Pre-use anesthesia machine/equipment checkout | | | 0 | | | | | 3 | | | | | 9 | | | +----+---+ + + | | 1 | An Start | Reassessment prior to anesthesia induction/procedure. | | | 0 | | | | | 5 | | | | | 5 | | | +----+---+ + + | | 1 | Antibiotic | | | | 0 | Given | | | | 5 | | | | | 5 | | | +----+---+ + + | | 1 | Preoxygenat | | | | 1 | ed | | | | 0 | | | | | 0 | | | +----+---+ + + | | 1 | An | | | | 1 | Induction | | | | 0 | | | | | 2 | | | +----+---+ + + | | 1 | An | | | | 1 | Intubation | | | | 0 | | | | | 4 | | | +----+---+ + + | | 1 | [place] | | | | 1 | 38-degrees | | | | 2 | | | | | 6 | | | +----+---+ + + | | 1 | Antibiotic | | | | 4 | Given | | | | 5 | | | | | 5 | | | +----+---+ + + | | 1 | [place] off | Esophageal Temperature of 38.0, so warmers turned off for now. | | | 4 | | | | | 5 | | | | | 7 | | | +----+---+ + + | | 1 | Quick Note | Upper convective warmer turned onto Ambient. Patient noted to be | | | 7 | | quite sweaty under drapes. Back to standby at 17:58. | | | 3 | | | | | 0 | | | +----+---+ + + | | 1 | Breathing | | | | 9 | Spontaneous | | | | 0 | ly | | | | 2 | | | +----+---+ + + | | 1 | Oropharynx | | | | 9 | Suctioned | | | | 0 | | | | | 3 | | | +----+---+ + + | | 1 | Moving | | | | 9 | Purposefull | | | | 0 | y | | | | 3 | | | +----+---+ + + | | 1 | Extubated | | | | 9 | Awake | | | | 0 | | | | | 4 | | | +----+---+ + + | | 1 | an stop | | | | 9 | data | | | | 0 | | | | | 6 | | | +----+---+ + + | | 1 | An Stop | Patient handed off to recovery nurse. | | | 1 | | | | | 8 | | | +----+---+ + + +------+ | Meds | +------+ + + + | Name | Total | + + + | midazolam | 2 mg | + + + | fentaNYL | 250 mcg | + + + | lidocaine 2% (PF) | 50 mg | + + + | propofol | 200 mg | + + + | succinylcholine | 100 mg | + + + | dexamethasone | 10 mg | + + + | ondansetron | 8 mg | + + + | HYDROmorphone | 6 mg | + + + | cefazolin in NS (ANCEF) IVPB 2 g | 2 g | + + + | ketamine | 50 mg | + + + | ketamine | 150 mg | + + + | dexmedetomidine (Bolus) | 20 mcg | + + + | dexmedetomidine (Infusion) | 100 mcg | + + + | magnesium sulfate | 4 g | + + + | Phenylephrine 10mg/mL VIAL | 500 mcg | + + + | vasopressin | 24 Units | + + + | ePHEDrine | 15 mg | + + + | esmolol | 50 mg | + + + | ceFAZolin | 4 g | + + + | NORMOSOL-R (Infusion) | 2,350 mL | + + + + + | Name | + + | N2O Flow Rate (L/Min) | + + | O2 Flow Rate (L/Min) | + + | Insp O2 | + + | Exp SEV | + + | Exp ALISHA | + + | Air Flow Rate (L/Min) | + + + + | No blood administrations on file. | + + +--------+ + + + | Type | Details | Placement | Removal | +--------+ + + + | [READ | 02/04/14; 02/06/14; 1130 | 02/04/14 0000 by | 02/06/14 1130 by | | ONLY] | | Irwin Bustos RN | Ethel Babcock RN | | | | | | | Periph | | | | | eral | | | | | IV - | | | | | Single | | | | | Lumen | | | | | | | | | +--------+ + + + | Brace/ | 02/04/14; 11/06/14 | 02/04/14 0000 by | 11/06/14 0000 by | | Orthot | | Neha Alvarez, | Dominique Patel RN | | ic/Ort | | PT | | | hosis | | | | +--------+ + + + | Airway | Placement Date: 02/04/14; | 02/04/141103 by | 02/04/14 190 by | | | Placement Time: 1104; Mask | Judah Godwin MD | Judah Godwin MD | | | Ventilation: EZ; Airway Grade: I; | | | | | Successful Technique: Mac; | | | | | Laryngoscope Blade Size: 3; | | | | | Airway Type: endotracheal, | | | | | cuffed; Size: 7; Airway Tube | | | | | Secured At: 0.24 m (9.45"); Tube | | | | | Reference Point: lip; Trauma: | | | | | none; Placement Check: verified | | | | | by capnography; Placed By: | | | | | Anesthesiologist; Removal Date: | | | | | 02/04/14; Removal Time: 1904 | | | +--------+ + + + | Read | 02/04/14; 1158; Bilateral; back; | 02/04/14 1158 by | 11/06/14 0000 by | | only - | 11/06/14 | Rd Blair RN | Dominique Patel RN | | | | | | | [place] | | | | | on | | | | +--------+ + + + | Drain/ | 02/04/14; 1845; #1; Left:; lower; | 02/04/14 1845 by | 02/06/14 0730 by | | Device | other (see comments) (Lumbar); | Nataly Garg RN | Ethel Babcock RN | | Site | healing within expectations; | | | | | 02/06/14 (Removed by Toribio Barakat | | | | | TRAM Parker); 0730 | | | +--------+ + + + | Drain/ | 02/04/14; 1846; #2; Right:; | 02/04/14 1846 by | 02/06/14 0730 by | | Device | lower; other (see comments) | Nataly Garg RN | Ethel Babcock RN | | Site | (Lumbar); healing within | | | | | expectations; 02/06/14 (Removed | | | | | by TRAM Barbosa); 0730 | | | +--------+ + + + [...] in this encounter Administered Medications + +--------+ +------+------+------+ | Medication Order | MAR | Action | Dose | Rate | Site | | | Action | Date | | | | + +--------+ +------+------+------+ | ceFAZolin (ANCEF, KEFZOL) | Given | 02/05/20 | 2 g | | | | injection Intravenous, PRN, | | 14 6:41 | | | | | Starting Mon02/04/14 at 1455, | | PM PDT | | | | | Anesthesia Intra-op | | | | | | + +--------+ +------+------+------+ +-------+ +-----+---+---+ | Given | 02/05/20 | 2 g | | | | | 14 2:55 | | | | | | PM PDT | | | | +-------+ +-----+---+---+ +---+---+ | | | +---+---+ + +-------+ +-----+---+---+ | cefazolin in NS (ANCEF) IVPB 2 | Given | 02/05/20 | 2 g | | | | g 2 g, Intravenous, Administer | | 14 10:55 | | | | | over 30 Minutes, Prior to | | AM PDT | | | | | Incision, Starting Mon02/04/14 at | | | | | | | 1012, For 1 dose, Administer | | | | | | | within 1 hour of surgical | | | | | | | incision., Pre-op | | | | | | + +-------+ +-----+---+---+ +---+---+ | | | +---+---+ + +-------+ +-------+---+---+ | dexamethasone (DECADRON) 10 | Given | 02/05/20 | 10 mg | | | | mg/mL injection Intravenous, | | 14 11:14 | | | | | PRN, Starting Mon02/04/14 at 1114, | | AM PDT | | | | | Anesthesia Intra-op | | | | | | + +-------+ +-------+---+---+ +---+---+ | | | +---+---+ + + + +--------+---------+---+ | dexmedetomidine (PRECEDEX) 400 | Restarte | 02/05/20 | 24 | 6 mL/hr | | | mcg in 100 mL NS infusion | d | 14 12:31 | mcg/hr | | | | Intravenous, CONTINUOUS PRN, | | PM PDT | | | | | Starting Mon02/04/14 at 1121, | | | | | | | Anesthesia Intra-op | | | | | | + + + +--------+---------+---+ +---------+ +--------+---------+---+ | New Bag | 02/05/20 | 24 | 6 mL/hr | | | | 14 11:21 | mcg/hr | | | | | AM PDT | | | | +---------+ +--------+---------+---+ +---+---+ | | | +---+---+ + +-------+ +--------+---+---+ | dexmedetomidine (PRECEDEX) in | Given | 02/05/20 | 20 mcg | | | | sodium chloride bolus infusion | | 14 11:20 | | | | | Intravenous, PRN, Starting Tue | | AM PDT | | | | | 02/04/14 at 1120, Anesthesia | | | | | | | Intra-op | | | | | | + +-------+ +--------+---+---+ +---+---+ | | | +---+---+ + +-------+ +-------+---+---+ | ePHEDrine 50 mg/mL injection | Given | 02/05/20 | 15 mg | | | | PRN, Starting Mon02/04/14 at 1222, | | 14 12:22 | | | | | Anesthesia Intra-op | | PM PDT | | | | + +-------+ +-------+---+---+ +---+---+ | | | +---+---+ + +-------+ +-------+---+---+ | esmolol (BREVIBLOC) 10 mg/mL | Given | 02/05/20 | 10 mg | | | | injection Intravenous, PRN, | | 14 3:14 | | | | | Starting Mon02/04/14 at 1440, | | PM PDT | | | | | Anesthesia Intra-op | | | | | | + +-------+ +-------+---+---+ +-------+ +-------+---+---+ | Given | 02/05/20 | 20 mg | | | | | 14 3:02 | | | | | | PM PDT | | | | +-------+ +-------+---+---+ | Given | 02/05/20 | 20 mg | | | | | 14 2:40 | | | | | | PM PDT | | | | +-------+ +-------+---+---+ +---+---+ | | | +---+---+ + +-------+ +---------+---+---+ | fentaNYL injection PRN, Pain, | Given | 02/05/20 | 200 mcg | | | | Starting 02/04/14 at 1102, | | 14 11:02 | | | | | Anesthesia Intra-op | | AM PDT | | | | + +-------+ +---------+---+---+ +-------+ +--------+---+---+ | Given | 02/05/20 | 50 mcg | | | | | 14 10:55 | | | | | | AM PDT | | | | +-------+ +--------+---+---+ +---+---+ | | | +---+---+ + +-------+ +------+---+---+ | HYDROmorphone (PF) (DILAUDID) 2 | Given | 02/05/20 | 1 mg | | | | mg/mL injection PRN, Pain, | | 14 3:36 | | | | | Starting e 02/04/14 at 1132, | | PM PDT | | | | | Anesthesia Intra-op | | | | | | + +-------+ +------+---+---+ +-------+ +------+---+---+ | Given | 02/05/20 | 1 mg | | | | | 14 3:02 | | | | | | PM PDT | | | | +-------+ +------+---+---+ | Given | 02/05/20 | 1 mg | | | | | 14 2:11 | | | | | | PM PDT | | | | +-------+ +------+---+---+ +---+---+ | | | +---+---+ + +-------+ +-------+---+---+ | ketamine 50 mg/mL injection | Given | 02/05/20 | 50 mg | | | | PRN, Starting Mon02/04/14 at 1102, | | 14 11:02 | | | | | Anesthesia Intra-op | | AM PDT | | | | + +-------+ +-------+---+---+ +---+---+ | | | +---+---+ + + + + +-------+---+ | ketamine 50 mg/mL injection | Restarte | 02/05/20 | 4 | 0.5 | | | CONTINUOUS PRN, Starting Tue | d | 14 12:31 | mcg/kg/m | mL/hr | | | 02/04/14 at 1121, Anesthesia | | PM PDT | in | | | | Intra-op | | | | | | + + + + +-------+---+ +---------+ + +-------+---+ | New Bag | 02/05/20 | 4 | 0.5 | | | | 14 11:21 | mcg/kg/m | mL/hr | | | | AM PDT | in | | | +---------+ + +-------+---+ +---+---+ | | | +---+---+ + +-------+ +-------+---+---+ | lidocaine (PF) 2% injection | Given | 02/05/20 | 50 mg | | | | PRN, Starting 02/04/14 at 1102, | | 14 11:02 | | | | | Anesthesia Intra-op | | AM PDT | | | | + +-------+ +-------+---+---+ +---+---+ | | | +---+---+ + + + +-------+-------+---+ | magnesium sulfate 500 mg/mL | Rate/Dos | 02/05/20 | 0.75 | 1.5 | | | injection Intravenous, | e Change | 14 2:45 | g/hr | mL/hr | | | CONTINUOUS PRN, Starting Mon | | PM PDT | | | | | 02/04/14 at 1121, Infuse over 2 - 4 | | | | | | | hours, Anesthesia Intra-op | | | | | | + + + +-------+-------+---+ + + + +---------+---+ | Rate/Dose Change | 02/05/20 | 0.5 g/hr | 1 mL/hr | | | | 14 12:21 | | | | | | PM PDT | | | | + + + +---------+---+ | New Bag | 02/05/20 | 1 g/hr | 2 mL/hr | | | | 14 11:21 | | | | | | AM PDT | | | | + + + +---------+---+ +---+---+ | | | +---+---+ + +-------+ +------+---+---+ | midazolam (VERSED) 1 mg/mL | Given | 02/05/20 | 2 mg | | | | injection Intravenous, PRN, | | 14 10:55 | | | | | Anxiety, Starting 02/04/14 at | | AM PDT | | | | | 1055, Anesthesia Intra-op | | | | | | + +-------+ +------+---+---+ +---+---+ | | | +---+---+ + +---------+ +----+---+---+ | NORMOSOL-R infusion | New Bag | 02/05/20 | mL | | | | Intravenous, CONTINUOUS PRN, | | 14 5:30 | | | | | Starting 02/04/14 at 1055, | | PM PDT | | | | | Anesthesia Intra-op | | | | | | + +---------+ +----+---+---+ +---------+ +----+---+---+ | New Bag | 02/05/20 | mL | | | | | 14 1:20 | | | | | | PM PDT | | | | +---------+ +----+---+---+ | New Bag | 02/05/20 | mL | | | | | 14 10:55 | | | | | | AM PDT | | | | +---------+ +----+---+---+ +---+---+ | | | +---+---+ + +-------+ +------+---+---+ | ondansetron (ZOFRAN) injection | Given | 02/05/20 | 4 mg | | | | PRN, Nausea, Vomiting, Starting | | 14 6:30 | | | | | 02/04/14 at 1114, Anesthesia | | PM PDT | | | | | Intra-op | | | | | | + +-------+ +------+---+---+ +-------+ +------+---+---+ | Given | 02/05/20 | 4 mg | | | | | 14 11:14 | | | | | | AM PDT | | | | +-------+ +------+---+---+ +---+---+ | | | +---+---+ + +-------+ +---------+---+---+ | phenylephrine (DAMARIS-SYNEPHRINE) | Given | 02/05/20 | 100 mcg | | | | 10 mg/mL injection Intravenous, | | 14 11:53 | | | | | PRN, Starting 02/04/14 at 1142, | | AM PDT | | | | | Anesthesia Intra-op | | | | | | + +-------+ +---------+---+---+ +-------+ +---------+---+---+ | Given | 02/05/20 | 200 mcg | | | | | 14 11:47 | | | | | | AM PDT | | | | +-------+ +---------+---+---+ | Given | 02/05/20 | 200 mcg | | | | | 14 11:42 | | | | | | AM PDT | | | | +-------+ +---------+---+---+ +---+---+ | | | +---+---+ + +-------+ +--------+---+---+ | propofol (DIPRIVAN) injection | Given | 02/05/20 | 200 mg | | | | PRN, Starting 02/04/14 at 1102, | | 14 11:02 | | | | | Shake well. Do not filter. | | AM PDT | | | | | Expires 12 hours after spiked., | | | | | | | Anesthesia Intra-op | | | | | | + +-------+ +--------+---+---+ +---+---+ | | | +---+---+ + +-------+ +--------+---+---+ | succinylcholine (ANECTINE) | Given | 02/05/20 | 100 mg | | | | injection Intravenous, PRN, | | 14 11:02 | | | | | Starting 02/04/14 at 1102, Keep | | AM PDT | | | | | in refrigerator., Anesthesia | | | | | | | Intra-op | | | | | | + +-------+ +--------+---+---+ +---+---+ | | | +---+---+ + +-------+ +---------+---+---+ | vasopressin (PITRESSIN) | Given | 02/05/20 | 4 Units | | | | injection Intravenous, PRN, | | 14 12:41 | | | | | Starting 02/04/14 at 1154, | | PM PDT | | | | | Anesthesia Intra-op | | | | | | + +-------+ +---------+---+---+ +-------+ +---------+---+---+ | Given | 02/05/20 | 4 Units | | | | | 14 12:20 | | | | | | PM PDT | | | | +-------+ +---------+---+---+ | Given | 02/05/20 | 4 Units | | | | | 14 12:15 | | | | | | PM PDT | | | | +-------+ +---------+---+---+ +---+---+ | | | +---+---+ documented in this encounter
--- OUTSIDE RECORDS SUMMARY | ~2019-09-17 | XMS | Encounter Summary ---
Demographics + + + | Address | [address] | | | [place] [address] | + + + | Home Phone | | + + + | Preferred Language | Unknown | + + + | Marital Status | Legally | + + + | Amish Affiliation | Unknown | + + + | Race | Unknown | + + + | Ethnic Group | Unknown | + + + Author + + + | Author | [facility] | | | and [place]anyana | + + + | Organization | [facility] | | | and [...] [place], [place] | | | | | [address] | | + + + + + Care Team Providers + +------+ + | Care Medical Facilities Section Director Name | Role | Phone | + +------+ + | Basilio Cuevas PA-C | PCP | | + +------+ + Encounter Details +--------+ + + + + | Date | Type | Department | Care Team | Description | +--------+ + + + + | 05/27/ | Hospital | [facility] | Galo Gates | | | 2014 - | Encounter | [facility] | Mervin Dietrich MD [address] | | | | | INTENSIVE CARE UNIT | [address] | | | 05/28/ | | [address] | [place] [address] | | | 2014 | | [place], [place] | [phone] | | | | | [address] | | | | | | [phone] | | | +--------+ + + + [...] at 05/28/15 0817 Author: AWAIS Hernandes Service: Transfer Station Attendant Author Type: Nurse Practitioner Filed: 06/10/15 1233 Date of Service: 05/28/15816 Status: Addendum Junior [employer] Math Teacher: AWAIS Hernandes (Nurse Practitioner) Related Notes: Original Note by AWAIS Hernandes (Nurse Practitioner) filed at 05/01 0821 Merged With [facility] Service: Transfer Station Attendant Discharge Summary Fili Alonso 34 y.o. Date [...] d prior esophageal tear was seen at [facility] for a 3 day history of vomiting [...] EGD. 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 You may get the following medications from [...] 05/28/15919 Date of Service: 05/28/15918 Status: Signed Junior [employer] Math Teacher: Xavier Hensley RN (Registered Nurse) Discharge instructions given, IV's removed and pt discharged onver nichole Transaction, Provider Unknown - 05/28/2015 8:49 AM PDT Case Management by ALEJANDRO Chan at 05/28/1549 Author: ALEJANDRO Chan Service: (none) Author Type: Vacuum Cleaner Assembler Filed: 05/28/15849 Date of Service: 05/28/15848 Status: Signed Junior High Math Teacher: ALEJANDRO Chan (Vacuum Cleaner Assembler) CM met with pt for discharge planning. Pt is 34 years old and lives with his mother in a 1- level home with no stairs at the main entrance. Pt has a [id number]-wymtqs. Pt does not own any medical equipment as he was independent at home. Pt's mother will assist with his daily scout ing activities including personal hygiene, grooming, dressing, feeding, cooking, transportat ion and ambulation. Pt had no resource concerns at this time. CM will continue to follow as needed. Discharge Plan: Home. [facility] 05/28/15847 Discharge Planning Evaluation Admitting Diagnosis GI [...] 05/28/15830 Date of Service: 05/28/15829 Status: Signed Junior High Math Teacher: Xavier Hensley RN (Registered Nurse) Orthostatic BP flat 121/73 map 91, sitting 131/78 map 98, stand 139/85 map 104 Kacy Bolton ARNP - 05/28/2015 6:43 AM PDT Progress Notes by AWAIS Hernandes at 05/28/15 0643 Author: AWAIS Hernandes Service: Transfer Station Attendant Author Type: Nurse Practitioner Filed: 05/28/15 0817 Date of Service: 05/28/15642 Status: Signed Junior High Math Teacher: AWAIS Hernandes (Nurse Practitioner) Merged With [facility] Service: Transfer Station Attendant Progress Note Fili Alonso 34 y.o. Hospital Day: LOS: 1 day Post-Op Day: 1 Day Post-Op Consulting Physicians Treatment Team: Consulting Physician: Taryn Medeiros MD Admitting Provider: Galo Gates MD SUBJECTIVE Patient Summary: The patient is a 34 y.o. male with significant past medical history of chronic back pain and prior esophageal tear was seen at [facility] for a 3 d ay history of [...] EGD. He had an EGD at the [facility] 4 mo nths ago but says "they [...] resume CV: Hypotension: received 3L IVF at [facility]. He was initially orthostatic at the other [...] 05/27/151729 Date of Service: 05/27/151729 Status: Signed Junior High Math Teacher: Marlene Arciniega RPH (Pharmacist) Renal Dosing Monitoring: Fili Alonso 34 y.o. male Pharmacy dosing for renal function per Dr. Gates Plan per protocol: No scr available at this time Pharmacy will continue monitoring patient for appropriate dosing per renal function. 05/27/2015 5:30 PM Pharmacist: MARLENE ARCIINEGA documente d in this encounter Plan of [...] EXTERNAL | | | | performed at [facility];[address] | | LAB | | | | [address];[place] | | | | | | [address] | | | | + + + [...] EXTERNAL | | | | performed at [facility];[address] | | LAB | | | | [address];[place] | | | | | | [address] | | | | + + + [...] EXTERNAL | | | | performed at [facility];888 | g/dL | LAB | | | | [address];[place], [place] | | | | | | [address] | | | | + + + + + + | Hematocrit, | 28.1 (L)Comment: Testing | 39.0 - 50.0 % | EXTERNAL | | | POC | performed at [facility];[address] | | LAB | | | | [address];[place] | | | | | | [address] | | | | + + + [...] EXTERNAL | | | | performed at [facility];888 | g/dL | LAB | | | | [address];[place] | | | | | | [address] | | | | + + + + + + | Hematocrit, | 27.6 (L)Comment: Testing | 39.0 - 50.0 % | EXTERNAL | | | POC | performed at [facility];[address] | | LAB | | | | [address];[place] | | | | | | [address] | | | | + + + [...] EXTERNAL LAB | | Testing performed at [facility];[address] [place] [address];[place] [address] MRSA PCR | | | NEGATIVE Testing performed at | | | [facility];[address] [place] [address];[place] [address] | | + + + + +---------+ [...] | | | Patient | performed at [facility];[address] | | LAB | | | | [address];[place] | | | | | | [address] | | | | + + + [...] | | | | | performed at [facility] | | | | | | [address] [facility];[place], [place] | | | | | | [address] | | | | + + + [...] EXTERNAL | | | | performed at [facility];[address] | K/uL | LAB | | | | [address];[place] | | | | | | [address] | | | | + + + + + + | RED CELL | 4.62Comment: Testing | 4.20 - 5.70 | EXTERNAL | | | COUNT | performed at [facility];[address] | M/uL | LAB | | | | [address];[place] | | | | | | [address] | | | | + + + + + + | Hgb | 9.1 (L)Comment: Testing | 13.2 - 17.0 | EXTERNAL | | | | performed at [facility];888 | g/dL | LAB | | | | [address];[place] | | | | | | [address] | | | | + + + + + + | Hematocrit, | 30.3 (L)Comment: Testing | 39.0 - 50.0 % | EXTERNAL | | | POC | performed at [facility];[address] | | LAB | | | | [address];[place] | | | | | | [address] | | | | + + + + + + | MCV | 65.6 (L)Comment: Testing | 80.0 - 100.0 fl | EXTERNAL | | | | performed at [facility];[address] | | LAB | | | | [address];[place] | | | | | | [address] | | | | + + + + + + | MCH | 19.7 (L)Comment: Testing | 27.0 - 34.0 pg | EXTERNAL | | | | performed at [facility];[address] | | LAB | | | | [address];[place] | | | | | | [address] | | | | + + + + + + | MCHC | 30.0 (L)Comment: Testing | 32.0 - 35.5 | EXTERNAL | | | | performed at [facility];888 | g/dL | LAB | | | | [address];[place] | | | | | | [address] | | | | + + + + + + | RDW-CV | 45.1Comment: Testing | 37 - 53 fl | EXTERNAL | | | | performed at [facility];[address] | | LAB | | | | [address];[place] | | | | | | [address] | | | | + + + + + + | Platelet | 265Comment: Testing | 150 - 400 K/uL | EXTERNAL | | | Count | performed at [facility];[address] | | LAB | | | Plasma | [address];[place] | | | | | | [address] | | | | + + + + + + | MPV | 8.8Comment: Testing | fl | EXTERNAL | | | | performed at [facility];[address] | | LAB | | | | [address];[place] | | | | | | [address] | | | | + + + + + + | Differentia | AUTOMATEDComment: | | EXTERNAL | | | l Type | Testing performed at | | LAB | | | | [facility];[address];[place] [address] | | | | + + + + + + | % Segmented | 60.66Comment: Testing | % | EXTERNAL | | | | performed at [facility];[address] | | LAB | | | Neutrophils | [address];[place] | | | | | | [address] | | | | + + + + + + | % | 26.41Comment: Testing | % | EXTERNAL | | | Lymphocytes | performed at [facility];[address] | | LAB | | | | [address];[place] | | | | | | [address] | | | | + + + + + + | % Monocytes | 9.77Comment: Testing | % | EXTERNAL | | | | performed at [facility];[address] | | LAB | | | | [address];[place] | | | | | | [address] | | | | + + + + + + | % | 2.01Comment: Testing | % | EXTERNAL | | | Eosinophils | performed at [facility];[address] | | LAB | | | | [address];[place] | | | | | | [address] | | | | + + + + + + | % Basophils | 1.15Comment: Testing | % | EXTERNAL | | | | performed at [facility];[address] | | LAB | | | | [address];[place] | | | | | | [address] | | | | + + + + + + | Absolute | 5.37Comment: Testing | 1.90 - 7.40 | EXTERNAL | | | Segmented | performed at [facility];[address] | K/uL | LAB | | | Neutrophils | [address];[place] | | | | | | [address] | | | | + + + + + + | Absolute | 2.34Comment: Testing | 1.00 - 3.90 | EXTERNAL | | | Lymphocytes | performed at [facility];[address] | K/uL | LAB | | | | [address];[place] | | | | | | [address] | | | | + + + + + + | Absolute | 0.87 (H)Comment: Testing | 0.00 - 0.80 | EXTERNAL | | | Monocytes | performed at [facility];[address] | K/uL | LAB | | | | [address];[place] | | | | | | [address] | | | | + + + + + + | Absolute | 0.18Comment: Testing | 0.00 - 0.50 | EXTERNAL | | | Eosinophils | performed at [facility];[address] | K/uL | LAB | | | | [address];[place] | | | | | | [address] | | | | + + + + + + | Absolute | 0.10Comment: Testing | 0.00 - 0.10 | EXTERNAL | | | Basophils | performed at [facility];8 | K/uL | LAB | | | | [address];[place] | | | | | | [address] | | | | + + + + + + | RBC | 1+Comment: | | EXTERNAL | | | Morphology | HYPO3+MICROTesting | | LAB | | | | performed at [facility];[address] | | | | | | [address];[place] | | | | | | [address] | | | | | |Testing performed at [facility];[address];[place] [address] | | | | | | | | | | + + + + + + | Platelet | ADEQUATEComment: Testing | | EXTERNAL | | | Estimate | performed at [facility];[address] | | LAB | | | | [address];[place], [place] | | | | | | [address] | | | | + + + [...] EXTERNAL | | | | performed at [facility];[address] | mmol/L | LAB | | | | [address];[place] | | | | | | [address] | | | | + + + + + + | K | 4.2Comment: Testing | 3.5 - 4.9 | EXTERNAL | | | | performed at [facility];[address] | mmol/L | LAB | | | | [address];[place] | | | | | | [address] | | | | + + + + + + | Cl | 107Comment: Testing | 99 - 109 mmol/L | EXTERNAL | | | | performed at [facility];[address] | | LAB | | | | [address];[place] | | | | | | [address] | | | | + + + + + + | CO2 | 26Comment: Testing | 23 - 32 mmol/L | EXTERNAL | | | | performed at [facility];[address] | | LAB | | | | [address];[place] | | | | | | [address] | | | | + + + + + + | Anion Gap | 11Comment: Testing | 5 - 20 mmol/L | EXTERNAL | | | | performed at [facility];[address] | | LAB | | | | [address];[place] | | | | | | [address] | | | | + + + + + + | Glucose, | 88Comment: Testing | 65 - 99 mg/dL | EXTERNAL | | | Fasting | performed at [facility];[address] | | LAB | | | | [address];[place] | | | | | | [address] | | | | + + + + + + | BUN | 15Comment: Testing | 8 - 25 mg/dL | EXTERNAL | | | | performed at [facility];[address] | | LAB | | | | [address];[place] | | | | | | [address] | | | | + + + + + + | Creatinine | 1.1Comment: Testing | 0.70 - 1.30 | EXTERNAL | | | | performed at [facility];[address] | mg/dL | LAB | | | | [address];[place] | | | | | | [address] | | | | + + + + + + | BUN/Creatin | 13Comment: Testing | | EXTERNAL | | | ine Ratio | performed at [facility];[address] | | LAB | | | | [address];[place] | | | | | | [address] | | | | + + + + + + | Calcium | 7.5 (L)Comment: Testing | 8.5 - 10.5 | EXTERNAL | | | | performed at [facility];888 | mg/dL | LAB | | | | [address];[place] | | | | | | [address] | | | | + + + + + + | Protein, | 6.7Comment: Testing | 6.3 - 8.2 g/dL | EXTERNAL | | | Total | performed at [facility];[address] | | LAB | | | | [address];[place] | | | | | | [address] | | | | + + + + + + | Albumin | 3.2 (L)Comment: Testing | 3.6 - 5.0 g/dL | EXTERNAL | | | | performed at [facility];[address] | | LAB | | | | [address];[place] | | | | | | [address] | | | | + + + + + + | Globulin | 3.5Comment: Testing | 1.3 - 4.9 g/dL | EXTERNAL | | | | performed at [facility];[address] | | LAB | | | | [address];[place] | | | | | | [address] | | | | + + + + + + | A/G Ratio | 0.9 (L)Comment: Testing | 1.0 - 2.4 | EXTERNAL | | | | performed at [facility];[address] | | LAB | | | | [address];[place] | | | | | | [address] | | | | + + + + + + | Bilirubin | 0.6Comment: Testing | 0.1 - 1.5 mg/dL | EXTERNAL | | | Total | performed at [facility];[address] | | LAB | | | | [address];[place] | | | | | | [address] | | | | + + + + + + | ALP, | 83Comment: Testing | 35 - 115 U/L | EXTERNAL | | | External | performed at [facility];[address] | | LAB | | | | [address];[place] | | | | | | [address] | | | | + + + + + + | AST | 19Comment: Testing | 10 - 45 U/L | EXTERNAL | | | | performed at [facility];[address] | | LAB | | | | [address];[place] | | | | | | [address] | | | | + + + + + + | ALT | 17Comment: Testing | 10 - 65 U/L | EXTERNAL | | | | performed at [facility];[address] | | LAB | | | | [address];[place] | | | | | | [address] | | | | + + + [...] | | | | | | at [facility];[address];[place] [address] | | | | + + + [...] EXTERNAL | | | | performed at [facility];[address] | | LAB | | | | [address];[place], [place] | | | | | | [address] | | | | + + + [...] EXTERNAL | | | | performed at [facility] | | LAB | | | | [address] [facility];[place], [place] | | | | | | [address] | | | | + + + [...]
--- OUTSIDE RECORDS SUMMARY | ~2019-09-17 | XMS | Encounter Summary ---
Demographics + + + | Address | [address] | | | [place] [address] | + + + | Home Phone [...] [place], [place] | | | | | [address] | | + + + + + Care Team Providers + +------+ + | Care Cardiovascular Tech Name | Role | Phone | + +------+ + | Basilio Cuevas PA-C | PCP | | + +------+ + Encounter Details +--------+ + + + + | Date | Type | Department | Care Team | Description | +--------+ + + + + | 12/04/ | Hospital | [facility] | Jean Pierre Amaya, | | | 2013 | Encounter | MED CTR XRAY [address] | DO [address] | | | | | [place] | [address] | | | | | [place] [address] | [id number] | | | | | [phone] | | | +--------+ + + + [...]
--- OUTSIDE RECORDS SUMMARY | ~2019-09-17 | XMS | Encounter Summary ---
Demographics + + + | Address | [address] | | | [place] [address] | + + + | Home Phone | | + + + | Preferred Language | Unknown | + + + | Marital Status | Legally | + + + | Sikh Affiliation | Unknown | + + + | Race | Unknown | + + + | Ethnic Group | Unknown | + + + Author + + + | Author | [facility] | | | and [place]any[place] | + + + | Organization | [facility] | | | and [place] [...] [place], [place] | | | | | [address] | | + + + + + Care Team Providers + +------+ + | Care Point Of Care Technician Name | Role | Phone | [...] [address] | [address] [place], [place] | | | | | [place], [place] | [address] | | | | | [address] | | | | | | [phone] | | | +--------+ + + + [...]
--- OUTSIDE RECORDS SUMMARY | ~2019-09-17 | XMS | Encounter Summary ---
Demographics + + + | Address | [address] | | | [place] [address] | + + + | Home Phone [...] | [facility] | | | and [place]any[place] | + + + | Organization | [facility] | | | and [...] [place], [place] | | | | | [address] | | + + + + + Care Team Providers + +------+ + | Care Riveter Automobile Brakes Name | Role | Phone | + +------+ + PCP | Unavailable | + +------+ + Encounter Details +--------+ + + + + | Date | Type | Department | Care Team | Description | +--------+ + + + + | 10/26/ | Hospital | [facility] | | | | 2007 | Encounter | MED CTR EMERGENCY | | | | | | [address] | | | | | | [place] | | | | | | [address] | | | | | | [phone] | | | +--------+ + + + + Social History + +-------+ +--------+------+ | Tobacco Use | Types | Packs/Day | Years | Date | | | | | Used | | + +-------+ +--------+------+ | Never Assessed | | | | | + +-------+ +--------+------+ + + + | Sex Assigned at [...]
--- OUTSIDE RECORDS SUMMARY | ~2019-09-17 | XMS | Encounter Summary ---
Demographics + + + | Address | [address] | | | [place] [address] | + + + | Home Phone | | + + + | Preferred Language | Unknown | + + + | Marital Status | Legally | + + + | Jehovah'S Witness Affiliation | Unknown | + + + | Race | Unknown | + + + | Ethnic Group | Unknown | + + + Author + + + | Author | [facility] | | | and [place] | + + + | Organization | [facility] [...] [place], [place] | | | | | [address] | | + + + + + Care Team Providers + +------+ + | Care Riveting Machine Operator Automatic Name | Role | Phone | + +------+ + | Basilio Cuevas PA-C | PCP | | + +------+ + Encounter Details +--------+ + + + + | Date | Type | Department | Care Team | Description | +--------+ + + + + | 08/08/ | Emergency | [facility] | No, Physician | Patient left without | | 2018 | | MED CTR EMERGENCY | | being seen (Primary | | | | CENTER [address] | | Dx) | | | | [place] | | | | | | [address] | | | | | | [phone] | | | +--------+ + + + [...] +------+--------+ + + | ED INFORMATION | SOINA | Routin | | 08/08/2018 3:29 PM | | EXCHANGE | | e | | PDT | + +------+--------+ + + documented as of this encounter Procedures + +--------+ + + + | Procedure Name | Priori | Date/Time | Associated Diagnosis | Comments | | | ty | | | | + +--------+ + + + | ED INFORMATION | Routin | 08/08/2018 | | | | EXCHANGE | e | 3:29 PM | | | | | | PDT | | | + +--------+ + + + +---+--------+ | | | | | Proced | | | ure | | | Note - | | | Emilia, | | | Lab In | | | | | | Hlseve | | | n - | | | 08/08/ | | | 2017 | | | 3:30 | | | PM PDT | | | | | | Format [...] | | | 8 | | | 15:26? | | | RAY, | | | MICHAE | | | L | | | M?MRN: | | | | | | [id number] | | | [id number] | | | his | | | [...] | | int | | | Oct | | | [...] | | | Oct | | | 8, | | | 2018 | | | [facility] [place] | | | y H. | | [...] | | | SS | | | Aug | | | 30, | | | 2018 | | | [facility] | [place] | | | y H. | | | [place] | | | [place] | | | Emerge | | | ncy | | | Emerge | | | ncy | | | | | | Encoun | | | ter | | | for | | | other | | | genera | | | l | | | examin | | | ation | | | Low | | | back | | | pain | | | | | | Other | | | long | | | term | | | (curre | | | nt) | | | drug | | | therap | | | y | | | Restle | | | ssness | | | and | | | agitat | | | ion | | | Other | | | | | | chroni | | | c pain | | | E.D. | | | [...] | | | Center | | | 1 0 | | | [facility] | [place] | | | y | | | Hospit | | | al 4 0 | | | Total | | | 5 0 | | | Note: | | [...] | | | Summar | | | yNo | | | record | | | ed | | | inpati | | | ent | | | visits | | | . PDMP | | | | | | Report | | | Rx | | | Detail | | | s (6 | | | Mo.)Fi | | | ll | | | Date | | | [...] | | | H | | | SAMANHTA | | | 0 | | | [...] | SON 4 | | | 0 Rx | | | Summar | | | y (12 | | | Mo.)Me | | | tric | | | Count | | | CS | | | II-V | | | Rx 28 | | | CS-II | | | Rx 11 | | | Quanti | | | ty | | | Dispen | | | sed | | | 2,975 | | | Unique | | | | | | Prescr | | | ibers | | | 3 | | | Unique | | | | | | Pharma | | | cies 2 | | | | | | Benzos | | | 6 | | | Opioid | | | s 11 | | | Long | | | [...] | | | H | | | MATTHE | | | W, MD | | | Family | | | | | | Medici | | | ne | | | (509) | | | [phone] | | | 00 | | | (509) | | | [phone] | | | 38 Aug | | | 31, | | [...] | | | ? | | | 2017 | | | Collec | | | [...] | | +---+--------+ documented in this encounter Visit Diagnoses + + | Diagnosis | + + | Patient left without being seen - Primary Surgical or other procedure not carried out | | because of patient's decision | + + documented in this encounter"
--- OUTSIDE RECORDS SUMMARY | ~2019-09-17 | XMS | Encounter Summary ---
Demographics + + + | Address | [address] | | | [place] [address] | + + + | Home Phone | | + + + | Preferred Language | Unknown | + + + | Marital Status | Legally | + + + | Church Affiliation | Unknown | + + + | Race | Unknown | + + + | Ethnic Group | Unknown | + + + Author + + + | Author | [facility] | | | and [place] | + + + | Organization | [facility] | | | and [place] [...] [place], [place] | | | | | [address] | | + + + + + Care Team Providers + +------+ + | Care Program Manager Name | Role | Phone | + +------+ + | No, Physician | PCP | Unavailable | + +------+ + Encounter Details +--------+ + + + + | Date | Type | Department | Care Team | Description | +--------+ + + + + | 08/08/ | Hospital | [facility] | Conversion | Pain | | 2013 | Encounter | CONVERSION [address] | Transaction, | | | | [address] | Provider Unknown | | | | | [place] | [phone] | | | | | [address] | | | | | | [phone] | | | +--------+ + + + [...] CT ABDOMEN PELVIS W | Routin | 01/23/2013 | | Results for this | | CONTRAST | e | 10:16 PM | | procedure are in the | | | | PDT | | results section. | + +--------+ + + + documented in this encounter Results CT Abdomen Pelvis w Contrast (01/23/2013 10:16 PM PDT) + + | Specimen | [...]
--- OUTSIDE RECORDS SUMMARY | ~2019-09-17 | XMS | Encounter Summary ---
Demographics + + + | Address | [address] | | | [place] [address] | + + + | Home Phone | | + + + | Preferred Language | Unknown | + + + | Marital Status | Legally | + + + | Religion Affiliation | Unknown | + + + | Race | Unknown | + + + | Ethnic Group | Unknown | + + + Author + + + | Author | [facility] | | | and [place]anyana | + + + | Organization | [facility] | [...] [place], [place] | | | | | [address] | | + + + + + Care Team Providers + +------+ + | Care Medical Device Assembler Name | Role | Phone | [...] Description | +--------+--------+ + + + | 04/10/ | Refill | [facility] [place] | Jean Pierre Amaya, | Medication Refill | | 2013 | | NEUROSURGERY [address] | DO [address] | | | | | [address] | [address] [place], [place] | | | | | [place], [place] | [address] | | | | | [address] | | | | | | [phone] | | | +--------+--------+ + + + [...]
--- OUTSIDE RECORDS SUMMARY | ~2019-09-17 | XMS | Encounter Summary ---
Demographics + + + | Address | [address] | | | [place] [address] | + + + | Home Phone [...] | Author | [facility] | | | and Hanyana | + + + | Organization | [facility] | | | and [...] [place], [place] | | | | | [address] | | + + + + + Care Team Providers + +------+ + | Care Ethylene Plant Helper Name | Role | Phone | [...] + + + + | 08/19/ | Telephone | [facility] [place] [facility] | No, Physician | Other | | 2012 | | MEDIC[facility] [place] | | | | | | [address] | | | | | | [place], [place] | | | | | | [address] | | | | | | [phone] | | | +--------+ + + + [...]
--- OUTSIDE RECORDS SUMMARY | ~2019-09-17 | XMS | Encounter Summary ---
Demographics + + + | Address | [address] | | | [place] [address] | + + + | Home Phone [...] + + + | Author | [facility] | | | and Hanyana | + + + | Organization | [facility] | | | and [...] [place], [place] | | | | | [address] | | + + + + + Care Team Providers + +------+ + | Care Er Physician Name | Role | Phone | + +------+ + | Mynor Simental MD | PCP | | + +------+ + Encounter Details +--------+ + + + + | Date | Type | Department | Care Team | Description | +--------+ + + + + | 11/14/ | Abstract | [facility] [place] | Jean Pierre Amaya, | | | 2013 | | NEUROSURGERY [address] | DO [address] | | | | | [address] | [address] [place] | | | | | [place] | [address] | | | | | [address] | | | | | | [phone] | | | +--------+ + + + [...]
--- OUTSIDE RECORDS SUMMARY | ~2019-09-17 | XMS | Encounter Summary ---
Demographics + + + | Address | [address] | | | [place] [address] | + + + | Home Phone [...] Author | [facility] | | | and Hanyana | + + + | Organization | [facility] | | | and [place] | [...] [place], [place] | | | | | [address] | | + + + + + Care Team Providers + +------+ + | Care Staff Technologist Name | Role | Phone | + +------+ + | No, Physician | PCP | Unavailable | + +------+ + Encounter Details +--------+ + + + + | Date | Type | Department | Care Team | Description | +--------+ + + + + | 08/11/ | Hospital | [facility] | Conversion | Pain | | 2013 | Encounter | CONVERSION [address] | Transaction, | | | | | [address] | Provider Unknown | | | | | [place] | [phone] | | | | | [address] | | | | | | [phone] | | | +--------+ + + + [...] LUMBAR SPINE 2 OR | Routin | 10/26/2008 | | Results for this | | 3 VW | e | 3:57 AM | | procedure are in the | | | | PST | | results section. | + +--------+ + + + documented in this encounter Results XR Lumbar Spine 2 or 3 Vw (10/26/2008 3:57 AM PST) + + | Specimen | [...]
--- OUTSIDE RECORDS SUMMARY | ~2019-09-17 | XMS | Encounter Summary ---
Demographics + + + | Address | [address] | | | [place] [address] | + + + | Home Phone [...] + | Author | [facility] | | | and Hanyana | + + + | Organization | [facility] | | | and [place] [...] [place], [place] | | | | | [address] | | + + + + + Care Team Providers + +------+ + | Care Heat Treating Furnace Tender Name | Role | Phone | + [...] [address] | [address] [place], [place] | (hypertension); | | | | [place], [place] | [address] | Tobacco abuse; | | | | [address] | | Chronic low back | | | | [phone] | | pain | +--------+ + + [...] | mL/min/1.73m2 | [facility] | | | [place] | RATE,ESTIMATED | | MEDICAL | | | | mL/min/1.91o9Fvfe than | | CENTER - | | [...] + | [facility] | [address] | [place] | [phone] | | [facility] | | [address] | | | - LABORATORY | | | | + + + + + | [facility] | [address] | [place], [place] | | | [facility] | | [address] | | | - LABORATORY | | [...] [address] | [place] | [phone] | | [facility] | | [address] | | | - LABORATORY | | | | + + + + + | [facility] | [address] | [place] | | | [facility] | | [address] | | | - LABORATORY | | [...] | | | | | | [facility] | | | | | [...] + | [facility] | [address] | [place] | [phone] | | [facility] | | [address] | | | - LABORATORY | | | | + + + + + | [facility] | [address] | [place] | | | [facility] | | [address] | | | - LABORATORY | | [...] + | [facility] | [address] | [place] | [phone] | | [facility] | | [address] | | | - LABORATORY | | | | + + + + + | [facility] | [address] | [place] | | | [facility] | | [address] | | | - LABORATORY | | [...]
--- OUTSIDE RECORDS SUMMARY | ~2019-09-17 | XMS | Encounter Summary ---
Demographics + + + | Address | [address] | | | [place] [address] | + + + | Home Phone | | + + + | Preferred Language | Unknown | + + + | Marital Status | Legally | + + + | Episcopal Affiliation | Unknown | + + + | Race | Unknown | + + + | Ethnic Group | Unknown | + + + Author + + + | Author | [facility] | | | and [place]any[place] | + + + | Organization | [facility] | | [...] [place], [place] | | | | | [address] | | + + + + + Care Team Providers + +------+ + | Care Contestant Coordinator Name | Role | Phone | + [...] 01/31/ | Telephone | [facility] | Jean Pierre Amaya, | Procedure (Surgery | | 2013 | | NEUROSUR[address] | DO [address] | reminder ) | | | | [address] | [address] [place], [place] | | | | | [place], [place] | [address] | | | | | [address] | | | | | | [phone] | | | +--------+ + + + [...]
--- OUTSIDE RECORDS SUMMARY | ~2019-09-17 | XMS | Encounter Summary ---
Demographics + + + | Address | [address] | | | [place] [address] | + + + | Home Phone [...] | [facility] | | | and [place]anyana | + + + | Organization | [facility] | | | and [place] [...] [place], [place] | | | | | [address] | | + + + + + Care Team Providers + +------+ + | Care Fire Department Marine Engineer Name | Role | Phone | + [...] [address] | [address] [place], [place] | | | | | [place], [place] | [address] | | | | | [address] | | | | | | [phone] | | | +--------+--------+ + + + [...]
--- OUTSIDE RECORDS SUMMARY | ~2019-09-17 | XMS | Encounter Summary ---
Demographics + + + | Address | [address] | | | [place] [address] | + + + | Home Phone [...] + + + | Author | [facility] | | | and [place]anyana | + + + | Organization | [facility] | | | and [place] [...] [place], [place] | | | | | [address] | | + + + + + Care Team Providers + +------+ + | Care Associate Project Manager Name | Role | Phone | [...] | | NEUROSURGERY [address] | E, Software Development Analyst [address] | (hypertension); | | | | [address] | [address] [place] | Tobacco abuse; | | | | [place], [place] | [place] [address] | Chronic low back | | | | [address] | [phone] | pain | | | | [phone] | | | +--------+ + + + [...] 14 | 7 - 18 mg/dL | [facility] | | | | | | [facility] | | | | | | MEDICAL | | | | | | CENTER - | | | | | | LABORATORY | | + + + + + + | Creatinine | 1.09 | 0.60 - 1.30 | [facility] [place] | | | | | mg/dL | [facility] | | | | | | MEDICAL | | | | | | CENTER - | | | | | | LABORATORY | | + + + + + + | eGFR if not | >60Comment: GLOMERULAR | >=60 | [facility] | | | | FILTRATION | mL/min/1.73m2 | [facility] | | | [place] | RATE,ESTIMATED | | MEDICAL | | | | mL/min/1.88l6Tktw than | | CENTER - | | [...] + | [facility] | [address] | [place] | [phone] | | [facility] | | [address] | | | - LABORATORY | | | | + + + + + | [facility] | [address] | [place] | | | [facility] | | [address] | | | - LABORATORY | | [...] + | [facility] | [address] | [place] | [phone] | | [facility] | | [address] | | | - LABORATORY | | | | + + + + + | [facility] | [address] | [place] | | | [facility] | | [address] | | | - LABORATORY | | [...] + | [facility] | [address] | [place] | [phone] | | [facility] | | [address] | | | - LABORATORY | | | | + + + + + | [facility] | [address] | [place] | | | [facility] | | [address] | | | - LABORATORY | | [...] [address] | [place] | [phone] | | [facility] | | [address] | | | - LABORATORY | | | | + + + + + | [facility] | [address] | [place] | | | [facility] | | [address] | | | - LABORATORY | | [...]
--- OUTSIDE RECORDS SUMMARY | ~2019-09-17 | XMS | Encounter Summary ---
Demographics + + + | Address | [address] | | | [place] [address] | + + + | Home Phone | | + + + | Preferred Language | Unknown | + + + | Marital Status | Legally | + + + | Cheondoism Affiliation | Unknown | + + + | Race | Unknown | + + + | Ethnic Group | Unknown | + + + Author + + + | Author | [facility] | | | and [place]anyana | + + + | Organization | [facility] | | | and [place] [...] [place], [place] | | | | | [address] | | + + + + + Care Team Providers + +------+ + | Care Lesson Instructor Name | Role | Phone | + +------+ + | Basilio Cuevas PA-C | PCP | | + +------+ + Encounter Details +--------+ + + + + | Date | Type | Department | Care Team | Description | +--------+ + + + + | 03/06/ | Hospital | [facility] | Toribio Dick, | Chronic low back | | 2013 | Encounter | MED CTR XRAY [address] | PA-C [address] | pain | | | | [facility] [place] | [place] | | | | | [place] [address] | [address] | | | | | [phone] | | | +--------+ + + + [...] + | MISCELLANEOUS LAB | | | [phone] | + +---------+ + + | MISCELANIOUS LAB | | | [phone] | + +---------+ + + documented in this encounter Visit Diagnoses + + | Diagnosis | + + | Chronic low back pain Lumbago | + + documented in this encounter"
--- OUTSIDE RECORDS SUMMARY | ~2019-09-17 | XMS | Encounter Summary ---
Demographics + + + | Address | [address] | | | [place] [address] | + + + | Home Phone | | + + + | Preferred Language | Unknown | + + + | Marital Status | Legally | + + + | Orthodox Affiliation | Unknown | + + + | Race | Unknown | + + + | Ethnic Group | Unknown | + + + Author + + + | Author | [facility] | | | and [place]any[place] | + + + | Organization | [facility] | | [...] [place], [place] | | | | | [address] | | + + + + + Care Team Providers + +------+ + | Care Occupational Therapy Aides Teacher Name | Role | Phone | + [...] | | | | CENTER [address] | | Dx) | | | | [place] | | | | | | [address] | | | | | | [phone] | | | +--------+ + + + [...] INFORMATION | SONIA | Routin | | 08/08/2018 3:29 PM [...] M?MRN: | | | | | | [id number] | | | [id number] | | | his | | | [...] | | | St. | | | [place] | | | y H. | | [...] | | | St. | | | [place] | | | y H. | | [...] | | | St. | | | [place] | | | y | | | [...]
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
--- OUTSIDE RECORDS SUMMARY | ~2019-09-17 | XMS | Encounter Summary ---
Demographics + + + | Address | [address] | | | [place] [address] | + + + | Home Phone [...] + + + | Author | [facility] | | | and [place]any[place] | + + + | Organization | [facility] | | | and [place] [...] [place], [place] | | | | | [address] | | + + + + + Care Team Providers + +------+ + | Care Geothermal Plant Manager Name | Role | Phone | [...] Chronic low | Pedro | [address] | | | | | back pain, | [place] | [place], | | | | | unspecified | [address] | [place] | | | | | back pain | [place] | [address] | | | | | laterality, | Drive [place] | Phone: | | | | | with | [place], [place] | [phone] | | | | | sciatica | [address] | Fax: | | | | | presence | Phone: | [phone] | | | | | unspecified | [phone] | | | | | | Lumbar | Fax: | | | | | | radiculopath | [phone] | | | | | | y [...] + + | 02/05/ | Hospital | [facility] | Pedro Fisher | Chronic low back | | 2019 | Encounter | MED CTR MRI [address] | [place] [address] | pain, unspecified | | | | [place], | [address] | back pain | | | | [place] [address] | [place], [place] | laterality, with | | | | [phone] | [address] | sciatica presence | | | | [...] + + | Performing | Address | City/State[facility] | Phone Number | | Organization | [...]
--- OUTSIDE RECORDS SUMMARY | ~2019-09-17 | XMS | Encounter Summary ---
Demographics + + + | Address | [address] | | | [place] [address] | + + + | Home Phone | | + + + | Preferred Language | Unknown | + + + | Marital Status | Legally | + + + | Sabianism Affiliation | Unknown | + + + | Race | Unknown | + + + | Ethnic Group | Unknown | + + + Author + + + | Author | [facility] | | | and [place]any[place] | + + + | Organization | [facility] | | | and [...] [place], [place] | | | | | [address] | | + + + + + Care Team Providers + +------+ + | Care Bacon De Rinder Name | Role | Phone | + [...] Description | +--------+--------+ + + + | 04/28/ | Refill | [facility] [place] | Jean Pierre Amaya, | Medication Refill | | 2013 | | NEUROSUR[address]ERY [address] | DO [address] | | | | | [address] | [address] [place], [place] | | | | | [place], [place] | [address] | | | | | [address] | | | | | | [phone] | | | +--------+--------+ + + + [...]
--- OUTSIDE RECORDS SUMMARY | ~2019-09-17 | XMS | Encounter Summary ---
Demographics + + + | Address | [address] | | | [place] [address] | + + + | Home Phone [...] | [facility] | | | and [place]any[place] | + + + | Organization | [facility] | | | and [place] [...] [place], [place] | | | | | [address] | | + + + + + Care Team Providers + +------+ + | Care Police Dispatcher Name | Role | Phone | + [...] [address] | [address] [place], [place] | | | | | [place], [place] | [address] | | | | | [address] | | | | | | [phone] | | | +--------+--------+ + + + [...]
--- OUTSIDE RECORDS SUMMARY | ~2019-09-17 | XMS | Encounter Summary ---
Demographics + + + | Address | [address] | | | [place] [address] | + + + | Home Phone | | + + + | Preferred Language | Unknown | + + + | Marital Status | Legally | + + + | Mormonism Affiliation | Unknown | + + + | Race | Unknown | + + + | Ethnic Group | Unknown | + + + Author + + + | Author | [facility] | | | and [place] | + + + | Organization | [facility] | | | and [...] [place], [place] | | | | | [address] | | + + + + + Care Team Providers + +------+ + | Care Tail Board Man Name | Role | Phone | + +------+ + | Basilio Cuevas PA-C | PCP | | + +------+ + Encounter Details +--------+ + + + + | Date | Type | Department | Care Team | Description | +--------+ + + + + | 02/05/ | Hospital | [facility] | Ethel Foster, | | | 2013 | Encounter | MED CTR THERAPY OT | OT | | | | | ACUTE [address] | | | | | | [place] | | | | | | [address] | | | | | | [phone] | | | +--------+ + + + [...]
--- OUTSIDE RECORDS SUMMARY | ~2019-09-17 | XMS | Encounter Summary ---
Demographics + + + | Address | [address] | | | [place] [address] | + + + | Home Phone | | + + + | Preferred Language | Unknown | + + + | Marital Status | Legally | + + + | Methodist Affiliation | Unknown | + + + | Race | Unknown | + + + | Ethnic Group | Unknown | + + + Author + + + | Author | [facility] | | | and [place] | + + + | Organization | [facility] | | | and [place] [...] [place], [place] | | | | | [address] | | + + + + + Care Team Providers + +------+ + | Care Residential Monitor Name | Role | Phone | + +------+ + | No, Physician | PCP | Unavailable | + +------+ + Encounter Details +--------+ + + + + | Date | Type | Department | Care Team | Description | +--------+ + + + + | 08/08/ | Hospital | [facility] | Conversion | Pain | | 2013 | Encounter | [address]VERSION [address] | Transaction, | | | | | [address] | Provider Unknown | | | | | [place] | [phone] | | | | | [address] | | | | | | [phone] | | | +--------+ + + + [...]
--- OUTSIDE RECORDS SUMMARY | ~2019-09-17 | XMS | Encounter Summary ---
Demographics + + + | Address | [address] | | | [place] [address] | + + + | Home Phone [...] [facility] | | | and [place] | + + + | Organization | [facility] | | | and [place] | + + + | Address | Unknown | + + + | Phone | Unavailable | + + + Support + + + + + | Name | Relationship | Address | Phone | + + + + + | Valentina Alonso | ECON | [address] | | | | | [place], [place] | | | | | [address] | | + + + + + Care Team Providers + +------+ + | Care Program Lead Name | Role | Phone | + +------+ + | Basilio Cuevas PA-C | PCP | | + +------+ + Encounter Details +--------+ + + + + | Date | Type | Department | Care Team | Description | +--------+ + + + + | 04/11/ | Hospital | [facility] GENER[facility] IP | Conversion | Pain | | 2014 | Encounter | [address]VERSION [address] | Transaction, | | | | | [address] | Provider Unknown | | | | | [place], [place] | [phone] | | | | | [address] | | | | | | [phone] | | | +--------+ + + + [...] tablets by | 60 | 0 | 04/09/20 | | | HYDROcodone-acetamin | mouth every 4 hours | tablet | | 14 | 4 | | ophen (NORCO) 10-325 | as needed for Pain. | | | | | | mg per | | | | | | | tabletIndications: | | | | | | | Pseudoarthrosis [...] tablets by | 60 | 0 | 04/10/20 | | | (DILAUDID) 2 mg | [...] | | 0 | | | | (STEPHENIE REICH) | Daily. | | | | 5 [...] + + + | FL C ARM < 1 HOUR | Routin | 07/10/2013 | | Results for this | | | e | 4:31 AM | | procedure are in the | | | | PDT | | results section. | + +--------+ + + + documented in this encounter Results FL C-Arm < 1 Hour (07/10/2013 4:31 AM PDT) + + | Specimen | + + | | + + + + + | Narrative | Performed At | + + + | This is a non-reportable procedure without a radiologist report and | | | is used for image storage only | | + + + + + | Procedure Note | + + | Charan Waldrop Lolly - 06/14/2019 12:53 PM PDT This is a non-reportable procedure | | without a radiologist report and isused for image storage only | + + documented in this encounter Visit Diagnoses + + | Diagnosis | + + | Pain Generalized pain | + + documented in this encounter"
--- OUTSIDE RECORDS SUMMARY | ~2019-09-17 | XMS | Encounter Summary ---
Demographics + + + | Address | [address] | | | [place] [address] | + + + | Home Phone | | + + + | Preferred Language | Unknown | + + + | Marital Status | Legally | + + + | Scientologist Affiliation | Unknown | + + + | Race | Unknown | + + + | Ethnic Group | Unknown | + + + Author + + + | Author | [facility] | | | and [place] | + + + | Organization | [facility] | | | and [...] [place], [place] | | | | | [address] | | + + + + + Care Team Providers + +------+ + | Care Nanotechnology Engineering Technician Name | Role | Phone | + +------+ + PCP | Unavailable | + +------+ + Encounter Details +--------+ + + + + | Date | Type | Department | Care Team | Description | +--------+ + + + + | 10/26/ | Hospital | [facility] | | | | 2007 | Encounter | [facility] | | | | | | [address] | | | | | | [place] | | | | | | [address] | | | | | | [phone] | | | +--------+ + + + [...]
--- OUTSIDE RECORDS SUMMARY | ~2019-09-17 | XMS | Encounter Summary ---
Demographics + + + | Address | [address] | | | [place] [address] | + + + | Home Phone | | + + + | Preferred Language | Unknown | + + + | Marital Status | Legally | + + + | Congregational Affiliation | Unknown | + + + | Race | Unknown | + + + | Ethnic Group | Unknown | + + + Author + + + | Author | [facility] | | | and [place] | + + + | Organization | [facility] | | | and [place] | [...] [place], [place] | | | | | [address] | | + + + + + Care Team Providers + +------+ + | Care Physical Design Engineer Name | Role | Phone | + +------+ + | Basilio Cuevas PA-C | PCP | | + +------+ + Encounter Details +--------+ + + + + | Date | Type | Department | Care Team | Description | +--------+ + + + + | 05/27/ | Orders Only | [facility] | Provider, | | | 2019 | | SYSTEM GENERIC OP | MD Jarrett Antonio | | | | | [address] | [address] | | | | | [address] [place], [place] | [place] [address] | | | | | [address] | | | | | | [phone] | | | +--------+ + + + [...]
--- OUTSIDE RECORDS SUMMARY | ~2019-09-17 | XMS | Encounter Summary ---
Demographics + + + | Address | [address] | | | [place] [address] | + + + | Home Phone | | + + + | Preferred Language | Unknown | + + + | Marital Status | Legally | + + + | Faith Affiliation | Unknown | + + + | Race | Unknown | + + + | Ethnic Group | Unknown | + + + Author + + + | Author | [facility] | | | and [place] | + + + | Organization | [facility] | | | and [...] [place], [place] | | | | | [address] | | + + + + + Care Team Providers + +------+ + | Care Environmental Health And Safety Manager Name | Role | Phone | [...] Description | +--------+--------+ + + + | 04/02/ | Refill | [facility] | Jean Pierre Amaya, | Medication Refill | | 2013 | | NE[address] | DO [address] | | | | | [address] | [address] [place], [place] | | | | | [place], [place] | [address] | | | | | [address] | | | | | | [phone] | | | +--------+--------+ + + + [...]
--- OUTSIDE RECORDS SUMMARY | ~2019-09-17 | XMS | Encounter Summary ---
Demographics + + + | Address | [address] | | | [place] [address] | + + + | Home Phone | | + + + | Preferred Language | Unknown | + + + | Marital Status | Legally | + + + | Christian Affiliation | Unknown | + + + | Race | Unknown | + + + | Ethnic Group | Unknown | + + + Author + + + | Author | [facility] | | | and [place] | + + + | Organization | [facility] | [...] [place], [place] | | | | | [address] | | + + + + + Care Team Providers + +------+ + | Care Envelope Stamping Machine Operator Name | Role | Phone | + +------+ + | No, Physician | PCP | Unavailable | + +------+ + Encounter Details +--------+ + + + + | Date | Type | Department | Care Team | Description | +--------+ + + + + | 07/08/ | Hospital | [facility] | | | | 2012 | Encounter | MED CTR XRAY [address] | | | | | | [address] | | | | | | [place] [address] | | | | | | [phone] | | | +--------+ + + + [...] Performed At | + + + | [facility] | [facility] | | Department [address] | [facility] | | [ rep ct [address]] [ rep ct [facility] | | st zip] Signed | - IMAGING | | | | | Patient Name: FILI ALONSO Physician: | | | [birth year] : 1980 Age: 32 Sex: M Unit #: [id number] | | | Exam Date: 07/08/13 [place] [facility] | | | Report #: [id number] Page: | | | %(RAD)RES..mtdd.print.filter("pg") of %(RAD) | | | RES..mtdd.print.filter("tpg") | | | | | | Accession Number: [id number] | | | LUMBAR SPINE WITHOUT CONTRAST [...] | | | Transcribed Date/Time: 07/08/2013 18:18 Fur Trapper: | | | <<Signature on File>> | | | John | | | Sushila Kaiser MD07/08/13 1841 <Electronically signed by John Conti | | | Job BENNETT> John Kaiser MD 07/08/13 1623 | | | Fur Trapper: [employer] [id number]/09/13 4724 | | | Colby Gutierrez Jr, MD | | + + + + + + + + | Performing | Address | City/State/Zipcode | Phone Number | | Organization | | | | + + + + + | [facility] | [address] | [place] | [phone] | | [facility] | | [address] | | | - IMAGING | | | | + + + + + documented in this encounter Visit Diagnoses Not on filedocumented in this encounter
--- OUTSIDE RECORDS SUMMARY | ~2019-09-17 | XMS | Encounter Summary ---
Demographics + + + | Address | [address] | | | [place] [address] | + + + | Home Phone | | + + + | Preferred Language | Unknown | + + + | Marital Status | Legally | + + + | Jainism Affiliation | Unknown | + + + | Race | Unknown | + + + | Ethnic Group | Unknown | + + + Author + + + | Author | [facility] | | | and [place] | + + + | Organization | [facility] | | | and [...] [place], [place] | | | | | [address] | | + + + + + Care Team Providers + +------+ + | Care Electric Lineman Name | Role | Phone | + [...] [address] | [address] [place], [place] | | | | | [place], [place] | [address] | | | | | [address] | | | | | | [phone] | | | +--------+--------+ + + + [...]
--- OUTSIDE RECORDS SUMMARY | ~2019-09-17 | XMS | Encounter Summary ---
Demographics + + + | Address | [address] | | | [place] [address] | + + + | Home Phone | | + + + | Preferred Language | Unknown | + + + | Marital Status | Legally | + + + | Mandaeism Affiliation | Unknown | + + + | Race | Unknown | + + + | Ethnic Group | Unknown | + + + Author + + + | Author | [facility] | | | and [place] | + + + | Organization | [facility] | | [...] [place], [place] | | | | | [address] | | + + + + + Care Team Providers + +------+ + | Care Dye Feeder Name | Role | Phone | + +------+ + | No, Physician | PCP | Unavailable | + +------+ + Encounter Details +--------+ + + + + | Date | Type | Department | Care Team | Description | +--------+ + + + + | 08/10/ | Hospital | [facility] IP | Conversion | Pain | | 2013 | Encounter | [address] | Transaction, | | | | | [address] | Provider Unknown | | | | | [place] | [phone] | | | | | [address] | | | | | | [phone] | | | +--------+ + + + [...]
--- OUTSIDE RECORDS SUMMARY | ~2019-09-17 | XMS | Encounter Summary ---
Demographics + + + | Address | [address] | | | [place] [address] | + + + | Home Phone | | + + + | Preferred Language | Unknown | + + + | Marital Status | Legally | + + + | Muslim Affiliation | Unknown | + + + | Race | Unknown | + + + | Ethnic Group | Unknown | + + + Author + + + | Author | [facility] | | | and [place] | + + + | Organization | [facility] | | | [...] [place], [place] | | | | | [address] | | + + + + + Care Team Providers + +------+ + | Care Automobile Assembly Supervisor Name | Role | Phone | [...] Other | | 2012 | | [facility] | | | | | | [address] | | | | | | [place], [place] | | | | | | [address] | | | | | | [phone] | | | +--------+ + + + [...]
--- OUTSIDE RECORDS SUMMARY | ~2019-09-17 | XMS | Encounter Summary ---
Demographics + + + | Address | [address] | | | [place] [address] | + + + | Home Phone [...] | Author | [facility] | | | and [place] | + + + | Organization | [facility] | | | and [place] [...] [place], [place] | | | | | [address] | | + + + + + Care Team Providers + +------+ + | Care Highway Design Engineer Name | Role | Phone [...] + | 05/09/ | Telephone | [facility] | Jean Pierre Amaya, | Letter for | | 2013 | | NEUROSUR[address]ERY [address] | DO [address] | School/Work | | | | [address] | [address] [place], [place] | | | | | [place], [place] | [address] | | | | | [address] | | | | | | [phone] | | | +--------+ + + + [...]
--- OUTSIDE RECORDS SUMMARY | ~2019-09-17 | XMS | Encounter Summary ---
Demographics + + + | Address | [address] | | | [place] [address] | + + + | Home Phone | | + + + | Preferred Language | Unknown | + + + | Marital Status | Legally | + + + | Worship Affiliation | Unknown | + + + | Race | Unknown | + + + | Ethnic Group | Unknown | + + + Author + + + | Author | [facility] | | | and Hanyana | + + + | Organization | [facility] | [...] [place], [place] | | | | | [address] | | + + + + + Care Team Providers + +------+ + | Care Optical Laboratory Technician Name | Role | Phone | [...] | | Upper GI | | [address] | | | | | bleeding | | [place], | | | | | | | [place] [address] | | | | | | | Phone: | | | | | | | [phone] | | | | | | | Fax: | | | | | | | [phone] | +--------+--------+ + + + + Encounter Details +--------+ + + + + | Date | Type | Department | Care Team | Description | +--------+ + + + + | 11/06/ | Hospital | [facility] | Felipe Pro, | Upper GI bleeding | | 2014 - | Encounter | MED [facility] SUR[facility] | [address] | (Primary Dx); | | | | [address] [place] | [place] | Melena; Hemorrhage | | 11/08/ | | [place] [address] | [address] | of gastrointestinal | | 2014 | | [phone] | | tract; Esophagitis, | | | | | Wilman Deng MD | erosive; Anemia due | | | | | [address] | to blood loss | | | | | [place], [place] | | | | | | [address] | | | | | | | [...] Deng MD - 11/08/2014 5:47 PM PST [facility] DISCHARGE SUMMARY Pt. Name/Age/: Fili Alonso 34 [...] (10-14 days) Specialty: Family Medicine Contact information: [address] [place] [address] PENDING RESULTS: HOSPITAL COURSE: Please refer [...] mg of vitamin B 12 orally obtained xeqp-xwn-tgjbsco. The patient did have significant problems wi [...] by: Wilman Deng MD, 11/08/2014 17:[address] [facility] Portions of this chart may have been created with [employer] voice recognition software. Occasi onal wrong-word or [...] Coughing repeatedly to clear your throat Hoarseness [employer]. [address] [place] [address]. All righ ts reserved. This information is [...] health care ric oscar. Try acid-reducing medications. Qpxk-lxm-uiymnkm antacids may relieve heartburn. Talk to your health care provider about these other ouuv-ghu-iovktnk or prescription medications may also help. Surgery is usually needed only for severe symptoms or when other options have not helped the condition. Your health care provider will help you determine if surgery is an option fo r you. [employer]. [address] [place] [address]. All righ ts reserved. This information is [...] given to the pt. IV removed. Pt discharged.Gato lilly signed by Alta Neves RN at 11/08/2014 7:48 PM PSTRosa Elena Hermosillo RN - 015 5:48 PM PSTDrJessica Deng called new orders rec. Rosa Elena Ennis RN - 11/08/2014 3:50 PM PSTPt. Has [...] I assume would be [facility] at the [facility] signed by John Gallardo MD at 11/08/2014 9:34 AM Wilman Sorensen MD - 015 4:[address] [facility] PMG Hospitalist Progress Note Fili Alonso is [...] as outlined above. Wilman Deng 11/07/2014 16:22 [facility] Portions of this chart may have been created with [employer] voice recognition software. Occasi onal wrong-word or [...] + + + | UNIT # | [id number] | | [facility] | | | | [...] St | [place] | | | [facility] | | [address] | | | - BLOOD BANK | [...] + + + | UNIT # | [id number] | | [facility] | | | | [...] | Unit Status | Returned | | [facility] | | | | | | ST. [...] St | [place] | | | [facility] | | [address] | | | - BLOOD BANK | [...] + | [facility] | [address] | [place], [place] | [phone] | | [facility] | | [address] | | | - LABORATORY | | | | + + + + + | [facility] | [address] | [place], [place] | | | [facility] | | [address] | | | - LABORATORY | | [...] | % | 5.7 | % | [facility] | | | SATURATION | | | [facility] | | [...] + | [facility] | [address] | [place] | [phone] | | [facility] | | [address] | | | - LABORATORY | | | | + + + + + | [facility] | [address] | [place] | | | [facility] | | [address] | | | - LABORATORY | | | | + + + + + CBC no Differential (11/08/2014 5:56 AM PST) + + + [...] + | [facility] | [address] | [place] | [phone] | | [facility] | | [address] | | | - LABORATORY | | | | + + + + + | [facility] | [address] | [place] | | | [facility] | | [address] | | | - LABORATORY | | [...] | | | | mmol/L | [facility] | | | | [...] (L) | 7 - 18 mg/dL | [facility] | | | | | | [facility] | | | | | | MEDICAL | | | | | | CENTER - | | | | | | LABORATORY | | + + + + + + | Creatinine | 0.91 | 0.60 - 1.30 | [facility] | | | | | mg/dL | [facility] | | | | | | MEDICAL | | | | | | CENTER - | | | | | | LABORATORY | | + + + + + + | eGFR if not | >60Comment: GLOMERULAR | >=60 | [facility] | | | | FILTRATION | mL/min/1.73m2 | [facility] | | | [place] | RATE,ESTIMATED | | MEDICAL | | | | mL/min/1.71o5Mlqw than | | CENTER - | | [...] + | [facility] | [address] | [place], [place] | [phone] | | [facility] | | [address] | | | - LABORATORY | | | | + + + + + | [facility] | [address] | [place], [place] | | | [facility] | | [address] | | | - LABORATORY | | [...] + | [facility] | [address] | [place] | [phone] | | [facility] | | [address] | | | - LABORATORY | | | | + + + + + | [facility] | [address] | [place] | | | [facility] | | [address] | | | - LABORATORY | | [...] | r pylori Ag | | | [facility] | | [...] + + | Performing | Address | City/[facility]/Zipcode | Phone Number | | Organization | | | | + + + + + | [facility] | [address] | [place] | [phone] | | [facility] | | [address] | | | - LABORATORY | | | | + + + + + | [facility] | [address] | [place] | | | [facility] | | [address] | | | - LABORATORY | | | | + + + + + EGD (11/07/2014 1:45 PM PST) + + | Specimen | + + | | + + + + -+ | Narrative | Performed At | + + -+ | | [facility] | | GastroenterologyPatient Name: Fili Galeas Date: 11/07/2014 1:45 | [facility] | | PMMRN: [id number] #: [id number] of : 1980Admit | | | Type: InpatientAge: 34Room: [facility] 01Gender: MaleNote Status: | | | FinalizedAttending MD: John Gallardo, MDProcedure: Upper | | | GI endoscopyIndications: Suspected esophageal reflux, | | | MelenaProviders: John Gallardo MD, Karina Chang | | | RICHARD Bose, Amanda Higu[place], | | | Facing Slitter, Panchito Lara MD (Anesthesia | | | [...] the anesthesiologist and | | | the hospital pharmacy technician in the endoscopy suite. Mental Status [...] PMScope Out: | | | 2:03:26 PM [facility], [address] [place] [address], | | | [place] [address] | | | - The retroflexed view [...] |Scope Out: 2:03:26 PM | | | [facility], [address] [place] [address], [place], [place] | | | [address] | | + + -+ + + [...] | | | | | | [facility] | | | | | | MEDICAL [...] + | [facility] | [address] | [place] | [phone] | | [facility] | | [address] | | | - LABORATORY | | | | + + + + + | [facility] | [address] | [place], [place] | | | [facility] | | [address] | | | - LABORATORY | | [...] mL/min/1.73m2 | [facility] | | | [place] | RATE,ESTIMATED | | MEDICAL | | | | mL/min/1.18d7Xufl than | | CENTER - | | [...] | | ine Ratio | | | [facility] | | [...] + + | [facility] | [address] | [place] | [phone] | | [facility] | | [address] | | | - LABORATORY | | | | + + + + + | [facility] | [address] | [place] | | | [facility] | | [address] | | | - LABORATORY | | [...] [facility] | | | | | | [facility] | | | [...] + | [facility] | [address] | [place], [place] | [phone] | | [facility] | | [address] | | | - LABORATORY | | | | + + + + + | [facility] | [address] | [place], [place] | | | [facility] | | [address] | | | - LABORATORY | | [...] + | [facility] | [address] | [place], [place] | [phone] | | [facility] | | [address] | | | - LABORATORY | | | | + + + + + | [facility] | [address] | [place], [place] | | | [facility] | | [address] | | | - LABORATORY | | [...] + | [facility] | [address] | [place] | [phone] | | [facility] | | [address] | | | - LABORATORY | | | | + + + + + | [facility] | [address] | [place], [place] | | | [facility] | | [address] | | | - LABORATORY | | [...] | | | | | | [facility] | | | | | | MEDICAL [...] + | [facility] | [address] | [place] | [phone] | | [facility] | | [address] | | | - LABORATORY | | | | + + + + + | [facility] | [address] | [place] | | | [facility] | | [address] | | | - LABORATORY | | [...] + | [facility] | [address] | [place] | | | [facility] | | [address] | | | - BLOOD BANK | | | | + + + + + Lipase (11/06/2014 9:33 AM PST) + +-------+ + + + | Component | Value | Ref Range | Performed | Pathologist | | | | | At | Signature | + +-------+ + + + | Lipase | 22 | 0 - 60 U/L | [facility] | | | | | [...] + | [facility] | [address] | [place], [place] | [phone] | | [facility] | | [address] | | | - LABORATORY | | | | + + + + + | [facility] | [address] | [place], [place] | | | [facility] | | [address] | | | - LABORATORY | | [...] | | Time | | seconds | [facility] | | | | | [...] + | [facility] | [address] | [place] | [phone] | | [facility] | | [address] | | | - LABORATORY | | | | + + + + + | [facility] | [address] | [place], [place] | | | [facility] | | [address] | | | - LABORATORY | | [...] | | | | | mg/dL | [facility] | | | | | | MEDICAL | | | | | | CENTER - | | | | | | LABORATORY | | + + + + + + | eGFR if not | >60Comment: GLOMERULAR | >=60 | [facility] | | | | FILTRATION | mL/min/1.73m2 | [facility] | | | [place] | RATE,ESTIMATED | | MEDICAL | | | | mL/min/1.90q4Oarl than | | CENTER - | | [...] | 8.4 | 8.3 - 10.5 | [facility] | | | | | mg/dL | [facility] | | | | | | [...] ST. | [address] | [place] | [phone] | | [facility] | | [address] | | | - LABORATORY | | | | + + + + + | [facility] | [address] | [place], [place] | | | [facility] | | [address] | | | - LABORATORY | | | | + + + + + CBC with Differential (11/06/2014 9:33 AM PST) + + + + + + | Component | Value | Ref Range | Performed | Pathologist | | | | | At | Signature | + + + + + + | WBC | 10.5 | 4.0 - 11.0 K/uL | [facility] [...] + | [facility] | [address] | [place], [place] | [phone] | | [facility] | | [address] | | | - LABORATORY | | | | + + + + + | [facility] | 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) | + + documented in this encounter Administered Medications + +--------+ +--------+------+------+ | Medication Order | MAR | Action | Dose | Rate | Site | | | Action | Date | | | | + +--------+ +--------+------+------+ | cyanocobalamin (VITAMIN B-12) | Given | 11/08/19 | 1,000 | | | | tablet 1,000 mcg 1,000 mcg, | | 15 9:02 | mcg | | | | Oral, DAILY, First dose on Fri | | AM PST | | | | | 1/9/15 at 1645 | | | | | | + +--------+ +--------+------+------+ +-------+ +--------+---+---+ | Given | 11/07/19 | 1,000 | | | | | 15 5:22 | mcg | | | | | PM PST | | | | +-------+ +--------+---+---+ +---+---+ | | | +---+---+ + +-------+ +------+---+---+ | folic acid tablet 1 mg 1 mg, | Given | 11/08/19 | 1 mg | | | | Oral, DAILY, First dose on Mon | | 15 9:02 | | | | | 11/07/14 at 1645 | | AM PST | | | | + +-------+ +------+---+---+ +-------+ +------+---+---+ | Given | 11/07/19 | 1 mg | | | | | 15 5:22 | | | | | | PM PST | | | | +-------+ +------+---+---+ +---+---+ | | | +---+---+ + +-------+ +--------+---+---+ | HYDROcodone-acetaminophen | Given | 11/08/19 | 15 mLs | | | | (HYCET) 7.5-325 mg/15 mL liquid | | 15 2:20 | | | | | 10-15 mL 10-15 mL, Oral, EVERY 4 | | PM PST | | | | | HOURS PRN, Pain, Starting Sat | | | | | | | 11/08/14 at 0722 | | | | | | + +-------+ +--------+---+---+ +-------+ +--------+---+---+ | Given | 11/08/19 | 15 mLs | | | | | 15 9:00 | | | | | | AM PST | | | | +-------+ +--------+---+---+ +---+---+ | | | +---+---+ + +-------+ +------+---+---+ | HYDROmorphone (DILAUDID) | Given | 11/08/19 | 4 mg | | | | solution 2-4 mg 2-4 mg, Oral, | | 15 4:45 | | | | | EVERY 4 HOURS PRN, pain, Starting | | AM PST | | | | | 11/07/14 at 2215 | | | | | | + +-------+ +------+---+---+ +-------+ +------+---+---+ | Given | 11/07/19 | 4 mg | | | | | 15 10:52 | | | | | | PM PST | | | | +-------+ +------+---+---+ +---+---+ | | | +---+---+ + +-------+ +--------+---+---+ | HYDROmorphone (PF) (DILAUDID) 1 | Given | 11/06/19 | 0.5 mg | | | | mg/mL injection 0.25-0.5 mg | | 15 11:18 | | | | | 0.25-0.5 mg, Intravenous, EVERY 1 | | AM PST | | | | | HOUR PRN, Pain, Starting Jeanine | | | | | | | 11/06/14 at 1111 | | | | | | + +-------+ +--------+---+---+ +---+---+ | | | +---+---+ + +-------+ +--------+---+---+ | HYDROmorphone (PF) (DILAUDID) 1 | Given | 11/07/19 | 0.5 mg | | | | mg/mL injection 0.25-0.5 mg | | 15 8:42 | | | | | 0.25-0.5 mg, Intravenous, EVERY 1 | | PM PST | | | | | HOUR PRN, Pain, Starting Jeanine | | | | | | | 11/06/14 at 1232, May give up to 1 | | | | | | | mg q 4 hours without notifying | | | | | | | physician , | | | | | | + +-------+ +--------+---+---+ +-------+ +--------+---+---+ | Given | 11/07/19 | 0.5 mg | | | | | 15 6:33 | | | | | | PM PST | | | | +-------+ +--------+---+---+ | Given | 11/07/19 | 0.5 mg | | | | | 15 3:33 | | | | | | PM PST | | | | +-------+ +--------+---+---+ +---+---+ | | | +---+---+ + +---------+ +--------+-------+---+ | iron sucrose (VENOFER) 200 mg | New Bag | 11/07/19 | 200 mg | 110 | | | in sodium chloride 0.9% 100 mL | | 15 5:22 | | mL/hr | | | IVPB 200 mg, Intravenous, | | PM PST | | | | | Administer over 60 Minutes, ONCE, | | | | | | | 11/07/14 at 1645, For 1 dose | | | | | | + +---------+ +--------+-------+---+ +---+---+ | | | +---+---+ + +---------+ +--------+-------+---+ | iron sucrose (VENOFER) 200 mg | New Bag | 11/08/19 | 200 mg | 110 | | | in sodium chloride 0.9% 100 mL | | 15 6:04 | | mL/hr | | | IVPB 200 mg, Intravenous, | | PM PST | | | | | Administer over 60 Minutes, ONCE, | | | | | | | 11/08/14 at 1800, For 1 dose | | | | | | + +---------+ +--------+-------+---+ +---+---+ | | | +---+---+ + + + +---+ +---+ | lactated ringers (LR) infusion | Rate/Dos | 11/08/19 | | 75 mL/hr | | | at 75 mL/hr, Intravenous, | e Verify | 15 7:00 | | | | | CONTINUOUS, Starting Jeanine 11/06/14 | | PM PST | | | | | at 1230 | | | | | | + + + +---+ +---+ +---------+ +---+ +---+ | New Bag | 11/08/19 | | 75 mL/hr | | | | 15 2:22 | | | | | | PM PST | | | | +---------+ +---+ +---+ | New Bag | 11/08/19 | | 75 mL/hr | | | | 15 1:29 | | | | | | AM PST | | | | +---------+ +---+ +---+ +---+---+ | | | +---+---+ + +-------+ +------+---+---+ | ondansetron (ZOFRAN) injection | Given | 11/06/19 | 4 mg | | | | 4 mg 4 mg, Intravenous, ONCE, | | 15 9:34 | | | | | Jeanine 11/06/14 at 0945, For 1 dose | | AM PST | | | | + +-------+ +------+---+---+ +---+---+ | | | +---+---+ + +-------+ +------+---+---+ | ondansetron (ZOFRAN) injection | Given | 11/06/19 | 4 mg | | | | 4 mg 4 mg, Intravenous, EVERY 4 | | 15 8:08 | | | | | HOURS PRN, Nausea, Vomiting, | | PM PST | | | | | Starting Jaenine 11/06/14 at 1112 | | | | | | + +-------+ +------+---+---+ +-------+ +------+---+---+ | Given | 11/06/19 | 4 mg | | | | | 15 3:35 | | | | | | PM PST | | | | +-------+ +------+---+---+ | Given | 11/06/19 | 4 mg | | | | | 15 11:17 | | | | | | AM PST | | | | +-------+ +------+---+---+ +---+---+ | | | +---+---+ + +---------+ +---------+ +---+ | pantoprazole (PROTONIX) 0.8 | New Bag | 11/06/19 | 8 mg/hr | 10 mL/hr | | | mg/mL in sodium chloride 0.9% 100 | | 15 8:15 | | | | | mL infusion 8 mg/hr (rounded to | | PM PST | | | | | 10 mL/hr), at 10 mL/hr, | | | | | | | Intravenous, CONTINUOUS, Starting | | | | | | | [facility] 11/06/14 at 1030 | | | | | | + +---------+ +---------+ +---+ +---------+ +---------+ +---+ | New Bag | 11/06/19 | 8 mg/hr | 10 mL/hr | | | | 15 10:18 | | | | | | AM PST | | | | +---------+ +---------+ +---+ +---+---+ | | | +---+---+ + +-------+ +-------+---+---+ | pantoprazole (PROTONIX) | Given | 11/08/19 | 40 mg | | | | injection 40 mg 40 mg, | | 15 9:02 | | | | | Intravenous, 2 TIMES DAILY, First | | AM PST | | | | | dose on Mon11/07/14 at 2100, Mix | | | | | | | each 40mg vial with 10 mL NS to | | | | | | | make 4 mg/mL., | | | | | | + +-------+ +-------+---+---+ +-------+ +-------+---+---+ | Given | 11/07/19 | 40 mg | | | | | 15 8:42 | | | | | | PM PST | | | | +-------+ +-------+---+---+ +---+---+ | | | +---+---+ + +-------+ +-------+---+---+ | pantoprazole (PROTONIX) | Given | 11/06/19 | 80 mg | | | | injection 80 mg 80 mg, | | 15 9:30 | | | | | Intravenous, ONCE, [facility] 11/06/14 at | | AM PST | | | | | 0945, For 1 dose, Mix each 40mg | | | | | | | vial with 10 mL NS to make 4 | | | | | | | mg/mL., | | | | | | + +-------+ +-------+---+---+ +---+---+ | | | +---+---+ + +---------+ +--------+-------+---+ | sodium chloride 0.9% (NS) bolus | New Bag | 11/06/19 | 1,000 | 2000 | | | 1,000 mL 1,000 mL, Intravenous, | | 15 9:30 | mLs | mL/hr | | | Administer over 30 Minutes, | | AM PST | | | | | ONCE, [facility] 11/06/14 at 0945, For 1 | | | | | | | dose | | | | | | + +---------+ +--------+-------+---+ +---+---+ | | | +---+---+ + +-------+ +-----+---+---+ | sucralfate (CARAFATE) 1 g/10 mL | Given | 11/06/19 | 1 g | | | | suspension 1 g 1 g, Oral, 4 | | 15 9:54 | | | | | TIMES DAILY BEFORE MEALS & | | PM PST | | | | | NIGHTLY, First dose on Mon11/06/14 | | | | | | | at 1215, For 3 doses, Shake | | | | | | | well., | | | | | | + +-------+ +-----+---+---+ +-------+ +-----+---+---+ | Given | 11/06/19 | 1 g | | | | | 15 5:08 | | | | | | PM PST | | | | +-------+ +-----+---+---+ | Given | 11/06/19 | 1 g | | | | | 15 12:09 | | | | | | PM PST | | | | +-------+ +-----+---+---+ +---+---+ | | | +---+---+ + +-------+ +-----+---+---+ | sucralfate (CARAFATE) 1 g/10 mL | Given | 11/08/19 | 1 g | | | | suspension 1 g 1 g, Oral, 4 | | 15 4:58 | | | | | TIMES DAILY BEFORE MEALS & | | PM PST | | | | | NIGHTLY, First dose on Mon11/07/14 | | | | | | | at 1615, Jorge kebede, | | | | | | + +-------+ +-----+---+---+ +-------+ +-----+---+---+ | Given | 11/08/19 | 1 g | | | | | 15 11:00 | | | | | | AM PST | | | | +-------+ +-----+---+---+ | Given | 11/08/19 | 1 g | | | | | 15 6:35 | | | | | | AM PST | | | | +-------+ +-----+---+---+ +---+---+ | | | +---+---+ documented in this encounter"
--- OUTSIDE RECORDS SUMMARY | ~2019-09-17 | XMS | Encounter Summary ---
Demographics + + + | Address | [address] | | | [place] [address] | + + + | Home Phone | | + + + | Preferred Language | Unknown | + + + | Marital Status | Legally | + + + | Latter-Day Affiliation | Unknown | + + + | Race | Unknown | + + + | Ethnic Group | Unknown | + + + Author + + + | Author | [facility] | | | and Hanyana | + + + | Organization | [facility] | | [...] [place], [place] | | | | | [address] | | + + + + + Care Team Providers + +------+ + | Care Configuration Management Architect Name | Role | Phone | [...] Description | +--------+--------+ + + + | 03/19/ | Refill | [facility] | Jean Pierre Amaya, | Medication Refill | | 2013 | | NEUROSURGERY [address] | DO [address] | | | | | [address] | [address] [place], [place] | | | | | [place], [place] | [address] | | | | | [address] | | | | | | [phone] | | | +--------+--------+ + + + [...]
--- OUTSIDE RECORDS SUMMARY | ~2019-09-17 | XMS | Clinical Summary ---
Demographics + + + | Address | [address] | | | [place] [address] | + + + | Home Phone | | + + + | Preferred Language | Unknown | + + + | Marital Status | Legally | + + + | Catholic Affiliation | Unknown | + + + | Race | Unknown | + + + | Ethnic Group | Unknown | + + + Author + + + | Author | [facility] | | | and [place]any[place] | + + + | Organization | [facility] | | | and [place] [...] [place], [place] | | | | | [address] | | + + + + + Care Team Providers + +------+ + | Care Combination Machine Tool Setter Name | Role | Phone | + [...] see a neurosurgeon in the | | [facility] 05/2013"MRI 01/09: 1. PRIOR L5-S1 DISKECTOMY AND [...] N/A: | SOFAMOR | | 11/29/ | [id number] | | [id number]: Qty: 1 on | | Spine | DANEK - DIV | | 2014 | 0 / | | 02/04/2014 by JeanP ierre Amaya | | Lumbar | [facility] | | | /[id number] | | DO Juan at [facility] | | | - [facility] | | | 05AAN | | [facility] | | | | | | | + +------+--------+ +--------+--------+--------+ | Kam Sext Solera [id number] - | | | SOFAMOR | | | [id number] | | [id number]: Qty: 1 on | | | DANEK - DIV | | | [id number] / | | 02/04/2014 at [facility] | | | [facility] | | | / | | [facility] | | | - [facility] | | | | + +------+--------+ +--------+--------+--------+ | Chips Cancellous 15cc - | | | OSTEOTECH - | | | [id number] | | [id number]: Qty: 1 on | | | OSTT | | | / / | | 02/04/2014 at [facility] | | | | | | | | [facility] | | | | | | | + +------+--------+ +--------+--------+--------+ | Set Scrw Ns G5 Brk Off Ti | | | SOFAMOR | | | [id number] | | 4.75 - [id number]: | | | DANEK - DIV | | | 0 / / | | Qty: 4 on 02/04/2014 at [facility] | | | [facility] | | | | | [facility] | | | - [facility] | | | | | CENTER | | | | | | | + +------+--------+ +--------+--------+--------+ | Imp Spn Spcr Cpstn [id number] - | | N/A: | SOFAMOR | | 04/21/ | [id number] | | [id number]: Qty: 1 on | | Spine | DANEK - DIV | | 2022 | 2 / | | 02/04/2014 by Jean Pierre Amaya | | Lumbar | [facility] | | | /[id number] | | DO Juan at [facility] | | | - [facility] | | | 071 | | [facility] | | | | | | | + +------+--------+ +--------+--------+--------+ | Putty Ruthie 5cc Dbm - | | N/A: | [facility] - | | 08/25/ | [id number] | | [id number]: Qty: 1 | | Spine | OSTT | | 2015 | | | on 02/04/2014 by Jose Luis, | | Lumbar | | | | /[id number] | | Jean Pierre Martinez DO at [facility] | | | | | | 0-122 | | [facility] | | | | | | / | + +------+--------+ +--------+--------+--------+ | Cage Capstone 22x9mm - | | N/A: | [facility] - | | 10/07/ | [id number] | | [id number]: Qty: 1 on | | Spine | MEDT | | 2020 | 2 / | | 02/04/2014 by Jean Pierre Amaya | | Lumbar | | | | /[id number] | | A, DO at [facility] | | | | | | 361 | | [facility] | | | | | | | + +------+--------+ +--------+--------+--------+ | Sextant Cannulated Screw 8.5 | | N/A: | | | | [id number] | | X 60Implanted: Qty: 1 on | | Back | | | | [id number] | | 02/04/2014 by Jean Pierre Amaya | | | | | | /[id number] | | A DO at [facility] | | | | | | [id number] | | [facility] | | | | | | / | + +------+--------+ +--------+--------+--------+ | Sextant Cannulated Screw 8.5 | | N/A: | | | | [id number] | | X 50Implanted: Qty: 1 on | | Back | | | | 66572 | | 02/04/2014 by Jean Pierre Amaya | | | | | | /[id number] | | A, DO at [facility] | | | | | | [address] | | [facility] | | | | | | / | + +------+--------+ +--------+--------+--------+ | Sextant Cannulated Screw 7.5 | | N/A: | | | | [id number] | | X 60Implanted: Qty: 1 on | | Back | | | | 20410 | | 02/04/2014 by Jean Pierre Amaya | | | | | | /[id number] | | A, DO at [facility] | | | | | | [id number] | | [facility] | | | | | | / | + +------+--------+ +--------+--------+--------+ | Sextant Cannulated Screw 7.5 | | N/A: | | | | [id number] | | X 50Implanted: Qty: 1 on | | Back | | | | 20444 | | 02/04/2014 by Jean Pierre Amaya | | | | | | /[id number] | | A, DO at [facility] | | | | | | [id number] | | [facility] | | | | | | / | + +------+--------+ +--------+--------+--------+ | Imp Spn Kam Sext Ti | | | [facility] - | | | [id number] | | [id number] - | | | MEDT | | | 5050 / | | [id number]: Qty: 1 on | | | | | | / | | 02/04/2014 at [facility] | | | | | | | | [facility] | | | | | [...] +--------+ +---------+--------+ | MEDICARE | MEDICA | [id number] | | [phone] | | Medica | | | RE | | 010-Pr | 5 | | re | | | PART A | | esent | | | | | | AND B | | | | | | + +--------+ +--------+ +---------+--------+ | [employer] | [employer] | [id number] | 11/05/19 | | | Indemn | [...] | | linda/Mane | | 1980 | [phone] | [address] [place] | | | audrey | | | 4 (Home) | [address] | | | | | | [phone] | | | | | | | 9 (Work) | | + +--------+ +--------+ + + Advance Directives + + + + + | Type | Date Recorded | Patient | Explanation | | | | Residential Interior Designer | | + + + + + | Power of | | | | | Business Process Expert | | | | + + + [...]
--- OUTSIDE RECORDS SUMMARY | ~2019-09-17 | XMS | Encounter Summary ---
Demographics + + + | Address | [address] | | | [place] [address] | + + + | Home Phone | | + + + | Preferred Language | Unknown | + + + | Marital Status | Legally | + + + | Rastafari Affiliation | Unknown | + + + | Race | Unknown | + + + | Ethnic Group | Unknown | + + + Author + + + | Author | [facility] | | | and [place] | + + + | Organization | [facility] | | | and [...] [place], [place] | | | | | [address] | | + + + + + Care Team Providers + +------+ + | Care Galley Stripper Name | Role | Phone | + [...] + + | 01/27/ | Office | [facility] [place] | Toribio Dick, | 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 CRANIAL NERVES: II: Acuity is intact. [...] Intrinsics 5 5 Ulnar Intrinsics 5 5 Call Center Operations Manager Strength 5 5 Hip Flexion 5 4-* [...]
--- OUTSIDE RECORDS SUMMARY | ~2019-09-17 | XMS | Encounter Summary ---
Demographics + + + | Address | [address] | | | [place] [address] | + + + | Home Phone | | + + + | Preferred Language | Unknown | + + + | Marital Status | Legally | + + + | Gnosticist Affiliation | Unknown | + + + | Race | Unknown | + + + | Ethnic Group | Unknown | + + + Author + + + | Author | [facility] | | | and [place] | + + + | Organization | [facility] | | | and [...] [place], [place] | | | | | [address] | | + + + + + Care Team Providers + +------+ + | Care Accounting Bookkeeper Name | Role | Phone | + +------+ + | Mynor Simental MD | PCP | | + +------+ + Encounter Details +--------+ + + + + | Date | Type | Department | Care Team | Description | +--------+ + + + + | 08/19/ | Abstract | [facility] | Mynor Simental, | | | 2012 | | [facility]IC[facility] [place] | [address] | | | | | [address] | [place] | | | | | [place] | [address] | | | | | [address] | | | | | | [phone] | | | +--------+ + + + [...]
--- OUTSIDE RECORDS SUMMARY | ~2019-09-17 | XMS | Encounter Summary ---
Demographics + + + | Address | [address] | | | [place] [address] | + + + | Home Phone | | + + + | Preferred Language | Unknown | + + + | Marital Status | Legally | + + + | Yarsanism Affiliation | Unknown | + + + | Race | Unknown | + + + | Ethnic Group | Unknown | + + + Author + + + | Author | [facility] | | | and [place] | + + + | Organization | [facility] | | | and [place] | [...] [place], [place] | | | | | [address] | | + + + + + Care Team Providers + +------+ + | Care Geometry Teacher Name | Role | Phone | + +------+ + | Basilio Cuevas PA-C | PCP | | + +------+ + Encounter Details +--------+ + + + + | Date | Type | Department | Care Team | Description | +--------+ + + + + | 04/11/ | Hospital | [facility] | Conversion | Pain | | 2014 | Encounter | CONVERSION [address] | Transaction, | | | | [address] | Provider Unknown | | | | | [place], [place] | [phone] | | | | | [address] | | | | | | [phone] | | | +--------+ + + + [...]
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
--- OUTSIDE RECORDS SUMMARY | ~2019-09-17 | XMS | Encounter Summary ---
Demographics + + + | Address | [address] | | | [place] [address] | + + + | Home Phone [...] Author | [facility] | | | and Hanyana | + + + | Organization | [facility] | | | and [...] [place], [place] | | | | | [address] | | + + + + + Care Team Providers + +------+ + | Care Juice Bar Team Member Name | Role | Phone | + [...] | | Upper GI | | [address] | | | | | bleeding | | [place], | | | | | | | [place] [address] | | | | | | | Phone: | | | | | | | [phone] | | | | | | | Fax: | | | | | | | [phone] | +--------+--------+ + + + + Encounter Details +--------+ + + + + | Date | Type | Department | Care Team | Description | +--------+ + + + + | 11/06/ | Hospital | [facility] | Felipe Pro, | Upper GI bleeding | | 2014 - | Encounter | MED CTR SURGICAL | [address] | (Primary Dx); | | | | [address] [place] | [place] | Melena; Hemorrhage | | 11/08/ | | [place] [address] | [address] | of gastrointestinal | | 2014 | | [phone] | | tract; Esophagitis, | | | | | Wilman Deng MD | erosive; Anemia due | | | | | [address] | to blood loss | | | | | [place], [place] | | | | | | [address] | | | | | | | [...] Deng MD - 11/08/2014 5:47 PM PST [facility] DISCHARGE SUMMARY Pt. Name/Age/: Fili Alonso 34 [...] (10-14 days) Specialty: Family Medicine Contact information: [address] [place] [address] PENDING RESULTS: HOSPITAL COURSE: Please refer [...] mg of vitamin B 12 orally obtained uekn-fqj-yrvmzal. The patient did have significant problems wi [...] signed by: Wilman Deng MD, 11/08/2014 17:47 [facility] Portions of this chart may have been created with [employer] voice recognition software. Occasi onal wrong-word or sound-alike substitutions may have occurred due to the inherent alicea itations of voice recognition software. Please read the chart carefully and recognize, using context, where these substitutions have occurred documented in this encounter Discharge Instructions Instructions Ciarra Hfuf RN - 11/07/2014Formatting of this note might [...] repeatedly to clear your throat Hoarseness [employer] [address] [place] [address]. All righ ts reserved. This information is [...] health care ric oscar. Try acid-reducing medications. Rhvy-rdz-zhidulm antacids may relieve heartburn. Talk to your health care provider about these other yjck-oxz-ptwkjzz or prescription medications may also help. Surgery is usually needed only for severe symptoms or when other options have not helped the condition. Your health care provider will help you determine if surgery is an option fo r you. [employer] [address] [place] [address]. All righ ts reserved. This information is [...] I assume would be available at the [facility] signed by John Gallardo MD at 11/08/2014 9:34 AM Wilman Sorensen MD - 015 4:22 PM PST [facility] PMG Hospitalist Progress Note Fili Alonso [...] as outlined above. Wilman Deng 11/07/2014 16:22 [facility] Portions of this chart may have been created with [employer] voice recognition software. Occasi onal wrong-word or [...] + + + | UNIT # | [id number] | | [facility] | | | | [...] [place] | | | [facility] | | [address] | | | - BLOOD BANK | [...] + + + | UNIT # | [id number] | | [facility] | | | | [...] [place] | | | [facility] | | [address] | | | - BLOOD BANK | [...] + | [facility] | [address] | [place], [place] | [phone] | | [facility] | | [address] | | | - LABORATORY | | | | + + + + + | [facility] | [address] | [place], [place] | | | [facility] | | [address] | | | - LABORATORY | | [...] + | [facility] | [address] | [place] | [phone] | | [facility] | | [address] | | | - LABORATORY | | | | + + + + + | [facility] | [address] | [place] | | | [facility] | | [address] | | | - LABORATORY | | [...] + | [facility] | [address] | [place] | [phone] | | [facility] | | [address] | | | - LABORATORY | | | | + + + + + | [facility] | [address] | [place] | | | [facility] | | [address] | | | - LABORATORY | | [...] mL/min/1.73m2 | [facility] | | | [place] | RATE,ESTIMATED | | MEDICAL | | | | mL/min/1.46y7Ryln than | | CENTER - | | [...] + | [facility] | [address] | [place], [place] | [phone] | | [facility] | | [address] | | | - LABORATORY | | | | + + + + + | [facility] | [address] | [place], [place] | | | [facility] | | [address] | | | - LABORATORY | | [...] + | [facility] | [address] | [place] | [phone] | | [facility] | | [address] | | | - LABORATORY | | | | + + + + + | [facility] | [address] | [place] | | | [facility] | | [address] | | | - LABORATORY | | [...] + + | Performing | Address | City/[facility]/Zipcode | Phone Number | | Organization | | | | + + + + + | [facility] | [address] | [place] | [phone] | | [facility] | | [address] | | | - LABORATORY | | | | + + + + + | [facility] | [address] | [place] | | | [facility] | | [address] | | | - LABORATORY | | | | + + + + + EGD (11/07/2014 1:45 PM PST) + + | Specimen | + + | | + + + + -+ | Narrative | Performed At | + + -+ | | [facility] | | GastroenterologyPatient Name: Fili Galeas Date: 11/07/2014 1:45 | [facility] | | PMMRN: [id number] #: [id number] of : 1980Admit | | | Type: InpatientAge: 34Room: [facility] 01Gender: MaleNote Status: | | | FinalizedAttending MD: John Gallardo, MDProcedure: Upper | | | GI endoscopyIndications: Suspected esophageal reflux, | | | MelenaProviders: John Gallardo MD, Karina Chang | | | RICHARD Bose, Amanda Higuera, | | | Paper Folding Machine Operator, Panchito Lara MD (Anesthesia | | | [...] the anesthesiologist and | | | the injection mold technician in the endoscopy suite. Mental Status [...] PMScope Out: | | | 2:03:26 PM [facility], [address] [place] [address], | | | [place] [address] | | | - The retroflexed view [...] |Scope Out: 2:03:26 PM | | | [facility], [address] [place] [address], [place], [place] | | | [address] | | + + -+ + + [...] + | [facility] | [address] | [place] | [phone] | | [facility] | | [address] | | | - LABORATORY | | | | + + + + + | [facility] | [address] | [place], [place] | | | [facility] | | [address] | | | - LABORATORY | | [...] mL/min/1.73m2 | [facility] | | | [place] | RATE,ESTIMATED | | MEDICAL | | | | mL/min/1.06h0Ihnw than | | CENTER - | | [...] [address] | [place] | [phone] | | [facility] | | [address] | | | - LABORATORY | | | | + + + + + | [facility] | [address] | [place] | | | [facility] | | [address] | | | - LABORATORY | | [...] + | [facility] | [address] | [place], [place] | [phone] | | [facility] | | [address] | | | - LABORATORY | | | | + + + + + | [facility] | [address] | [place], [place] | | | [facility] | | [address] | | | - LABORATORY | | [...] + | [facility] | [address] | [place], [place] | [phone] | | [facility] | | [address] | | | - LABORATORY | | | | + + + + + | [facility] | [address] | [place], [place] | | | [facility] | | [address] | | | - LABORATORY | | [...] + | [facility] | [address] | [place], [place] | [phone] | | [facility] | | [address] | | | - LABORATORY | | | | + + + + + | [facility] | [address] | [place], [place] | | | [facility] | | [address] | | | - LABORATORY | | [...] + | [facility] | [address] | [place] | [phone] | | [facility] | | [address] | | | - LABORATORY | | | | + + + + + | [facility] | [address] | [place] | | | [facility] | | [address] | | | - LABORATORY | | [...] + | [facility] | [address] | [place] | | | [facility] | | [address] | | | - BLOOD BANK | [...] + | [facility] | [address] | [place], [place] | [phone] | | [facility] | | [address] | | | - LABORATORY | | | | + + + + + | [facility] | [address] | [place], [place] | | | [facility] | | [address] | | | - LABORATORY | | [...] + | [facility] | [address] | [place] | [phone] | | [facility] | | [address] | | | - LABORATORY | | | | + + + + + | [facility] | [address] | [place], [place] | | | [facility] | | [address] | | | - LABORATORY | | [...] | | | | | mg/dL | [facility] | | | | | | MEDICAL | | | | | | CENTER - | | | | | | LABORATORY | | + + + + + + | eGFR if not | >60Comment: GLOMERULAR | >=60 | [facility] | | | | FILTRATION | mL/min/1.73m2 | [facility] | | | [place] | RATE,ESTIMATED | | MEDICAL | | | | mL/min/1.52u5Plwu than | | CENTER - | | [...] | 8.4 | 8.3 - 10.5 | [facility] | | | | | mg/dL | [facility] | | | | [...] ST. | [address] | [place] | [phone] | | [facility] | | [address] | | | - LABORATORY | | | | + + + + + | [facility] | [address] | [place], [place] | | | [facility] | | [address] | | | - LABORATORY | | [...] | | | | | | [facility] | | | | | | MEDICAL [...] + | [facility] | [address] | [place], [place] | [phone] | | [facility] | | [address] | | | - LABORATORY | | | | + + + + + | [facility] | [address] | [place], [place] | | | [facility] | | [address] | | | - LABORATORY | | [...] PST | | | | | Starting Jeanine 11/06/14 at 1112 | | | | [...] | | | | | | | [facility] 11/06/14 at 1030 | | | [...] | | | | | Intravenous, ONCE, [facility] 11/06/14 at | | AM PST [...] PST | | | | | ONCE, [facility] 11/06/14 at 0945, For 1 | [...]
--- OUTSIDE RECORDS SUMMARY | ~2019-09-17 | XMS | Encounter Summary ---
Demographics + + + | Address | [address] | | | [place] [address] | + + + | Home Phone [...] [facility] | | | and Hanyana | + + + | Organization | [facility] | | | and [...] [place], [place] | | | | | [address] | | + + + + + Care Team Providers + +------+ + | Care Employment Specialist Name | Role | Phone | [...] | | | fracture | | [address] | | | | | Thoracic or | | [place], | | | | | lumbosacral | | [place] [address] | | | | | neuritis or | | Phone: | | | | | radiculitis, | | [phone] | | | | | unspecified | | Fax: | | | | | Lumbago | | [phone] | | | | | Arthrodesis | [...] + + | 02/04/ | Hospital | [facility] | Jean Pierre Amaya, | Chronic low back | | 2014 - | Encounter | MED CTR SURGICAL | DO [address] | pain (Primary Dx) | | | | [address] [place] | [place] [address] [place] | | | 02/06/ | | [place] [address] | [id number] | | | 2013 | | [phone] | | | +--------+ + + + [...] Care Everywhere.DISCHARGE INSTR UCTIONS FOR LUMBAR FUSION (IRISH)documented in this encounter Medications at Time of [...] & prescriptions reviewed with pt. Scripts for [place], Valium & lactulose called to Leonel (neena belle) @ [facility] in [place], [place]. Pt wheeled out by staff; family here to transport pt h ome. Ethel Rogers RN - 02/06/2014 8:03 AM PDTPt doing very well, transfers & ambulates independently with FWW & LSO brace. Pain well controlled at this time, weaning off of RISK MANAGEMENT SPECIALIST as pt will go home w ith oral dilaudid. Family at bedside. All discharge instructions reviewed with pt.Gato lilly signed by Ethel Babcock RN at 02/06/2014 8:05 AM Kobe Crain [facility] - 0 02/05/2014 8:05 AM PDT PHARMACY [...] mg HYDROmorphone in saline (DILAUDID) 1 mg/mL RISK MANAGEMENT SPECIALIST meperidine (DEMEROL) injection 12.5 mg Opioid Combinations [...] is ordered Plan: 1. Maintain frequency of RISK MANAGEMENT SPECIALIST. 2. D/c prn morphine 3. Change dilaudid PO to 4 mg q6h. 4. Pain well controlled, therefore provider d/c'd pharmacy consult. Plan is to wean RISK MANAGEMENT SPECIALIST off later and discharge patient tomorrow. 5. Patient has been educated about pain management and patient care plan. 6. Pharmacy will sign off on pain consult. Thank you for consulting pharmacy to participate in the patient s care, Electronically signed by: Kobe Lopez RPH 02/05/2014 8:06 Rosie Chery PA-C - 02/05/2014 7:28 AM PDTFormatting of this note might be different from the [facility] PROGRESS NOTE Pt. Name/Age/: Fili Alonso 33 y.o. 1980 Med. Record Number: [id number] Date of admission: 02/04/2014 Subjective: The patient [...] Intake/Output Summary (Last 24 hours) at 02/05/14 0762 Last data filed at 02/05/14 0604 Gross [...] CRISTELA's in situ. Will work on weaning RISK MANAGEMENT SPECIALIST later this pm. Likely D/C home tomorrow. Patient Active Problem List Diagnosis Chronic low back pain HTN (hypertension) Tobacco abuse Preventative health care Narcotic abuse Electronically signed by: Toribio Dick, 02/05/2014 7:28 [facility] hNani alfonso R RT - 02/05/2014 5:32 AM PDTPt is wide awake and cognitive. Received Cont Pulse Ox order, b ut RN decided pt did not need it. Dwain Justice RN - 02/04/2014 8:59 PM [id number] Report given to Bernard Rome RN documented [...] + | MISCELLANEOUS LAB | | | [phone] | + +---------+ + + | MISCELANIOUS LAB | | | [phone] | + +---------+ + + XR Lumbar [...] vertebral bodies.Dictated and | | Signed by: Rigobreto Santoyo MD Electronically signed: 02/05/2014 10:39 AM [...] + | MISCELLANEOUS LAB | | | [phone] | + +---------+ + + | MISCELANIOUS LAB | | | [phone] | + +---------+ + + Type and [...] + | [facility] | [address] | [place] | | | [facility] | | [address] | | | - BLOOD BANK | [...] | | | | (DILAUDID) 1 mg/mL RISK MANAGEMENT SPECIALIST | | 14 7:54 | | | | | Intravenous, CONTINUOUS, Starting | | PM PDT | | | | | 02/04/14 at 2130, for opiate | | | | | | | tolerant adults, Loading | | | | | | | Dose(mg): 0, Starting RISK MANAGEMENT SPECIALIST | | | | | | | Dose(mg): 0.4, Incremental | | | | | | | Increase RISK MANAGEMENT SPECIALIST Dose(mg): 0.4, | | | | | | | Maximum RISK MANAGEMENT SPECIALIST Dose(mg): 1.2, | | | | | [...]
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
--- OUTSIDE RECORDS SUMMARY | ~2019-09-17 | XMS | Encounter Summary ---
Demographics + + + | Address | [address] | | | [place] [address] | + + + | Home Phone [...] | Author | [facility] | | | and Hanyana | + + + | Organization | [facility] | | | and [place] | + + + | Address | Unknown | + + + | Phone | Unavailable | + + + Support + + + + + | Name | Relationship | Address | Phone | + + + + + | Valetnina Alonso | ECON | [address] | | | | | [place], [place] | | | | | [address] | | + + + + + Care Team Providers + +------+ + | Care Paving Machine Operator Name | Role | Phone | + +------+ + | No, Physician | PCP | Unavailable | + +------+ + Encounter Details +--------+ + + + + | Date | Type | Department | Care Team | Description | +--------+ + + + + | 07/10/ | [facility] | [facility] | Sheree Burgos | | | 2012 | Encounter | MED CTR EMERGENCY | Lily Oneal MD [address] | | | | | [place] [address] | [facility] | | | | | [place] | [place] [address] | | | | | [address] | [phone] | | | | | [phone] | Felipe Pro MD | | | | | | [address] | | | | | | [place] | | | | | | [address] | | | | | | | [...]
--- OUTSIDE RECORDS SUMMARY | ~2019-09-17 | XMS | Encounter Summary ---
Demographics + + + | Address | [address] | | | [place] [address] | + + + | Home Phone | | + + + | Preferred Language | Unknown | + + + | Marital Status | Legally | + + + | Gnosticism Affiliation | Unknown | + + + | Race | Unknown | + + + | Ethnic Group | Unknown | + + + Author + + + | Author | [facility] | | | and [place]anyana | + + + | Organization | [facility] | | | and [place] [...] [place], [place] | | | | | [address] | | + + + + + Care Team Providers + +------+ + | Care Copyman Name | Role | Phone | + +------+ + | Basilio Cuevas PA-C | PCP | | + +------+ + Encounter Details +--------+ + + + + | Date | Type | Department | Care Team | Description | +--------+ + + + + | 01/27/ | Hospital | [facility] | Jean Pierre Amaya, | | | 2013 | Encounter | MED CTR LABORATORY | DO [address] | | | | | [address] [place] | [place] [address] | | | | | [place] | [address] | | | | | [address] | | | | | | [phone] | | | +--------+ + + + [...]
--- OUTSIDE RECORDS SUMMARY | ~2019-09-17 | XMS | Encounter Summary ---
Demographics + + + | Address | [address] | | | [place] [address] | + + + | Home Phone | | + + + | Preferred Language | Unknown | + + + | Marital Status | Legally | + + + | Mormonism Affiliation | Unknown | + + + | Race | Unknown | + + + | Ethnic Group | Unknown | + + + Author + + + | Author | [facility] | | | and [place]any[place] | + + + | Organization | [facility] | | | [...] [place], [place] | | | | | [address] | | + + + + + Care Team Providers + +------+ + | Care Multi Spindle Operator Name | Role | Phone | [...] [address] [address] | [address] [place], [place] | | | | | [place], [place] | [address] | | | | | [address] | | | | | | [phone] | | | +--------+--------+ + + + [...]
--- OUTSIDE RECORDS SUMMARY | ~2019-09-17 | XMS | Encounter Summary ---
Demographics + + + | Address | [address] | | | [place] [address] | + + + | Home Phone | | + + + | Preferred Language | Unknown | + + + | Marital Status | Legally | + + + | Uatsdin Affiliation | Unknown | + + + | Race | Unknown | + + + | Ethnic Group | Unknown | + + + Author + + + | Author | [facility] | | | and [place]anyana | + + + | Organization | [facility] | | | [...] [place], [place] | | | | | [address] | | + + + + + Care Team Providers + +------+ + | Care Salvage Determiner Name | Role | Phone | + [...] | | | | [place] | [address] | | | | | [address] | | | | | | [phone] | | | +--------+ + + + [...]
--- OUTSIDE RECORDS SUMMARY | ~2019-09-17 | XMS | Encounter Summary ---
Demographics + + + | Address | [address] | | | [place] [address] | + + + | Home Phone | | + + + | Preferred Language | Unknown | + + + | Marital Status | Legally | + + + | Cheondoism Affiliation | Unknown | + + + | Race | Unknown | + + + | Ethnic Group | Unknown | + + + Author + + + | Author | [facility] | | | and Hanyana | + + + | Organization | [facility] [...] [place], [place] | | | | | [address] | | + + + + + Care Team Providers + +------+ + | Care Completion Supervisor Name | Role | Phone | + +------+ + | Basilio Cuevas PA-C | PCP | | + +------+ + Encounter Details +--------+ + + + + | Date | Type | Department | Care Team | Description | +--------+ + + + + | 12/16/ | [facility] | [facility] | | | | 2013 | Encounter | MED CTR XRAY [address] | | | | | | [place] | | | | | | [place] [address] | | | | | | [phone] | | | +--------+ + + + [...] MRI LUMBAR SPINE W | Routin | 12/16/2013 | | Results for this | | WO CONTRAST | e | 1:58 PM | | procedure are in the | | | | PST | | results section. | + +--------+ + + + documented in this encounter Results MRI Lumbar Spine w wo Contrast (12/16/2013 1:58 PM PST) + + | Specimen | + + | | + + + + + | Narrative | Performed At | + + + | [facility] | [place] | | Department [address] , [address] | [facility] | | [ rep ct [address]] [ rep [facility] | | st zip] Signed | - IMAGING | | | | | Patient Name: FILI ALONSO Physician: | | | CTI.20 : 1980 Age: 33 Sex: M Unit #: [id number] | | | Exam Date: 12/16/13 Location: [facility] [place] | | | Report #: [id number] Page: | | | %(RAD)RES..mtdd.print.filter("pg") of %(RAD) | | | RES..mtdd.print.filter("tpg") | | | | | | Accession Number: [id number] | | | UNENHANCED AND ENHANCED MRI LUMBAR SPINE, 12/16/2013 | | | CLINICAL HISTORY: INTERVERTEBRAL DISK DISORDER AND MYELOPATHY, | | | HISTORY OF LUMBAR SURGERY IN 2007. PATIENT REPORTS LOW BACK AND LEFT | | | HIP PAIN WITH LEFT LEG WEAKNESS. COMPARISON: Lumbar | | | radiograph 11/14/2013, CT lumbar spine 07/08/2013, lumbar MRI | | | 12/30/2012. TECHNIQUE: The following 3T MR sequences of the | | | lumbar spine were obtained: 1. Axial and sagittal T1. 2. | | | Axial, sagittal and coronal T2. 3. Sagittal STIR. 4. Following | | | the uneventful intravenous administration of 10 mL Gadavist, axial | | | and sagittal T1 sequences were obtained. FINDINGS: Five | | | non rib-bearing, lumbar-type vertebrae are again visible on the | | | coronal sequence. Artifact from interbody and posterior she and | | | pedicle screw fusion hardware is again noted at L5-S1. Lumbar | | | vertebral height and alignment are maintained, without evident | | | fracture or spondylolisthesis. Marrow signal is normal for age. The | | | conus medullaris is unremarkable, terminating at T12-L1. No | | | conclusive abnormal intradural, epidural, interspace, marrow or | | | paraspinal enhancement is evident following contrast administration, | | | although the postcontrast sequences are degraded by motion. Imaged | | | intraabdominal and paraspinal structures are unremarkable. | | | The T12-L1 and L1-2 levels are unremarkable on provided sagittal | | | images through the region. Subtle annular tears and minimal | | | posterior disk bulges persist at L2-3 and L3-4, combining with fairly | | | mild ligamentous and facet hypertrophy to minimally narrow the | | | neural foramina to a similar degree. There is no central canal | | | stenosis or evident nerve root compression or displacement. Bilateral | | | facet joint effusions persist. High signal annular tear | | | and a mild, generalized posterior disk bulge persist at L4-5, again | | | combining with moderate ligamentous and facet hypertrophy to mildly | | | narrow the neural foramina to a similar degree, without evident | | | nerve root compression or displacement. No central canal or | | | neural foraminal stenosis is evident at the operated L5-S1 level, | | | allowing for artifact arising from the fusion hardware. | | | IMPRESSION: 1. SIMILAR APPEARANCE OF THE LUMBAR SPINE COMPARED | | | WITH MRI OF 12/30/2012. 2. HIGH SIGNAL ANNULAR TEARS AND | | | EARLY DEGENERATIVE DISK DISEASE AT L2-3, L3-4 AND L4-5, WITHOUT | | | SIGNIFICANT STENOSIS OR EVIDENT NERVE ROOT COMPRESSION OR | | | DISPLACEMENT. MULTILEVEL FACET HYPERTROPHY IS PRESENT WELL. | | | 3. SIMILAR CHANGES OF INTERBODY AND POSTERIOR SHE AND PEDICLE | | | SCREW FUSION AT L5-S1, WITHOUT RESIDUAL STENOSIS. Dictated | | | Date/Time: 12/16/2013 13:58 Transcribed Date/Time: 12/16/2013 | | | 14:56 Truck Safety Inspector: <<Signature | | | on File>> | | | Dawson Garrido | | | MD Judah12/16/13 8348 <Electronically signed by Dawson So MD> | | | Dawson So MD 12/16/13 5218 Truck Safety Inspector: | | | Webmedx Daxbkvglrhcgo91/17/14 4155 Basilio Cuevas PA-C | | | | | + + + + + + + + | Performing | Address | City/State/Zipcode | Phone Number | | Organization | | | | + + + + + | [facility] | [address] | [place] | [phone] | | [facility] | | [address] | | | - IMAGING | | | | + + + + + documented in this encounter Visit Diagnoses Not on filedocumented in this encounter
--- OUTSIDE RECORDS SUMMARY | ~2019-09-17 | XMS | Encounter Summary ---
Demographics + + + | Address | [address] | | | [place] [address] | + + + | Home Phone | | + + + | Preferred Language | Unknown | + + + | Marital Status | Legally | + + + | Orthodoxy Affiliation | Unknown | + + + | Race | Unknown | + + + | Ethnic Group | Unknown | + + + Author + + + | Author | [facility] | | | and [place]anyana | + + + | Organization | [facility] | | | and [...] [place], [place] | | | | | [address] | | + + + + + Care Team Providers + +------+ + | Care Curatorial Assistant Name | Role | Phone | [...] | +--------+ + + + + | 02/27/ | Telephone | [facility] [place] | Jean Pierre Amaya, | Other | | 2013 | | NEUROSURGERY [address] | DO [address] | | | | | [address] | [address] [place], [place] | | | | | [place], [place] | [address] | | | | | [address] | | | | | | [phone] | | | +--------+ + + + [...]
--- OUTSIDE RECORDS SUMMARY | ~2019-09-17 | XMS | Encounter Summary ---
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 Jean Pierre Amaya DO [address] [place], [place] [address] FAX: NEUROSURGERY HISTORY AND PHYSICAL EXAMINATION CHIEF [...] [place]. He underwent a fusion L5-S1 in [place], [place] that helped his back and right [...] has no apparent deficits with short or retirement memory. CRANIAL NERVES: II: Acuity is intact. [...] Intrinsics 5 5 Ulnar Intrinsics 5 5 Campground Manager Strength 5 5 Hip Flexion 5 [...]
--- OUTSIDE RECORDS SUMMARY | ~2019-09-17 | XMS | Encounter Summary ---
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
--- OUTSIDE RECORDS SUMMARY | ~2019-09-17 | XMS | Encounter Summary ---
Demographics + + + | Address | [address] | | | [place] [address] | + + + | Home Phone [...] + + + | Author | [facility] | | | and Hanyana | + + + | Organization | [facility] | | | and [...] [place], [place] | | | | | [address] | | + + + + + Care Team Providers + +------+ + | Care Hotbed Transfer Operator Name | Role | Phone | [...] Refill | [facility] [place] | Jean Pirere Amaya, | Medication Refill | | 2013 | | NEUROSUR[address]ERY [address] | DO [address] | | | | | [address] | [address] [place], [place] | | | | | [place], [place] | [address] | | | | | [address] | | | | | | [phone] | | | +--------+--------+ + + + [...]
--- OUTSIDE RECORDS SUMMARY | ~2019-09-17 | XMS | Encounter Summary ---
Demographics + + + | Address | [address] | | | [place] [address] | + + + | Home Phone | | + + + | Preferred Language | Unknown | + + + | Marital Status | Legally | + + + | Christian Affiliation | Unknown | + + + | Race | Unknown | + + + | Ethnic Group | Unknown | + + + Author + + + | Author | [facility] | | | and Hanyana | + + + | Organization | [facility] | | | and [...] [place], [place] | | | | | [address] | | + + + + + Care Team Providers + +------+ + | Care Frog Or Oyster Farmworker Name | Role | Phone | + [...] [address] | [address] [place], [place] | | | | | [place], [place] | [address] | | | | | [address] | | | | | | [phone] | | | +--------+--------+ + + + [...]
--- OUTSIDE RECORDS SUMMARY | ~2019-09-17 | XMS | Encounter Summary ---
Demographics + + + | Address | [address] | | | [place] [address] | + + + | Home Phone | | + + + | Preferred Language | Unknown | + + + | Marital Status | Legally | + + + | Scientology Affiliation | Unknown | + + + | Race | Unknown | + + + | Ethnic Group | Unknown | + + + Author + + + | Author | [facility] | | | and Hanyana | + + + | Organization | [facility] | | [...] [place], [place] | | | | | [address] | | + + + + + Care Team Providers + +------+ + | Care Senior Information Security Analyst Name | Role | Phone | + +------+ + | Basilio Cueavs PA-C | PCP | | + +------+ [...] + | 12/05/ | Telephone | [facility] | Jean Pierre Amaya, | Letter for | | 2013 | | NEUROSURGERY [address] | DO [address] | School/Work | | | | [address] | [address] [place], [place] | | | | | [place], [place] | [address] | | | | | [address] | | | | | | [phone] | | | +--------+ + + + [...]
--- OUTSIDE RECORDS SUMMARY | ~2019-09-17 | XMS | Encounter Summary ---
Demographics + + + | Address | [address] | | | [place] [address] | + + + | Home Phone [...] Author + + + | Author | [facility] | | | and Hanyana | + + + | Organization | [facility] | | | and [place] [...] [place], [place] | | | | | [address] | | + + + + + Care Team Providers + +------+ + | Care Commissioner Of Relocation Services Name | Role | Phone | + +------+ + | Mynor Simental MD | PCP | | + +------+ + Encounter Details +--------+ + + + + | Date | Type | Department | Care Team | Description | +--------+ + + + + | 11/14/ | Hospital | [facility] | Jean Pierre Amaya, | Back pain | | 2013 | Encounter | MED CTR XRAY [address] | DO [address] | | | | | [address] | [place] | | | | | [place] [address] | [address] | | | | | [phone] | | | +--------+ + + + [...] Performed At | + + + | [facility] | [place] | | Department [address] [place] [address] | [facility] | | [ rep ct [address]] [ rep [facility] | | st zip] Signed | - IMAGING | | | | | Patient Name: ROBERT ALONSO Physician: | | | NICOLE.01 : 1980 Age: 33 Sex: M Unit #: [id number] | | | Exam Date: 11/14/13 Location: [facility] [place] | | | Report #: [id number] Page: | | | %(RAD)RES..mtdd.print.filter("pg") of %(RAD) | | | RES..mtdd.print.filter("tpg") | | | | | | Accession Number: [id number] | | | LUMBAR SPINE X-RAY CLINICAL [...] Transcribed Date/Time: 11/14/2013 | | | 12:40 Briquette Operator: <<Signature | | | on File>> | | | Sammy | | | MD Andrew11/14/13 6678 <Electronically signed by Sammy Morales MD> | | | Sammy Morales MD 11/14/13 1230 Briquette Operator: Giovanni | | | Hexbtqrhqqsiw34/16/14 1240 Jean Pierre Amaya DO | | + + + + + + + + | Performing | Address | City/State/Zipcode | Phone Number | | Organization | | | | + + + + + | [address] | [address] | [place] | [phone] | | [facility] | | [address] | | | - IMAGING | | | | + + + + + documented in this encounter Visit Diagnoses + + | Diagnosis | + + | Back pain Backache, unspecified | + + documented in this encounter
--- OUTSIDE RECORDS SUMMARY | ~2019-09-17 | XMS | Encounter Summary ---
Demographics + + + | Address | [address] | | | [place] [address] | + + + | Home Phone [...] | [facility] | | | and Hanyana | + + + | Organization | [facility] | | | and [...] [place], [place] | | | | | [address] | | + + + + + Care Team Providers + +------+ + | Care Board Of Directors Name | Role | Phone | + +------+ + | Mynor Simental MD | PCP | | + +------+ + Reason for Visit + + + | Reason | Comments | + + + | Referral | | + + + Encounter Details +--------+ + + + + | Date | Type | Department | Care Team | Description | +--------+ + + + + | 08/22/ | Telephone | [facility] | Kristen Felton, | Referral | | 2012 | | MEDICINE PATRICIO | Bed Placement Coordinator | | | | | [address] | | | | | | [place] | | | | | | [address] | | | | | | [phone] | | | +--------+ + + + [...]
--- OUTSIDE RECORDS SUMMARY | ~2019-09-17 | XMS | Encounter Summary ---
Demographics + + + | Address | [address] | | | [place] [address] | + + + | Home Phone [...] [facility] | | | and Hanyana | + + + | Organization | [facility] | | [...] [place], [place] | | | | | [address] | | + + + + + Care Team Providers + +------+ + | Care Cloth Grader Name | Role | Phone | + [...] [address] | [address] [place], [place] | | | | | [place], [place] | [address] | | | | | [address] | | | | | | [phone] | | | +--------+--------+ + + + [...]
--- OUTSIDE RECORDS SUMMARY | ~2019-09-17 | XMS | Encounter Summary ---
Demographics + + + | Address | [address] | | | [place] [address] | + + + | Home Phone [...] + + + | Author | [facility] | | | and Hanyana | + + + | Organization | [facility] | | | [...] [place], [place] | | | | | [address] | | + + + + + Care Team Providers + +------+ + | Care Red Cross Worker Name | Role | Phone | + +------+ + | No, Physician | PCP | Unavailable | + +------+ + Encounter Details +--------+ + + + + | Date | Type | Department | Care Team | Description | +--------+ + + + + | 08/11/ | Hospital | [facility] | Conversion | Pain | | 2013 | Encounter | [address]VERSION [address] | Transaction, | | | | [address] | Provider Unknown | | | | | [place] | [phone] | | | | | [address] | | | | | | [phone] | | | +--------+ + + + [...]
--- OUTSIDE RECORDS SUMMARY | ~2019-09-17 | XMS | Encounter Summary ---
Demographics + + + | Address | [address] | | | [place] [address] | + + + | Home Phone [...] Author | [facility] | | | and Hanyana | + + + | Organization | [facility] | | [...] [place], [place] | | | | | [address] | | + + + + + Care Team Providers + +------+ + | Care Manager Functional Name | Role | Phone | + +------+ + | Basilio Cuevas PA-C | PCP | | + +------+ + Encounter Details +--------+ + + + + | Date | Type | Department | Care Team | Description | +--------+ + + + + | 04/20/ | Hospital | [facility] | Conversion | Pain | | 2018 | Encounter | [address]VERSION [address] | Transaction, | | | | | [address] | Provider Unknown | | | | | [place] | [phone] | | | | | [address] | | | | | | [phone] | | | +--------+ + + + [...]
--- OUTSIDE RECORDS SUMMARY | ~2019-09-17 | XMS | Encounter Summary ---
Demographics + + + | Address | [address] | | | [place] [address] | + + + | Home Phone | | + + + | Preferred Language | Unknown | + + + | Marital Status | Legally | + + + | Islam Affiliation | Unknown | + + + | Race | Unknown | + + + | Ethnic Group | Unknown | + + + Author + + + | Author | [facility] | | | and Hanyana | + + + | Organization | [facility] | | [...] [place], [place] | | | | | [address] | | + + + + + Care Team Providers + +------+ + | Care Sidewalk Inspector Name | Role | Phone | [...] | | | | | radicular | [address] | | | | | | pain | Phone: | | | | | | Procedures | [phone] | | | | | | MRI Lumbar | Fax: | | | | | | Spine w wo | [phone] | | | | | | Contrast [...] | | | | | Procedures | [address] | [address] Phone: | | | | | [place] OFFICE | Phone: | [phone] | | | | | CONSULTATION | [phone] | Fax: | | | | | NEW/ESTAB | Fax: | [phone] | | | | | PATIENT 61 | [phone] | | | | | | MIN [...] [address] | [address] [place], [place] | Lumbago; Lumbar | | | | [place], [place] | [address] | radicular pain | | | | [address] | | | | | | [phone] | | | +--------+---------+ + + + [...] the original. Jean Pierre Amaya DO [address] [place], [place] [address] FAX: NEUROSURGERY HISTORY AND PHYSICAL EXAMINATION CHIEF [...] [place]. He underwent a fusion L5-S1 in [place] that helped his back and right [...] no apparent deficits with short or intermediate accountant memory. CRANIAL NERVES: II: Acuity is intact. [...] Intrinsics 5 5 Ulnar Intrinsics 5 5 Special Education Resource Teacher Strength 5 5 Hip Flexion 5 4-* [...] him to Dr. Brady f or left L5-[id number] steroid injection and bilateral L5-S1 facet blocks. [...]
--- OUTSIDE RECORDS SUMMARY | ~2019-09-17 | XMS | Encounter Summary ---
Demographics + + + | Address | [address] | | | [place] [address] | + + + | Home Phone [...] Author | [facility] | | | and Hanyana | + + + | Organization | [facility] | | | and [...] [place], [place] | | | | | [address] | | + + + + + Care Team Providers + +------+ + | Care Account Executive Agribusiness Name | Role | Phone | + +------+ + | Basilio Cuevas PA-C | PCP | | + +------+ + Encounter Details +--------+ + + + + | Date | Type | Department | Care Team | Description | +--------+ + + + + | 12/16/ | [facility] | [facility] | | | | 2013 | Encounter | MED CTR XRAY [address] | | | | | | [address] | | | | | | [place] [address] | | | | | | [phone] | | | +--------+ + + + [...] Performed At | + + + | [facility] | [place] | | Department [address] | [facility] | | [ rep ct [address]] [ rep [facility] | | st zip] Signed | - IMAGING | | | | | Patient Name: FILI ALONSO Physician: | | | CTI.20 : 1980 Age: 33 Sex: M Unit #: [id number] | | | Exam Date: 12/16/13 Location: [facility] [place] | | | Report #: [id number] Page: | | | %(RAD)RES..mtdd.print.filter("pg") of %(RAD) | | | RES..mtdd.print.filter("tpg") | | | | | | Accession Number: [id number] | | | UNENHANCED AND ENHANCED MRI [...] Transcribed Date/Time: 12/16/2013 | | | 14:56 Saw Superintendent: <<Signature | | | on File>> | | | Dawson Garrido | | | MD Judah12/16/13 4787 <Electronically signed by Dawson So MD> | | | Dawson So MD 12/16/13 7268 Saw Superintendent: | | | Webmedx Vmosfflkfvjzc43/17/14 3356 Basilio Cuevas PA-C | | | | | + + + + + + + + | Performing | Address | City/State/Zipcode | Phone Number | | Organization | | | | + + + + + | [facility] | [address] | [place] | [phone] | | [facility] | | [address] | | | - IMAGING | | | | + + + + + documented in this encounter Visit Diagnoses Not on filedocumented in this encounter
--- OUTSIDE RECORDS SUMMARY | ~2019-09-17 | XMS | Encounter Summary ---
Demographics + + + | Address | [address] | | | [place] [address] | + + + | Home Phone [...] + + | Author | [facility] | | | and Hanyana | + + + | Organization | [facility] | | | and [...] [place], [place] | | | | | [address] | | + + + + + Care Team Providers + +------+ + | Care Cooker Meal Name | Role | Phone | + [...] [address] | [address] [place], [place] | | | | | [place], [place] | [address] | | | | | [address] | | | | | | [phone] | | | +--------+--------+ + + + [...]
--- OUTSIDE RECORDS SUMMARY | ~2019-09-17 | XMS | Encounter Summary ---
Demographics + + + | Address | [address] | | | [place] [address] | + + + | Home Phone | | + + + | Preferred Language | Unknown | + + + | Marital Status | Legally | + + + | Moravian Affiliation | Unknown | + + + | Race | Unknown | + + + | Ethnic Group | Unknown | + + + Author + + + | Author | [facility] | | | and Hanyana | + + + | Organization | [facility] | [...] [place], [place] | | | | | [address] | | + + + + + Care Team Providers + +------+ + | Care Youth Program Director Name | Role | Phone | [...] + + | 08/29/ | Office | [facility] | Mynor Simental, | Chronic low back | | 2012 | Visit | [facility]IC[facility] | [address] | pain (Primary Dx) | | | | [address] | [place] | | | | | [place] | [address] | | | | | [address] | | | | | | [phone] | | | +--------+---------+ + + + [...] Osito Simental MD Kristen Carroll [address] [employer] - 08/29/2013 2:59 PM PDTPatient is here [...]
--- OUTSIDE RECORDS SUMMARY | ~2019-09-17 | XMS | Encounter Summary ---
Demographics + + + | Address | [address] | | | [place] [address] | + + + | Home Phone [...] Author | [facility] | | | and Hanyana | + + + | Organization | [facility] | | | and [...] [place], [place] | | | | | [address] | | + + + + + Care Team Providers + +------+ + | Care Master Automotive Glass Technician Name | Role | Phone | [...] legs (Primary Dx) | | | | [address] | [address] | | | | | [phone] | | | +--------+---------+ + + + [...] neurosurgeon as scheduled in 4 days in [facility]. documented in this encounter Progress Notes John [...] evaluation was done. Fortunately he did not pipe turner t o require surgery or be [...] scheduled to see a neurosurgeon in the [facility] 4 days from now. He has been [...]
--- OUTSIDE RECORDS SUMMARY | ~2019-09-17 | XMS | Encounter Summary ---
Demographics + + + | Address | [address] | | | [place] [address] | + + + | Home Phone [...] + + + | Author | [facility] | | | and Hanyana | + + + | Organization | [facility] | | | [...] [place], [place] | | | | | [address] | | + + + + + Care Team Providers + +------+ + | Care Keno Attendant Name | Role | Phone | [...] Description | +--------+--------+ + + + | 03/27/ | Refill | [facility] | Jean Pierre Amaya, | Medication Refill | | 2013 | | NEUROSURGERY [address] | DO [address] | | | | | [address] | [address] [place], [place] | | | | | [place], [place] | [address] | | | | | [address] | | | | | | [phone] | | | +--------+--------+ + + + [...]
--- OUTSIDE RECORDS SUMMARY | ~2019-09-17 | XMS | Encounter Summary ---
Demographics + + + | Address | [address] | | | [place] [address] | + + + | Home Phone | | + + + | Preferred Language | Unknown | + + + | Marital Status | Legally | + + + | Samaritan Affiliation | Unknown | + + + | Race | Unknown | + + + | Ethnic Group | Unknown | + + + Author + + + | Author | [facility] | | | and Hanyana | + + + | Organization | [facility] [...] [place], [place] | | | | | [address] | | + + + + + Care Team Providers + +------+ + | Care Modeling Teacher Name | Role | Phone | [...] [address] | [address] [place], [place] | | | | | [place], [place] | [address] | | | | | [address] | | | | | | [phone] | | | +--------+--------+ + + + [...]
--- OUTSIDE RECORDS SUMMARY | ~2019-09-17 | XMS | Encounter Summary ---
Demographics + + + | Address | [address] | | | [place] [address] | + + + | Home Phone | | + + + | Preferred Language | Unknown | + + + | Marital Status | Legally | + + + | Congregational Affiliation | Unknown | + + + | Race | Unknown | + + + | Ethnic Group | Unknown | + + + Author + + + | Author | [facility] | | | and Hanyana | + + + | Organization | [facility] | | | and [place] [...] [place], [place] | | | | | [address] | | + + + + + Care Team Providers + +------+ + | Care Biology Internship Name | Role | Phone | + +------+ + | Mynor Simental MD | PCP | | + +------+ + Encounter Details +--------+ + + + + | Date | Type | Department | Care Team | Description | +--------+ + + + + | 11/08/ | Orders Only | [facility] | Jean Pierre Amaya, | Back pain (Primary | | 2014 | | NEUROSURGERY [address] | DO [address] | Dx) | | | | [address] | [address] [place] | | | | | [place] | [address] | | | | | [address] | | | | | | [phone] | | | +--------+ + + + [...] Performed At | + + + | [facility] | [facility] | | Department [address] [place] [address] | [facility] | | [ rep ct [address]] [ rep ct [facility] | | [facility]] Signed | - IMAGING | | | | | Patient Name: FILI ALONSO Physician: | | | NICOLEJessica : 1980 Age: 33 Sex: M Unit #: [id number] | | | Exam Date: 11/14/13 Location: [facility] | | | Report #: [id number] Page: | | | %(RAD)RES..mtdd.print.filter("pg") of %(RAD) | | | RES..mtdd.print.filter("tpg") | | | | | | Accession Number: [id number] | | | LUMBAR SPINE X-RAY CLINICAL [...] Transcribed Date/Time: 11/14/2013 | | | 12:40 River[employer] Assault Craft Crewman: <<Signature | | | on File>> | | | Sammy | | | MD Andrew11/14/13 3149 <Electronically signed by Sammy Morales MD> | | | Sammy Morales MD 11/14/13 1230 [employer] Crewman: Image Socketmedx | | | [id number]/16/14 1240 Jean Pierre Amaya DO | | + + + + + + + + | Performing | Address | City/State/Zipcode | Phone Number | | Organization | | | | + + + + + | [facility] | [address] | [place] | [phone] | | [facility] | | [address] | | | - IMAGING | | | | + + + + + documented in this encounter Visit Diagnoses + + | Diagnosis | + + | Back pain - Primary Backache, unspecified | + + documented in this encounter
--- OUTSIDE RECORDS SUMMARY | ~2019-09-17 | XMS | Encounter Summary ---
Demographics + + + | Address | [address] | | | [place] [address] | + + + | Home Phone | | + + + | Preferred Language | Unknown | + + + | Marital Status | Legally | + + + | Confucianist Affiliation | Unknown | + + + | Race | Unknown | + + + | Ethnic Group | Unknown | + + + Author + + + | Author | [facility] | | | and Hanyana | + + + | Organization | [facility] | [...] [place], [place] | | | | | [address] | | + + + + + Care Team Providers + +------+ + | Care Auto Service Representative Name | Role | Phone | + +------+ + | No, Physician | PCP | Unavailable | + +------+ + Encounter Details +--------+ + + + + | Date | Type | Department | Care Team | Description | +--------+ + + + + | 01/23/ | [facility] | [facility] | Felipe Pro, | | | 2012 | Encounter | MED CTR EMERGENCY | [address] | | | | | CENTER [address] | [place] | | | | | [place] | [address] | | | | | [address] | | | | | | [phone] | Mahesh Mora MD | | | | | | [address] | | | | | | [place], [place] | | | | | | [address] | | | | | | | [...] | [facility] | [place] | | Department [address] [facility] | [facility] | | [ rep ct [address]] [ rep ct [facility] | | st zip] Signed | - IMAGING | | | | | Patient Name: ROBERT ALONSO Physician: | | | CARLO. : 1980 Age: 32 Sex: M Unit #: [id number] | | | Exam Date: 01/23/13 Location: ER | | | Report #: [id number] Page: | | | %(RAD)RES..mtdd.print.filter("pg") of %(RAD) | | | RES..mtdd.print.filter("tpg") | | | | | | Accession Number: [id number] | | | ENHANCED CT ABDOMEN AND [...] by the | | | [facility] radiologist on 01/23/2013 at 1811 hours. | | | <<Signature on File>> | | | Dawson Garrido | | | MD Judah01/24/13 0910 <Electronically signed by Dawson So MD> | | | Dawson So MD 01/24/13 0724 Admitting Supervisor: | | | Amanda Deal01/24/13 0831 Felipe Pro MD | | | Mahesh Mora MD | | + + + + + + + + | Performing | Address | City/State/Zipcode | Phone Number | | Organization | | | | + + + + + | [facility] | [address] | [place] | [phone] | | [facility] | | [address] | | | - IMAGING | | [...] + | [facility] | [address] | [place], [place] | [phone] | | [facility] | | [address] | | | - LABORATORY | | | | + + + + + | [facility] | [address] | [place], [place] | | | [facility] | | [address] | | | - LABORATORY | | [...] | | | | g/dL | [facility] | | | | [...] [address] | [place] | [phone] | | [facility] | | [address] | | | - LABORATORY | | | | + + + + + | [facility] | [address] | [place] | | | [facility] | | [address] | | | - LABORATORY | | | | + + + + + documented in this encounter Visit Diagnoses Not on filedocumented in this encounter
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
--- OUTSIDE RECORDS SUMMARY | ~2019-09-17 | XMS | Encounter Summary ---
Demographics + + + | Address | [address] | | | [place] [address] | + + + | Home Phone [...] | Author | [facility] | | | and Hanyana | + + + | Organization | [facility] | [...] [place], [place] | | | | | [address] | | + + + + + Care Team Providers + +------+ + | Care Sample Maker Name | Role | Phone | [...] | | | fracture | | [address] | | | | | Thoracic or | | [place], | | | | | lumbosacral | | [place] [address] | | | | | neuritis or | | Phone: | | | | | radiculitis, | | [phone] | | | | | unspecified | | Fax: | | | | | Lumbago | | [phone] | | | | | Arthrodesis | [...] | | | | | [address] | [place] | | | | | [place] | [address] | | | | | [address] | | | | | | [phone] | | | +--------+ + + + [...] +----+---+ + + | | 1 | Clovis | | | | 1 | 38-degrees | | | | 2 | | | | | 6 | | | +----+---+ + + | | 1 | Antibiotic | | | | 4 | Given | | | | 5 | | | | | 5 | | | +----+---+ + + | | 1 | Clovis off | Esophageal Temperature of 38.0, so [...]
--- OUTSIDE RECORDS SUMMARY | ~2019-09-17 | XMS | Encounter Summary ---
Demographics + + + | Address | [address] | | | [place] [address] | + + + | Home Phone [...] Author | [facility] | | | and Hanyana | + + + | Organization | [facility] | | | and [place] | + + + | Address | Unknown | + + + | Phone | Unavailable | + + + Support + + + + + | Name | Relationship | Address | Phone | + + + + + | Valentina Alonso | ECON | [address] | | | | | [place], [place] | | | | | [address] | | + + + + + Care Team Providers + +------+ + | Care Electromechanical Equipment Tester Name | Role | Phone | + [...] [address] | [address] [place], [place] | | | | | [place], [place] | [address] | | | | | [address] | | | | | | [phone] | | | +--------+--------+ + + + [...]
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
--- OUTSIDE RECORDS SUMMARY | ~2019-09-17 | XMS | Encounter Summary ---
Demographics + + + | Address | [address] | | | [place] [address] | + + + | Home Phone [...] | Author | [facility] | | | and Hanyana | + + + | Organization | [facility] [...] [place], [place] | | | | | [address] | | + + + + + Care Team Providers + +------+ + | Care Sample Maker Original Name | Role | Phone | + [...] [address] | [address] [place], [place] | | | | | [place], [place] | [address] | | | | | [address] | | | | | | [phone] | | | +--------+--------+ + + + [...]
--- OUTSIDE RECORDS SUMMARY | ~2019-09-17 | XMS | Encounter Summary ---
Demographics + + + | Address | [address] | | | [place] [address] | + + + | Home Phone [...] + | Author | [facility] | | | and Hanyana | + + + | Organization | [facility] | | | and [place] | [...] [place], [place] | | | | | [address] | | + + + + + Care Team Providers + +------+ + | Care Snowblower Mechanic Name | Role | Phone | [...] [address] | [address] [place], [place] | | | | | [place], [place] | [address] | | | | | [address] | | | | | | [phone] | | | +--------+ + + + [...]
--- OUTSIDE RECORDS SUMMARY | ~2019-09-17 | XMS | Encounter Summary ---
Demographics + + + | Address | [address] | | | [place] [address] | + + + | Home Phone [...] | [facility] | | | and Hanyana | + + + | Organization | [facility] | | | and [...] [place], [place] | | | | | [address] | | + + + + + Care Team Providers + +------+ + | Care Prototype Deicer Assembler Name | Role | Phone | [...] + | 08/22/ | Telephone | [facility] | [place]en [place], | Referral | | 2012 | | MEDICINE PATRICIO | Chargeback Analyst | | | | | [address] | | | | | | [place] | | | | | | [address] | | | | | | [phone] | | | +--------+ + + + [...]
[~2019-09-17 23:20] MED LIST changes: +CIPRO500 MG PO
--- OUTSIDE RECORDS SUMMARY | 2019-09-17 23:22 | XMS ---
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 IRIS CREATED Elopement at [facility] 04/09/2019 15:25 - Other Details: PATIENT LWBS. CRITERIA MET - Group Notification - [facility] - Has Care Guidelines CARE PROVIDERS CONI SINGH [facility] 06/29/2018-Current PHONE: Unknown Coni Singh MD Primary Care Current PHONE: [phone] Hue has no Care Guidelines for this patient. Care History Medical/Surgical 12/19/2018 [facility] - PATIENT IS A [place] PATIENT- PATIENT PCP IS DR SINGH OUT OF [facility]. - WALK IN AVAILABILITY IS OFFERED AT THE [facility] MONDAY THRU MONDAY AND TRANSPORTATION CAN BE PROVIDED TO VETERANS. - PLEASE REFER PATIENT TO PCP FOR NON EMERGENT MEDICAL NEEDS. E.D. VISIT COUNT (12 MO.) [address] [place] 1 [facility] 5 MANUEL Desir TOTAL 7 NOTE: Visits indicate total known visits. ED/UCC VISIT TRACKING (12 MO.) 09/17/2019 23:21 [facility] [place] TYPE: Emergency COMPLAINT: - LOWER BACK PAIN 07/04/2019 19:14 [facility] TYPE: Emergency COMPLAINT: - BACK PAIN DIAGNOSES: - Low back pain - Epididymitis - Other skilled nursing (current) drug therapy 07/01/2019 20:04 [facility] [place] [facility] COMPLAINT: - TESTICULAR PAIN DIAGNOSES: - Left testicular pain - Other skilled nursing (current) drug therapy 04/09/2019 15:25 [facility] [place] [facility]: Emergency COMPLAINT: - EYE PAIN DIAGNOSES: - Proc/trtmt not crd out d/t pt lv bef seen by [facility] care prov - Ocular pain, unspecified eye 03/29/2019 17:07 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 Post-traumatic stress disorder, chronic 0. Post-traumatic stress disorder, unspecified 0. Opioid dependence, uncomplicated 1. Post-traumatic stress disorder, chronic 2. Radiculopathy, lumbar region 2. Ot place in hospital as place 2. Other external cause status 2. Exposure to other specified factors, initial encounter 2. Other chronic pain 2. Major depressive disorder, single episode, unspecified 2. Strain of adductor musc/fasc/tend unsp thigh, init 2. Low back pain 2. Opioid dependence, uncomplicated [email or web address]
== END 2019-09-17 23:33 | disposition left against medical advice (07) ==
LOC: ED 23:20
DX: Z53.21 Procedure and treatment not carried out due to patient leaving prior to being seen by health care provider (principal)

== ENCOUNTER 2021-08-25 15:29 | Emergency (ER) | payer OTHER ==
[~2021-08-25] VITALS: Ht 182.9 cm; Wt 108.9 kg
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
[2021-08-25] MEDS ORDERED: LOSARTAN POTASS50 MG PO (16:37)
[2021-08-25] MEDS ORDERED: ESCITALOPRAM OXA5 MG PO (17:16)
[2021-08-25] MEDS ORDERED: OMEPRAZOLE20 MG PO (17:17)
[2021-08-25] MEDS ORDERED: PROPRANOLOL HCL10 MG PO (17:18)
[2021-08-25] MEDS ORDERED: REMERON15 MG PO (17:18)
[2021-08-25] MEDS ORDERED: BACLOFEN10 MG PO (17:19)
[2021-08-25] MEDS ORDERED: CYCLOBENZAPRINE10 MG PO (17:20)
[2021-08-25] MEDS ORDERED: OLANZAPINE5 MG PO (17:20)
== END 2021-08-25 18:11 | disposition home or self-care (01) ==
LOC: ED 15:29
DX: S16.1XXA Strain of muscle, fascia and tendon at neck level, initial encounter (principal); S39.012A Strain of muscle, fascia and tendon of lower back, initial encounter; S40.012A Contusion of left shoulder, initial encounter; V47.5XXA Car driver injured in collision with fixed or stationary object in traffic accident, initial encounter; Z79.899 Other long term (current) drug therapy
CPT/HCPCS: 70450; 71260; 72125; 73030; 74177; 80053; 85025; 96375; 99284-25; G0480; J1170; J1885; Q9967

== ENCOUNTER 2021-11-24 05:35 | Day surgery (SDC) | payer OTHER ==
[~2021-11-24] VITALS: Ht 182.9 cm; Wt 124.0 kg
[~2021-11-24 05:35] MED LIST changes: +BACLOFEN10 MG PO; +ESCITALOPRAM OXA5 MG PO; +LOSARTAN POTASS50 MG PO; +OLANZAPINE5 MG PO; +OMEPRAZOLE20 MG PO; +PROPRANOLOL HCL10 MG PO; +REMERON15 MG PO
--- NOTE | 2021-11-24 09:11 | NUR ---
11/24/21 0911 LEONELA ONEIL 0900-PATIENT ARRIVES TO PACU ON 6L VIA MASK. PATIENT IS DROWSY AND TAKES MASK OFF. O2 SATS TO 91%, O2 TURNED TO 3L VIA NC. PATIENT RESP EVEN AND UNLABORED. 0904-PATIENT IS DROWSY. RATES PAIN 3/10 AND STATES THIS IS TOLERABLE. DENIES NAUSEA. RESP EVEN. ENCOURAGED PATIENT TO COUGH AND TAKE DEEP BREATHS. 0906-HOB ELEVATED AND PATIENT TAKING SIPS OF WATER.
--- NOTE | 2021-11-24 09:47 | NUR ---
PT ARRIVES TO DS RM 5 FROM PACU AWAKE AND ALERT WITH ICED WATER IN HAND. PT DENIES NAUSEA WHEN ASKED AND RATES PAIN 3/10. DC CRITERIA EXPLAINED TO PT, CALL LIGHT WITHIN REACH.
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
--- NOTE | 2021-11-24 10:09 | NUR ---
[id number]: PT HAS URGE TO VOID, SITS AT SIDE OF BED PRIOR TO STANDING. PT ABLE TO AMBULATE TO BATHROOM WITH STEADY GAIT AND RN ASSIST. PT VOIDS APPROX 375 MLS YELLOW URINE WITH NO PROBLEMS. PT BACK TO DS RM 5 AND WOULD LIKE PAIN MEDICATION. PT OFFERED NORCO AND PT STATES, "CAN I DO SOMETHING WITHOUT TYLENOL, MY STOMACH IS SENSITIVE TO IT." THIS RN CONVERSES WITH DR. LIMON WHO INPUTS NEW ORDERS.
[2021-11-24] MEDS ORDERED: OXYCODONE HCL5 MG PO (10:32)
--- NOTE | 2021-11-24 11:17 | NUR ---
1025: PT CONT TO HAVE PAIN IN RIGHT GROIN AREA, PAIN MEDICATION ADMINISTERED. 1100: PT TOLERATES PAIN MEDICATION WITH NO NAUSEA AND WOULD LIKE TO DC HOME. PT DRESSES SELF AND OPENS CURTAIN WHEN DONE. DC INSTRUCTIONS GIVEN VERBALLY AND WRITTEN. PAIN PRESCRIPTION PROVIDED IN DC FOLDER AND PT AWARE OF NEED TO DROP OFF AT PHARMACY. PT CALLS HIS MOTHER FOR SAFE RIDE HOME WHO IS ALREADY IN PARKING LOT WAITING. IV REMOVED AND PRESSURE COBAN DRESSING APPLIED, PT ENCOURAGED TO REMOVE IN APPROX 10-15 MINUTES. PT DC VIA FROM DS RM 5 TO HOME.
--- NOTE | 2021-11-24 13:02 | NUR ---
PT ALERT, ORIENTED AND WILL BE PICKED UP BY MOTHER AT [place]. PT HAS HAD THIS SURGERY BEFORE, FEELS CONFIDENT, ALL QUESTIONS ASKED ANSWERED. PT DECLINED PRAYER AT THIS TIME. GAVE BLESSING, WILL FOLLOW
== END 2021-11-24 11:10 | disposition home or self-care (01) ==
LOC: DS 05:35
PROVIDERS: ATTEND Colon & Rectal Surgery
PROC: 0YU50JZ Supplement Right Inguinal Region with Synthetic Substitute, Open Approach (ICD-10-PCS; principal; 2021-11-24 07:30)
DX: K40.90 Unilateral inguinal hernia, without obstruction or gangrene, not specified as recurrent (principal); I10 Essential (primary) hypertension; Z98.1 Arthrodesis status; Z88.8 Allergy status to other drugs, medicaments and biological substances
CPT/HCPCS: C1781; J0131; J0690; J1100; J1644; J1885; J2001; J2250; J2405; J2704; J3010; J7121

== ENCOUNTER 2022-02-25 14:01 | Emergency (ER) | payer OTHER ==
[~2022-02-25] VITALS: Ht 182.9 cm; Wt 136.1 kg
[~2022-02-25 14:01] MED LIST changes: +OXYCODONE HCL5 MG PO
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
--- NOTE | 2022-02-25 18:55 | EKG ---
[facility] [address] [place], [place] [address] Signed Sinus tachycardia Right bundle branch block Abnormal ECG When compared with ECG of 17-NOV-2021 11:33, No significant change was found Confirmed by GINA MEAD MD ([id number]) on 02/25/2022 6:55:54 PM Electronically Signed By: GINA MEAD MD 02/25/221854 PATIENT NAME: DAYAMIROBERT DEEP Electrocardiogram DATE OF : 82 PHYSICIAN: GINA MEAD MD REPORT #: [id number] REPORT IS CONFIDENTIAL AND NOT TO BE RELEASED WITHOUT AUTHORIZATION
== END 2022-02-25 16:21 | disposition home or self-care (01) ==
LOC: ED 14:01
DX: R41.82 Altered mental status, unspecified (principal); F10.129 Alcohol abuse with intoxication, unspecified; Z88.8 Allergy status to other drugs, medicaments and biological substances; Z79.899 Other long term (current) drug therapy
CPT/HCPCS: 36415; 70450; 71045; 80053; 81001; 84484; 85025; 85060; 93005; 93010; 99285-25; G0480

== ENCOUNTER 2023-01-17 10:23 | Emergency (ER) | payer OTHER ==
[~2023-01-17] VITALS: Ht 182.9 cm; Wt 136.1 kg
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
== END 2023-01-18 15:30 | disposition home or self-care (01) ==
LOC: ED 10:23
DX: R45.851 Suicidal ideations (principal); R45.850 Homicidal ideations; Z88.8 Allergy status to other drugs, medicaments and biological substances; Z79.899 Other long term (current) drug therapy
CPT/HCPCS: 36415; 80053; 84443; 85025; 87502; 99284; A9270; A9270-GY; G0480; U0003